=== PATIENT | male | born 1940 | race Caucasian/White ===

== ENCOUNTER 2018-08-26 03:43 | Emergency (ER) | payer OTHER ==
--- OUTSIDE RECORDS SUMMARY | 2018-08-26 03:44 | XMS REPORT | Clinical Summary ---
:1940 Author Organization [facility] Address [address] [place] [address] Care Team Providers Name Role Phone Ariel Yanes MD Primary Care Provider Allergies No Known Allergies Medications Medication Sig Dispensed Refills Start Date End Date Status metoprolol (TOPROL-XL) Take 50 mg by 0 Active 50 MG 24 hr tablet mouth daily. pravastatin Take 40 mg by 0 Active (PRAVACHOL) 40 MG mouth daily. tablet aspirin 81 MG EC Take 81 mg by 0 Active tablet mouth daily. ursodiol (ACTIGALL) Take 300 mg by 0 Active 300 mg capsule mouth daily. famotidine (PEPCID) 20 Take 20 mg by 0 Active MG tablet mouth daily. nitroglycerin Place 0.4 mg under 0 Active (NITROSTAT) 0.4 MG SL the tongue every 5 tablet (five) minutes as needed for Chest pain Put 1 pill under tongue every 5min as needed for chest pain.No more than 3 doses in 15min.Call 911 if pain is unrelieved 5min after 1st dose . clopidogrel (PLAVIX) Take 75 mg by 0 Active 75 mg tablet mouth daily. Active Problems Problem Noted Date History of partial nephrectomy (Right) 07/31/2016 Carotid artery stenosis 07/30/2016 Left carotid stenosis 07/24/2016 Essential hypertension 07/24/2016 Pure hypercholesterolemia 07/24/2016 Current smoker 07/24/2016 Coronary artery disease involving [place] coronary artery of [place] heart 07/24 without angina pectoris S/P coronary artery stent placement 07/24/2016 Social History Tobacco Use Types Packs/Day Years Used Date Current Every Day Smoker Cigarettes, Pipe 1.5 Tobacco Cessation: Ready to Quit: No; Counseling Given: Yes Alcohol Use Drinks/Week oz/Week Comments Yes 5 Standard drinks or equivalent 2.5 of rum every day Sex Assigned at Date Recorded Not on file Job Start Date Occupation Industry Not on file Not on file Not on file Travel History Travel Start Travel End No recent travel history available. Last Filed Vital Signs Not on file Plan of Treatment Health Maintenance Due Date Last Done Comments INFLUENZA VACCINE 05/25/2018 Results Not on fileafter 08/25/2017 Insurance Payer Benefit Plan / Group Subscriber ID Type Phone Address MEDICARE MEDICARE A B xxxxxxxxxx Medicare AETNA - MGD CARE AETNA INDEMNITY NON CONTR xxxxxxxxx Comm Advance Directives For more information, please contact:[address] [phone] Code Status Date Activated Date Inactivated Comments Full Code 07/30/2016 6:11 AM 07/31/2016 5:00 PM This code status was determined by: Patient
[2018-08-26] MEDS ORDERED: HYDROCODONE/APAP 5/325 MG TAB ONE (05:08)
--- NOTE | 2018-08-26 05:11 | EDPHYS ---
Physician Documentation [facility] Name: Jayme Castillo Age: 78 yrs Sex: Male : 1940 Arrival Date: 08/26/2018 Time: 03:46 Bed 8 Private MD: ED Physician Marc Hall HPI: 08/26 04:02 This 78 yrs old Male presents to ER via EMS with unknown complaint. pkl 04:02 The patient or guardian complains of contusion, an injury. left shoulder. Context: pkl resulted from a fall, from a standing position. Onset: The symptoms/episode began/occurred just prior to arrival. Historical: - Allergies: 03:58 NKDA; ca1 - Home Meds: 04:14 metoprolol tartrate 50 mg oral tab once daily [Active]; aspirin 81 mg Oral TbEC 1 tab ca1 once daily [Active]; NitroQuick SL 0.4 mg as needed [Active]; Co Q-10 100 mg oral cap daily [Active]; ursodiol 300 mg Oral cap daily [Active]; famotidine 20 mg Oral tab 1 tab once daily [Active]; pravastatin 40 mg Oral tab [Active]; Centrum Silver Oral daily [Active]; - PMHx: 03:58 Angina; Hyperlipidemia; Hypertension; ca1 - PSHx: 03:58 Kidney Surgery; ca1 - Immunization history:: Flu vaccine is not up to date. - Social history:: Smoking status: Patient uses tobacco products, smokes 1.5 packs per day. - Ebola Screening: : No symptoms or risks identified at this time. ROS: 04:02 Eyes: Negative for injury, pain, redness, and discharge, ENT: Negative for injury, pkl pain, and discharge, Neck: Negative for injury, pain, and swelling, Cardiovascular: Negative for chest pain, palpitations, and edema, Respiratory: Negative for shortness of breath, cough, wheezing, and pleuritic chest pain, Abdomen/GI: Negative for abdominal pain, nausea, vomiting, diarrhea, and constipation, Back: Negative for injury and pain, : Negative for injury, bleeding, discharge, and swelling, Skin: Negative for injury, rash, and discoloration, Neuro: Negative for headache, weakness, numbness, tingling, and seizure. 04:02 MS/extremity: Positive for injury or acute deformity, pain, tenderness, of the left shoulder. Exam: 04:02 Head/Face: Normocephalic, atraumatic. Eyes: Pupils equal round and reactive to light, pkl extra-ocular motions intact. Lids and lashes normal. Conjunctiva and sclera are non-icteric and not injected. Cornea within normal limits. Periorbital areas with no swelling, redness, or edema. ENT: Nares patent. No nasal discharge, no septal abnormalities noted. Tympanic membranes are normal and external auditory canals are clear. Oropharynx with no redness, swelling, or masses, exudates, or evidence of obstruction, uvula midline. Mucous membranes moist. Neck: Trachea midline, no thyromegaly or masses palpated, and no cervical lymphadenopathy. Supple, full range of motion without nuchal rigidity, or vertebral point tenderness. No Meningismus. Chest/axilla: Normal chest wall appearance and motion. Nontender with no deformity. No lesions are appreciated. Cardiovascular: Regular rate and rhythm with a normal S1 and S2. No gallops, murmurs, or rubs. Normal PMI, no JVD. No pulse deficits. Respiratory: Lungs have equal breath sounds bilaterally, clear to auscultation and percussion. No rales, rhonchi or wheezes noted. No increased work of breathing, no retractions or nasal flaring. Abdomen/GI: Soft, non-tender, with normal bowel sounds. No distension or tympany. No guarding or rebound. No evidence of tenderness throughout. Back: No spinal tenderness. No costovertebral tenderness. Full range of motion. Skin: Warm, dry with normal turgor. Normal color with no rashes, no lesions, and no evidence of cellulitis. Neuro: Awake and alert, GCS 15, oriented to person, place, time, and situation. Cranial nerves II-XII grossly intact. Motor strength 5/5 in all extremities. Sensory grossly intact. Cerebellar exam normal. Normal gait. 04:02 Musculoskeletal/extremity: Extremities: grossly normal except: noted in the left shoulder: pain, tenderness. Vital Signs: 03:58 BP 106 / 60; Pulse 80; Resp 16; Temp 98; Pulse Ox 92% on R/A; Weight 99.79 kg; Height 6 ca1 ft. 6 in. (198.12 cm); Pain 2/10; 04:38 BP 109 / 58; Pulse 80; Resp 18; Pulse Ox 100% on R/A; Pain 4/10; ca1 05:51 BP 111 / 48; Pulse 73; Resp 18; Pulse Ox 94% on R/A; ca1 06:46 BP 110 / 51; Pulse 81; Resp 18; Pulse Ox 99% on R/A; ca1 07:45 BP 108 / 55; Pulse 81; Resp 18; Pulse Ox 96% on R/A; ph 08:40 BP 107 / 59; Pulse 78; Resp 18; Temp 98.0; Pulse Ox 96% on R/A; ph 03:58 Body Mass Index 25.42 (99.79 kg, 198.12 cm) ca1 MDM: 03:51 Patient medically screened. pkl 05:06 Data reviewed: vital signs, nurses notes, radiologic studies, plain films. ED course: pkl Discussed X' rays result with patient. Patient said he would like to follow up his orthopedist. Advised patient to see Dr. Hall in 1 to 2 days. Patient understood instructions. 08/26 04:01 Order name: Shoulder Left (2 View) XRAY pkl 08/26 04:55 Order name: Shoulder Immobilizer; Complete Time: 04:56 pkl Administered Medications: 05:00 Drug: [place] 5 mg-325 mg 1 tabs Route: PO; ca1 06:47 Follow up: Response: No adverse reaction; Pain is decreased ca1 Disposition: 08/26/18 05:11 Discharged to Home. Impression: Impacted fracture head of left humerus. - Condition is Stable. - Prescriptions for Ultram 50 mg Oral Tablet - take 1 tablet by ORAL route every 8 hours As needed; 30 tablet. - Medication Reconciliation Form, Thank You Letter, Antibiotic Education, Prescription Opioid Use form. - Follow up: Rl Hall MD; When: 1 - 2 days; Reason: Re-evaluation by your physician. - Problem is new. - Symptoms are unchanged. Signatures: Dispatcher [employer] EDMS Marc Hall MD MD pkl Ailyn Ruffin RN RN ph Meron Manuel RN RN ca1 Corrections: (The following items were deleted from the chart) 08:44 05:11 08/26/2018 05:11 Discharged to Home. Impression: Impacted fracture head of left ph humerus. Condition is Stable. Forms are Medication Reconciliation Form, Thank You Letter, Antibiotic Education, Prescription Opioid Use. Follow up: Rl Hall; When: 1 - 2 days; Reason: Re-evaluation by your physician. Problem is new. Symptoms are unchanged. pkl
--- NOTE | 2018-08-26 05:11 | ER ---
Nurse's Notes [facility] Name: Jayme Castillo Age: 78 yrs Sex: Male : 1940 Arrival Date: 08/26/2018 Time: 03:46 Bed 8 Private MD: Diagnosis: Impacted fracture head of left humerus Presentation: 08/26 03:49 Presenting complaint: EMS states: patient fell from going to the bathroom in his home. ca1 Found laying on the floor on his right side but complained of L shoulder pain. Transition of care: patient was not received from another setting of care. Onset of symptoms was August 26, 2018. Risk Assessment: Do you want to hurt yourself or someone else? Patient reports no desire to harm self or others. Initial Sepsis Screen: Does the patient meet any 2 criteria? No. Patient's initial sepsis screen is negative. Does the patient have a suspected source of infection? No. Patient's initial sepsis screen is negative. Care prior to arrival: Arm sling on Left Shoulder. Oxygen administered. via nasal cannula. Mechanism of Injury: Fall from standing position. 03:49 Method Of Arrival: EMS: [facility] ca1 03:49 Acuity: JANE 3 ca1 Historical: - Allergies: 03:58 NKDA; ca1 - Home Meds: 04:14 metoprolol tartrate 50 mg oral tab once daily [Active]; aspirin 81 mg Oral TbEC 1 tab ca1 once daily [Active]; NitroQuick SL 0.4 mg as needed [Active]; Co Q-10 100 mg oral cap daily [Active]; ursodiol 300 mg Oral cap daily [Active]; famotidine 20 mg Oral tab 1 tab once daily [Active]; pravastatin 40 mg Oral tab [Active]; Centrum Silver Oral daily [Active]; - PMHx: 03:58 Angina; Hyperlipidemia; Hypertension; ca1 - PSHx: 03:58 Kidney Surgery; ca1 - Immunization history:: Flu vaccine is not up to date. - Social history:: Smoking status: Patient uses tobacco products, smokes 1.5 packs per day. - Ebola Screening: : No symptoms or risks identified at this time. Screenin:59 Abuse screen: Denies threats or abuse. Denies injuries from another. Nutritional ca1 screening: No deficits noted. Tuberculosis screening: No symptoms or risk factors identified. Fall Risk Ambulatory Aid- Crutches/Cane/Walker (15 pts). Assessment: 03:59 General: Appears in no apparent distress. Behavior is calm, cooperative, appropriate ca1 for age, Smells of alcoholic beverage.. General:. Pain: Complains of pain in left shoulder. Pain currently is 2 out of 10 on a pain scale. Aggravated by movement of the shoulder. Neuro: Neuro: Level of Consciousness is awake, alert, obeys commands, Oriented to person, place, time, situation, Reports loss of balance during the fall. Denies LOC and being drunk at the time of fall. . Cardiovascular: Heart tones S1 S2 present Capillary refill < 3 seconds Patient's skin is warm and dry. Respiratory: Airway is patent Trachea midline Respiratory effort is even, unlabored, Respiratory pattern is regular, symmetrical, Breath sounds are clear bilaterally. GI: Abdomen is flat, non-distended, Bowel sounds present X 4 quads. Abd is soft and non tender X 4 quads. : No signs and/or symptoms were reported regarding the genitourinary system. EENT: No signs and/or symptoms were reported regarding the EENT system. Derm: Skin is intact, is thin, Skin is pink, warm \\T\\ dry. Musculoskeletal: Circulation, motion, and sensation intact. Range of motion: limited in left shoulder. 04:38 Reassessment: X-ray tech at pt's room for ordered X-ray procedure. ca1 04:38 Reassessment: Patient appears in no apparent distress at this time. Patient and/or ca1 family updated on plan of care and expected duration. Pain level reassessed. Patient is alert, oriented x 3, equal unlabored respirations, skin warm/dry/pink. 04:54 Reassessment: Dr. Hall talked to patient and discussed condition. Allowed patient to ca1 rest in room until [id number] for someone to pick him up and drive home. 05:51 Reassessment: Patient appears in no apparent distress at this time. Patient and/or ca1 family updated on plan of care and expected duration. Pain level reassessed. Patient is alert, oriented x 3, equal unlabored respirations, skin warm/dry/pink. Patient sleeping on bed at this time. 06:46 Reassessment: Reassessment: Patient appears in no apparent distress at this time. ca1 Patient and/or family updated on plan of care and expected duration. Pain level reassessed. Patient is alert, oriented x 3, equal unlabored respirations, skin warm/dry/pink. Patient states he will will get home by riding a taxi around 0700H. States feels a little bit dizzy and requested to stay a little longer in the ER. 07:21 Reassessment: Patient appears in no apparent distress at this time. Patient and/or ph family updated on plan of care and expected duration. Pain level reassessed. Patient is alert, oriented x 3, equal unlabored respirations, skin warm/dry/pink. Pt continues to c/o dizziness, states, " I am still feeling a little woozy so I think I'll wait a bit longer if that's okay." BP currently 100/48, which is similar to other BP readings during this and previous visits. 08:00 Reassessment: Patient appears in no apparent distress at this time. Patient and/or ph family updated on plan of care and expected duration. Pain level reassessed. Patient is alert, oriented x 3, equal unlabored respirations, skin warm/dry/pink. Pt continues to c/o "wooziness", offered to order pt breakfast and pt stated, " I usually do a Boost shake in the mornings when I feel like this. Can I get one of those?". 08:15 Reassessment: Pt drinking meal replacement shake, tolerating well. ph 08:42 Reassessment: Patient appears in no apparent distress at this time. Patient and/or ph family updated on plan of care and expected duration. Pain level reassessed. Patient is alert, oriented x 3, equal unlabored respirations, skin warm/dry/pink. Pt reports that dizziness has improved, pt assisted into wheelchair and taken to lobby by [employer] to await taxi. Vital Signs: 03:58 BP 106 / 60; Pulse 80; Resp 16; Temp 98; Pulse Ox 92% on R/A; Weight 99.79 kg; Height 6 ca1 ft. 6 in. (198.12 cm); Pain 2/10; 04:38 BP 109 / 58; Pulse 80; Resp 18; Pulse Ox 100% on R/A; Pain 4/10; ca1 05:51 BP 111 / 48; Pulse 73; Resp 18; Pulse Ox 94% on R/A; ca1 06:46 BP 110 / 51; Pulse 81; Resp 18; Pulse Ox 99% on R/A; ca1 07:45 BP 108 / 55; Pulse 81; Resp 18; Pulse Ox 96% on R/A; ph 08:40 BP 107 / 59; Pulse 78; Resp 18; Temp 98.0; Pulse Ox 96% on R/A; ph 03:58 Body Mass Index 25.42 (99.79 kg, 198.12 cm) ca1 ED Course: 03:46 Patient arrived in ED. ca1 03:48 Meron Manuel, RN is Primary Nurse. ca1 03:51 Marc Hall MD is Attending Physician. pkl 03:56 Triage completed. ca1 03:58 Arm band placed on right wrist. ca1 03:59 Patient has correct armband on for positive identification. Bed in low position. Call ca1 light in reach. Side rails up X2. 03:59 Pulse ox on. NIBP on. Warm blanket given. ca1 04:41 X-ray completed. Portable x-ray completed in exam room. Patient tolerated procedure kw well. 04:42 Shoulder Left (2 View) XRAY In Process Unspecified. EDMS 05:00 Shoulder immobilizer applied on left shoulder. ca1 05:01 No provider procedures requiring assistance completed. Patient did not have IV access ca1 during this emergency room visit. 05:10 Rl Hall MD is Referral Physician. pkl Administered Medications: 05:00 Drug: [place] 5 mg-325 mg 1 tabs Route: PO; ca1 06:47 Follow up: Response: No adverse reaction; Pain is decreased ca1 Outcome: 05:11 Discharge ordered by . pkl 08:43 Discharged to home via wheelchair. ph 08:43 Condition: good 08:43 Discharge instructions given to patient, Instructed on discharge instructions, follow up and referral plans. medication usage, Demonstrated understanding of instructions, follow-up care, medications, Prescriptions given X 1. 08:44 Patient left the ED. ph Signatures: Dispatcher [employer] EDMS Marc Hall MD MD pkl Whitley, Kimberlee kw Hall, Patricia, RN RN ph Meron Manuel RN RN ca1 Corrections: (The following items were deleted from the chart) 06:47 06:25 Reassessment: ca1 ca1
--- NOTE | 2018-08-26 08:43 | RAD REPORT ---
EXAM DESCRIPTION: RAD - Shoulder Left 2 View - 08/26/2018 4:45 am CLINICAL HISTORY: Fall, left shoulder pain COMPARISON: None. TECHNIQUE: Internal and external rotation views of the left shoulder were obtained. FINDINGS: Comminuted proximal left humerus fracture is present along the surgical neck. There is imp action along the lateral margin, 1/2 shaft width medial displacement of the distal humerus and angula tion deformity. Multiple small fracture fragments are seen along the main fracture plane. No patholog ic bone process. Humeral head maintains articulation with the glenoid. Scapula fracture is not identified. There are mild degenerative changes at the AC joint. Old clavicle fracture changes are present. No acute clavicle finding seen. IMPRESSION: Comminuted proximal left humerus fracture as detailed.
[2018-08-26 09:02] VITALS: O2SAT 96
[2018-08-26 09:03] VITALS: BP 107/59; TEMP 98
== END 2018-08-26 08:44 | disposition home or self-care (01) ==
LOC: ER 03:43
DX: S42.302A Unspecified fracture of shaft of humerus, left arm, initial encounter for closed fracture (principal); W01.0XXA Fall on same level from slipping, tripping and stumbling without subsequent striking against object, initial encounter; Y92.009 Unspecified place in unspecified non-institutional (private) residence as the place of occurrence of the external cause; Y99.8 Other external cause status; E78.5 Hyperlipidemia, unspecified; I10 Essential (primary) hypertension; F17.210 Nicotine dependence, cigarettes, uncomplicated
CPT/HCPCS: 99284

== ENCOUNTER 2018-08-30 02:22 | Emergency (ER) | payer OTHER ==
--- OUTSIDE RECORDS SUMMARY | 2018-08-30 02:25 | XMS REPORT | Clinical Summary ---
:1940 Author Organization [facility] Address [address] [place] [address] Care Team Providers Name Role Phone Ariel [...] Current smoker 07/24/2016 Coronary artery disease involving [place] coronary artery of [place] heart 07/24 without angina pectoris S/P coronary [...] INFLUENZA VACCINE 05/25/2018 Results Not on fileafter 08/29/2017 Insurance Payer Benefit Plan / Group Subscriber ID Type Phone Address MEDICARE MEDICARE A B xxxxxxxxxx Medicare AETNA - [place] CARE AETNA INDEMNITY NON CONTR xxxxxxxxx Comm Advance Directives For more information, please contact:[address] [phone] Code Status Date Activated Date Inactivated Comments Full Code 07/30/2016 6:11 AM 07/31/2016 5:00 PM This code status was determined by: Patient
[2018-08-30] MEDS ORDERED: HYDROCODONE/APAP 5/325 MG TAB ONE (03:02)
--- NOTE | 2018-08-30 05:31 | EDPHYS ---
Physician Documentation [facility] Name: Jayme Castillo Age: 78 yrs Sex: Male : 1940 Arrival Date: 08/30/2018 Time: 02:23 Bed 5 Private MD: Gerri Yanes C ED Physician Prasanna Baker HPI: 08/30 21:13 This 78 yrs old Male presents to ER via EMS with complaints of Arm Injury. wa 21:13 The patient or guardian complains of pain, that is acute, presents with c/o pain L wa shoulder. recently dx'd with humeral head fracture. states came due to worsening bruising and pain. The complaints affect the left shoulder and left arm. Context: The problem was sustained at home, resulted from a fall. Onset: The symptoms/episode began/occurred 2 day(s) ago. Treatment prior to arrival includes: no previous treatment. Modifying factors: The symptoms are alleviated by nothing. the symptoms are aggravated by movement, lifting weight, bending arm. Associated signs and symptoms: Pertinent positives: ecchymosis, of the left arm and left shoulder. Severity of symptoms: At their worst the symptoms were moderate, in the emergency department the symptoms are unchanged. The patient has not experienced similar symptoms in the past. The patient has been recently seen by a physician:. Historical: - Allergies: 02:44 NKDA; jd3 - Home Meds: 02:44 aspirin 81 mg Oral TbEC 1 tab once daily [Active]; Centrum Silver Oral daily [Active]; jd3 Co Q-10 100 mg Oral cap daily [Active]; famotidine 20 mg Oral tab 1 tab once daily [Active]; ursodiol 300 mg Oral cap daily [Active]; pravastatin 40 mg Oral tab [Active]; NitroQuick SL 0.4 mg as needed [Active]; metoprolol tartrate 50 mg Oral tab once daily [Active]; - PMHx: 02:44 Angina; Hyperlipidemia; Hypertension; jd3 - PSHx: 02:44 Kidney Surgery; Heart stents; jd3 - Immunization history:: Adult Immunizations not up to date. - Social history:: Smoking status: Patient uses tobacco products, smokes one-half pack cigarettes per day, smokes one pack cigarettes per day. - Ebola Screening: : Patient negative for fever greater than or equal to 101.5 degrees Fahrenheit, and additional compatible Ebola Virus Disease symptoms. - Family history:: not pertinent. - Hospitalizations: : No recent hospitalization is reported. ROS: 21:16 Constitutional: Negative for fever, chills, and weight loss, Eyes: Negative for injury, wa pain, redness, and discharge, ENT: Negative for injury, pain, and discharge, Neck: Negative for injury, pain, and swelling, Cardiovascular: Negative for chest pain, palpitations, and edema, Respiratory: Negative for shortness of breath, cough, wheezing, and pleuritic chest pain, Abdomen/GI: Negative for abdominal pain, nausea, vomiting, diarrhea, and constipation, Back: Negative for injury and pain, : Negative for injury, bleeding, discharge, and swelling, Neuro: Negative for headache, weakness, numbness, tingling, and seizure, Psych: Negative for depression, anxiety, suicide ideation, homicidal ideation, and hallucinations. 21:16 MS/extremity: Positive for ecchymosis, swelling, tenderness, of the left arm. 21:16 Skin: Positive for ecchymosis, of the left arm. Exam: 21:17 Constitutional: This is a well developed, well nourished patient who is awake, alert, wa and in no acute distress. Head/Face: Normocephalic, atraumatic. Eyes: Pupils equal round and reactive to light, extra-ocular motions intact. Lids and lashes normal. Conjunctiva and sclera are non-icteric and not injected. Cornea within normal limits. Periorbital areas with no swelling, redness, or edema. ENT: Nares patent. No nasal discharge, no septal abnormalities noted. Tympanic membranes are normal and external auditory canals are clear. Oropharynx with no redness, swelling, or masses, exudates, or evidence of obstruction, uvula midline. Mucous membranes moist. Neck: Trachea midline, no thyromegaly or masses palpated, and no cervical lymphadenopathy. Supple, full range of motion without nuchal rigidity, or vertebral point tenderness. No Meningismus. Chest/axilla: Normal chest wall appearance and motion. Nontender with no deformity. No lesions are appreciated. Cardiovascular: Regular rate and rhythm with a normal S1 and S2. No gallops, murmurs, or rubs. Normal PMI, no JVD. No pulse deficits. Respiratory: Lungs have equal breath sounds bilaterally, clear to auscultation and percussion. No rales, rhonchi or wheezes noted. No increased work of breathing, no retractions or nasal flaring. Abdomen/GI: Soft, non-tender, with normal bowel sounds. No distension or tympany. No guarding or rebound. No evidence of tenderness throughout. Back: No spinal tenderness. No costovertebral tenderness. Full range of motion. Neuro: Awake and alert, GCS 15, oriented to person, place, time, and situation. Cranial nerves II-XII grossly intact. Motor strength 5/5 in all extremities. Sensory grossly intact. Cerebellar exam normal. Normal gait. Psych: Awake, alert, with orientation to person, place and time. Behavior, mood, and affect are within normal limits. 21:17 Musculoskeletal/extremity: Extremities: noted in the left shoulder and left arm: ecchymosis, pain, swelling, tenderness. 21:17 Skin: injury. Vital Signs: 02:45 BP 107 / 71; Pulse 87; Resp 19 S; Temp 98.1(O); Pulse Ox 97% on R/A; Weight 99.79 kg jd3 (R); Height 6 ft. 6 in. (198.12 cm) (R); Pain 1/10; 03:00 BP 115 / 65; Pulse 82; Resp 18; Pulse Ox 98% ; ea 05:45 BP 118 / 67; Pulse 78; Resp 18; Pulse Ox 95% on R/A; ea 02:45 Body Mass Index 25.42 (99.79 kg, 198.12 cm) jd3 MDM: 02:46 Patient medically screened. ri 21:18 Differential diagnosis: eval to rule fx of joint above and below. Data reviewed: vital ri signs, nurses notes. 21:18 Test interpretation: by ED physician or midlevel provider: L elbow and humerus: no wa acute fx. 21:19 ED course: pain controlled. sling applied. ri 21:29 Response to treatment: the patient's symptoms have markedly improved after treatment. 08/30 02:48 Order name: Humerus Left XRAY ri 08/30 02:48 Order name: Elbow Left 3 View XRAY 08/30 05:28 Order name: Sling; Complete Time: 06:23 ri Administered Medications: 02:48 Drug: [place] 5 mg-325 mg 1 tabs Route: PO; jd3 03:30 Follow up: Response: No adverse reaction; Pain is decreased ea Disposition: 08/30/18 05:30 Discharged to Home. Impression: L humeral head fracture. - Condition is Stable. - Discharge Instructions: Humerus Fracture Treated With Immobilization, [id number]. - Medication Reconciliation Form, Thank You Letter, Antibiotic Education, Prescription Opioid Use form. - Follow up: Crow Chance MD; When: Tomorrow; Reason: Recheck today's complaints, Re-evaluation by your physician. - Problem is new. - Symptoms have improved. - Notes: please see the orthopedist for further evaluation of your left shoulder Signatures: Dispatcher [employer] EDMS Emily Quinteros RN Prasanna Moise ea, MD MD wa Davies, Jonathon RN RN jd3 Corrections: (The following items were deleted from the chart) 06:51 05:30 08/30/2018 05:30 Discharged to Home. Impression: L humeral head fracture. ea Condition is Stable. Forms are Medication Reconciliation Form, Thank You Letter, Antibiotic Education, Prescription Opioid Use. Follow up: Crow Chance; When: Tomorrow; Reason: Recheck today's complaints, Re-evaluation by your physician. Problem is new. Symptoms have improved. jaret
--- NOTE | 2018-08-30 05:31 | ER ---
Nurse's Notes [facility] Name: Jayme Castillo Age: 78 yrs Sex: Male : 1940 Arrival Date: 08/30/2018 Time: 02:23 Bed 5 Private MD: Gerri Yanes C Diagnosis: L humeral head fracture Presentation: 08/30 02:34 Presenting complaint: EMS states: "He fell 5 days ago and fractured his left humerus. jd3 he had an appointment on Friday with the orthopedic doctor, but today he was getting worried with the amount of swelling and bruising he is having to his left arm.". Transition of care: patient was not received from another setting of care. Onset of symptoms was August 25, 2018. Risk Assessment: Do you want to hurt yourself or someone else? Patient reports no desire to harm self or others. Initial Sepsis Screen: Does the patient meet any 2 criteria? No. Patient's initial sepsis screen is negative. Does the patient have a suspected source of infection? No. Patient's initial sepsis screen is negative. Care prior to arrival: None. 02:34 Method Of Arrival: EMS: [facility] jd3 02:34 Acuity: JANE 3 jd3 Historical: - Allergies: 02:44 NKDA; jd3 - Home Meds: 02:44 aspirin 81 mg Oral TbEC 1 tab once daily [Active]; Centrum Silver Oral daily [Active]; jd3 Co Q-10 100 mg Oral cap daily [Active]; famotidine 20 mg Oral tab 1 tab once daily [Active]; ursodiol 300 mg Oral cap daily [Active]; pravastatin 40 mg Oral tab [Active]; NitroQuick SL 0.4 mg as needed [Active]; metoprolol tartrate 50 mg Oral tab once daily [Active]; - PMHx: 02:44 Angina; Hyperlipidemia; Hypertension; jd3 - PSHx: 02:44 Kidney Surgery; Heart stents; jd3 - Immunization history:: Adult Immunizations not up to date. - Social history:: Smoking status: Patient uses tobacco products, smokes one-half pack cigarettes per day, smokes one pack cigarettes per day. - Ebola Screening: : Patient negative for fever greater than or equal to 101.5 degrees Fahrenheit, and additional compatible Ebola Virus Disease symptoms. - Family history:: not pertinent. - Hospitalizations: : No recent hospitalization is reported. Screenin:49 Abuse screen: Denies threats or abuse. Nutritional screening: No deficits noted. ea Tuberculosis screening: No symptoms or risk factors identified. Fall Risk None identified. Assessment: 02:47 General: Appears in no apparent distress. Behavior is calm, cooperative, appropriate ea for age. Pain: Complains of pain in left arm Pain currently is 9 out of 10 on a pain scale. Neuro: Level of Consciousness is awake, alert, obeys commands, Oriented to person, place, time, situation. Cardiovascular: Heart tones S1 S2 present Patient's skin is warm and dry. Respiratory: Airway is patent Respiratory effort is even, unlabored, Respiratory pattern is regular, symmetrical, Breath sounds are clear bilaterally. GI: Abdomen is non-distended. Derm: Skin is fragile, Skin is dry. Musculoskeletal: Range of motion: limited in left shoulder. 03:49 Reassessment: Patient and/or family updated on plan of care and expected duration. Pain ea level reassessed. Patient is alert, oriented x 3, equal unlabored respirations, skin warm/dry/pink. 04:31 Reassessment: Patient and/or family updated on plan of care and expected duration. Pain ea level reassessed. Pt resting with eyes closed, respirations even and unlabored, chest expansions even and symmetrical. 05:45 Reassessment: Patient and/or family updated on plan of care and expected duration. Pain ea level reassessed. Patient is alert, oriented x 3, equal unlabored respirations, skin warm/dry/pink. 06:24 Reassessment: Patient and/or family updated on plan of care and expected duration. Pain ea level reassessed. Patient is alert, oriented x 3, equal unlabored respirations, skin warm/dry/pink. Discharge instructions given to patient, verbalized the understanding of instruction. Attempted to call nephew at for transportation. 06:49 Reassessment: Patient and/or family updated on plan of care and expected duration. Pain ea level reassessed. Patient is alert, oriented x 3, equal unlabored respirations, skin warm/dry/pink. Nephew at facility for transportation. Vital Signs: 02:45 BP 107 / 71; Pulse 87; Resp 19 S; Temp 98.1(O); Pulse Ox 97% on R/A; Weight 99.79 kg jd3 (R); Height 6 ft. 6 in. (198.12 cm) (R); Pain /; 03:00 BP 115 / 65; Pulse 82; Resp 18; Pulse Ox 98% ; ea 05:45 BP 118 / 67; Pulse 78; Resp 18; Pulse Ox 95% on R/A; ea 02:45 Body Mass Index 25.42 (99.79 kg, 198.12 cm) jd3 ED Course: 02:23 Patient arrived in ED. ds1 02:24 Gerri Yanes MD is Private Physician. ds1 02:40 Triage completed. jd3 02:46 Prasanna Baker MD is Attending Physician. wa 02:46 Arm band placed on. jd3 02:47 Emily Quinteros RN is Primary Nurse. ea 02:50 Patient has correct armband on for positive identification. Bed in low position. Call ea light in reach. Side rails up X2. 03:24 X-ray completed. Patient tolerated procedure well. sg4 03:25 Humerus Left XRAY In Process Unspecified. EDMS 03:25 Elbow Left 3 View XRAY In Process Unspecified. EDMS 05:30 Crow Chance MD is Referral Physician. wa 06:04 No provider procedures requiring assistance completed. Patient did not have IV access ea during this emergency room visit. Administered Medications: 02:48 Drug: [place] 5 mg-325 mg 1 tabs Route: PO; jd3 03:30 Follow up: Response: No adverse reaction; Pain is decreased ea Outcome: 05:30 Discharge ordered by . wa 06:23 Condition: improved ea 06:23 Discharge instructions given to patient, Instructed on discharge instructions, follow up and referral plans. medication usage, Demonstrated understanding of instructions, follow-up care, medications. 06:50 Discharged to home via wheelchair, with family. ea 06:51 Patient left the ED. ea Signatures: Dispatcher [employer] EDWV Kristina Gonzales ds1 Emily Quinteros, RN Prasanna Moise ea, MD MD wa Davies, Jonathon, RN RN jd3 Garcia, Susana sg4
[2018-08-30 06:55] VITALS: TEMP 98.1
[2018-08-30 06:58] VITALS: BP 118/67; O2SAT 95
--- NOTE | 2018-08-30 09:53 | RAD REPORT ---
EXAM DESCRIPTION: RAD - Humerus Left - 08/30/2018 3:24 am CLINICAL HISTORY: injury, fall COMPARISON: Shoulder Left 2 View dated 08/26/2018 FINDINGS: Moderately displaced fracture of the proximal left humerus is seen.
--- NOTE | 2018-08-30 09:57 | RAD REPORT ---
EXAM DESCRIPTION: RAD - Elbow Left 3 View - 08/30/2018 3:24 am CLINICAL HISTORY: injury COMPARISON: No comparisons FINDINGS: Prominent soft tissue swelling is seen about the left elbow. No acute fracture or dislocat ion evident.
== END 2018-08-30 06:51 | disposition home or self-care (01) ==
LOC: ER 02:22
DX: S42.292A Other displaced fracture of upper end of left humerus, initial encounter for closed fracture (principal); W19.XXXA Unspecified fall, initial encounter; Y92.009 Unspecified place in unspecified non-institutional (private) residence as the place of occurrence of the external cause; F17.210 Nicotine dependence, cigarettes, uncomplicated; E78.5 Hyperlipidemia, unspecified; I10 Essential (primary) hypertension; Z79.82 Long term (current) use of aspirin; Z79.899 Other long term (current) drug therapy; Z95.5 Presence of coronary angioplasty implant and graft
CPT/HCPCS: 99283

== ENCOUNTER 2018-09-07 11:01 | Inpatient (IN) | payer OTHER ==
--- OUTSIDE RECORDS SUMMARY | 2018-09-07 11:03 | XMS REPORT | Clinical Summary ---
:1940 Author Organization [facility] Address [address] [place] [address] Care Team Providers Name Role Phone Ariel [...] Current smoker 07/24/2016 Coronary artery disease involving [place] coronary artery of [place] heart 07/24 without angina pectoris S/P coronary [...] INFLUENZA VACCINE 05/25/2018 Results Not on fileafter 09/06/2017 Insurance Payer Benefit Plan / Group Subscriber ID Type Phone Address MEDICARE MEDICARE A B xxxxxxxxxx Medicare AETNA - MGD CARE AETNA INDEMNITY NON CONTR xxxxxxxxx Comm Advance Directives For more information, please contact:[address] [phone] Code Status Date Activated Date Inactivated Comments Full Code 07/30/2016 6:11 AM 07/31/2016 5:00 PM This code status was determined by: Patient
[2018-09-07 11:51] LABS: Protime INR 1.12
--- NOTE | 2018-09-07 11:58 | EKG ---
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
[2018-09-07] MEDS ORDERED: MUPIROCIN 2% OINT 22GM TUBE TOP ONE (12:07)
[2018-09-07] MEDS ORDERED: NA CHLORIDE 0.9% 1,000 ML ONE (12:07)
[2018-09-07 12:08] LABS: ALT/SGPT 27 U/L (12-78); AST/SGOT 23 U/L (15-37); Albumin 2.8 g/dL (3.4-5.0); Alkaline Phosphatase 167 U/L (45-117); BUN Blood Urea Nitrogen 24 mg/dL (7-18); Bicarbonate 27 mmol/L (21-32); Bilirubin Direct 0.5 mg/dL (0-0.2); Bilirubin Total 0.9 mg/dL (0.2-1.0); Glucose Level 204 mg/dL (74-106); Magnesium 2.1 mg/dL (1.8-2.4); NT PRO-BNP 1318 pg/mL (<450); Potassium 4.2 mmol/L (3.5-5.1); Protein, Total 7.2 g/dL (6.4-8.2); Sodium Level 133 mmol/L (136-145); Troponin (Emerg Dept Use Only) < 0.02 ng/mL (0.0-0.045)
[2018-09-07] MEDS ORDERED: FAMOTIDINE 20 MG/2 ML VIAL IV ONE (12:08)
[2018-09-07] MEDS ORDERED: PANTOPRAZOLE 40 MG INJ ONE (12:11)
[2018-09-07] MEDS ORDERED: LIDOCAINE VISCOUS 2% SOLN 15 ML UDC ONE (12:16)
--- NOTE | 2018-09-07 12:50 | RAD REPORT ---
EXAM DESCRIPTION: RAD - Foot Right 3 View - 09/07/2018 12:36 pm CLINICAL HISTORY: PAIN Soft tissue wound COMPARISON: No comparisons FINDINGS: Diffuse osteopenia is present. Small plantar spur is present. Soft tissue wound is seen ad jacent to the first metatarsal head. Subtle demineralization is seen along the plantar aspect of the base of the great toe proximal phalanx. Early osteomyelitis in this location is possible.
--- NOTE | 2018-09-07 13:18 | RAD REPORT ---
EXAM DESCRIPTION: CT - Chest Abdomen Pelvis W Cont - 09/07/2018 12:57 pm CLINICAL HISTORY: Chest and abdominal pain status post fall COMPARISON: [address] abdomen TECHNIQUE: Computed axial tomography of the chest, abdomen and pelvis was obtained. 100 cc Isovue-30 0 was administered intravenously. Oral contrast was not requested. This limits evaluation of bowel. All CT scans are performed using dose optimization technique as appropriate and may include automated exposure control or mA/KV adjustment according to patient size. FINDINGS: A markedly displaced comminuted fracture involves the left humeral neck. A 3 centimeter he matoma is present within the medial soft tissues. A 14 millimeter cavitary lesion is present within the left lung apex. A pulmonary contusion is not se en. A 12 millimeter left lower lobe nodule is unchanged from 2010. Minimal ground-glass opacities are seen within the right middle lobe A 37 millimeter blood is present within the left lung base mildly enlarged from a 2010 cat scan. Cent rilobular and paraseptal emphysema is present. A mediastinal hematoma is not seen. A pleural effusion is not present. A pericardial effusion is not noted A cirrhotic liver is present. Fatty infiltration is seen. A 32 millimeter structure is present within the gallbladder. Gallbladder wall thickening is not seen. . Pancreatic calcifications are present. Pancreatic tail has been resected. Partial right nephrectomy is noted. Small right renal calcifications are present. Small right renal a rterial aneurysm is noted. Left kidney is unremarkable. Atherosclerotic changes involve the aorta, iliac and femoral arteries A Schwartz catheter is present within the bladder. The rectum is mildly distended with stool. Tiny umbil ical hernia is present. A small amount of ascites is present. Subacute compression fractures involving the vertebral bodies of T12, L1 and L2. The compression frac tures are mild to moderate in severity IMPRESSION: Markedly displaced subacute comminuted fracture of the left humeral neck 14 millimeter cavitary lesion within the left lung apex Brni-[id number] subacute compression fractures involving the vertebral bodies of T12, L1 and L2 32 millimeter structure within the gallbladder probably representing a gallstone. This should be conf irmed with ultrasound
[2018-09-07 13:20] LABS: RBC Red Blood Cell Count 2.51 M/uL (4.33-5.43)
[2018-09-07 13:22] LABS: MPV 10.3 fL (7.6-11.3)
[2018-09-07 13:23] LABS: Absolute Lymphocytes (CBC) 1.2 K/uL (0.7-4.9); Absolute Monocytes 0.8 K/uL (0.1-1.3); Absolute Neutrophil 9.4 K/uL (1.8-8.0); Basophils % 0.5 % (0-1.3); Eosinophils % 0.8 % (0-4.4); Lymphocytes % 10.7 % (15.3-44.8)
--- NOTE | 2018-09-07 13:57 | ER ---
Nurse's Notes [facility] Name: Jayme Castillo Age: 78 yrs Sex: Male : 1940 Arrival Date: 09/07/2018 Time: 11:02 Bed 14 Private MD: Diagnosis: Weakness;Anemia, unspecified;Chronic obstructive pulmonary disease with (acute) exacerbation;2-part displaced fracture of surgical neck of left humerus-displaced;Osteomyelitis-right foot Presentation: 09/07 11:05 Presenting complaint: EMS states: call was for right foot wound infection, pt also c/o tw2 LEFT arm swelling from a fall on the 2nd, he did see an ortho dr. that switched him to the sling he is wearing, pt also reports decrease in urine output, vs stable. Transition of care: patient was not received from another setting of care. Onset of symptoms was September 07, 2018. Risk Assessment: Do you want to hurt yourself or someone else? Patient reports no desire to harm self or others. Initial Sepsis Screen: Does the patient meet any 2 criteria? No. Patient's initial sepsis screen is negative. Does the patient have a suspected source of infection? Yes: Skin breakdown/wound. Care prior to arrival: None. 11:05 Method Of Arrival: EMS: [facility] tw2 11:05 Acuity: JANE 2 tw2 Historical: - Allergies: 11:06 NKDA; tw2 - Home Meds: 11:06 aspirin 81 mg Oral TbEC 1 tab once daily [Active]; Centrum Silver Oral daily [Active]; tw2 Co Q-10 100 mg Oral cap daily [Active]; famotidine 20 mg Oral tab 1 tab once daily [Active]; metoprolol tartrate 50 mg Oral tab once daily [Active]; NitroQuick SL 0.4 mg as needed [Active]; pravastatin 40 mg Oral tab [Active]; ursodiol 300 mg Oral cap daily [Active]; - PMHx: 11:06 Angina; Hyperlipidemia; Hypertension; tw2 - PSHx: 11:06 Kidney Surgery; Heart stents; tw2 - Immunization history:: Adult Immunizations. - Social history:: Smoking status: Patient uses tobacco products, smokes one pack cigarettes per day. - Ebola Screening: : Patient denies travel to an Ebola-affected area in the 21 days before illness onset. Screenin:16 Abuse screen: Denies threats or abuse. Nutritional screening: No deficits noted. tw2 Tuberculosis screening: No symptoms or risk factors identified. Fall Risk Secondary diagnosis (15 points) impaired mobility. Assessment: 11:12 General: Appears in no apparent distress. unkempt, Behavior is calm, cooperative, tw2 appropriate for age. Pain: Complains of pain in right foot and left arm. Neuro: Level of Consciousness is awake, alert, obeys commands, Oriented to person, place, time, situation. Cardiovascular: Denies chest pain, shortness of breath, Heart tones S1 S2 Patient's skin is warm and dry. Respiratory: Airway is patent Respiratory effort is even, unlabored, Respiratory pattern is regular, symmetrical, Breath sounds are clear bilaterally. GI: No signs and/or symptoms were reported involving the gastrointestinal system. Abdomen is flat, Bowel sounds present X 4 quads. : Reports inability to void, urgency. EENT: No signs and/or symptoms were reported regarding the EENT system. Derm: Wound noted Bruising that is bright red, dark purple, yellow, on left arm with swelling and weaker pulse on right wrist. Reports decubitus wound. Musculoskeletal: Range of motion: limited in left shoulder and left elbow. 11:42 Reassessment: Dr. jolly at bedside at this time. tw2 12:43 Reassessment: per HERMINIO Kelly lab called, results are not correct, need all blood test tw2 recollected, will re-blood band and redraw all labs when pt is back from ct. 13:24 Reassessment: Patient appears in no apparent distress at this time. No changes from tw2 previously documented assessment. Patient and/or family updated on plan of care and expected duration. Pain level reassessed. Patient is alert, oriented x 3, equal unlabored respirations, skin warm/dry/pink. 13:53 Reassessment: Miguel from lab reports that repeat Chemistry is the same as prior iw results, will keep original results as valid. 14:20 Reassessment: pt taken to US at this time, then to MRI per Day Beltre. tw2 15:02 Reassessment: pt back from imaging at this time, NAD, on hold for GUERRERO Garcia 2nd floor tw2 nurse to give report, blood slips received from lab at this time. 15:19 Reassessment: Patient appears in no apparent distress at this time. Patient and/or tw2 family updated on plan of care and expected duration. Pain level reassessed. Patient is alert, oriented x 3, equal unlabored respirations, skin warm/dry/pink. Vital Signs: 11:09 BP 109 / 71; Pulse 77; Resp 17; Temp 98.2(O); Pulse Ox 96% on R/A; Pain 9/10; tw2 13:23 BP 139 / 69; Pulse 71; Resp 17; Pulse Ox 96% on R/A; tw2 14:00 BP 113 / 68; Pulse 84; Resp 17; Pulse Ox 96% on R/A; tw2 15:19 BP 136 / 61; Pulse 73; Resp 17; Pulse Ox 96% on R/A; tw2 ED Course: 11:02 Patient arrived in ED. tw2 11:02 Arm band placed on. tw2 11:02 Bed in low position. Call light in reach. Side rails up X2. gambling monitor on. Pulse tw2 ox on. NIBP on. Warm blanket given. 11:03 Dameon Jolly MD is Attending Physician. [facility] 11:08 Triage completed. tw2 11:22 Amanda Gonzalez, RN is Primary Nurse. tw2 11:29 Inserted saline lock: 22 gauge in right upper arm, using aseptic technique. Blood [facility] collected. 11:30 Initial lab(s) drawn, by nd, held in ED. First set of blood cultures drawn by nd, 5 Second set of blood cultures drawn by nd. 11:35 sent to lab. [facility] 11:35 Basic Metabolic Panel Sent. [facility] 11:35 CBC with Diff Sent. [facility] 11:36 LFT's Sent. 5 11:36 Magnesium Sent. 5 11:36 NT PRO-BNP Sent. [facility] 11:36 PT-INR Sent. [facility] 11:36 Troponin (emerg Dept Use Only) Sent. [facility] 11:36 Blood Culture Adult (2) Sent. [facility] 11:46 EKG done, by dental equipment technician. reviewed by Dameon Jolly MD. sm3 12:08 T\T\S collected, blood band applied to patient. Bladder scan completed. 673. 5 12:13 XRAY Chest (1 view) In Process Unspecified. EDMS 12:13 Shoulder Left (2 View) XRAY In Process Unspecified. EDMS 12:31 Missed attempt(s): 22 gauge in right forearm. per Tech. Leanna Bleeding controlled, tw2 band aid applied, catheter tip intact. 12:36 Foot Right 3 View XRAY In Process Unspecified. EDMS 12:40 CT completed. Patient tolerated procedure well. Patient moved to CT via stretcher. sj Patient moved back from CT. 12:56 Urine collected: Peterson catheter specimen, tanya colored, Amount Returned: 1000mL. Peterson 5 cath inserted, using sterile technique, 16 Fr., by me, balloon inflated, to gravity drainage, urine specimen collected. 12:58 CT Chest, Abdomen, Pelvis - W/Contrast: iv only In Process Unspecified. EDMS 13:00 Inserted saline lock: 22 gauge in right forearm, using aseptic technique. ,using tw2 aseptic technique. new blood band applied, previous blood band shredded Blood collected. 13:52 Urine Dipstick--Ancillary (enter results) Sent. [facility] 13:54 Ariel Yanes MD is Hospitalizing Provider. isela 14:49 Awaiting: attempted to call report, per Noah, [place] they didn't know they were tw2 getting a pt and she doesn't know which nurse is getting the pt, so she will have them call me back. 14:56 Patient taken to ultrasound. via stretcher. lc3 14:57 Ultrasound completed. Patient moved back from ultrasound. lc3 15:03 No provider procedures requiring assistance completed. Patient admitted, IV remains in tw2 place. Administered Medications: 12:16 Drug: ProTONIX 80 mg Route: IVP; Site: right antecubital; hb 15:17 Follow up: Response: No adverse reaction tw2 12:17 Drug: Pepcid 20 mg Route: IVP; Site: right upper arm; tw2 15:18 Follow up: Response: No adverse reaction tw2 12:21 Drug: NS 0.9% 1000 ml Route: IV; Rate: 125 ml/hr; Site: right upper arm; tw2 12:23 Drug: Bactroban Ointment 2 % 1 application Route: Topical; Site: wound; tw2 15:08 Drug: Benadryl 12.5 mg Route: IVP; Site: right upper arm; tw2 15:19 Follow up: Response: No adverse reaction tw2 15:09 Drug: Zosyn 3.375 grams Route: IVPB; Infused Over: 60 mins; Site: right upper arm; tw2 15:17 Follow up: IV Status: Infusion continued upon admission tw2 15:09 Drug: Tylenol 650 mg Route: PO; tw2 15:18 Follow up: Response: No adverse reaction tw2 15:12 Not Given (pt to receive blood on 2nd floor nancy): vancoMYCIN 1 grams IVPB once over 2 tw2 hrs Intake: 12:30 peterson clamped at this time to prevent bladder spasms tw2 Output: 12:30 Urine: 750ml (Peterson); Total: 750ml. tw2 12:30 peterson clamped at this time to prevent bladder spasms tw2 Outcome: 13:56 Decision to Hospitalize by Provider. isela 15:19 Admitted to Med/surg accompanied by tech, via stretcher, room 230, with chart, Report tw2 called to GUERRERO Garcia 15:19 Condition: stable 15:19 Instructed on the need for admit. 15:30 Patient left the ED. tw2 Signatures: Dispatcher [employer] EDWY Dameon Jolly MD MD cha Jones, Susan sj Williams, Irene, RN RN Maggie Fried Heather, RN RN Amanda Gonzalez RN RN 2 Daniela Gray 5 Andressa Noriega 3 Corrections: (The following items were deleted from the chart) 12:00 11:05 Acuity: JANE 3 tw2 tw2 13:51 12:22 TYPE AND SCREEN+BB.LAB.BRZ drawn and sent. tw2 EDWY 17:31 11:12 Derm: Wound noted Bruising that is bright red, dark purple, yellow, on left arm tw2 with swelling and weaker pulse on right wrist. tw2
--- NOTE | 2018-09-07 13:57 | EDPHYS ---
Physician Documentation [facility] Name: Jayme Castillo Age: 78 yrs Sex: Male : 1940 Arrival Date: 09/07/2018 Time: 11:02 Bed 14 Private MD: ED Physician Dameon Jolly HPI: 09/07 11:52 This 78 yrs old Male presents to ER via EMS with complaints of Wound isela Infection, arm swelling from previous fall/fracture. 11:52 This 78 yrs old Male presents to ER via EMS with complaints of Wound isela Infection, arm swelling from previous fall/fracture. 11:52 Severity of symptoms: At their worst the symptoms were mild. isela Historical: - Allergies: 11:06 NKDA; tw2 - Home Meds: 11:06 aspirin 81 mg Oral TbEC 1 tab once daily [Active]; Centrum Silver Oral daily [Active]; tw2 Co Q-10 100 mg Oral cap daily [Active]; famotidine 20 mg Oral tab 1 tab once daily [Active]; metoprolol tartrate 50 mg Oral tab once daily [Active]; NitroQuick SL 0.4 mg as needed [Active]; pravastatin 40 mg Oral tab [Active]; ursodiol 300 mg Oral cap daily [Active]; - PMHx: 11:06 Angina; Hyperlipidemia; Hypertension; tw2 - PSHx: 11:06 Kidney Surgery; Heart stents; tw2 - Immunization history:: Adult Immunizations. - Social history:: Smoking status: Patient uses tobacco products, smokes one pack cigarettes per day. - Ebola Screening: : Patient denies travel to an Ebola-affected area in the 21 days before illness onset. ROS: 11:58 Constitutional: Negative for fever, chills, and weight loss, Eyes: Negative for injury, isela pain, redness, and discharge, ENT: Negative for injury, pain, and discharge, Neck: Negative for injury, pain, and swelling, Cardiovascular: Negative for chest pain, palpitations, and edema, Abdomen/GI: Negative for abdominal pain, nausea, vomiting, diarrhea, and constipation, Back: Negative for injury and pain, : Negative for injury, bleeding, discharge, and swelling, Neuro: Negative for headache, weakness, numbness, tingling, and seizure, Psych: Negative for depression, anxiety, suicide ideation, homicidal ideation, and hallucinations, Allergy/Immunology: Negative for hives, rash, and allergies, Endocrine: Negative for neck swelling, polydipsia, polyuria, polyphagia, and marked weight changes, Hematologic/Lymphatic: Negative for swollen nodes, abnormal bleeding, and unusual bruising. 11:58 Respiratory: Positive for cough, shortness of breath. 11:58 Abdomen/GI: Negative for abdominal pain. 11:58 MS/extremity: Positive for decreased range of motion, pain, swelling, tenderness, of the left arm. Exam: 11:58 Constitutional: This is a well developed, well nourished patient who is awake, alert, isela and in no acute distress. Head/Face: Normocephalic, atraumatic. Eyes: Pupils equal round and reactive to light, extra-ocular motions intact. Lids and lashes normal. Conjunctiva and sclera are non-icteric and not injected. Cornea within normal limits. Periorbital areas with no swelling, redness, or edema. Neck: Trachea midline, no thyromegaly or masses palpated, and no cervical lymphadenopathy. Supple, full range of motion without nuchal rigidity, or vertebral point tenderness. No Meningismus. Chest/axilla: Normal chest wall appearance and motion. Nontender with no deformity. No lesions are appreciated. Cardiovascular: Regular rate and rhythm with a normal S1 and S2. No gallops, murmurs, or rubs. Normal PMI, no JVD. No pulse deficits. Abdomen/GI: Soft, non-tender, with normal bowel sounds. No distension or tympany. No guarding or rebound. No evidence of tenderness throughout. Back: No spinal tenderness. No costovertebral tenderness. Full range of motion. Male : Normal genitalia with no discharge or lesions. MS/ Extremity: Pulses equal, no cyanosis. Neurovascular intact. Full, normal range of motion. Neuro: Awake and alert, GCS 15, oriented to person, place, time, and situation. Cranial nerves II-XII grossly intact. Motor strength 5/5 in all extremities. Sensory grossly intact. Cerebellar exam normal. Normal gait. Psych: Awake, alert, with orientation to person, place and time. Behavior, mood, and affect are within normal limits. 11:58 Eyes: Conjunctiva: pale. 11:58 Musculoskeletal/extremity: ROM: limited active range of motion, limited passive range of motion, limited active range of motion due to pain, limited passive range of motion due to pain, Circulation is intact in all extremities. Sensation intact. Compartment Syndrome exam of affected extremity: is normal. DVT Exam: negative Homans' sign noted on exam, no appreciated bluish discoloration, no erythema, no increased warmth, pain, swelling, tenderness. Vital Signs: 11:09 BP 109 / 71; Pulse 77; Resp 17; Temp 98.2(O); Pulse Ox 96% on R/A; Pain 9/10; tw2 13:23 BP 139 / 69; Pulse 71; Resp 17; Pulse Ox 96% on R/A; tw2 14:00 BP 113 / 68; Pulse 84; Resp 17; Pulse Ox 96% on R/A; tw2 15:19 BP 136 / 61; Pulse 73; Resp 17; Pulse Ox 96% on R/A; tw2 MDM: 11:03 Patient medically screened. [facility] 12:00 Data reviewed: vital signs, nurses notes, lab test result(s), EKG, radiologic studies, [facility] CT scan, plain films. 09/07 11:34 Order name: Basic Metabolic Panel; Complete Time: 13:31 09/07 11:34 Order name: CBC with Diff; Complete Time: 13:31 [facility] 09/07 11:34 Order name: LFT's; Complete Time: 13:31 [facility] 09/07 11:34 Order name: Magnesium; Complete Time: 13:31 [facility] 09/07 11:34 Order name: NT PRO-BNP; Complete Time: 13:31 [facility] 09/07 11:34 Order name: PT-INR; Complete Time: 13:31 [facility] 09/07 11:34 Order name: Troponin (emerg Dept Use Only); Complete Time: 13:31 [facility] 09/07 11:34 Order name: Blood Culture Adult (2) [facility] 09/07 11:40 Order name: Urine Culture [facility] 09/07 11:46 Order name: Type And Screen [facility] 09/07 11:50 Order name: Lipase; Complete Time: 13:31 [facility] 09/07 11:50 Order name: Sed Rate; Complete Time: 13:56 [facility] 09/07 12:00 Order name: Bb Add On bd 09/07 11:34 Order name: XRAY Chest (1 view) [facility] 09/07 11:46 Order name: Shoulder Left (2 View) XRAY [facility] 09/07 11:50 Order name: Foot Right 3 View XRAY; Complete Time: 13:31 [facility] 09/07 11:51 Order name: CT Chest, Abdomen, Pelvis - W/Contrast: iv only; Complete Time: 13:31 [facility] 09/07 13:07 Order name: Urine Dipstick--Ancillary (enter results) 09/07 14:06 Order name: Foot Right Wo Cont [facility] 09/07 14:08 Order name: ABO/RH no charge [facility] 09/07 14:12 Order name: UPPER EXTREMITY VENOUS UNILATE [facility] 09/07 11:34 Order name: EKG; Complete Time: 11:35 [facility] 09/07 11:34 Order name: Cardiac monitoring; Complete Time: 11:34 [facility] 09/07 11:34 Order name: EKG - Nurse/Tech; Complete Time: 12:22 [facility] 09/07 11:34 Order name: IV Saline Lock; Complete Time: 11:34 [facility] 09/07 11:34 Order name: Labs collected and sent; Complete Time: 11:34 [facility] 09/07 11:34 Order name: O2 Per Protocol; Complete Time: 11:34 [facility] 09/07 11:34 Order name: O2 Sat Monitoring; Complete Time: 11:34 [facility] 09/07 11:40 Order name: Urine Dipstick-Ancillary (obtain specimen); Complete Time: 12:22 [facility] 09/07 11:50 Order name: Bladder Scanner; Complete Time: 12:21 [facility] 09/07 11:50 Order name: Peterson: if pvr greater than [address] peterson; Complete Time: 12:21 [facility] 09/07 14:06 Order name: CONS Physician Consult [facility] Administered Medications: 12:16 Drug: ProTONIX 80 mg Route: IVP; Site: right antecubital; hb 15:17 Follow up: Response: No adverse reaction tw2 12:17 Drug: Pepcid 20 mg Route: IVP; Site: right upper arm; tw2 15:18 Follow up: Response: No adverse reaction tw2 12:21 Drug: NS 0.9% 1000 ml Route: IV; Rate: 125 ml/hr; Site: right upper arm; tw2 12:23 Drug: Bactroban Ointment 2 % 1 application Route: Topical; Site: wound; tw2 15:08 Drug: Benadryl 12.5 mg Route: IVP; Site: right upper arm; tw2 15:19 Follow up: Response: No adverse reaction tw2 15:09 Drug: Zosyn 3.375 grams Route: IVPB; Infused Over: 60 mins; Site: right upper arm; tw2 15:17 Follow up: IV Status: Infusion continued upon admission tw2 15:09 Drug: Tylenol 650 mg Route: PO; tw2 15:18 Follow up: Response: No adverse reaction tw2 15:12 Not Given (pt to receive blood on 2nd floor nancy): vancoMYCIN 1 grams IVPB once over 2 tw2 hrs Disposition: 09/07/18 13:56 Hospitalization ordered by Ariel Yanes for Inpatient Admission. Preliminary diagnosis are Weakness, Anemia, unspecified, Chronic obstructive pulmonary disease with (acute) exacerbation, 2-part displaced fracture of surgical neck of left humerus - displaced, Osteomyelitis - right foot. - Bed requested for Telemetry/MedSurg (Inpatient). - Status is Inpatient Admission. tw2 - Condition is Fair. - Problem is new. - Symptoms have improved. UTI on Admission? No Signatures: Dispatcher [employer] EDIL Dameon Jolly MD MD cha Williams, Irene, RN RN Christie Hill RN RN Amanda Sadler RN RN tw2 Corrections: (The following items were deleted from the chart) 13:35 12:47 Basic Metabolic Panel ordered. [facility] 13:35 12:47 Liver (Hepatic) Function ordered. [facility] 13:35 12:47 Troponin (Emerg Dept Use Only) ordered. [facility] 13:35 12:47 NT PRO-BNP ordered. [facility] 13:35 12:47 Magnesium ordered. [facility] 13:35 12:47 Lipase ordered. [facility] 13:51 11:47 TYPE AND SCREEN+BB.LAB.BRZ ordered. [facility] 13:58 13:56 Hospitalization Ordered by Ariel Yanes MD for Inpatient Admission. Preliminary isela diagnosis is Weakness; Anemia, unspecified; Chronic obstructive pulmonary disease with (acute) exacerbation; 2-part displaced fracture of surgical neck of left humerus - displaced. Bed requested for Telemetry/MedSurg (Inpatient). Status is Inpatient Admission. Condition is Fair. Problem is new. Symptoms have improved. UTI on Admission? No. isela 14:12 14:09 Extremity Venous Uni Ltd+US.RAD.BRZ ordered. EDMS EDMS 14:48 13:58 09/07/2018 13:56 Hospitalization Ordered by Ariel Yanes MD for Inpatient iw Admission. Preliminary diagnosis is Weakness; Anemia, unspecified; Chronic obstructive pulmonary disease with (acute) exacerbation; 2-part displaced fracture of surgical neck of left humerus - displaced; Osteomyelitis - right foot. Bed requested for Telemetry/MedSurg (Inpatient). Status is Inpatient Admission. Condition is Fair. Problem is new. Symptoms have improved. UTI on Admission? No. isela 15:30 14:48 09/07/2018 13:56 Hospitalization Ordered by Ariel Yanes MD for Inpatient tw2 Admission. Preliminary diagnosis is Weakness; Anemia, unspecified; Chronic obstructive pulmonary disease with (acute) exacerbation; 2-part displaced fracture of surgical neck of left humerus - displaced; Osteomyelitis - right foot. Bed requested for Telemetry/MedSurg (Inpatient). Status is Inpatient Admission. Condition is Fair. Problem is new. Symptoms have improved. UTI on Admission? No. iw
[2018-09-07] MEDS ORDERED: ACETAMINOPHEN 325 MG TABLET ONE (14:36)
[2018-09-07] MEDS ORDERED: NA CHLORIDE 0.9% 500 ML ONE (14:37)
[2018-09-07] MEDS ORDERED: PIPER/TAZO/NS 3.375gm 3.375 GM/100 ML BAG ONE (14:37)
[2018-09-07] MEDS ORDERED: DIPHENHYDRAMINE 50 MG/ML VIAL ONE (14:37)
[2018-09-07] MEDS ORDERED: VANCOMYCIN 0 GM/0 ML BAG ONE (14:37)
--- NOTE | 2018-09-07 15:37 | RAD REPORT ---
EXAM DESCRIPTION: RAD - Shoulder Left 2 View - 09/07/2018 12:11 pm CLINICAL HISTORY: Left shoulder pain status post fall FINDINGS: Comminuted fracture involves the left humeral neck with marked displacement fracture fragm ents. The humeral head appears rotated medially. No dislocation is seen
--- NOTE | 2018-09-07 15:38 | RAD REPORT ---
EXAM DESCRIPTION: Tammi Single View09/07/2018 12:11 pm CLINICAL HISTORY: Chest pain COMPARISON: July 2018 FINDINGS: Chronic appearing lung opacities are noted. Lungs are hyperaerated. The heart is mildly enlarged
--- NOTE | 2018-09-07 15:40 | RAD REPORT ---
EXAM DESCRIPTION: US - UPPER EXTREMITY VENOUS UNILATE - 09/07/2018 2:54 pm CLINICAL HISTORY: Left upper extremity pain. COMPARISON: None. FINDINGS: The left internal jugular, left subclavian, left axillary, left brachial, left cephalic, l eft basilic, left radial and left ulnar veins are compressible and demonstrate augmentation. Doppler demonstrates good flow. IMPRESSION: No evidence of thrombus involving the left upper extremity.
[2018-09-07 15:44] LABS: Urine Blood NEGATIVE (NEG); Urine Glucose TRACE (NEG); Urine Protein TRACE (NEG); Urine pH 5.5 (5.0-7.0)
[2018-09-07] MEDS ORDERED: ONDANSETRON 4 MG/2 ML VIAL IV PRN (16:04)
[2018-09-07] MEDS: NA CHLORIDE 0.9% 1,000 ML IV SCH ×2 (16:04→23:45)
[2018-09-07] MEDS ORDERED: ACETAMINOPHEN 500 MG TAB PO PRN (16:04)
[2018-09-07] MEDS ORDERED: IPRATROPIUM BROM 0.5MG/2.5ML NEB PRN (16:04)
[2018-09-07] MEDS ORDERED: ALBUTEROL 2.5 MG/3 ML NEB SOL NEB PRN (16:04)
[2018-09-07 16:48] VITALS: BMI 23.1
[2018-09-07] MEDS: PIPER/TAZO/NS 3.375gm 3.375 GM/100 ML BAG IVPB SCH (17:00)
[2018-09-07] MEDS ORDERED: METHYLPREDNISOLONE 40 MG INJ IV SCH (17:00)
[2018-09-07] MEDS ORDERED: INFLUENZA VACCINE (for 3y+) 0.5 ML DOSE IMVAC ONE (18:00)
[2018-09-08] MEDS: PIPER/TAZO/NS 3.375gm 3.375 GM/100 ML BAG IVPB SCH ×4 (00:26→16:59)
[2018-09-08 00:50] LABS: Urine Appearance CLEAR; Urine Bilirubin NEGATIVE (NEG); Urine Blood NEGATIVE (NEG); Urine Color YELLOW; Urine Glucose NEGATIVE (NEG); Urine Protein NEGATIVE (NEG)
[2018-09-08 01:19] LABS: Urine Microscopic Reflex ORDER UMIC
[2018-09-08] MEDS: FENTANYL CITR 100 MCG/2 ML IV PRN ×3 (02:23→17:23)
[2018-09-08 03:06] LABS: Urine Bacteria <20 /HPF (NONE SEEN); Urine Culture Reflex Order REFLEXED; Urine RBC <5 /HPF (NONE SEEN)
--- NOTE | 2018-09-08 06:32 | HP ---
Date of Admission: 09/07/2018 Chief Complaint: Left arm pain, right foot wound, and feeling weak. History Of Present Illness: This is a 78-year-old male patient who fell down on August 26, 2018, came into emergency room and the patient was diagnosed as having left proximal humerus fracture and was discharged to go home and he has been under care of Dr. Hall since this ER visit. As I understand from the patient today, the patient will be treated with conservative treatment for this fracture and no surgery is planned. Today home health nurse came to my office and showed me picture of his right foot wound and I was concerned about osteomyelitis of this right foot. The nurse told me that the patient is very weak and he is not able to go [facility] or any place and with that concern, he was advised to send patient to emergency room. After the patient was evaluated in the ER, workup was done and the patient was admitted to the hospital under my service. I saw him this evening. The patient says he does not know for how long he had this wound over the right foot as he has kept shoes on all the time until last day or so. He took it off, but he really does not know how long he has this wound. There is some foul smell from his right foot when I examined him. Allergies: NO KNOWN ALLERGIES. Review of Systems: Musculoskeletal: As mentioned above. Constitutional: As mentioned above. All other systems reviewed and negative. Past Medical History: Significant for hypertension, hyperlipidemia, right kidney cancer, coronary artery disease, benign prostatic hypertrophy, compression fracture of spine, and testicular hypofunction. Past Surgical History: Nephrectomy in 2008 due to kidney cancer, coil placement in 2008 for splenic artery aneurysm, nephrectomy was partial nephrectomy, left carotid artery endarterectomy in 2015 for carotid artery stenosis, coronary artery angioplasty with stent placement, hemorrhoidectomy, and hernia repair. Family History: Significant for hypertension, coronary artery disease, and osteoporosis. Social History: Positive for smoking. Use of alcohol negative. Medications: Aspirin 81 mg daily, metoprolol 50 mg p.o. daily, Nitrostat p.r.n. , Pepcid 20 mg p.o. two times a day, pravastatin 40 mg p.o. daily, and Nahum 300 mg p.o. twice a day. Physical Examination: Vital signs: Weight 200 pounds, height 6 feet 6 inches, temperature 98.2 degree Fahrenheit, respiratory rate 17, pulse 77, and blood pressure 109/71. General: Awake, alert, oriented, not in distress. HEENT: Head atraumatic, normocephalic. Conjunctivae nonerythematous. Sclerae white. Mouth, no thrush or edema noted. Ears/Nose, no mass, lesion, discharge noted. Neck: Supple. No JVD, lymph nodes, bruit, thyromegaly noted. Lungs: Bilateral good equal air entry. Clear to auscultation. No rhonchi. No rales. Heart: Normal heart sounds, no murmur or gallop. Abdomen: Soft, bowel sounds normal. No guarding, rigidity, tenderness, mass, hepatosplenomegaly, distention, or bruit noted. Extremities: Left upper extremity and left upper chest has extensive bruising from recent fall and injury and mild swelling of the left upper extremity. Neurovascular status of left hand is normal. Right medial foot has an open wound approximately 2 cm round in size, covered with scab and surrounding skin is pink, warm, has some foul smell from this wound. No discharge bleeding. Skin: No rash, ulcer, cellulitis. Lymphatics: No lymph node enlargement in neck, supraclavicular, infraclavicular region. Neuro: No focal neurological deficit. Chest: Unremarkable. External Genitalia: Deferred. Rectal: Deferred. Laboratory Data: White count 11.6, hemoglobin 8.5, and platelets 258. Sedimentation rate more than 140. Sodium 133, potassium 4.2, chloride 99, bicarb 27, BUN 24, creatinine 0.90, and glucose 204. Liver function tests unremarkable. Troponin less than 0.02 and lipase 32. Urinalysis negative. Chest x-ray, changes of COPD. No acute cardiopulmonary changes. EKG, normal sinus rhythm, no acute ST-T changes. Venous Doppler of left upper extremity negative for DVT. MRI of the right foot not done yet. CAT scan of the chest, abdomen, pelvis with contrast done in the emergency room shows markedly displaced subacute comminuted fracture of the left humeral neck, 14 mm cavitary lesion in the left lung apex, [id number] subacute compression fractures involving T12, L1 and L2, 32 mm structure within the gallbladder probably representing gallstone. Right foot x-ray shows diffuse osteopenia, presence of bone spur, and early osteomyelitis change is possible with some demineralization seen along the plantar aspect of base of great toe proximal phalanx. Left shoulder x-ray shows communicated fracture, left humerus neck. Impression: 1. Rule out osteomyelitis, right foot. 2. Comminuted fracture, left proximal humerus with marked displacement. 3. Acute blood loss anemia. 4. Rule out lung cancer. 5. Hypertension. 6. Coronary artery disease. 7. Hyperlipidemia. 8. Right kidney cancer. 9. Carotid artery stenosis. 10. Benign prostatic hypertrophy. 11. Testicular hypofunction. Plan: Admit patient to hospital for further evaluation and management of this problem. The patient is appropriate for inpatient and is expected to spend 2 midnights in hospital. We will continue home medications per order. Given DVT prophylaxis per order using Lovenox. We will monitor blood count, electrolytes. If necessary consider blood transfusion. The patient was going to [facility] and he stopped going there for his kidney cancer followup. I will talk to him regarding how he wants to pursue with further intervention for his left lung mass as I will be concerned about possibility of lung cancer with his longstanding history of heavy smoking. We will get an MRI done on the foot tomorrow although meanwhile empiric antibiotic was started using Zosyn. We will continue that. We may consider adding vancomycin as well. Depending on MRI result, we will decide definite plan of treatment in terms of 6 weeks of IV antibiotic therapy. We will consult with another general surgeon for this right foot wound and osteomyelitis problem as well as we will consult orthopedic surgeon for left humerus fracture. Overall, prognosis is guarded. LAUREEN/MODL Voice ID: [id number]
[2018-09-08] MEDS: NA CHLORIDE 0.9% 1,000 ML IV SCH ×4 (08:04→23:39)
[2018-09-08] MEDS: PANTOPRAZOLE 40 MG INJ IVP SCH ×2 (09:00→12:21)
[2018-09-08] MEDS ORDERED: ATORVASTATIN 10 MG TAB PO SCH (09:00)
[2018-09-08] MEDS: THIAMINE 200 MG/2 ML INJ IVP SCH (09:00)
[2018-09-08] MEDS: URSODIOL 300 MG CAP PO SCH (09:54)
[2018-09-08] MEDS: ASPIRIN EC 81 MG TAB PO SCH (09:54)
[2018-09-08] MEDS: ENOXAPARIN 40 MG/0.4 ML SQ SCH (09:55)
[2018-09-08] MEDS: HALOPERIDOL LACT 5 MG/ML INJ IV PRN ×2 (12:06→17:17)
--- NOTE | 2018-09-08 12:26 | EKG ---
Test Date: 2018-09-08 Test Time: 08:27:23 Hair Tinter: VINNY MEASUREMENT RESULTS: Intervals: Rate: 77 ID: [id number] QRSD: 114 QT: 430 QTc: 486 Cement: P: 81 ID: [id number] QRS: 73 T: 56 INTERPRETIVE STATEMENTS: Normal sinus rhythm with sinus arrhythmia Prolonged QT Abnormal ECG Compared to ECG 09/07/2018 11:40:28 Prolonged QT interval now present Electronically Signed On 09-08-18 12:25:33 ACQUISITIONS LOGISTICS ANALYST by Constantin Lock
[2018-09-08 19:11] LABS: Absolute Lymphocytes (CBC) 1.1 K/uL (0.7-4.9); Absolute Monocytes 1.1 K/uL (0.1-1.3); Absolute Neutrophil 9.1 K/uL (1.8-8.0); Basophils % 0.5 % (0-1.3); Eosinophils % 0.3 % (0-4.4); Hematocrit 25.7 % (39.6-49.0); Lymphocytes % 9.5 % (15.3-44.8); MPV 10.3 fL (7.6-11.3); Monocytes % 9.3 % (3.3-12.3); RBC Red Blood Cell Count 2.56 M/uL (4.33-5.43)
[2018-09-08 19:32] LABS: Potassium 4.2 mmol/L (3.5-5.1)
[2018-09-08] MEDS: ATORVASTATIN 10 MG TAB PO SCH (19:46)
[2018-09-08 20:00] LABS: Folic Acid, (Folate) > 20.0 ng/mL (3.1-17.5); Transferrin 163 mg/dL (200-360)
[2018-09-08] MEDS ORDERED: AMOX/K CLAV 875 MG TAB PO SCH (21:00)
[2018-09-09] MEDS: PIPER/TAZO/NS 3.375gm 3.375 GM/100 ML BAG IVPB SCH ×3 (00:51→17:16)
--- NOTE | 2018-09-09 01:35 | PN ---
Date of Progress Note: 09/08/2018 Subjective: The patient was seen this morning for followup. During nighttime, the patient had lot o f confusion, agitation, hallucination, and he pulled out his IV, pulled out his catheter. Haldol was ordered. When I saw him early this morning, he had just started to sleep prior to my arrival. Afte r I saw him during the course of the day, he actually refused for nursing staff to put any IV back on him. Later on, he did allow nursing staff to put IV. Other thing is also better. He had some urin allie retention. Bladder scan had shown 900 cc of urine. Nurse was advised to have the patient use be dside commode and if that does not work, then to try to do straight cath, but not to leave the Schwartz catheter in. Nurse also informed me that the patient could not get MRI per Radiologist because of so me concerns about his history of splenic artery aneurysm, so I will have to communicate with the Radi ologist about it. Objective: Vital Signs: Reviewed. HEENT: Unremarkable. Lungs: Clear to auscultation. Cardiac: [place] sounds normal. Abdomen: Soft. Bowel sounds normal. No guarding, rigidity, tenderness, or distention. Extremities: No leg edema. Laboratory Data: The patient's blood work today. White count 11.4, hemoglobin 8.6, platelets 247. Sodium 135, potassium 4.2, chloride 103, bicarb 24, BUN 23, creatinine 0.97, glucose 139. B12 level 1319, folic acid level more than 20. Impression: 1.Right foot wound. 2.Left proximal humerus fracture. 3.Anemia. 4.Coronary artery disease. 5.Rule out osteomyelitis, right foot. Plan: We will go ahead and consult neurologist for this delirium type of problem. Haldol will be co ntinued. IV thiamine was ordered. Consult general surgeon, Dr. Gray to rule out osteomyelitis o f his foot. Physical therapy will be consulted to help ambulate the patient. We will continue to fo llow with Orthopedic Surgeon. We will follow up with the consultants and I will see him tomorrow for followup. LAUREEN/MODL Voice ID: [id number] Report ID: [id number]
[2018-09-09] MEDS: D5 0.9 NS 1,000 ML IV SCH ×2 (09:39→21:20)
[2018-09-09] MEDS: URSODIOL 300 MG CAP PO SCH (10:34)
[2018-09-09] MEDS: PANTOPRAZOLE 40 MG INJ IVP SCH (10:34)
[2018-09-09] MEDS: ENOXAPARIN 40 MG/0.4 ML SQ SCH (10:34)
[2018-09-09] MEDS: ASPIRIN EC 81 MG TAB PO SCH (10:34)
[2018-09-09] MEDS: SODIUM CHLORIDE 0.9% 10ML INJ IV PRN (10:35)
[2018-09-09] MEDS: THIAMINE 200 MG/2 ML INJ IVP SCH (10:36)
[2018-09-09 10:57] LABS: Absolute Lymphocytes (CBC) 1.2 K/uL (0.7-4.9); Absolute Monocytes 1.1 K/uL (0.1-1.3); Absolute Neutrophil 7.5 K/uL (1.8-8.0); Basophils % 0.7 % (0-1.3); Eosinophils % 0.6 % (0-4.4); Hematocrit 24.9 % (39.6-49.0); Lymphocytes % 12.5 % (15.3-44.8); RBC Red Blood Cell Count 2.49 M/uL (4.33-5.43)
[2018-09-09 11:13] LABS: Magnesium 2.1 mg/dL (1.8-2.4); Potassium 3.7 mmol/L (3.5-5.1)
--- NOTE | 2018-09-09 15:43 | RAD REPORT ---
EXAM DESCRIPTION: NM - Bone Imaging Three Phase - 09/09/2018 3:32 pm CLINICAL HISTORY: rule out osteomyelitis R foot Osteomyelitis COMPARISON: Foot Right 3 View dated 09/07/2018; Chest Abdomen Pelvis W Cont dated 09/07/2018; Chest Si ngle View dated 09/07/2018 TECHNIQUE: The patient was administered approximately 25 mCi Tc 99m MDP. Blood flow, blood flow pool and delayed imaging of both ankle and feet was performed. . FINDINGS: Increased blood flow and blood pool is seen to the right foot. Focal increased delayed activity is seen at the level of the first MTP joint. Focal area of uptake is also seen in the ankle particularly the lateral malleolus, which may be degenerative in etiology. IMPRESSION: Findings are compatible with osteomyelitis at the first right MTP joint.
[2018-09-09] MEDS: FENTANYL CITR 100 MCG/2 ML IV PRN (17:53)
--- NOTE | 2018-09-09 19:18 | CON ---
Consultation called by Dr. Yanes because of altered mental status. History Of Present Illness: Mr. Castillo is a 78-year-old patient admitted to the hospital with left humeral fracture in addition to the right foot wound. The patient was admitted on the after he suffered a fall on the 26 of August. He said he fell onto his left side, had some pain in the left arm, but was able to move around. He did come into the emergency room and was discharge d home right after the fracture. He continues to have pain and eventually came back into the hospita , was admitted on the . It is not clear why the patient actually developed a reported altered m ental status, but he said at some point, he thought that the nursing staff were trying to harm him. He said the nurses were trying to do something to him. He is not clear on that, but he reports that he actually only had that happen for a short while and it might have happened at night. There is no documentation in the physician's notes the patient having any altered mental status, just as indicate d above the fracture to the left arm and foot injury. In any event at the time of my evaluation, the patient was fully oriented to person, place, time, and situation. He actually got the right date. He only got incorrect day of the week. On the mini-mental status examination, he just missed 1 for d elayed verbal recall giving him a total of 28/30, which is still considered within the range of kisha l variation. Since his admission, he has been managed for his pain and comorbid conditions by [facility] care physician, Dr. Yanes. Past Medical History: Hypertension, dyslipidemia, coronary artery disease, carotid stenosis. Past Surgical History: Nephrectomy, splenic artery aneurysm coiling, carotid endarterectomy done 201 6, coronary artery stent placement x2, hemorrhoidectomy. Family History: Positive for coronary artery disease, osteoporosis, hypertension. Social History: Tobacco use. Denies alcohol or IV drug use. Home Medications: 81 mg aspirin daily, metoprolol 50 mg daily, Nitrostat as needed, Pepcid 20 mg nicholas ly, pravastatin 40 mg daily. Review of Systems: The patient does report pain in the left arm with limited range of motion to lift the arm. He has go od use of his left hand and some limited flexion at the left elbow. Otherwise, there is some foot pa in on the left side. Denies any significant issues on the right lower extremity. He does wear dentu res and at time actually did not have the dentures in and have slurred speech related to that. Physical Examination: Vital Signs: Blood pressure 113/60, pulse 81, respiratory rate 16, temperature 97.5. Oxygen saturat ion 98%. Weight 200 pounds, height 66 inches, BMI 23.1. General: Mr. Castillo is resting in bed. He is in no acute distress. HEENT: As indicated, he did not have dentures in, but he is otherwise normocephalic, atraumatic. Sc lerae anicteric. Oropharynx is moist and pink. Neck: Supple. Chest: Clear. Heart: Regular. Extremities: Show lots of bruising on the left arm, hand and forearm. He has lower extremity mild b ruising noted on the right. Neurologic: On sensory exam, he has a stocking-glove loss to light touch and temperature in arms and legs. He has depressed reflexes and symmetric in upper and lower extremities. Coordination intact in the right upper extremity and lower extremities bilaterally. Due to the pain limitations, unable to fully lift the left arm. The patient did not ambulate with the therapist and required maximum ass istance to shift, position and stand because of pain. Laboratory Studies: Complete blood count with differential shows anemia with hemoglobin 8.5, otherwi se essentially unremarkable. Coagulation panel with INR of 1.12. Chemistries: Sodium 135, potassiu m 3.7, chloride 103, carbon dioxide 25, BUN 21, creatinine 0.85. B12 1319, serum folate greater than 20. Liver function studies unremarkable except for direct bilirubin being slightly elevated at 0.5 and alkaline phosphate has been slightly elevated 167. His Doppler of the extremities on left side s howed no evidence of a deep vein thrombus. The left shoulder x-ray shows a marked displaced fracture of the left humeral neck that is a commuted fracture. His chest, abdomen and pelvis CT scan identif ies the humeral neck fracture. There is also a cavitary lesion in the left lung apex as 14 mm and a 12 mm left lower lobe nodule has not changed from 2010. He has some blood noted in the left lung bas e. It is mildly enlarged from 2010. Pancreatic calcifications seen. Assessment: Mr. Castillo is a 78-year-old patient with apparent resolved altered mental status that might occur on 1 at night. The patient is currently not confused. He is fully oriented and follows all commands appropriately. No evidence of any encephalopathy or any other causes of confusion. At this point, no further neurological workup is required. The patient does not have a focal neurologic al deficit. He has pain limiting his left arm movement. Plan: May proceed with addressing the left humeral fracture as per Dr. Hall, his orthopedic physic gianfranco, and other medical management by Dr. Yanes, primary care physician. STACY/SHUBHAM Voice ID: [id number] Report ID: [id number]
[2018-09-09] MEDS: ATORVASTATIN 10 MG TAB PO SCH (21:47)
--- NOTE | 2018-09-09 22:15 | P.PN ---
Subjective Date of Service: 09/09/18 Chief Complaint: left proximal humerus fracture Subjective: No new changes In bed during examination. Pain controlled. Not wearing sling while in bed. States that he tries to keep arm by his side while in bed. Physical Examination - Vital Signs Temperature: 97.3 F Blood Pressure: 101/62 Pulse: 80 Respirations: 18 Pulse Ox (%): 93 - Physical Exam General: Alert, In no apparent distress Musculoskeletal: Other (LUE: ttp over the proximal humerus; pain with ROM of the left shoulder; swelling and ecchymoses of the proximal humerus with ecchymoses traveling down the arm distally into the wrist and hand; NVI distally ) - Studies Microbiology Data (last 24 hrs): 09/07/18 12:27 Clean Catch Urine [place] Count - Final <10,000 CFU/ML. 09/07/18 12:27 Clean Catch Urine - Final No growth. Assessment And Plan - Plan Jayme is a 78 yo male with a left proximal humerus fracture -continue with closed treatment as recommended by Dr. Hall -[facility] -remain in cuff and collar while out of bed -f/u with Dr. Hall at prior scheduled appointment -please call me with questions while in house
[2018-09-10] MEDS: PIPER/TAZO/NS 3.375gm 3.375 GM/100 ML BAG IVPB SCH ×3 (01:30→17:09)
--- NOTE | 2018-09-10 01:43 | PN ---
Date of Progress Note: 09/09/2018 Subjective: The patient was seen this morning for followup. No new complaints or problems reported. He was lying in bed, not in any distress. Vital signs reviewed. His confusion, agitation problem was better this morning when I saw him. Objective: HEENT: Unremarkable. Lungs: Clear to auscultation. Heart: Sounds normal. Abdomen: Soft. Bowel sounds normal. No guarding, rigidity, tenderness, or distention. Extremities: No leg edema. Laboratory Data: White count 9.9, hemoglobin 8.5, platelets 237. Sodium 135, potassium 3.7, chlorid e 103, bicarb 25, BUN 21, creatinine 0.85, glucose 155. Bone scan came back positive for osteomyelit is changes of the right foot. Impression: 1.Osteomyelitis, right foot. 2.Left proximal humerus fracture. 3.Anemia. 4.Coronary artery disease. Plan: We will go ahead and continue IV fluid per order. Continue current antibiotic, which is Zosyn and continue IV thiamine. The patient does have history of significant alcohol use and his delirium is better. We will follow up with neurologist. I have requested consultation from Infectious Disea se specialist, Dr. Hummel, to provide his recommendation regarding management of this osteomyelitis jessy beckfordmervin. The patient will need 6 weeks of IV antibiotic therapy and I did discuss with him this agnieszka ng and we will go ahead and plan to put a PICC line and have social media director assist us with discharge jessy keyes. The patient will benefit from going to long-term acute care facility that would be my first recommendation and second recommendation would be to go to assisted facility where he can get IV antibiotic therapy as well as wound care and physical therapy. LAUREEN/MODL Voice ID: [id number] Report ID: [id number]
[2018-09-10] MEDS: PANTOPRAZOLE 40 MG INJ IVP SCH (09:19)
[2018-09-10] MEDS: URSODIOL 300 MG CAP PO SCH (09:20)
[2018-09-10] MEDS: SODIUM CHLORIDE 0.9% 10ML INJ IV PRN (09:21)
[2018-09-10] MEDS: ENOXAPARIN 40 MG/0.4 ML SQ SCH (10:17)
[2018-09-10] MEDS: ASPIRIN EC 81 MG TAB PO SCH (10:18)
[2018-09-10] MEDS: THIAMINE 200 MG/2 ML INJ IVP SCH (10:37)
[2018-09-10] MEDS: ATORVASTATIN 10 MG TAB PO SCH (20:32)
[2018-09-11] MEDS: PIPER/TAZO/NS 3.375gm 3.375 GM/100 ML BAG IVPB SCH ×3 (00:25→18:37)
--- NOTE | 2018-09-11 01:50 | PN ---
Date of Progress Note: 09/10/2018 Subjective: The patient was seen this morning for followup. No new complaints or problems reported by him. He is back to his normal self. His agitation, confusion, hallucination problem has resolved . Objective: Vital Signs: Reviewed. HEENT: Unremarkable. Lungs: Clear to auscultation. Heart: Sounds normal. Abdomen: Soft. Bowel sounds normal. No guarding, rigidity, tenderness or distention. Extremities: No leg edema. Impression: 1.Osteomyelitis, right foot. 2.Left proximal humerus fracture. 3.Coronary artery disease. 4.Hypertension. 5.Benign prostatic hypertrophy with urinary retention. Plan: We will go ahead and continue current antibiotic. Continue to follow with Dr. Snowden and Dr. Temi lay, who is probably planning to do debridement tomorrow. I did talk to patient and discussed det ails with him regarding long-term treatment plan, which is 6 weeks of IV antibiotic therapy and PICC line was ordered. I did give him a specific recommendation to the patient that my first recommendati on would be for him to go to long-term acute care facility and if that does not work out, then second recommendation would be to go to penitentiary facility. The patient had urinary retention today and he has been having this urinary retention on a daily basis. We will go ahead and put a Schwartz catheter in. Hopefully, we can try to remove it over next few days. LAUREEN/MODL Voice ID: [id number] Report ID: [id number]
[2018-09-11 06:15] LABS: BUN Blood Urea Nitrogen 18 mg/dL (7-18); Bicarbonate 24 mmol/L (21-32); Glucose Level 119 mg/dL (74-106); Potassium 3.7 mmol/L (3.5-5.1); Sodium Level 135 mmol/L (136-145)
--- NOTE | 2018-09-11 08:32 | RAD REPORT ---
EXAM DESCRIPTION: RAD - Chest Single View - 09/11/2018 1:32 am CLINICAL HISTORY: PICC line Placement COMPARISON: Chest Single View dated 09/07/2018; Chest Pa And Lat (2 Views) dated 07/29/2018; CHEST SIN GLE VIEW dated 02/22/2012; CHEST SINGLE VIEW dated 08/03/2010 FINDINGS: Portable chest was obtained following placement of a right upper extremity PICC line. The catheter tip projects over the SVC..
[2018-09-11] MEDS: THIAMINE 200 MG/2 ML INJ IVP SCH (09:49)
[2018-09-11] MEDS: PANTOPRAZOLE 40 MG INJ IVP SCH (09:49)
[2018-09-11 10:21] LABS: Hematocrit 23.5 % (39.6-49.0)
[2018-09-11] MEDS ORDERED: COLLAGENASE 30 GM OINTMENT TOP ONE (12:39)
[2018-09-11] MEDS ORDERED: BUPIVACAINE 0.5% PF 10 ML VIAL ONE (12:39)
[2018-09-11] MEDS ORDERED: Ringers Lactate 1,000 ML IV ONE (12:44)
[2018-09-11] MEDS ORDERED: MIDAZOLAM HCL 2 MG/2 ML INJ ONE ×2 (13:00→13:21)
[2018-09-11] MEDS ORDERED: PROPOFOL 200 MG/20 ML VIAL IV ONE (13:00)
[2018-09-11] MEDS ORDERED: FENTANYL CITR 100 MCG/2 ML ONE (13:01)
[2018-09-11] MEDS ORDERED: LIDOCAINE 2% MPF 5 ML VIAL ONE (13:01)
[2018-09-11] MEDS ORDERED: ONDANSETRON 4 MG/2 ML VIAL ONE (13:01)
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
[2018-09-11] MEDS ORDERED: KETAMINE HCL 500 MG/5 ML VIAL ONE (13:21)
[2018-09-11] MEDS ORDERED: LIDOCAINE 1% MPF 5 ML VIAL ONE (13:27)
[2018-09-11] MEDS ORDERED: EPHEDRINE SULF 50 MG/ML VIAL ONE (13:39)
--- NOTE | 2018-09-11 13:41 | P.BOP ---
Preoperative diagnosis: necrotic right foot ulcer with osteomyelitis Postoperative diagnosis: same Primary procedure: Excisional debridement necrotic R foot ulcer with osteomyelitis 3x3x0.7cm Estimated blood loss: <5cc Specimen: culture Findings: see dictation Complications: None Transferred to: Recovery Room Condition: Good
--- NOTE | 2018-09-11 14:35 | PN ---
Date of Progress Note: 09/11/2018 Subjective: The patient was seen this morning for followup, lying in bed, not in distress. No new c omplaints or problems reported. The patient reports that he has not made any decision which facility to go to, but he is thinking about not wanting to go to [place] or any facility surrounding [facility] and wants to stay locally here, but he is going to communicate with his nephew this afternoon an d then nephrology social worker. Objective: Vital Signs: Reviewed. HEENT: Unremarkable. Lungs: Clear to auscultation. Heart: Sounds normal. Abdomen: Soft. Bowel sounds normal. No guarding, rigidity, tenderness, or distention. Extremities: No leg edema. Laboratory Data: Sodium 135, potassium 3.7, chloride 105, bicarb 24, BUN 18, creatinine 0.78, glucos e 119 and magnesium 2. Impression: 1.Right foot osteomyelitis. 2.Left humerus fracture. 3.Delirium, resolved. 4.Coronary artery disease. 5.Anemia. Plan: We will go ahead and continue current antibiotic. Consultation from infectious disease physic gianfranco, Dr. Hummel is pending and final choice of antibiotic will depend on his recommendation. I did t alk to Dr. Gray who is planning to do debridement procedure today. We will keep the patient in the hospital over the weekend after today's debridement procedure and earlie possible discharge will be Friday. LAUREEN/MODL Voice ID: [id number] Report ID: [id number]
[2018-09-11] MEDS ORDERED: NA CHLORIDE 0.9% 250 ML ONE ×2 (15:00→22:48)
[2018-09-11] MEDS: ENOXAPARIN 40 MG/0.4 ML SQ SCH (17:32)
[2018-09-11] MEDS: ASPIRIN EC 81 MG TAB PO SCH (17:32)
[2018-09-11] MEDS: URSODIOL 300 MG CAP PO SCH (17:32)
--- NOTE | 2018-09-11 18:20 | PN ---
The patient is a 78-year-old male. I was consulted for possible osteomyelitis of right foot. The elicia damon is going down for surgical debridement. Not seen today. We will come back another day to deanna moses on the patient. NF/MODL Voice ID: [id number] Report ID: [id number]
[2018-09-11] MEDS: ATORVASTATIN 10 MG TAB PO SCH (21:52)
--- NOTE | 2018-09-12 01:12 | OP ---
Date of Procedure: 09/11/2018 Surgeon: Dandre Gray MD Preoperative Diagnosis: Necrotic right foot ulcer with osteomyelitis. Postoperative Diagnosis: Necrotic right foot ulcer with osteomyelitis. Procedure: Excisional debridement of necrotic right foot ulcer with osteomyelitis, 3 x 3 x 0.7 cm. Estimated Blood Loss: Less than 5 cc. Specimen: Culture. Findings: Necrotic ulcer on the right medial first metatarsal region, correlating with the bone scan findings of osteomyelitis too. Anesthesia: Local with sedation. Indications: This is the case of a 78-year-old patient, noncooperative, does not want me to touch th e foot, but he needs some debridement. I talked to the case with Dr. Yanes. at least allo w us to give him some sedation and some local anesthetic. The patient has finally agreed; and we exp lained to him once again the risks and benefits of surgery which include, but are not limited to infe ction, bleeding, damage to adjacent structures, anesthesia complications, nonhealing wound, RI, and e kalpana . He also understands this may not relieve any symptoms. He might need more than one surgi mal intervention. He require wound care and also long-term antibiotics for osteomyelitis. Signed a consent. Description Of Procedure: The patient was brought to the operating room, placed in supine position. Anesthesia was induced without complication. A time-out was called. Right foot was prepped and jamil ped in usual sterile fashion. Local anesthesia was applied followed by sharp incision of the skin wi th a sharp knife. Incision was carried down to first metatarsal bone. I could see the bone in that area. So, we proceeded to clean the area, remove necrotic tissue, obtain cultures, obtain hemostasis , and packed the area with wet-to-dry dressing. The patient tolerated the procedure well. The patie nt was sent to recovery in stable condition. YURIDIA/MODL Voice ID: [id number] Report ID: [id number]
[2018-09-12] MEDS: PIPER/TAZO/NS 3.375gm 3.375 GM/100 ML BAG IVPB SCH ×3 (01:43→16:32)
[2018-09-12] MEDS: FENTANYL CITR 100 MCG/2 ML IV PRN ×2 (02:28→18:26)
[2018-09-12 05:39] LABS: Hematocrit 29.3 % (39.6-49.0)
[2018-09-12] MEDS: THIAMINE 200 MG/2 ML INJ IVP SCH (09:05)
[2018-09-12] MEDS: COLLAGENASE 30 GM OINTMENT TOP SCH (09:06)
[2018-09-12] MEDS: URSODIOL 300 MG CAP PO SCH (09:07)
[2018-09-12] MEDS: PANTOPRAZOLE 40 MG INJ IVP SCH (09:07)
[2018-09-12] MEDS: SODIUM CHLORIDE 0.9% 10ML INJ IV PRN (09:08)
[2018-09-12 14:57] LABS: Hematocrit 28.7 % (39.6-49.0)
--- NOTE | 2018-09-12 16:45 | PN ---
Date of Progress Note: 09/12/2018 Subjective: The patient was seen this morning for followup. Last night, he had some bright red blood with some blood clot in his stool when he had a bowel movement. The patient reports that he has diarrhea, but mostly describing as soft to liquid stool most of the time and he has multiple bowel movements throughout the day and sometime even has a bowel movement when they change his position from [id number]. The patient describes as having history of hemorrhoids and it bleeds from time to time. His skin in the perianal area is sensitive because of frequent bowel movements. The patient reports his left arm pain is better. No nausea. No vomiting. Vital signs reviewed. He had debridement of right foot wound yesterday by Dr. Gray. Objective: Vital signs: Reviewed. HEENT: Unremarkable. Lungs: Clear to auscultation. Heart: Sounds normal. Abdomen: Soft. Bowel sounds normal. No guarding, rigidity, tenderness, or distention. Extremities: Soft. No leg edema. Skin: Perianal skin area is irritated. Has a DuoDERM patch present over sacrococcygeal area, and nurses reports that it was placed for skin protection. There was no skin breakdown there. Laboratory Data: Hemoglobin 10, this was on 4 o'clock this morning. Impression: 1. Osteomyelitis, right foot. 2. Anemia. 3. Gastrointestinal bleeding. 4. Coronary artery disease. 5. Left humerus fracture. Plan: We will go ahead and continue to follow with orthopedic surgeon, general surgeon, and Infectious Disease specialist. Continue current antibiotics. Aspirin and prophylactic dose of Lovenox was kept on hold today because of his bleeding problem and his hemoglobin is stable and will restart these medications tomorrow, patient was asked to move his feet and legs to lower chances of any blood clot. We will monitor his hemoglobin. Desitin cream will be ordered, and we will also order Metamucil. We will consider GI consult if bleeding problem continues or gets worse. I will see him tomorrow for followup. LAUREEN/MODL Voice ID: [id number] Report ID: [id number] AMANDA
[2018-09-12] MEDS: ZINC OXIDE 40% 30 GM TUBE TOP SCH (21:49)
[2018-09-12] MEDS: PSYLLIUM 1 PKT PO SCH (21:49)
[2018-09-12] MEDS: ATORVASTATIN 10 MG TAB PO SCH (21:49)
[2018-09-13] MEDS: PIPER/TAZO/NS 3.375gm 3.375 GM/100 ML BAG IVPB SCH ×3 (01:26→17:20)
[2018-09-13 05:34] LABS: Absolute Lymphocytes (CBC) 1.3 K/uL (0.7-4.9); Absolute Monocytes 0.8 K/uL (0.1-1.3); Absolute Neutrophil 6.9 K/uL (1.8-8.0); Basophils % 1.1 % (0-1.3); Eosinophils % 2.2 % (0-4.4); Hematocrit 27.8 % (39.6-49.0); Lymphocytes % 13.5 % (15.3-44.8); MPV 9.9 fL (7.6-11.3); Monocytes % 8.9 % (3.3-12.3); RBC Red Blood Cell Count 2.87 M/uL (4.33-5.43)
[2018-09-13 05:47] LABS: BUN Blood Urea Nitrogen 21 mg/dL (7-18); Bicarbonate 25 mmol/L (21-32); Glucose Level 196 mg/dL (74-106); Potassium 3.7 mmol/L (3.5-5.1); Sodium Level 138 mmol/L (136-145)
[2018-09-13] MEDS: THIAMINE 200 MG/2 ML INJ IVP SCH (09:00)
[2018-09-13] MEDS: COLLAGENASE 30 GM OINTMENT TOP SCH (09:00)
[2018-09-13] MEDS: ENOXAPARIN 40 MG/0.4 ML SQ SCH (09:00)
[2018-09-13] MEDS: ZINC OXIDE 40% 30 GM TUBE TOP SCH ×3 (09:00→20:51)
[2018-09-13] MEDS: PANTOPRAZOLE 40 MG INJ IVP SCH (09:34)
[2018-09-13] MEDS: ASPIRIN EC 81 MG TAB PO SCH (09:34)
[2018-09-13] MEDS: URSODIOL 300 MG CAP PO SCH (09:34)
[2018-09-13] MEDS: FENTANYL CITR 100 MCG/2 ML IV PRN ×2 (09:35→17:39)
[2018-09-13] MEDS: PSYLLIUM 1 PKT PO SCH ×2 (09:36→20:51)
--- NOTE | 2018-09-13 11:52 | PN ---
Date of Progress Note: 09/13/2018 Subjective: The patient was seen this morning for followup. No new complaints or problems reported. Last night, his Schwartz catheter was removed. After that, he has not been able to void. His bladder scan early this morning around 5 a.m. was 400 cc. After that, nurse has not checked his bladder sca n again, and he still has not voided, and nurse was going to do straight cath for him, but before marichuy t, I have advised the nurse and the patient that he should try to either use bedside commode or sit a t the bedside and see if he can try to urinate using urinal, and Flomax was started. If he is not ab le to urinate, then we will do straight cath p.r.n. Objective: Vital Signs: Reviewed. HEENT: Unremarkable. Lungs: Clear to auscultation. Heart: Sounds normal. Abdomen: Soft. Bowel sounds normal. No guarding, rigidity, tenderness, or distention. Extremities: No leg edema. Laboratory Data: White count 9.3, hemoglobin 9.5, platelets 257. Sodium 138, potassium 3.7, chlorid e 106, bicarb 25, BUN 21, creatinine 0.77, glucose 196. Impression: 1.Benign prostatic hypertrophy with urinary retention. 2.Right foot osteomyelitis. 3.Left proximal humerus fracture. 4.Anemia due to acute blood loss. 5.Coronary artery disease. Plan: We will go ahead and continue current medications. Continue current antibiotic. We will try Flomax, and if the patient is not able to void today, then we will do straight cath p.r.n. I will se e him tomorrow for followup. Continue to follow up with infectious disease and general surgeon and [facility] surgeon. LAUREEN/MODL Voice ID: [id number] Report ID: [id number]
[2018-09-13] MEDS: TAMSULOSIN 0.4 MG SR CAP PO SCH (14:13)
[2018-09-13] MEDS: ATORVASTATIN 10 MG TAB PO SCH (20:51)
[2018-09-14] MEDS: PIPER/TAZO/NS 3.375gm 3.375 GM/100 ML BAG IVPB SCH ×3 (01:20→16:15)
[2018-09-14] MEDS: FENTANYL CITR 100 MCG/2 ML IV PRN (02:45)
[2018-09-14 06:04] LABS: Absolute Lymphocytes (CBC) 1.5 K/uL (0.7-4.9); Absolute Monocytes 0.9 K/uL (0.1-1.3); Absolute Neutrophil 7.2 K/uL (1.8-8.0); Basophils % 0.8 % (0-1.3); Eosinophils % 2.1 % (0-4.4); Hematocrit 27.2 % (39.6-49.0); Lymphocytes % 14.8 % (15.3-44.8); MPV 9.8 fL (7.6-11.3); Monocytes % 9.1 % (3.3-12.3); RBC Red Blood Cell Count 2.78 M/uL (4.33-5.43)
[2018-09-14 06:08] LABS: BUN Blood Urea Nitrogen 19 mg/dL (7-18); Bicarbonate 25 mmol/L (21-32); Glucose Level 236 mg/dL (74-106); Magnesium 1.8 mg/dL (1.8-2.4); Potassium 3.7 mmol/L (3.5-5.1); Sodium Level 137 mmol/L (136-145)
[2018-09-14] MEDS: ENOXAPARIN 40 MG/0.4 ML SQ SCH (09:09)
[2018-09-14] MEDS: PANTOPRAZOLE 40 MG INJ IVP SCH (09:10)
[2018-09-14] MEDS: TAMSULOSIN 0.4 MG SR CAP PO SCH (09:10)
[2018-09-14] MEDS: URSODIOL 300 MG CAP PO SCH (09:10)
[2018-09-14] MEDS: ASPIRIN EC 81 MG TAB PO SCH (09:10)
[2018-09-14] MEDS: METFORMIN HCL 500 MG TAB PO SCH ×2 (09:10→16:14)
[2018-09-14] MEDS: PSYLLIUM 1 PKT PO SCH ×2 (09:10→22:47)
[2018-09-14] MEDS: THIAMINE 200 MG/2 ML INJ IVP SCH (09:11)
[2018-09-14] MEDS: ZINC OXIDE 40% 30 GM TUBE TOP SCH ×3 (09:22→22:48)
[2018-09-14] MEDS: COLLAGENASE 30 GM OINTMENT TOP SCH (09:22)
--- NOTE | 2018-09-14 18:56 | CON ---
INFECTIOUS DISEASE AND WOUND CARE CONSULT History Of Present Illness: The patient is a 78-year-old male. I was consulted for osteomyelitis of right foot, first metatarsal head. The patient has significant history of circulation problem and tobacco usage. The patient also had coronary artery disease, a stent placed; and a history of right-sided kidney cancer, which was removed by resectioning of part of right kidney. The patient denies any headache, nausea, vomiting, chest pain, abdominal pain, constipation, or diarrhea. As per staff, the patient had 1 bowel movement this morning, which was loose. The patient denies any other problems. Currently on IV antibiotic. Past Medical History: Left proximal humerus comminuted fracture with marked displacement, acute blood loss anemia, rule out lung CA, hypertension, coronary artery disease, hyperlipidemia, right kidney cancer, carotid artery stenosis, benign prostatic hypertrophy, testicular hypofunction, compression fracture of his spine. Social History: Tobacco, positive. Alcohol, negative. Family History: Noncontributory. Medications: Albuterol, aspirin, Lipitor, Santyl, Lovenox, Haldol, Atrovent, Glucophage, Zofran, Protonix, Zosyn, Metamucil, Flomax, vitamin B, zinc oxide. Allergies: NO KNOWN DRUG ALLERGIES. Review of Systems: A 10-point review was performed. Physical Examination: General: This is a 78-year-old male, lying in bed, not in any acute cardiopulmonary distress. Vital Signs: Temperature 98.6, pulse 85, respiration 18, blood pressure 128/ 61. HEENT: Unremarkable. Neck: Supple. Lungs: Basal crackles. Heart: S1, S2. Regular. Abdomen: Soft, nontender. Bowel sounds present. Extremities: Right foot with 2 x 2 cm wound with slough and granulation tissue noted at the base of the wound. No excessive discharge noted. Imaging Data: Chest x-ray shows right upper extremity PICC line in place. Laboratory Data: Shows WBC 9.8, hemoglobin 9.2, platelets are 257. Chemistry shows sodium 137, potassium 3.7, chloride 106, bicarb 25, BUN 19, creatinine 0.7 , glucose is 236. Microdata: Blood cultures are negative for 5 days. Assessment And Plan: Right foot osteomyelitis with nonhealing ulcer, peripheral vascular disease in a diabetic patient with coronary artery disease and history of right kidney cancer. Continue antibiotic. Apply Hydrofera Blue to the wound site and consider transferring to the Long-Term Acute Care [facility]. We will follow the patient closely. Thank you, Dr. Yanes, for consult. AIMEE/SHUBHAM Voice ID: [id number] Report ID: [id number] MTDD
[2018-09-14] MEDS: ATORVASTATIN 10 MG TAB PO SCH (22:47)
[2018-09-14] MEDS: DOXYCYCLINE 100 MG in NA CHLORIDE 0.9% 100 ML IVPB SCH (22:47)
[2018-09-15] MEDS: PIPER/TAZO/NS 3.375gm 3.375 GM/100 ML BAG IVPB SCH ×3 (00:14→16:19)
--- NOTE | 2018-09-15 01:03 | PN ---
Date of Progress Note: 09/14/2018 Subjective: Patient was seen this morning for followup. Objective: General: Lying in bed, not in any distress. Vital Signs: Reviewed. HEENT Examination: Unremarkable. Lungs: Clear to auscultation. Heart: Sounds normal. Abdomen: Soft. Bowel sounds normal. No guarding, rigidity, tenderness, or distention. Extremities: No leg edema. Laboratory Data: White count 9.8, hemoglobin 9.2, platelets 257. Sodium 137, potassium 3.7, chlorid e 106, bicarb 25, BUN 19, creatinine 0.72, glucose 236, magnesium 1.8. Impression: 1.Osteomyelitis, right foot. 2.Type 2 diabetes mellitus. 3.Coronary artery disease. 4.Orthostatic hypotension. 5.Anemia. Plan: We will go ahead and start the patient on fludrocortisone 0.1 mg p.o. daily as he has signific ant orthostatic changes. If fludrocortisone does not help, then we will have to consider midodrine. We will continue current antibiotic, follow with Infectious Disease specialist Dr. Hummel for antibi otic choice and recommendation. Continue to monitor hemoglobin. At this point, no need for blood tr ansfusion but if it becomes necessary we will consider that. Dr. Hummel is going to talk to patient about his recommendation to go to long-term acute care facility, and I agree with such recommendation but when I talked to patient last week he refused it. So, we will see if he is agreeable to go to [facility] facility after Dr. Hummel talks to him. The patient is medically stable to go to such facility when accepted. LAUREEN/MODL Voice ID: [id number] Report ID: [id number]
[2018-09-15 05:03] LABS: Absolute Lymphocytes (CBC) 1.7 K/uL (0.7-4.9); Absolute Monocytes 0.8 K/uL (0.1-1.3); Absolute Neutrophil 7.2 K/uL (1.8-8.0); Basophils % 0.8 % (0-1.3); Eosinophils % 2.6 % (0-4.4); Hematocrit 26.1 % (39.6-49.0); Lymphocytes % 16.8 % (15.3-44.8); MPV 9.7 fL (7.6-11.3); Monocytes % 8.1 % (3.3-12.3); RBC Red Blood Cell Count 2.69 M/uL (4.33-5.43)
[2018-09-15 05:13] LABS: BUN Blood Urea Nitrogen 15 mg/dL (7-18); Bicarbonate 25 mmol/L (21-32); Glucose Level 177 mg/dL (74-106); Magnesium 1.5 mg/dL (1.8-2.4); Potassium 3.9 mmol/L (3.5-5.1); Sodium Level 138 mmol/L (136-145)
[2018-09-15] MEDS ORDERED: FLUDROCORTISONE 0.1 MG TAB PO SCH (09:00)
[2018-09-15] MEDS: TAMSULOSIN 0.4 MG SR CAP PO SCH (09:36)
[2018-09-15] MEDS: URSODIOL 300 MG CAP PO SCH (09:36)
[2018-09-15] MEDS: ASPIRIN EC 81 MG TAB PO SCH (09:37)
[2018-09-15] MEDS: METFORMIN HCL 500 MG TAB PO SCH ×2 (09:37→16:18)
[2018-09-15] MEDS: PSYLLIUM 1 PKT PO SCH (09:39)
[2018-09-15] MEDS: ENOXAPARIN 40 MG/0.4 ML SQ SCH (09:39)
[2018-09-15] MEDS: PANTOPRAZOLE 40 MG INJ IVP SCH (09:40)
[2018-09-15] MEDS: DOXYCYCLINE 100 MG in NA CHLORIDE 0.9% 100 ML IVPB SCH (09:54)
[2018-09-15] MEDS: THIAMINE 200 MG/2 ML INJ IVP SCH (09:54)
[2018-09-15] MEDS: COLLAGENASE 30 GM OINTMENT TOP SCH (11:19)
[2018-09-15] MEDS: ZINC OXIDE 40% 30 GM TUBE TOP SCH ×3 (11:20→13:06)
[2018-09-15 13:32] VITALS: O2SAT 93
[2018-09-15 17:56] VITALS: BP 127/61; TEMP 97.3
--- NOTE | 2018-09-15 17:56 | PN ---
Subjective: The patient is being transferred to long-term acute care. Continues to have pain in his legs. Denies any headache, nausea, vomiting, chest pain, abdominal pain, constipation, or diarrhea. Objective: Vital Signs: Temperature 97, pulse 83, respirations 18, blood pressure 133/70. Lungs: Basal crackles. Heart: S1, S2. Regular. Abdomen: Soft, nontender. Bowel sounds present. Extremities: No edema. Right foot wound noted. Assessment/plan: Osteomyelitis of right first metatarsal and diabetic foot ulcer, peripheral vascula r disease. Continue antibiotic and wound care. We will follow the patient as needed. NF/MODL Voice ID: [id number] Report ID: [id number]
--- NOTE | 2018-09-16 04:04 | DS ---
Date of Discharge: 09/15/2018 Disposition: Discharged to go to long-term acute care facility. Physical Examination: HEENT: Unremarkable. Lungs: Clear to auscultation. Heart: Sounds normal. Abdomen: Soft. Bowel sounds normal. No guarding, rigidity, tenderness, or distention. Extremities: No leg edema. Laboratory Data: Last white count today 10, hemoglobin 9.1, platelets 257. Last chemistry today: So dium 138, potassium 3.9, chloride 107, bicarb 25, BUN 15, creatinine 0.71, glucose 177. Hemoglobin A 1c yesterday 6.3, magnesium today 1.5. His lowest hemoglobin was 7.8 on 09/11/2018 and he did receiv e blood transfusion. His initial hemoglobin when he was admitted was 8.5. Stool guaiac was positive . Hospital Course: A 78-year-old male patient who was admitted to the hospital with left arm pain, rig ht foot wound, and feeling weak. Please see dictated H and P for more information. The patient had fallen down recently prior to this admission, came into emergency room, was diagnosed as having fract ure of the left proximal humerus and he is under care of Dr. Hall for that. He has advised conserv ative treatment for this fracture. He was asked to come in when home health nurse showed me a pictur e of his right foot wound. I was concerned about possibility of osteomyelitis and the patient was as ked to come to ER. After he was evaluated, he was admitted to the hospital. He has significant gene ralized weakness, not able to get out of the bed. He lives at home with his nephew and he actually h as a right footdrop and he had shoes over his right foot for a long time, he does not know for how lo ng and he did not take it off, but when he took it off, this open wound over the medial part of the r ight foot medial to the right first MTP joint was noted with foul smell. After he was evaluated in [facility] ER, he was admitted to the hospital. Further evaluation included routine blood work, x-ray of the foot and the patient could not have an MRI so we did a bone scan and it did reveal presence of osteo myelitis of this right foot area. He was started on empiric antibiotics Zosyn and Infectious Disease consultation was requested from Dr. Hummel who subsequently suggested to add doxycycline. Dr. Shruthi velasquez from General Surgery was consulted and he did perform debridement of this right foot wound. Dr. Hall/Dr. Snowden continue to follow for his left proximal humerus fracture problem. Physical Therapy was consulted. The patient was noted to have significant orthostatic changes and he was started on f ludrocortisone. He also was noted to have urinary retention problem and required intermittent cathet erization. Flomax was started and we will see how he responds to that. It was recommended for him t o go to long-term acute care facility and he after thinking about it, refused and subsequently after talking to Dr. Hummel, he was agreeable to do so. So once arrangements completed, he was transferred to [facility] where Dr. Hummel will continue to look after him. The patient was discharged in stable co ndition. He will need 6 weeks of IV antibiotics, wound care management plus physical therapy, which will be provided at long-term acute care facility. He was told to return to office for followup visi t after he comes home. He had low potassium, low magnesium which was corrected with electrolyte repl acement protocol. His stool was guaiac positive. He is at high risk of having DVT, so Lovenox was g iven for DVT prophylaxis. The patient will require further evaluation of his 14 mm cavitary lesion i n the left lung apex to rule out lung cancer and I have communicated this with Dr. Manning, who will be looking after his care at long-term acute care facility and he will address this issue with Pulmonar y consultation. Final Diagnoses: 1.Right foot osteomyelitis. 2.Comminuted fracture, left proximal humerus with marked displacement. 3.Acute blood loss anemia. 4.Hypertension. 5.Coronary artery disease. 6.Hyperlipidemia. 7.Right kidney cancer. 8.Carotid artery stenosis. 9.Benign prostatic hypertrophy with urinary retention. 10.Testicular hypofunction. 11.Delirium. LAUREEN/MODL Voice ID: [id number] Report ID: [id number]
== END 2018-09-15 18:05 | DRG 504 ==
LOC: ER 11:01 → ERHOLD 14:02 → 2ND 15:07
PROVIDERS: ADMIT Internal Medicine; ATTEND Internal Medicine
PROC: 02HV33Z Insertion of Infusion Device into Superior Vena Cava, Percutaneous Approach (ICD-10-PCS; 2018-09-10)
PROC: B548ZZA Ultrasonography of Superior Vena Cava, Guidance (ICD-10-PCS; 2018-09-10)
PROC: 30233N1 Transfusion of Nonautologous Red Blood Cells into Peripheral Vein, Percutaneous Approach (ICD-10-PCS; 2018-09-11)
PROC: 0QBN0ZZ Excision of Right Metatarsal, Open Approach (ICD-10-PCS; principal; 2018-09-11 12:30)
DX: M86.171 Other acute osteomyelitis, right ankle and foot (principal); M48.55XA Collapsed vertebra, not elsewhere classified, thoracolumbar region, initial encounter for fracture; D62 Acute posthemorrhagic anemia; L97.414 Non-pressure chronic ulcer of right heel and midfoot with necrosis of bone; K92.2 Gastrointestinal hemorrhage, unspecified; S42.222D 2-part displaced fracture of surgical neck of left humerus, subsequent encounter for fracture with routine healing; W19.XXXD Unspecified fall, subsequent encounter; E78.5 Hyperlipidemia, unspecified; I10 Essential (primary) hypertension; Z85.528 Personal history of other malignant neoplasm of kidney; I25.10 Atherosclerotic heart disease of native coronary artery without angina pectoris; Z95.5 Presence of coronary angioplasty implant and graft; E29.1 Testicular hypofunction; Z90.5 Acquired absence of kidney; F17.210 Nicotine dependence, cigarettes, uncomplicated; M85.871 Other specified disorders of bone density and structure, right ankle and foot; I65.29 Occlusion and stenosis of unspecified carotid artery; R45.1 Restlessness and agitation; N40.1 Benign prostatic hyperplasia with lower urinary tract symptoms; R33.8 Other retention of urine; R91.1 Solitary pulmonary nodule; I95.1 Orthostatic hypotension; M21.371 Foot drop, right foot
CPT/HCPCS: 36415; 36430; 51702; 71045; 71260; 74177; 78315; 80048; 80076; 81003; 81015; 82274; 82607; 82746; 83036; 83540; 83690; 83735; 83880; 84466; 84484; 85014; 85018; 85025; 85610; 85652; 86850; 86900; 86901; 87040; 87070; 87075; 87077; 87086; 87088; 87186; 87205; 88304; 93005; 93971; 94760; 97110; 97116; 97163; 97530; 99285; A9503; C9113; J1630; J1650; J2250; J2405; J2543; J2704; J2920; J3010; J3370; J3411; J3590; J7030; P9016; Q9967

== ENCOUNTER 2019-01-06 11:38 | Emergency (ER) | payer OTHER ==
--- OUTSIDE RECORDS SUMMARY | 2019-01-06 11:41 | XMS REPORT | Clinical Summary ---
:1940 Author Organization [facility] Address [address] [place] [address] Care Team Providers Name Role Phone Ariel [...] Current smoker 07/24/2016 Coronary artery disease involving [place] coronary artery of [place] heart 07/24 without angina pectoris S/P coronary [...] Signs Not on file Plan of Treatment Not on file Results Not on fileafter 01/05/2018 Insurance Payer Benefit Plan / Group Subscriber ID Type Phone Address MEDICARE MEDICARE A B xxxxxxxxxx Medicare AETNA - MGD CARE AETNA INDEMNITY NON CONTR xxxxxxxxx Comm Advance Directives For more information, please contact:[address] [phone] Code Status Date Activated Date Inactivated Comments Full Code 07/30/2016 6:11 AM 07/31/2016 5:00 PM This code status was determined by: Patient
[2019-01-06] MEDS ORDERED: NA CHLORIDE 0.9% 500 ML ONE (12:26)
[2019-01-06 12:40] LABS: Absolute Lymphocytes (CBC) 1.3 K/uL (0.7-4.9); Absolute Monocytes 0.3 K/uL (0.1-1.3); Absolute Neutrophil 3.4 K/uL (1.8-8.0); Basophils % 0.9 % (0-1.3); Hematocrit 37.3 % (39.6-49.0); Lymphocytes % 25.6 % (15.3-44.8); MPV 10.5 fL (7.6-11.3); Monocytes % 6.3 % (3.3-12.3); RBC Red Blood Cell Count 4.06 M/uL (4.33-5.43)
[2019-01-06 13:00] LABS: BUN Blood Urea Nitrogen 19 mg/dL (7-18); Bicarbonate 23 mmol/L (21-32); Potassium 4.1 mmol/L (3.5-5.1); Sodium Level 133 mmol/L (136-145)
[2019-01-06 13:39] LABS: Glucose Level 415 mg/dL (74-106)
[2019-01-06 13:51] LABS: Urine Bacteria >50 /HPF (NONE SEEN); Urine Culture Reflex Order REFLEXED; Urine RBC <5 /HPF (NONE SEEN)
[2019-01-06 14:33] LABS: Urine Blood NEGATIVE (NEG); Urine Glucose 2+ (NEG); Urine Protein NEGATIVE (NEG); Urine Specific Gravity 1.015 (1.005-1.030); Urine pH 6.5 (5.0-7.0)
[2019-01-06] MEDS ORDERED: INSULIN -REGULAR HUMAN 50 UNIT/0.5 ML ML ONE (15:03)
[2019-01-06] MEDS ORDERED: NITROFURAN MACRO 100 MG CAP PO ONE (15:03)
--- NOTE | 2019-01-06 16:17 | ER ---
Nurse's Notes [facility] Name: Jayme Castillo Age: 78 yrs Sex: Male : 1940 Arrival Date: 01/06/2019 Time: 11:43 Bed 8 Private MD: Gerri Yanes C Diagnosis: Hyperglycemia, unspecified;Urinary tract infection, site not specified Presentation: 01/06 11:46 Presenting complaint: Patient states: [facility] sent me here because my BGL la1 was 441. Transition of care: patient was not received from another setting of care. Onset of symptoms was January 06, 2019. Risk Assessment: Do you want to hurt yourself or someone else? Patient reports no desire to harm self or others. Initial Sepsis Screen: Does the patient meet any 2 criteria? No. Patient's initial sepsis screen is negative. Does the patient have a suspected source of infection? No. Patient's initial sepsis screen is negative. Care prior to arrival: None. 11:46 Method Of Arrival: Ambulatory la1 11:46 Acuity: JANE 3 la1 Historical: - Allergies: 11:46 NKDA; la1 - Home Meds: 11:54 aspirin 81 mg Oral TbEC 1 tab once daily [Active]; Centrum Silver Oral daily [Active]; la1 Co Q-10 100 mg Oral cap daily [Active]; famotidine 20 mg Oral tab 1 tab once daily [Active]; NitroQuick SL 0.4 mg as needed [Active]; pravastatin 40 mg Oral tab [Active]; ursodiol 300 mg Oral cap daily [Active]; - PMHx: 11:46 Hyperlipidemia; Hypertension; Angina; la1 - Immunization history:: Adult Immunizations up to date. - Social history:: Smoking status: Patient uses tobacco products, smokes one pack cigarettes per day. - Ebola Screening: : No symptoms or risks identified at this time. - Family history:: not pertinent. - Hospitalizations: : No recent hospitalization is reported. Screenin:57 Abuse screen: Denies threats or abuse. Nutritional screening: No deficits noted. tw2 Tuberculosis screening: No symptoms or risk factors identified. Fall Risk Secondary diagnosis (15 points) impaired mobility, Ambulatory Aid- Crutches/Cane/Walker (15 pts). Assessment: 12:30 General: Appears in no apparent distress. well groomed, well developed, well nourished, sg Behavior is calm, cooperative, appropriate for age. Pain: Complains of pain in anterior aspect of left shoulder and posterior aspect of left shoulder. Neuro: Level of Consciousness is awake, alert, obeys commands, Oriented to person, place, time, Facial symmetry appears normal. Cardiovascular: Patient's skin is warm and dry. Chest pain is denied. Respiratory: Airway is patent Respiratory effort is even, unlabored, Respiratory pattern is regular, symmetrical. GI: Abdomen is round non-distended. : No signs and/or symptoms were reported regarding the genitourinary system. EENT: Oral mucosa is moist. Throat is pink. Derm: Skin is pink, warm \T\ dry. Musculoskeletal: Circulation, motion, and sensation intact. Range of motion: intact in all extremities, Swelling absent. 13:18 Reassessment: Patient appears in no apparent distress at this time. No changes from tw2 previously documented assessment. Patient and/or family updated on plan of care and expected duration. Pain level reassessed. Patient is alert, oriented x 3, equal unlabored respirations, skin warm/dry/pink. 14:23 Reassessment: Patient appears in no apparent distress at this time. No changes from tw2 previously documented assessment. Patient and/or family updated on plan of care and expected duration. Pain level reassessed. Patient is alert, oriented x 3, equal unlabored respirations, skin warm/dry/pink. 14:56 Reassessment: Patient appears in no apparent distress at this time. Patient and/or sg family updated on plan of care and expected duration. Pain level reassessed. Patient is alert, oriented x 3, equal unlabored respirations, skin warm/dry/pink. Patient states feeling better. 16:05 Reassessment: Patient appears in no apparent distress at this time. No changes from tw2 previously documented assessment. Patient and/or family updated on plan of care and expected duration. Pain level reassessed. Patient is alert, oriented x 3, equal unlabored respirations, skin warm/dry/pink. Vital Signs: 11:47 Pulse 99; Resp 14; Temp 98.3; Pulse Ox 97% on R/A; Weight 92.53 kg; Height 6 ft. 6 in. la1 (198.12 cm); Pain 0/10; 11:49 BP 142 / 76; la1 13:19 BP 149 / 86; Pulse 82; Resp 17; Pulse Ox 97% on R/A; tw2 14:23 BP 146 / 88; Pulse 75; Resp 17; Pulse Ox 98% on R/A; tw2 16:05 BP 158 / 83; Pulse 72; Resp 17; Pulse Ox 100% on R/A; tw2 11:47 Body Mass Index 23.57 (92.53 kg, 198.12 cm) la1 ED Course: 11:43 Patient arrived in ED. mr 11:44 Gerri Yanes MD is Private Physician. mr 11:47 Triage completed. la1 11:47 Arm band placed on right wrist. la1 11:55 Chris Cobian MD is Attending Physician. rn 11:57 Bed in low position. Call light in reach. professor of business on. Pulse ox on. NIBP on. tw2 12:26 Crow Em, RN is Primary Nurse. sg 12:30 Initial lab(s) drawn, by ak, sent to lab. Inserted saline lock: 22 gauge in left wrist, sg using aseptic technique. Blood collected. 13:17 Urine Microscopic Only Sent. tw2 16:16 Gerri Yanes MD is Referral Physician. rn 16:30 No provider procedures requiring assistance completed. IV discontinued, intact, sg bleeding controlled, No redness/swelling at site. Pressure dressing applied. Administered Medications: 12:30 Drug: NS 0.9% 500 ml Route: IV; Rate: bolus; Site: left wrist; sg 14:52 Drug: Nitrofurantoin 100 mg Route: PO; sg 14:52 Drug: Insulin Regular Human 10 units {Co-Signature: tw2 (Amanda oGnzalez RN).} Route: Sub-Q; sg Site: right lower abdomen; Point of Care Testing: Blood Glucose: 11:52 Blood Glucose: 422 mg/dL; la1 16:11 Blood Glucose: 324 mg/dL; tw2 16:11 per Day Mark, provider Dr. Cobian notified. tw2 Ranges: Outcome: 16:16 Discharge ordered by . rn 16:30 Discharged to home via wheelchair, with family. sg 16:30 Condition: good 16:30 Discharge instructions given to patient, family, Instructed on discharge instructions, follow up and referral plans. no drinking with medication, medication usage, safety practices, Demonstrated understanding of instructions, follow-up care, medications, Prescriptions given X 2. 16:33 Patient left the ED. Addendum: 01/08/2019 16:45 Addendum: Culture Results: Positive urine culture. Bacteria is resistant to, has d m5 intermediate sensitivity, or is not tested against prescribed antibiotics. Report given to AMINA for further evaluation and then to farmworker for follow up with patient. Prescription called-in to pharmacy of choice. Bactrim DS 1 tab PO BID x 7 days called in to [facility] by ak for LILI Gomez. Signatures: Mansi Tolbert, RN RN dm5 Crow Em, RN RN sg Maira Pimentel mr Mango, MD WILLA Perez rn AttemaKonstantin RN RN la1 Amanda Gonzalez RN RN tw2 Amanda Gonzalez RN tw2
--- NOTE | 2019-01-06 16:18 | EDPHYS ---
Physician Documentation [facility] Name: Jayme Castillo Age: 78 yrs Sex: Male : 1940 Arrival Date: 01/06/2019 Time: 11:43 Bed 8 Private MD: Gerri Yanes C ED Physician Chris Cobian HPI: 01/06 12:08 This 78 yrs old Male presents to ER via Ambulatory with complaints of High rn Blood Sugar. 12:08 The patient or guardian reports hyperglycemia, that was potentially precipitated by no rn particular event. Associated signs and symptoms: Pertinent negatives: decreased urine output, diaphoresis, polydipsia, seizure activity, urinary incontinence, vomiting. Current symptoms: In the emergency department the patient's symptoms are unchanged from the initial presentation. The patient has experienced similar episodes in the past. Reports has been out of rehab for a while now, was getting insulin shots at that time, but has never been on meds at home, home health has been monitoring glucose at his house now, was 440 today, is same here. States first one taken before breakfast but after ensure and candy. Denies increased thirst or urination. + mild fatigue. No chest pain/sob. . Historical: - Allergies: 11:46 NKDA; la1 - Home Meds: 11:54 aspirin 81 mg Oral TbEC 1 tab once daily [Active]; Centrum Silver Oral daily [Active]; la1 Co Q-10 100 mg Oral cap daily [Active]; famotidine 20 mg Oral tab 1 tab once daily [Active]; NitroQuick SL 0.4 mg as needed [Active]; pravastatin 40 mg Oral tab [Active]; ursodiol 300 mg Oral cap daily [Active]; - PMHx: 11:46 Hyperlipidemia; Hypertension; Angina; la1 - Immunization history:: Adult Immunizations up to date. - Social history:: Smoking status: Patient uses tobacco products, smokes one pack cigarettes per day. - Ebola Screening: : No symptoms or risks identified at this time. - Family history:: not pertinent. - Hospitalizations: : No recent hospitalization is reported. ROS: 12:08 Constitutional: Negative for fever, chills, and weight loss, Eyes: Negative for injury, rn pain, redness, and discharge, Neck: Negative for injury, pain, and swelling, Cardiovascular: Negative for chest pain, palpitations, and edema, Respiratory: Negative for shortness of breath, cough, wheezing, and pleuritic chest pain, Abdomen/GI: Negative for abdominal pain, nausea, vomiting, diarrhea, and constipation, : Negative for injury, bleeding, discharge, and swelling, MS/Extremity: Negative for injury and deformity, Skin: Negative for injury, rash, and discoloration, Neuro: Negative for headache, numbness, tingling, and seizure. Exam: 12:08 Constitutional: This is a well developed, well nourished patient who is awake, alert, rn slow to ambulate to room with walker Head/Face: Normocephalic, atraumatic. Eyes: Sunken eyes, MMM ENT: MMM Cardiovascular: Regular rate and rhythm. No pulse deficits. Respiratory: Lungs have equal breath sounds bilaterally, clear to auscultation. No increased work of breathing, no retractions or nasal flaring. Abdomen/GI: soft, non-tender Skin: Warm, dry, no evidence of cellulitis MS/ Extremity: Pulses equal, no cyanosis. Neurovascular intact. Full, normal range of motion. Equal circumference. Neuro: Awake and alert, GCS 15, oriented to person, place, time, and situation. Cranial nerves II-XII grossly intact. Motor strength 5/5 in all extremities. Sensory grossly intact. Cerebellar exam normal. Normal gait. Vital Signs: 11:47 Pulse 99; Resp 14; Temp 98.3; Pulse Ox 97% on R/A; Weight 92.53 kg; Height 6 ft. 6 in. la1 (198.12 cm); Pain 0/10; 11:49 BP 142 / 76; la1 13:19 BP 149 / 86; Pulse 82; Resp 17; Pulse Ox 97% on R/A; tw2 14:23 BP 146 / 88; Pulse 75; Resp 17; Pulse Ox 98% on R/A; tw2 16:05 BP 158 / 83; Pulse 72; Resp 17; Pulse Ox 100% on R/A; tw2 11:47 Body Mass Index 23.57 (92.53 kg, 198.12 cm) la1 MDM: 11:55 Patient medically screened. rn 14:41 ED course: Consulted with Dr. Yanes, no increased AG, no acidosis, normal osmolality, rn recommends dc home and asks for patient to start metformin 500mg bid. F/u this next week.. 16:16 Differential diagnosis: hyperglycemia, UTI, dehydration. Data reviewed: vital signs, rn nurses notes, lab test result(s), and as a result, I will discharge patient. Counseling: I had a detailed discussion with the patient and/or guardian regarding: the historical points, exam findings, and any diagnostic results supporting the discharge/admit diagnosis, lab results, the need for outpatient follow up, to return to the emergency department if symptoms worsen or persist or if there are any questions or concerns that arise at home. Response to treatment: the patient's symptoms have mildly improved after treatment, and as a result, I will discharge patient. 01/06 12:08 Order name: CBC with Diff; Complete Time: 12:48 01/06 12:08 Order name: Basic Metabolic Panel; Complete Time: 14:05 01/06 12:08 Order name: Urine Microscopic Only; Complete Time: 14:05 01/06 12:08 Order name: Ketone, Serum; Complete Time: 14:05 01/06 12:08 Order name: Osmolality, Serum; Complete Time: 13:33 01/06 13:14 Order name: Urine Dipstick--Ancillary (enter results) 01/06 13:53 Order name: Urine Culture [facility] 01/06 15:56 Order name: Hemoglobin A1c 01/06 16:11 Order name: Hemoglobin A1c [facility] 01/06 16:13 Order name: Glucose, Ancillary Testing [facility] 01/06 12:08 Order name: IV Start; Complete Time: 12:11 01/06 12:08 Order name: Urine Dipstick-Ancillary (obtain specimen); Complete Time: 13:16 rn Administered Medications: 12:30 Drug: NS 0.9% 500 ml Route: IV; Rate: bolus; Site: left wrist; sg 14:52 Drug: Nitrofurantoin 100 mg Route: PO; sg 14:52 Drug: Insulin Regular Human 10 units {Co-Signature: tw2 (Amnada Gonzalez RN).} Route: Sub-Q; sg Site: right lower abdomen; Point of Care Testing: Blood Glucose: 11:52 Blood Glucose: 422 mg/dL; la1 16:11 Blood Glucose: 324 mg/dL; tw2 16:11 per Day Mark, provider Dr. Cobian notified. tw2 Ranges: Critical Glucose Levels:Adult <50 mg/dl or >400 mg/dl <40 mg/dl or >180 mg/dl Disposition: 01/06/19 16:16 Discharged to Home. Impression: Hyperglycemia, unspecified, Urinary tract infection, site not specified. - Condition is Stable. - Discharge Instructions: Hyperglycemia, Urinary Tract Infection, Adult. - Prescriptions for metformin 500 mg Oral tablet - take 1 tablet by ORAL route 2 times per day with morning and evening meals; 60 tablet. Macrobid 100 mg Oral Capsule - take 1 capsule by ORAL route every 12 hours for 7 days; 14 capsule. - Medication Reconciliation Form, Thank You Letter, Antibiotic Education, Prescription Opioid Use form. - Follow up: A Yanes; When: 5 - 6 days; Reason: Recheck today's complaints, Continuance of care, Re-evaluation by your physician. - Problem is new. - Symptoms have improved. Signatures: Dispatcher [employer] [facility] Crow Em RN RN sg Nieto, Roman, MD MD rn Attema, Lee, RN RN la1 Amanda Gonzalez RN tw2 Corrections: (The following items were deleted from the chart) 12:10 12:08 Constitutional: Negative for fever, chills, and weight loss, Eyes: Negative for rn injury, pain, redness, and discharge, Neck: Negative for injury, pain, and swelling, Cardiovascular: Negative for chest pain, palpitations, and edema, Respiratory: Negative for shortness of breath, cough, wheezing, and pleuritic chest pain, Abdomen/GI: Negative for abdominal pain, nausea, vomiting, diarrhea, and constipation, MS/Extremity: Negative for injury and deformity, Skin: Negative for injury, rash, and discoloration, Neuro: Negative for headache, numbness, tingling, and seizure, rn 12:11 12:09 HEMOGLOBIN A1C+CHEM A1C.LAB.BRZ ordered. [facility] 16:33 16:16 01/06/2019 16:16 Discharged to Home. Impression: Hyperglycemia, unspecified; sg Urinary tract infection, site not specified. Condition is Stable. Discharge Instructions: Hyperglycemia, Urinary Tract Infection, Adult. Prescriptions for metformin 500 mg Oral tablet - take 1 tablet by ORAL route 2 times per day with morning and evening meals; 60 tablet, Macrobid 100 mg Oral Capsule - take 1 capsule by ORAL route every 12 hours for 7 days; 14 capsule. and Forms are Medication Reconciliation Form, Thank You Letter, Antibiotic Education, Prescription Opioid Use. Follow up: A Yanes; When: 5 - 6 days; Reason: Recheck today's complaints, Continuance of care, Re-evaluation by your physician. Problem is new. Symptoms have improved. rn
[2019-01-06 23:56] VITALS: TEMP 98.3
[2019-01-07 01:01] VITALS: BP 158/83; O2SAT 100
== END 2019-01-06 16:33 | disposition home or self-care (01) ==
LOC: ER 11:38
DX: R73.9 Hyperglycemia, unspecified (principal); N39.0 Urinary tract infection, site not specified; Z79.82 Long term (current) use of aspirin; F17.210 Nicotine dependence, cigarettes, uncomplicated
CPT/HCPCS: 36415; 80048; 81003; 81015; 82010; 82962; 83036; 83930; 85025; 87077; 87086; 87088; 87186; 96372; 99284

== ENCOUNTER 2019-04-01 13:58 | Emergency (ER) | payer OTHER ==
--- OUTSIDE RECORDS SUMMARY | 2019-04-01 14:01 | XMS REPORT | Clinical Summary ---
:1940 Author Organization [facility] Address [address] [place] [address] Care Team Providers Name Role Phone Ariel [...] Current smoker 07/24/2016 Coronary artery disease involving [place] coronary artery of [place] heart 07/24 without angina pectoris S/P coronary [...] Not on file Results Not on fileafter 03/31/2018 Insurance Payer Benefit Plan / Group Subscriber ID Type Phone Address MEDICARE MEDICARE A B xxxxxxxxxx Medicare AETNA - MGD CARE AETNA INDEMNITY NON CONTR xxxxxxxxx Comm Advance Directives For more information, please contact:[address] [phone] Code Status Date Activated Date Inactivated Comments Full Code 07/30/2016 6:11 AM 07/31/2016 5:00 PM This code status was determined by: Patient
--- NOTE | 2019-04-01 15:15 | EDPHYS ---
Physician Documentation [facility] Name: Jayme Castillo Age: 78 yrs Sex: Male : 1940 Arrival Date: 04/01/2019 Time: 14:00 Bed 24 Private MD: Gerri Yanes C ED Physician Dusty Concepcion HPI: 04/01 15:15 This 78 yrs old Male presents to ER via Ambulatory with complaints of right jr8 elbow pain. 15:15 The patient or guardian complains of pain, swelling, tenderness. The complaints affect jr8 the right elbow. Onset: The symptoms/episode began/occurred acutely, 2 day(s) ago. Modifying factors: The symptoms are alleviated by nothing. the symptoms are aggravated by movement. Associated signs and symptoms: The patient has no apparent associated signs or symptoms. Severity of symptoms: At their worst the symptoms were mild, in the emergency department the symptoms are unchanged. The patient has not experienced similar symptoms in the past. The patient has not recently seen a physician. Patient stated that he thinks he irritated his elbow on counter top the other day. Now having swelling and erythema to the right elbow . Historical: - Allergies: 14:17 NKDA; ph - Home Meds: 14:17 pravastatin 40 mg Oral tab [Active]; aspirin 81 mg Oral TbEC 1 tab once daily [Active]; ph Centrum Silver Oral daily [Active]; metoprolol tartrate 50 mg Oral tab once daily [Active]; ursodiol 300 mg Oral cap daily [Active]; famotidine 20 mg Oral tab 1 tab once daily [Active]; NitroQuick SL 0.4 mg as needed [Active]; Co Q-10 100 mg Oral cap daily [Active]; metformin 500 mg Oral tab 1 tab 2 times per day [Active]; - PMHx: 14:17 Angina; Hyperlipidemia; Hypertension; Diabetes - NIDDM; ph - Immunization history:: Adult Immunizations not up to date. - Social history:: Smoking status: Patient uses tobacco products, smokes two packs cigarettes per day. - Ebola Screening: : Patient negative for fever greater than or equal to 101.5 degrees Fahrenheit, and additional compatible Ebola Virus Disease symptoms Patient denies exposure to infectious person Patient denies travel to an Ebola-affected area in the 21 days before illness onset No symptoms or risks identified at this time. ROS: 15:15 Eyes: Negative for injury, pain, redness, and discharge, ENT: Negative for injury, jr8 pain, and discharge, Neck: Negative for injury, pain, and swelling, Cardiovascular: Negative for chest pain, palpitations, and edema, Respiratory: Negative for shortness of breath, cough, wheezing, and pleuritic chest pain, Abdomen/GI: Negative for abdominal pain, nausea, vomiting, diarrhea, and constipation, Back: Negative for injury and pain, Skin: Negative for injury, rash, and discoloration, Neuro: Negative for headache, weakness, numbness, tingling, and seizure. 15:15 MS/extremity: Positive for pain, swelling, tenderness, warmth, of the right elbow. Exam: 15:15 Eyes: Pupils equal round and reactive to light, extra-ocular motions intact. Lids and jr8 lashes normal. Conjunctiva and sclera are non-icteric and not injected. Cornea within normal limits. Periorbital areas with no swelling, redness, or edema. ENT: Nares patent. No nasal discharge, no septal abnormalities noted. Tympanic membranes are normal and external auditory canals are clear. Oropharynx with no redness, swelling, or masses, exudates, or evidence of obstruction, uvula midline. Mucous membranes moist. Neck: Trachea midline, no thyromegaly or masses palpated, and no cervical lymphadenopathy. Supple, full range of motion without nuchal rigidity, or vertebral point tenderness. No Meningismus. Cardiovascular: Regular rate and rhythm with a normal S1 and S2. No gallops, murmurs, or rubs. Normal PMI, no JVD. No pulse deficits. Respiratory: Lungs have equal breath sounds bilaterally, clear to auscultation and percussion. No rales, rhonchi or wheezes noted. No increased work of breathing, no retractions or nasal flaring. Abdomen/GI: Soft, non-tender, with normal bowel sounds. No distension or tympany. No guarding or rebound. No evidence of tenderness throughout. Back: No spinal tenderness. No costovertebral tenderness. Full range of motion. Skin: Warm, dry with normal turgor. Normal color with no rashes, no lesions, and no evidence of cellulitis. Neuro: Awake and alert, GCS 15, oriented to person, place, time, and situation. Cranial nerves II-XII grossly intact. Motor strength 5/5 in all extremities. Sensory grossly intact. Cerebellar exam normal. Normal gait. 15:15 Musculoskeletal/extremity: Extremities: grossly normal except: noted in the right elbow: Patient has swelling, erythema, and tenderness to olecranon bursa consistent with bursitis. Patient has full ROM to elbow. No surrounding cellulitis present , Circulation is intact in all extremities. Sensation intact. Vital Signs: 14:15 BP 93 / 59; Pulse 87; Resp 18; Temp 98.4; Pulse Ox 97% on R/A; ph 14:55 BP 131 / 70; Pulse 80; Resp 16; Pulse Ox 99% on R/A; Weight 89.36 kg (R); Height 6 ft. ca1 5 in. (195.58 cm) (R); Pain 2/10; 15:33 BP 126 / 67; Pulse 80; Resp 16 S; Pulse Ox 97% on R/A; ca1 14:55 Body Mass Index 23.36 (89.36 kg, 195.58 cm) ca1 MDM: 15:05 Patient medically screened. [facility] 15:14 Data reviewed: vital signs, nurses notes, and as a result, I will discharge patient. [facility] Data interpreted: Pulse oximetry: on room air is 99 %. Interpretation: normal. Counseling: I had a detailed discussion with the patient and/or guardian regarding: the historical points, exam findings, and any diagnostic results supporting the discharge/admit diagnosis, the need for outpatient follow up, a orthopedic surgeon, to return to the emergency department if symptoms worsen or persist or if there are any questions or concerns that arise at home. 04/01 14:57 Order name: Glucose, Ancillary Testing; Complete Time: 15:05 EDMS Administered Medications: No medications were administered Point of Care Testing: Blood Glucose: 14:55 Blood Glucose: 123 mg/dL; ca1 Ranges: Critical Glucose Levels:Adult <50 mg/dl or >400 mg/dl <40 mg/dl or >180 mg/dl Disposition: 16:12 Co-signature as Attending Physician, Dusty Concepcion MD I agree with the assessment and kdr plan of care. Disposition: 04/01/19 15:14 Discharged to Home. Impression: Olecranon bursitis, right elbow. - Condition is Stable. - Discharge Instructions: Bursitis. - Prescriptions for Keflex 500 mg Oral Capsule - take 1 capsule by ORAL route every 6 hours for 10 days; 40 capsule. Mobic 7.5 mg Oral Tablet - take 1 tablet by ORAL route once daily take with food; 20 tablet. - Medication Reconciliation Form, Thank You Letter, Antibiotic Education, Prescription Opioid Use form. - Follow up: Rl Hall MD; When: 1 - 2 days; Reason: Recheck today's complaints, Continuance of care, Re-evaluation by your physician. - Problem is new. - Symptoms have improved. Signatures: Dispatcher [employer] EDNJ Dusty Concepcion MD MD kdr Malcolm Lama PA PA jr8 Ailyn Ruffin RN RN ph Meron Manuel RN RN ca1 Corrections: (The following items were deleted from the chart) 15:34 15:14 04/01/2019 15:14 Discharged to Home. Impression: Olecranon bursitis, right elbow. ca1 Condition is Stable. Forms are Medication Reconciliation Form, Thank You Letter, Antibiotic Education, Prescription Opioid Use. Follow up: Rl Hall; When: 1 - 2 days; Reason: Recheck today's complaints, Continuance of care, Re-evaluation by your physician. Problem is new. Symptoms have improved. jr8
--- NOTE | 2019-04-01 15:15 | ER ---
Nurse's Notes [facility] Name: Jayme Castillo Age: 78 yrs Sex: Male : 1940 Arrival Date: 04/01/2019 Time: 14:00 Bed 24 Private MD: Marty Yanes C Diagnosis: Olecranon bursitis, right elbow Presentation: 04/01 14:14 Presenting complaint: Patient states: Redness and swelling to R elbow since yesterday, ph denies N/V or pain, hx of infection in R elbow. Transition of care: patient was not received from another setting of care. Onset of symptoms was April 01, 2019. Initial Sepsis Screen: Does the patient meet any 2 criteria?. Care prior to arrival: None. 14:14 Method Of Arrival: Ambulatory 14:14 Acuity: JANE 3 15:01 Risk Assessment: Do you want to hurt yourself or someone else? Patient reports no ca1 desire to harm self or others. Initial Sepsis Screen: Does the patient have a suspected source of infection? No. Patient's initial sepsis screen is negative. Historical: - Allergies: 14:17 NKDA; ph - Home Meds: 14:17 pravastatin 40 mg Oral tab [Active]; aspirin 81 mg Oral TbEC 1 tab once daily [Active]; ph Centrum Silver Oral daily [Active]; metoprolol tartrate 50 mg Oral tab once daily [Active]; ursodiol 300 mg Oral cap daily [Active]; famotidine 20 mg Oral tab 1 tab once daily [Active]; NitroQuick SL 0.4 mg as needed [Active]; Co Q-10 100 mg Oral cap daily [Active]; metformin 500 mg Oral tab 1 tab 2 times per day [Active]; - PMHx: 14:17 Angina; Hyperlipidemia; Hypertension; Diabetes - NIDDM; ph - Immunization history:: Adult Immunizations not up to date. - Social history:: Smoking status: Patient uses tobacco products, smokes two packs cigarettes per day. - Ebola Screening: : Patient negative for fever greater than or equal to 101.5 degrees Fahrenheit, and additional compatible Ebola Virus Disease symptoms Patient denies exposure to infectious person Patient denies travel to an Ebola-affected area in the 21 days before illness onset No symptoms or risks identified at this time. Screenin:55 Abuse screen: Denies threats or abuse. Denies injuries from another. Nutritional ca1 screening: No deficits noted. Tuberculosis screening: No symptoms or risk factors identified. Fall Risk Ambulatory Aid- Crutches/Cane/Walker (15 pts). Gait- Impaired (20 pts.). Total Albert Fall Scale indicates Low Risk Score (25-44 pts). Fall prevention measures have been instituted. Side Rails Up X 2 Frequent Obs/Assesments occuring Family Present and informed to notify staff if they need to leave bedside. Assessment: 14:55 General: Appears in no apparent distress. comfortable, Behavior is calm, cooperative, ca1 appropriate for age. Pain: Complains of pain in right elbow Pain currently is 2 out of 10 on a pain scale. Neuro: Level of Consciousness is awake, alert, obeys commands, Oriented to person, place, time, situation. Derm: Skin is intact, is healthy with good turgor, Skin is pink, warm \T\ dry. Musculoskeletal: Circulation, motion, and sensation intact. Capillary refill < 3 seconds, Range of motion: intact in all extremities, Swelling present in right elbow. 15:33 Reassessment: Patient appears in no apparent distress at this time. Patient is alert, ca1 oriented x 3, equal unlabored respirations, skin warm/dry/pink. Vital Signs: 14:15 BP 93 / 59; Pulse 87; Resp 18; Temp 98.4; Pulse Ox 97% on R/A; ph 14:55 BP 131 / 70; Pulse 80; Resp 16; Pulse Ox 99% on R/A; Weight 89.36 kg (R); Height 6 ft. ca1 5 in. (195.58 cm) (R); Pain 2/10; 15:33 BP 126 / 67; Pulse 80; Resp 16 S; Pulse Ox 97% on R/A; ca1 14:55 Body Mass Index 23.36 (89.36 kg, 195.58 cm) ca1 ED Course: 14:00 Patient arrived in ED. mr 14:01 Marty Yanes MD is Private Physician. mr 14:15 Triage completed. ph 14:17 Arm band placed on. ph 14:48 Meron Manuel RN is Primary Nurse. ca1 14:51 [facility]. jr8 14:51 Dusty Concepcion MD is Attending Physician. jr8 14:55 Patient has correct armband on for positive identification. Placed in gown. Bed in low ca1 position. Call light in reach. Side rails up X 1. Pulse ox on. NIBP on. Warm blanket given. 14:55 No provider procedures requiring assistance completed. ca1 15:14 Rl Hall MD is Referral Physician. jr8 15:34 Patient did not have IV access during this emergency room visit. ca1 Administered Medications: No medications were administered Point of Care Testing: Blood Glucose: 14:55 Blood Glucose: 123 mg/dL; ca1 Ranges: Outcome: 15:14 Discharge ordered by . jr8 15:34 Discharged to home ambulatory. ca1 15:34 Condition: stable 15:34 Discharge instructions given to patient, Instructed on discharge instructions, follow up and referral plans. medication usage, Demonstrated understanding of instructions, follow-up care, medications, Prescriptions given X 2. 15:34 Patient left the ED. ca1 Signatures: Pimentel, Maira Lama, LILI Fowler PA 8 Ailyn Ruffin RN RN Meron Manuel RN RN ca1 Corrections: (The following items were deleted from the chart) 14:59 14:55 89.36 kg Reported; Height 6 ft. 5 in. Reported; BMI: 23.3; Pain 2/10; ca1 ca1
[2019-04-01 16:11] VITALS: TEMP 98.4
[2019-04-01 16:14] VITALS: BP 126/67; O2SAT 97
== END 2019-04-01 15:34 | disposition home or self-care (01) ==
LOC: ER 13:58
DX: M70.21 Olecranon bursitis, right elbow (principal); F17.210 Nicotine dependence, cigarettes, uncomplicated; I10 Essential (primary) hypertension; E11.9 Type 2 diabetes mellitus without complications; E78.5 Hyperlipidemia, unspecified; Z79.82 Long term (current) use of aspirin
CPT/HCPCS: 82962; 99283

== ENCOUNTER 2019-06-09 11:08 | Inpatient (IN) | payer OTHER ==
--- NOTE | 2019-06-10 13:53 | R.PREADM ---
SCREENING DATE AND TIME 06/10/2019 09:49 (CDT) ANTICIPATED REHAB ADMISSION DATE 06/12/2019 REFERRING FACILITY [facility] REFERRAL DATE AND TIME 06/10/2019 09:50 (CDT) ACUTE ADMIT DATE 06/07/2019 Previous Rehabilitation(s): No. REFERRING PHYSICIAN Ariel Yanes REHAB FACILITY [facility] CLINICAL LIAISON Wilfrido Salgado PHYSICIAN REVIEWER Dr. Maged Goss M.D. MR# [id number] NAME ROMULO CASTILLO AD[address]ESS [address] [place] [place] [id number] DATE OF 1940 AGE 78 SSN# [id number] GENDER male MARITAL STATUS RACE white ADMIT FROM 01 - Home (private home/apt. board/care, assisted living, shelter, transitional living) PRE-HOSPITAL LIVING SETTING 01 - Home (private home/apt. board/care, assisted living, shelter, transitional living) HOME TYPE AND DETAILS Type of home: single family house # of levels in the residence: 1 # of steps within the residence: 0 # of steps to enter the residence: 0 PRE-HOSPITAL LIVING WITH Family/Relatives FAMILY SUPPORT Yes PRIMARY FAMILY CONTACT NAME Jessica Castillo PRIMARY FAMILY CONTACT PHONE PRIMARY FAMILY CONTACT RELATIONSHIP Sister PHONE PRIMARY FAMILY CONTACT ON ADM.? no IS PRIMARY FAMILY CONTACT AUTH. REP.? no 1ST EMERGENCY CONTACT Jessica Castillo 1ST CONTACT PHONE 1ST CONTACT RELATIONSHIP Sister PHONE 1ST CONTACT ON ADM. no IS 1ST CONTACT AUTH. REP.? no PHONE 2ND CONTACT ON ADM.? no PATIENT EMPLOYMENT STATUS Retired (for age) PATIENT EMPLOYER No Employer PAYOR INFORMATION: 1ST PAYOR NAME MEDICARE 1ST PAYOR PHONE [phone] 1ST PAYOR INJURY/ILLNESS DUE TO ACCIDENT? No ANOTHER [employer] RESPONSIBLE? No PRIMARY REHAB/ACUTE DIAGNOSIS: Radiculopathy ONSET DATE 06/07/2019 REHAB IMPAIRMENT CATEGORY (SARIKA): 20 Miscellaneous (Misc) does NOT meet 60% rule PRIMARY DIAGNOSIS-RELATED SURGERIES: No surgeries related to the primary diagnosis were performed. COMORBID REHAB/ACUTE DIAGNOSES: - Non-Tiered Mixed hyperlipidemia (E78.2) CAD Diabetes Mellitus BPH Kidney CAncer - N/A Hypertension Radiculopathy, lumbar region INTERVENTIONS: - Hypertension Fluid management Medications VS - CAD 02 sats Activity management Medications VS RISK FOR COMPLICATIONS: - Hypertension CVA Hypotension MO TIA - CAD CHF Cardiac Arrest MO Pain SUMMARY OF ACUTE HOSPITALIZATION: Pt. is a 78 yo Right-handed white male. On 06/07/2019 he was admitted to [facility] with diagnosis Radiculopathy. His impairment category is Debility 16 - Debility (16). Pre-morbidly, Pt. was independent/mod-I in Self-Care, Sphincter Control, Transfers Control, Locomotio n, Communication, and Social Cognition; and he had good Sphincter Control. Currently, he has deficits of Transfers Control, Locomotion, Endurance, Balance, Safety Awareness, an d Self-Care. Pt. is now referred to [facility] for acute in-patient rehabilitation in order to maximize patient's functional independence in activities of daily living, strength, ROM, and mobi lity. Patient has realistic goal of being discharged at assistance level 6-Luis to reside at Home with Fam danica/Relatives. Romulo Castillo is a 78 year old male that lives in a single latasha house with his sister. On 06/07/2019, patient went to see his Primary care Physician and complained that he had several falls since his last visit 3 months ago. He said that lately he noted that he was not able to use his left leg like before. He cannot able to raise it against gravity and has some tingling and numbness of left leg. Primary Care physician sent the referral from his office to Inpatient Rehab and he needs of 24-hour nursing, doctor supervision and oversite participate in 3hours of therapy a day/15 hours per week and receive care with an intensive interdisciplinary approach. PAST MEDICAL HISTORY BPH CAD Diabetes Mellitus Hypertension Kidney CAncer Mixed hyperlipidemia (E78.2) Radiculopathy, lumbar region PAST SURGICAL HISTORY: PTCA Hemorrhoid surgery Hernia repair Nephrectomy partial right MEDICATION ALLERGIES: No Known Drug Allergies (NKDA) ENVIRONMENTAL ALLERGIES: None Known - Substance Allergies None Known - Other Allergies None Known CODE STATUS: Full code WEIGHT/HEIGHT/BMI: WEIGHT 193 lbs HEIGHT 5' 6" BMI 31.1 DIET: - Diet Type Regular - Diet - Solid Texture Regular - Diet - Liquid Texture Regular - Tube Feed N/A REVIEW OF SYSTEMS: - Gen Alert and awake Lying in bed No apparent distress Oriented to: person, time, and place - Vital Signs Temperature: 97.8 F SBP/DBP: 149/72 Pulse: 84 Resp: 16 Vital signs stable, afebrile - CVS RRR VITAL SIGNS Temperature: 97.8 F SBP/DBP: 149/72 Pulse: 84 Resp: 16 Vital signs stable, afebrile MEDICATIONS/TREATMENT: Other- See attached MAR (Medication Administration Record). CURRENT SPHINCTER CONTROL: Pre-hospital bladder status: continent # of bladder accidents in the last 7 days prior to screenin Pre-hospital bowel status: continent # of bowel accidents in the last 7 days prior to screenin Last Bowel Movement Date: DETAILED CURRENT FUNCTIONAL STATUS: - Bladder accident frequency: Ind - No accidents in the past 7 days - Bowel accident frequency: Ind - No accidents in the past 7 days - Walking score based on distance walked: 1(<=50ft) - Wheelchair score based on distance traveled: 0(N/A) FUNCTIONAL STATUS: - Self-Care A. Eating Ind Luis B. Grooming Ind Luis C. Bathing Ind Luis D. Dressing - Upper Ind sup E. Dressing - Lower Ind sup F. Toileting Ind sup - Sphincter Control G: Bladder control Ind Ind H: Bowel control Ind Ind - Transfers Control I. Bed/Chair/Wheelchair Ind sup J. Toilet Ind sup K. Tub/Shower Ind ADNO - Locomotion L. Walk/Wheelchair (C) Ind maxA L. Walk/Wheelchair (W) Ind maxA M. Stairs Ind ADNO - Communication N. Comprehension (B) Ind Ind O. Expression (B) Ind Ind - Social Cognition P. Social Interaction Ind Ind Q. Problem Solving Ind Ind R. Memory Ind Ind - Endurance Fair - Balance Fair - Safety Awareness Fair QI SCORES: - Self-Care A. Eating 05-Setup or clean-up assistance B. Oral hygiene 06-Independent C. Toileting hygiene 06-Independent E. Shower/bathe self 05-Setup or clean-up assistance F. Upper body dressing 05-Setup or clean-up assistance G. Lower body dressing 05-Setup or clean-up assistance H. Putting on/taking off footwear 05-Setup or clean-up assistance - Mobility A. Roll left and right 06-Independent B. Sit to lying 06-Independent C. Lying to sitting on side of bed 06-Independent D. Sit to stand 04-Supervision or touching assistance E. Chair/dhz-cg-rxizs transfer 04-Supervision or touching assistance F. Toilet transfer 04-Supervision or touching assistance G. Car transfer 88-Not attempted due to medical condition or safety concerns I. Walk 10 feet 02-Substantial/maximal assistance J. Walk 50 feet with two turns 03-Partial/moderate assistance K. Walk 150 feet 88-Not attempted due to medical condition or safety concerns L. Walking 10 feet on uneven surfaces 88-Not attempted due to medical condition or safety concerns M. 1 step (curb) 88-Not attempted due to medical condition or safety concerns N. 4 steps 88-Not attempted due to medical condition or safety concerns O. 12 steps 88-Not attempted due to medical condition or safety concerns P. Picking up object 88-Not attempted due to medical condition or safety concerns R. Wheel 50 feet with two turns 01-Dependent S. Wheel 150 feet 01-Dependent - Bladder and Bowel Bladder continence 0-Always continent Bowel continence 0-Always continent CURRENT FUNC. DEFICITS: Transfers Control, Locomotion, Endurance, Balance, Safety Awareness, and Self-Care THERAPY NOTES FROM ACUTE CARE: Attached. SPECIAL NEEDS: - Safety Concerns Skin breakdown precautions needed due to skin breakdown risk PATIENT NEEDS ACTIVE AND ONGOING THERAPEUTIC INTERVENTION OF MULTIPLE THERAPY DISCIPLINES, INCLUDING: - Dietary and Nutrition Adequate Nutrition. Nutritional Education. Nutritional Supplements. PATIENT NEEDS CLOSE MEDICAL SUPERVISION BY A REHABILITATION PHYSICIAN FOR: Bowel and Bladder Management Coordination of Treatment Team Diabetes Management Medical and Co-Morbidity Management PATIENT REQUIRES 24X7 REHAB NURSING FOR MEDICAL AND FUNCTIONAL MGT. OF THE FOLLOWING DEFICITS: ADL's Ambulation Bowel and Bladder Management Communication Disease Management Medication Management Patient/Family Education Providing Safe Environment Transfers Pain Management DVT Management PATIENT REQUIRES INTENSIVE, COORDINATED INTERDISCIPLINARY APPROACH TO REHAB: Arranging Home Equipment/Services Discharge Planning Family Intervention/Training Account Installer/Case Management PATIENT REHAB POTENTIAL: Haim CASTILLO is able and expected to receive 3 hours of individualized therapy daily on at least 5 of every 7 days Haim CASTILLO's prognosis for significant practical improvement within a reasonable period of time appe ars Good Expected level of measurable improvement will be of a practical value to Haim CASTILLO's functional cap acity or adaptations to impairments Has a viable Discharge Plan Medically appropriate; condition is sufficiently stable to participate in intensive rehab program DISCHARGE PLAN: - Estimated Length of Stay (days) 13. - Consensus on plan Discharge plan has been discussed with primary caregiver. Patient/Family is in agreement with the sandy n. Primary caregiver is in agreement with the plan. - Patient/Family Goals Return home with assistance. - Planned Living Setting Upon Discharge Home, to live with Family/Relatives. Transitional Living. RECOMMENDED CARE LEVEL: IRF RECOMMENDATION DETAILS: Recommended Admission to Comprehensive Rehabilitation Program to Increase Functional [place] SCREENER'S COMPLETENESS CONFIRMATION: - Screening Confirmation The patient data collection on this preadmission screening form is finished PHYSICIANS REVIEW AND ADMISSION DETERMINATION Admit - Based on my review of the Pre-Admission Screening results, in my medical judgment and experie nce, I concur with the findings and recommend admission to [facility], as this patient requires an IRF level of care. SIGNATURE PANEL: Clinical Liaison - [electronically] signed by Wilfrido Salgado on 06/10/2019 at 11:02 (CDT) Physician Reviewer - [electronically] signed by Dr. Maged Goss M.D. on 06/10/2019 at 13:52 (CDT )
[2019-06-11] MEDS ORDERED: D50W 25 GM/50 ML SYRINGE IV PRN (10:39)
[2019-06-11] MEDS ORDERED: GLUCAGON 1 MG/VIAL IM PRN (10:39)
[2019-06-11] MEDS: ACETAMINOPHEN 500 MG TAB PO PRN ×2 (11:03→21:08)
[2019-06-11] MEDS: INSULIN -REGULAR HUMAN 50 UNIT/0.5 ML ML SQ SCH ×4 (11:19→20:52)
[2019-06-11] MEDS ORDERED: DOCUSATE NA/SENNA CONC 1 TAB PO PRN (12:07)
--- NOTE | 2019-06-11 13:10 | R.HP ---
FACILITY: [facility] ENCOUNTER DATE AND TIME: 06/11/2019 13:00 (CDT) MR#: [id number] NAME ROMULO CASTILLO ADDRESS: [address] [place] [address]: [place] [address] [id number] PHONE: DATE OF : 1940 AGE: 78 SSN# [id number] GENDER: Male DEXTERITY Right-handed MARITAL STATUS RACE White PRE-HOSPITAL LIVING SETTING 01 - Home (private home/apt. board/care, assisted living, assisted, transitional living) PRE-HOSPITAL LIVING WITH Family/Relatives ENCOUNTER PHYSICIAN: Dr. Maged Goss M.D. REFERRING DOCTOR: emilee Yanes DATE OF ADMISSION: 06/11/2019 09:19 (CDT) REFERRING FACILITY [facility] TYPE AND DETAILS: Type of home: single family house # of levels in the residence: 1 # of steps within the residence: 0 # of steps to enter the residence: 0 ADMISSION DIAGNOSIS: Radiculopathy ONSET DATE: 06/07/2019 PRIMARY DIAGNOSIS-RELATED SURGERIES: No surgeries related to the primary diagnosis were performed. SECONDARY/COMORBID DIAGNOSES (TIERED): - Non-Tiered Mixed hyperlipidemia (E78.2) CAD Diabetes Mellitus BPH Kidney CAncer - N/A Hypertension Radiculopathy, lumbar region HISTORY OF PRESENT ILLNESS (HPI): Pt. is a 78 yo Right-handed white male. On 06/07/2019 he was admitted to [facility] with diagnosis Radiculopathy. His impairment category is Debility 16 - Debility (16). Pre-morbidly, Pt. was independent/mod-I in Self-Care, Sphincter Control, Transfers Control, Locomotio n, Communication, and Social Cognition; and he had good Sphincter Control. Currently, he has deficits of Transfers Control, Locomotion, Endurance, Balance, Safety Awareness, an d Self-Care. Pt. is now referred to [facility] for acute in-patient rehabilitation in order to maximize patient's functional independence in activities of daily living, strength, ROM, and mobi lity. Patient has realistic goal of being discharged at assistance level 6-Luis to reside at Home with Fam danica/Relatives. Romulo Castillo is a 78 year old male that lives in a single latasha house with his sister. On 06/07/2019, patient went to see his Primary care Physician and complained that he had several falls since his last visit 3 months ago. He said that lately he noted that he was not able to use his left leg like before. He cannot able to raise it against gravity and has some tingling and numbness of left leg. Primary Care physician sent the referral from his office to Inpatient Rehab and he needs of 24-hour nursing, doctor supervision and oversite participate in 3hours of therapy a day/15 hours per week and receive care with an intensive interdisciplinary approach. MEDICATION ALLERGIES: No Known Drug Allergies (NKDA) ENVIRONMENTAL ALLERGIES: None Known - Substance Allergies None Known - Other Allergies None Known PAST MEDICAL HISTORY: BPH CAD Diabetes Mellitus Hypertension Kidney CAncer Mixed hyperlipidemia (E78.2) Radiculopathy, lumbar region PAST SURGICAL HISTORY: PTCA Hemorrhoid surgery Hernia repair FAMILY HISTORY: Family history is not contributory. SOCIAL HISTORY: - Home Living Family/Relatives REVIEW OF SYSTEMS: - Gen No Chills Fatigue No Fever - Eyes No Double Vision No itchiness - ENMT No Difficulty Swallowing - CVS No Chest Discomfort No Chest Pain Fatigue No Weight Gain - Resp No Cough No Shortness of Breath - GI Continent No Abdominal Pain No Constipation No Diarrhea - Continent No Kidney Pain No Painful Urination No Urinary Urgency - MSK No Joint Pain Muscle Cramps Stiffness - Skin No Itching No Rash No Suspicious Lesions - Neuro Coordination Difficulty No Difficulty with Concentration No Memory Loss No Seizures Weakness - Psych No Anxiety No Depression No HIV Exposure No Persistent Infections No Seasonal Allergies - Endo No Cold/Heat Intolerance No Excessive Hunger No Excessive Thirst No Excessive Urination PHYSICAL EXAM - Gen Alert and awake Lying in bed No apparent distress Oriented to: person, time, and place - Skin No breakdown Normacephalic - Eyes No abnormalities - ENMT No abnormalities - Neck No abnormalities No cervical adenopathy - CVS RRR - Chest No abnormalities - Resp Clear to auscultation - Abd Soft - GI Non distended Deferred - No abnormalities - Ext No significant edema - MSK 4+/5 weakness in both lower extremities. - Neuro 4/5 strength bilaterally upper and lower extremities. - Psych No abnormalities VITAL SIGNS Temperature: 97.8 F SBP/DBP: 149/72 Pulse: 84 Resp: 16 NURSING: - Shower allowing shower - Lab Results blood Sugar Check ACHS ACTIVITIES OOB only with supervision FUNCTIONAL STATUS: - Self-Care A. Eating Ind Luis B. Grooming Ind Luis C. Bathing Ind Luis D. Dressing - Upper Ind sup E. Dressing - Lower Ind sup F. Toileting Ind sup - Sphincter Control G: Bladder control Ind Ind H: Bowel control Ind Ind - Transfers Control I. Bed/Chair/Wheelchair Ind sup J. Toilet Ind sup K. Tub/Shower Ind ADNO - Locomotion L. Walk/Wheelchair (C) Ind maxA L. Walk/Wheelchair (W) Ind maxA M. Stairs Ind ADNO - Communication N. Comprehension (B) Ind Ind O. Expression (B) Ind Ind - Social Cognition P. Social Interaction Ind Ind Q. Problem Solving Ind Ind R. Memory Ind Ind - Endurance Fair - Balance Fair - Safety Awareness Fair QI SCORES: - Self-Care A. Eating 05-Setup or clean-up assistance B. Oral hygiene 06-Independent C. Toileting hygiene 06-Independent E. Shower/bathe self 05-Setup or clean-up assistance F. Upper body dressing 05-Setup or clean-up assistance G. Lower body dressing 05-Setup or clean-up assistance H. Putting on/taking off footwear 05-Setup or clean-up assistance - Mobility A. Roll left and right 06-Independent B. Sit to lying 06-Independent C. Lying to sitting on side of bed 06-Independent D. Sit to stand 04-Supervision or touching assistance E. Chair/upo-lk-sohfe transfer 04-Supervision or touching assistance F. Toilet transfer 04-Supervision or touching assistance G. Car transfer 88-Not attempted due to medical condition or safety concerns I. Walk 10 feet 02-Substantial/maximal assistance J. Walk 50 feet with two turns 03-Partial/moderate assistance K. Walk 150 feet 88-Not attempted due to medical condition or safety concerns L. Walking 10 feet on uneven surfaces 88-Not attempted due to medical condition or safety concerns M. 1 step (curb) 88-Not attempted due to medical condition or safety concerns N. 4 steps 88-Not attempted due to medical condition or safety concerns O. 12 steps 88-Not attempted due to medical condition or safety concerns P. Picking up object 88-Not attempted due to medical condition or safety concerns R. Wheel 50 feet with two turns 01-Dependent S. Wheel 150 feet 01-Dependent - Bladder and Bowel Bladder continence 0-Always continent Bowel continence 0-Always continent CURRENT FUNC. DEFICITS: Transfers Control, Locomotion, Endurance, Balance, Safety Awareness, and Self-Care MEDICATIONS: - Other See attached MAR (Medication Administration Record) ASSESSMENT: Pt. is a 78 yo Right-handed white male.On 06/07/2019 he was admitted to [facility] h diagnosis Radiculopathy.His impairment category is Debility 16 - Debility (16).Pre-morbidly, Pt. w as independent/mod-I in Self-Care, Sphincter Control, Transfers Control, Locomotion, Communication, a nd Social Cognition; and he had good Sphincter Control.Currently, he has deficits of Transfers Contro l, Locomotion, Endurance, Balance, Safety Awareness, and Self-Care.Pt. is now referred to [facility] for acute in-patient rehabilitation in order to maximize patient's functional independence in activities of daily living, strength, ROM, and mobility.- Rehab Goal Patient has realistic goal of being discharged at assistance level 6-Luis to reside at Home with Fam danica/Relatives. Romulo Castillo is a 78 year old male that lives in a single latasha house with his sister. On 06/07/2019, patient went to see his Primary care Physician and complained that he had several falls since his last visit 3 months ago. He said that lately he noted that he was not able to use his left leg like before. He cannot able to raise it against gravity and has some tingling and numbness of left leg. Primary Care physician sent the referral from his office to Inpatient Rehab and he needs of 24-hour nursing, doctor supervision and oversite participate in 3hours of therapy a day/15 hours per week and receive care with an intensive interdisciplinary approach.REHAB PLAN: - Physical Therapy Gait dysfunction - to improve, our physical therapists will perform initial evaluation of pt's status upon admission and devise an individualized program for Gait Training, and Wheel Chair mobility Inability to transfer - to improve, our physical therapists will perform initial evaluation of pt's s tatus upon admission and devise an individualized program for Bed mobility Need for home safety evaluation - to improve, our physical therapists will perform initial evaluation of pt's status upon admission and devise an individualized program for Home Evaluation Need in caregiver upon discharge - to improve, our physical therapists will perform initial evaluatio n of pt's status upon admission and devise an individualized program for Caregiver Training New precaution - to improve, our physical therapists will perform initial evaluation of pt's status u drake admission and devise an individualized program for Patient precaution education Edema - to improve, our physical therapists will perform initial evaluation of pt's status upon admi ssion and devise an individualized program for Elevation Training, and Lymphedema Therapy Poor balance - to improve, our physical therapists will perform initial evaluation of pt's status upo n admission and devise an individualized program for Balance Training Poor endurance - to improve, our physical therapists will perform initial evaluation of pt's status u drake admission and devise an individualized program for Endurance Training Weakness - to improve, our physical therapists will perform initial evaluation of pt's status upon ad mission and devise an individualized program for Aquatic Therapy, Neuromuscular Reeducation, and Stre ngthening Achieving independence - to improve, our physical therapists will perform initial evaluation of pt's status upon admission and devise an individualized program for Community Reintegration Activities - Occupational Therapy ADL deficits - to improve, our occupation therapists will perform initial evaluation of pt's status u drake admission and devise an individualized program for Bathing, Bed mobility, Community Reintegration , Cooking, Dressing, Eating, Fine Motor Skills, Grooming, Homemaking, Kitchen Mobility, Laundry, Amy ent Education, Safety Awareness, Splinting - Positioning, Transfers(Toilet, Tub, Shower), and Wheel C hair Management Need for healthcare sales representative - to improve, our occupation therapists will perform initial evaluation of pt's s tatus upon admission and devise an individualized program for Caregiver Training Weakness - to improve, our occupation therapists will perform initial evaluation of pt's status upon admission and devise an individualized program for Aquatic Therapy, Balance, Endurance, UE ROM, and U E strengthening MEDICAL PLAN: - Diet Type Start Regular - Diet - Liquid Texture Start Regular - Tube Feed Start N/A - Lab Results blood Sugar Check ACHS - Other See attached MAR (Medication Administration Record) - Diet - Solid Texture Regular - Shower shower DISCHARGE PLAN: - Estimated Length of Stay (days) 13. - Consensus on plan Discharge plan has been discussed with primary caregiver. Patient/Family is in agreement with the sandy n. Primary caregiver is in agreement with the plan. - Patient/Family Goals Return home with assistance. - Planned Living Setting Upon Discharge Home, to live with Family/Relatives. Transitional Living. SIGNATURE PANEL: (CDT)
--- NOTE | 2019-06-11 13:13 | PAPE ---
PATIENT: [facility] MR# [id number] REFERRING DOCTOR emilee Yanes EVALUATION DATE AND TIME 06/11/2019 13:09 (CDT) NAME ROMULO PEDROZA DATE OF 1940 AGE 78 PHONE SSN# [id number] GENDER male EVALUATING PHYSICIAN Dr. Maged Goss M.D. ADMISSION DIAGNOSIS: Radiculopathy ONSET DATE 06/07/2019 SECONDARY/COMORBID DIAGNOSES TIERED: - Non-Tiered Mixed hyperlipidemia (E78.2) CAD Diabetes Mellitus BPH Kidney CAncer - N/A Hypertension Radiculopathy, lumbar region POST-ADMISSION FUNCTIONAL/MEDICAL STATUS: - Bladder Same accident frequency: Ind - No accidents in the past 7 days - Bowel Same accident frequency: Ind - No accidents in the past 7 days - Walking Same score based on distance walked: 1(<=50ft) - Wheelchair Same score based on distance traveled: 0(N/A) STATUS CHANGE EVALUATION: No change in Functional or Medical Status is identified compared with Pre-Admission screening. PATIENT NEEDS CLOSE MEDICAL SUPERVISION BY A REHABILITATION PHYSICIAN FOR: Bowel and Bladder Management Coordination of Treatment Team Diabetes Management Medical and Co-Morbidity Management PATIENT REQUIRES 24X7 REHAB NURSING FOR MEDICAL AND FUNCTIONAL MGT. OF THE FOLLOWING DEFICITS: ADL's Ambulation Bowel and Bladder Management Communication Disease Management Medication Management Patient/Family Education Providing Safe Environment Transfers Pain Management DVT Management PATIENT REQUIRES INTENSIVE, COORDINATED INTERDISCIPLINARY APPROACH TO REHAB: Arranging Home Equipment/Services Discharge Planning Family Intervention/Training Social Service Assistant/Case Management LIST OF IDENTIFIED AND POTENTIAL PROBLEMS: Alteration in leisure activities Bladder, Incontinence Blood Pressure, Hypertension/hypotension Issues Bowel, Incontinence Diabetes, Hyperglycemia/hypoglycemia Issues Infection, Actual or Potential Mobility Impaired Pain, Alteration in Comfort Self Care Deficit Skin Integrity, Actual or Potential Urinary Tract Infection (UTI), Actual or Potential RISK FOR COMPLICATIONS - Hypertension CVA. Hypotension. OK. TIA. - CAD CHF. Cardiac Arrest. OK. Pain. INTERVENTIONS - Hypertension - CAD 02 sats. Activity management. Medications. VS. PATIENT COULD BE AT RISK FOR COMPLICATIONS FROM ADVERSE MEDICAL CONDITIONS DUE TO HIS/HER COMORBIDITI ES AND THE RIGORS OF THE INTENSIVE REHABILLITATION PROGRAM. METHODS OR INTERVENTIONS TO AVOID COMPLIC ATIONS INCLUDE: - Infection Clinical staff to assess and manage the signs and symptoms of infection including fever, redness, war mth, etc. - Urinary Tract Infection - Falls Patient will be evaluated for Fall Precautions and will be placed on Fall Precautions as indicated pe r protocol. - Skin Breakdown Nursing will assess skin daily using assessment tool and will place on Skin Breakdown Precautions as indicated per protocol. - Pain Clinical staff may employ non-medication methods such as massage, distraction, decrease stimulus, etc . as needed. Clinical staff will assess patient's pain level every shift per protocol to assess and e nsure pain management effectiveness. Medications will be given and the pain level re-assessed. PRELIMINARY PLAN OF CARE: - Physical Therapy Patient needs Physical Therapy for a daily minimum of 1.5 hours at least 5 out of 7 days, to improve: Mobility, Strengthening, Transfers, Stretching, ROM, Endurance, Ability to manage stairs, Gait, and Balance. - Rehabilitation Nursing Patient requires 24x7 Rehabilitation Nursing for: Pain Issues, Identifying and preventing risk factor s, Monitoring and reporting current medical conditions, Assisting with ambulation and transfer, Hank ting with all ADL-s, Teaching patients about disease process and medications, Family teaching, Provid ing safe environment, Bowel and Bladder Issues, Skin Integrity, and Medication Management. Patient needs Social Service Assistant and/or Case Management for: Discharge Planning, Arranging Home Equipmen t or Services, and Family Interventions. - Dietary and Nutrition Services Patient needs Dietary and Nutrition Services for: Adequate Nutrition, Nutritional Supplements, and Nu tritional Education. - Occupational Therapy Patient needs Occupational Therapy for a daily minimum of 1.5 hours at least 5 out of 7 days, to impr ove Activities of Daily Living, including: Eating, Grooming, Bathing, Dressing, Toileting, Toilet Tra nsfers, Community Reintegration, Higher functional activities, Adaptive Equipment, Splinting, Househo ld Tasks, and Other activities as determined. POTENTIAL FUNCTIONAL GOALS FOR PATIENT TO ACHIEVE BY DISCHARGE: - Safety Precaution Patient will remain free from falls or injury at time of discharge. - Bed Mobility Patient will perform bed mobility at 4-Abraham level of assistance. - Transfers Patient will complete transfers from bed to chair at 4-Abraham level of assistance. - Mobility Patient will ambulate 150 ft with 4-Abraham level of assistance with RW. PATIENT REHAB POTENTIAL Haim PEDROZA is able and expected to receive 3 hours of individualized therapy daily on at least 5 of every 7 days Haim PEDROZA's prognosis for significant practical improvement within a reasonable period of time appe ars Good Expected level of measurable improvement will be of a practical value to Haim PEDROZA's functional cap acity or adaptations to impairments Has a viable Discharge Plan Medically appropriate; condition is sufficiently stable to participate in intensive rehab program DISCHARGE PLAN: - Estimated Length of Stay (days) 13. - Consensus on plan Discharge plan has been discussed with primary caregiver. Patient/Family is in agreement with the sandy n. Primary caregiver is in agreement with the plan. - Patient/Family Goals Return home with assistance. - Planned Living Setting Upon Discharge Home, to live with Family/Relatives. Transitional Living. CONCLUSION ON REHABILITATION NECESSITY: I have evaluated patient's pre-admission functional status and, comparing it to the patient's post-ad mission functional status now, I conclude that the pre-admission assessment was accurate. Patient's c ondition on admission supports the medical necessity of admission to IRF. It is safe to proceed with patient's therapy program. SIGNATURE PANEL: (CDT)
--- NOTE | 2019-06-11 16:00 | RAD REPORT ---
EXAM DESCRIPTION: RAD - Chest Pa And Lat (2 Views) - 06/11/2019 3:51 pm CLINICAL HISTORY: HTN Chest pain. COMPARISON: Chest Single View dated 09/11/2018; Chest Single View dated 09/07/2018; Chest Pa And Lat ( 2 Views) dated 07/29/2018; CHEST SINGLE VIEW dated 02/22/2012 FINDINGS: Prominent emphysematous changes are noted. The heart is normal in size. Chronic proximal l eft humerus fracture noted. IMPRESSION: Prominent emphysema.
--- NOTE | 2019-06-11 16:07 | FAST ---
ENCOUNTER DATE AND TIME: 06/11/2019 08:00 (CDT) NAME ROMULO PEDROZA DATE OF : 1940 DATE OF ADMISSION: 06/11/2019 09:19 (CDT) PHONE: AGE: 78 N# [id number] GENDER: Male ENCOUNTER PHYSICIAN: Dr. Maged Goss M.D. ADMISSION DIAGNOSIS: - Debility 16 - Debility (16) Radiculopathy. ROLL LEFT AND RIGHT: ROLL LEFT AND RIGHT - STEP 1: Does the patient complete the activity by him/herself with no assistance (physical, verbal/nonverbal cueing, setup/clean-up)? Yes. 1. [id number] ADMISSION PERFORMANCE: Independent CODE: 06 SIT TO LYING: SIT TO LYING - STEP 1: Does the patient complete the activity by him/herself with no assistance (physical, verbal/nonverbal cueing, setup/clean-up)? No. SIT TO LYING - STEP 2: Does the patient need only setup/clean-up assistance from one helper? No. SIT TO LYING - STEP 3: Does the patient need only verbal/nonverbal cueing or touching/steadying/contact guard assistance fro m one helper? Yes. 1. [id number] ADMISSION PERFORMANCE: Supervision or touching assistance CODE: 04 LYING TO SITTING: LYING TO SITTING ON SIDE OF BED - STEP 1: Does the patient complete the activity by him/herself with no assistance (physical, verbal/nonverbal cueing, setup/clean-up)? No. LYING TO SITTING ON SIDE OF BED - STEP 2: Does the patient need only setup/clean-up assistance from one helper? No. LYING TO SITTING ON SIDE OF BED - STEP 3: Does the patient need only verbal/nonverbal cueing or touching/steadying/contact guard assistance fro m one helper? Yes. 1. [id number] ADMISSION PERFORMANCE: Supervision or touching assistance CODE: 04 SIT TO STAND: SIT TO STAND - STEP 1: Does the patient complete the activity by him/herself with no assistance (physical, verbal/nonverbal cueing, setup/clean-up)? No. SIT TO STAND - STEP 2: Does the patient need only setup/clean-up assistance from one helper? No. SIT TO STAND - STEP 3: Does the patient need only verbal/nonverbal cueing or touching/steadying/contact guard assistance fro m one helper? Yes. 1. [id number] ADMISSION PERFORMANCE: Supervision or touching assistance CODE: 04 TRANSFERS: BED, CHAIR: CHAIR/[id number] TRANSFER - STEP 1: Does the patient complete the activity by him/herself with no assistance (physical, verbal/nonverbal cueing, setup/clean-up)? No. CHAIR/[id number] TRANSFER - STEP 2: Does the patient need only setup/clean-up assistance from one helper? No. CHAIR/[id number] TRANSFER - STEP 3: Does the patient need only verbal/nonverbal cueing or touching/steadying/contact guard assistance fro m one helper? Yes. 1. [id number] ADMISSION PERFORMANCE: Supervision or touching assistance CODE: 04 TRANSFER TOILET: TOILET TRANSFER - STEP 1: Does the patient complete the activity by him/herself with no assistance (physical, verbal/nonverbal cueing, setup/clean-up)? No. TOILET TRANSFER - STEP 2: Does the patient need only setup/clean-up assistance from one helper? No. TOILET TRANSFER - STEP 3: Does the patient need only verbal/nonverbal cueing or touching/steadying/contact guard assistance fro m one helper? Yes. 1. [id number] ADMISSION PERFORMANCE: Supervision or touching assistance CODE: 04 TRANSFERS: CAR: Not attempted due to environmental limitations (e.g., lack of equipment, weather constraints) CODE: 10 WALK 10 FEET: WALK 10 FEET - STEP 1: Does the patient complete the activity by him/herself with no assistance (physical, verbal/nonverbal cueing, setup/clean-up)? No. WALK 10 FEET - STEP 2: Does the patient need only setup/clean-up assistance from one helper? No. WALK 10 FEET - STEP 3: Does the patient need only verbal/nonverbal cueing or touching/steadying/contact guard assistance fro m one helper? Yes. 1. [id number] ADMISSION PERFORMANCE: Supervision or touching assistance CODE: 04 WALK 50 FEET: WALK 50 FEET - STEP 1: Does the patient complete the activity by him/herself with no assistance (physical, verbal/nonverbal cueing, setup/clean-up)? No. WALK 50 FEET - STEP 2: Does the patient need only setup/clean-up assistance from one helper? No. WALK 50 FEET - STEP 3: Does the patient need only verbal/nonverbal cueing or touching/steadying/contact guard assistance fro m one helper? Yes. 1. [id number] ADMISSION PERFORMANCE: Supervision or touching assistance CODE: 04 WALK 150 FEET: Not attempted due to medical condition or safety concerns CODE: 88 WALK 10 FEET UNEVEN: Not attempted due to medical condition or safety concerns CODE: 88 1 STEP (CURB): Not attempted due to medical condition or safety concerns CODE: 88 PICKING UP OBJECT: Not attempted due to medical condition or safety concerns CODE: 88 DOES THE PATIENT USE A WHEELCHAIR/SCOOTER? Q1. DOES THE PATIENT USE A WHEELCHAIR/SCOOTER?: Yes CODE: 1 WHEEL 50 FEET WITH TWO TURNS: WHEEL 50 FEET WITH TWO TURNS - STEP 1: Does the patient complete the activity by him/herself with no assistance (physical, verbal/nonverbal cueing, setup/clean-up)? Yes. 1. [id number] ADMISSION PERFORMANCE: Independent CODE: 06 INDICATE THE TYPE OF WHEELCHAIR/SCOOTER USED: RR1. INDICATE THE TYPE OF WHEELCHAIR/SCOOTER USED.: Manual CODE: 1 WHEEL 150 FEET: WHEEL 150 FEET - STEP 1: Does the patient complete the activity by him/herself with no assistance (physical, verbal/nonverbal cueing, setup/clean-up)? Yes. 1. [id number] ADMISSION PERFORMANCE: Independent CODE: 06 INDICATE THE TYPE OF WHEELCHAIR/SCOOTER USED: SS1. INDICATE THE TYPE OF WHEELCHAIR/SCOOTER USED.: Manual CODE: 1 BLADDER AND BOWEL: CODE: EXPR CODE: EXPR SIGNATURE PANEL: The following modified sections: 1. [id number] Admission Performance, 1. [id number] Admission Performance, 1. [id number] Admission Performance, 1. [id number] Admission Performance, 1. [id number] Admission Performance, 1. [id number] Admission Performance, 1. [id number] Admission Performance, 1. [id number] Admission Performance , Q1. Does the patient use a wheelchair/scooter?, 1. [id number] Admission Performance, RR1. Indicate the type of wheelchair/scooter used., 1. [id number] Admission Performance, Code, SS1. Indicate the type of wheelchair/scooter used. were [electronically] signed by Karthik Martines PT on FriJun 11 2019 16:0 6:02 GMT-0500 (Central Daylight Time)
[2019-06-11] MEDS: ENOXAPARIN 40 MG/0.4 ML SQ SCH (16:24)
[2019-06-11] MEDS: METFORMIN ER 500 MG TAB PO SCH (17:04)
[2019-06-11 17:24] LABS: Urine Appearance CLEAR; Urine Bilirubin NEGATIVE (NEG); Urine Blood NEGATIVE (NEG); Urine Color YELLOW; Urine Glucose NEGATIVE (NEG); Urine Protein NEGATIVE (NEG); Urine Specific Gravity 1.015 (1.005-1.030); Urine Urobilinogen 0.2 mg/dL (0.2-1.0)
[2019-06-11 17:30] LABS: Urine Bacteria 20-50 /HPF (NONE SEEN); Urine Culture Reflex Order REFLEXED; Urine RBC <5 /HPF (NONE SEEN)
[2019-06-11] MEDS: GABAPENTIN 300 MG CAP PO SCH ×2 (20:00→20:33)
[2019-06-11] MEDS: ATORVASTATIN 10 MG TAB PO SCH ×2 (20:33→20:54)
[2019-06-11] MEDS: MELATONIN 3 MG TABLET PO PRN (20:33)
[2019-06-11] MEDS: ENSURE HIGH PROTEIN 237 ML CAN PO SCH (20:34)
--- NOTE | 2019-06-11 22:11 | HP ---
Date of Admission: 06/11/2019 Chief Complaint: Left leg weakness and frequent falls. History Of Present Illness: This is a 78-year-old male patient who was seen at the office a few days ago for his followup appointment, and at that time, he reported having increasing problem with the left leg weakness, some lower back pain, some pain in his left leg in different areas on an intermittent basis. His left leg weakness has progressively gotten bad enough that he is not able to raise his leg against gravity at all and anytime he has to move his left leg , he has to use his hands to move his leg. He has some tingling numbness sensation on the bottom part of both feet, which is a chronic problem, but this weakness problem has been going on for last few weeks. After I evaluated him, I recommended him to be admitted to hospital inpatient rehab and Rehab was contacted and after the patient was evaluated today, he was admitted directly to the rehab floor. I saw him this morning after his admission to rehab floor. His last fall was as a matter of fact today as he was trying to walk out of his house to come to the hospital. He lost balance and fell down and has a small superficial laceration to right forearm area. He has had multiple falls lately because of his leg weakness problem. He denies any radiating pain from lower back to his leg, but reports having some pain in different areas of left leg intermittently. Allergies: NO KNOWN ALLERGIES. Medications: List reviewed. Review of Systems: Musculoskeletal: As mentioned above. PROBE OPERATOR: As mentioned above. All other systems reviewed and negative. Past Medical History: Significant for hypertension, hyperlipidemia, right kidney cancer, coronary artery disease, benign prostatic hypertrophy, compression fracture of spine, testicular hypofunction, atypical mycobacterium infection of lung. Past Surgical History: 1. Partial nephrectomy in 2009 due to kidney cancer. 2. Coil placement in 2008 for splenic artery aneurysm. 3. Left carotid artery endarterectomy in 2016 for carotid artery stenosis. 4. Coronary artery angioplasty with stent placement. 5. Hemorrhoidectomy. 6. Hernia repair. Family History: Significant for hypertension, coronary artery disease, osteoporosis. Social History: Positive for smoking. Use of alcohol, negative. Physical Examination: Vital Signs: Reviewed. Weight 192 pounds, height 6 feet 6 inches. Temperature 97.6, respiratory rate 16, pulse 80, blood pressure 139/70. General: Awake, alert, oriented, not in distress. HEENT: Head atraumatic, normocephalic. Conjunctivae nonerythematous. Sclerae white. Mouth, no thrush or edema noted. Ears/Nose, no mass, lesion, discharge noted. Neck: Supple. No JVD, lymph nodes, bruit, thyromegaly noted. Lungs: Bilateral good equal air entry. Clear to auscultation. No rhonchi. No rales. Heart: Normal heart sounds, no murmur or gallop. Abdomen: Soft, bowel sounds normal. No guarding, rigidity, tenderness, mass, hepatosplenomegaly, distention, or bruit noted. Extremities: No leg edema. No calf tenderness. Skin: Right forearm has laceration. Lymphatics: No lymph node enlargement in neck, supraclavicular, infraclavicular region. Neuro: Patient is not able to lift left lower extremity against gravity at all. He is able to move his ankle with flexion-extension on both side, but right foot flexion-extension is limited compared to left side due to right footdrop, which is a chronic finding for him. Chest: Unremarkable. External Genitalia: Deferred. Rectal: Deferred. Laboratory Data: Blood test and urine test results are pending. Chest x-ray and spine x-ray were ordered, results are pending. We will follow up on those results. Impression: 1. Lumbar radiculopathy. 2. Compression fracture of spine. 3. Type 2 diabetes mellitus. 4. Hypertension. 5. Hyperlipidemia. 6. Right kidney cancer. 7. Coronary artery disease. 8. Carotid artery stenosis. 9. Benign prostatic hypertrophy. 10. Testicular hypofunction. 11. Carotid artery disease. 12. Coronary artery disease. 13. Atypical mycobacterium infection of lung. Plan: Admit patient to hospital for further evaluation and management of this problem. We will go ahead and consult Dr. Goss from rehab floor. Home medications will be continued per order. We will give DVT prophylaxis using Lovenox per order. Follow up on blood work results, x-ray results, and we will consider some pain medication like tramadol on a p.r.n. basis and also give him gabapentin. I did talk to him about advance directives, and as per patient's decision, we will write DNR order as the patient informed me clearly in the event of cardiopulmonary arrest, he does not want any heroic measures like CPR, defibrillation, or ventilator support. LAUREEN/SHUBHAM Voice ID: [id number] AMANDA
[2019-06-12] MEDS: GABAPENTIN 300 MG CAP PO SCH ×3 (00:27→19:41)
--- NOTE | 2019-06-12 02:08 | FAST ---
SHIFT START DATE/TIME: 06/11/2019 19:00 (CDT) SHIFT END DATE/TIME: 06/12/2019 07:00 (CDT) NAME ROMULO PEDROZA DATE OF : 1940 DATE OF ADMISSION: 06/11/2019 09:19 (CDT) PHONE: AGE: 78 N# [id number] GENDER: Male ENCOUNTER PHYSICIAN: Dr. Maged Goss M.D. ADMISSION DIAGNOSIS: - Debility 16 - Debility (16) Radiculopathy. EATING: Not assessed/no information CODE: - ORAL HYGIENE: Not assessed/no information CODE: - TOILETING HYGIENE: TOILETING HYGIENE - STEP 1: Does the patient complete the activity by him/herself with no assistance (physical, verbal/nonverbal cueing, setup/clean-up)? No. TOILETING HYGIENE - STEP 2: Does the patient need only setup/clean-up assistance from one helper? Yes. 1. [id number] ADMISSION PERFORMANCE: Setup or clean-up assistance CODE: 05 BATHING: Not assessed/no information CODE: - DRESSING - UPPER BODY: Not assessed/no information CODE: - DRESSING - LOWER BODY: Not assessed/no information CODE: - PUTTING ON/TAKING OFF FOOTWEAR: Not assessed/no information CODE: - ROLL LEFT AND RIGHT: Not assessed/no information CODE: - SIT TO LYING: Not assessed/no information CODE: - LYING TO SITTING: Not assessed/no information CODE: - SIT TO STAND: Not assessed/no information CODE: - TRANSFERS: BED, CHAIR: Not assessed/no information CODE: - TRANSFER TOILET: Not assessed/no information CODE: - TRANSFERS: CAR: Not assessed/no information CODE: - WALK 10 FEET: Not assessed/no information CODE: - 1 STEP (CURB): Not assessed/no information CODE: - PICKING UP OBJECT: Not assessed/no information CODE: - DOES THE PATIENT USE A WHEELCHAIR/SCOOTER? Q1. DOES THE PATIENT USE A WHEELCHAIR/SCOOTER?: No CODE: 0 INDICATE THE TYPE OF WHEELCHAIR/SCOOTER USED: CODE: EXPR INDICATE THE TYPE OF WHEELCHAIR/SCOOTER USED: CODE: EXPR BLADDER AND BOWEL: H350. BLADDER CONTINENCE (3-DAY ASSESSMENT PERIOD): Always continent (no documented incontinence) CODE: 0 H400. BOWEL CONTINENCE (3-DAY ASSESSMENT PERIOD): Always continent CODE: 0
[2019-06-12 05:43] LABS: Basophils % 1.4 % (0-1.3); Hematocrit 28.8 % (39.6-49.0); Lymphocytes % 36.3 % (15.3-44.8); MPV 10.3 fL (7.6-11.3); RBC Red Blood Cell Count 3.11 M/uL (4.33-5.43)
[2019-06-12 06:09] LABS: ALT/SGPT 20 U/L (12-78); AST/SGOT 17 U/L (15-37); Albumin 3.3 g/dL (3.4-5.0); Alkaline Phosphatase 86 U/L (45-117); BUN Blood Urea Nitrogen 19 mg/dL (7-18); Bicarbonate 25 mmol/L (21-32); Bilirubin Total 0.5 mg/dL (0.2-1.0); Glucose Level 141 mg/dL (74-106); Magnesium 1.6 mg/dL (1.8-2.4); Potassium 3.9 mmol/L (3.5-5.1); Prealbumin 18.1 mg/dL (20-40); Protein, Total 6.8 g/dL (6.4-8.2); Sodium Level 141 mmol/L (136-145)
[2019-06-12] MEDS: ACETAMINOPHEN 500 MG TAB PO PRN (06:54)
[2019-06-12] MEDS: INSULIN -REGULAR HUMAN 50 UNIT/0.5 ML ML SQ SCH ×4 (07:13→20:08)
[2019-06-12] MEDS: CO Q PO SCH (08:05)
[2019-06-12] MEDS: METFORMIN ER 500 MG TAB PO SCH ×2 (08:06→17:29)
[2019-06-12] MEDS: MULTIVIT W/ MINERAL TAB PO SCH (08:06)
[2019-06-12] MEDS: ASPIRIN EC 81 MG TAB PO SCH (08:06)
[2019-06-12] MEDS: FAMOTIDINE 20 MG TAB PO SCH (08:06)
[2019-06-12] MEDS: URSODIOL 300 MG CAP PO SCH (08:07)
[2019-06-12] MEDS: ENSURE HIGH PROTEIN 237 ML CAN PO SCH ×2 (08:08→19:40)
--- NOTE | 2019-06-12 09:36 | FAST ---
SHIFT START DATE/TIME: 06/11/2019 07:00 (CDT) SHIFT END DATE/TIME: 06/11/2019 19:00 (CDT) NAME ROMULO PEDROZA DATE OF : 1940 DATE OF ADMISSION: 06/11/2019 09:19 (CDT) PHONE: AGE: 78 N# [id number] GENDER: Male ENCOUNTER PHYSICIAN: Dr. Maged Goss M.D. ADMISSION DIAGNOSIS: - Debility 16 - Debility (16) Radiculopathy. EATING: EATING - STEP 1: Does the patient complete the activity by him/herself with no assistance (physical, verbal/nonverbal cueing, setup/clean-up)? No. EATING - STEP 2: Does the patient need only setup/clean-up assistance from one helper? Yes. 1. [id number] ADMISSION PERFORMANCE: Setup or clean-up assistance CODE: 05 ORAL HYGIENE: ORAL HYGIENE - STEP 1: Does the patient complete the activity by him/herself with no assistance (physical, verbal/nonverbal cueing, setup/clean-up)? No. ORAL HYGIENE - STEP 2: Does the patient need only setup/clean-up assistance from one helper? Yes. 1. [id number] ADMISSION PERFORMANCE: Setup or clean-up assistance CODE: 05 TOILETING HYGIENE: TOILETING HYGIENE - STEP 1: Does the patient complete the activity by him/herself with no assistance (physical, verbal/nonverbal cueing, setup/clean-up)? No. TOILETING HYGIENE - STEP 2: Does the patient need only setup/clean-up assistance from one helper? Yes. 1. [id number] ADMISSION PERFORMANCE: Setup or clean-up assistance CODE: 05 BATHING: Not assessed/no information CODE: - DRESSING - UPPER BODY: Not assessed/no information CODE: - DRESSING - LOWER BODY: Not assessed/no information CODE: - PUTTING ON/TAKING OFF FOOTWEAR: Not assessed/no information CODE: - ROLL LEFT AND RIGHT: Not assessed/no information CODE: - SIT TO LYING: SIT TO LYING - STEP 1: Does the patient complete the activity by him/herself with no assistance (physical, verbal/nonverbal cueing, setup/clean-up)? No. SIT TO LYING - STEP 2: Does the patient need only setup/clean-up assistance from one helper? Yes. 1. [id number] ADMISSION PERFORMANCE: Setup or clean-up assistance CODE: 05 LYING TO SITTING: LYING TO SITTING ON SIDE OF BED - STEP 1: Does the patient complete the activity by him/herself with no assistance (physical, verbal/nonverbal cueing, setup/clean-up)? No. LYING TO SITTING ON SIDE OF BED - STEP 2: Does the patient need only setup/clean-up assistance from one helper? Yes. 1. [id number] ADMISSION PERFORMANCE: Setup or clean-up assistance CODE: 05 SIT TO STAND: SIT TO STAND - STEP 1: Does the patient complete the activity by him/herself with no assistance (physical, verbal/nonverbal cueing, setup/clean-up)? No. SIT TO STAND - STEP 2: Does the patient need only setup/clean-up assistance from one helper? Yes. 1. [id number] ADMISSION PERFORMANCE: Setup or clean-up assistance CODE: 05 TRANSFERS: BED, CHAIR: Not assessed/no information CODE: - TRANSFER TOILET: TOILET TRANSFER - STEP 1: Does the patient complete the activity by him/herself with no assistance (physical, verbal/nonverbal cueing, setup/clean-up)? No. TOILET TRANSFER - STEP 2: Does the patient need only setup/clean-up assistance from one helper? No. TOILET TRANSFER - STEP 3: Does the patient need only verbal/nonverbal cueing or touching/steadying/contact guard assistance fro m one helper? No. TOILET TRANSFER - STEP 4: Does the patient need physical assistance - for example lifting or trunk support from one helper - wi th the helper providing less than half of the effort? Yes. 1. [id number] ADMISSION PERFORMANCE: Partial/moderate assistance CODE: 03 TRANSFERS: CAR: Not assessed/no information CODE: - WALK 10 FEET: Not assessed/no information CODE: - 1 STEP (CURB): Not assessed/no information CODE: - PICKING UP OBJECT: Not assessed/no information CODE: - DOES THE PATIENT USE A WHEELCHAIR/SCOOTER? CODE: EXPR WHEEL 50 FEET WITH TWO TURNS: Not assessed/no information CODE: - INDICATE THE TYPE OF WHEELCHAIR/SCOOTER USED: CODE: EXPR WHEEL 150 FEET: Not assessed/no information CODE: - INDICATE THE TYPE OF WHEELCHAIR/SCOOTER USED: CODE: EXPR BLADDER AND BOWEL: H350. BLADDER CONTINENCE (3-DAY ASSESSMENT PERIOD): Always continent (no documented incontinence) CODE: 0 H400. BOWEL CONTINENCE (3-DAY ASSESSMENT PERIOD): Always continent CODE: 0 SIGNATURE PANEL: The following modified sections: 1. [id number] Admission Performance, 1. [id number] Admission Performance, 1. PT7497S Admission Performance, 1. TV4736K Admission Performance, 1. NE9809P Admission Performance, 1. [id number] Admission Performance, 1. [id number] Admission Performance, Code, H350. Bladder Continence ( 3-day assessment period), H400. Bowel Continence (3-day assessment period) were [electronically] sign ed by Austen Montes on Sat Jun 12 2019 09:34:39 GMT-0500 (Central Daylight Time)
--- NOTE | 2019-06-12 09:40 | FAST ---
SHIFT START DATE/TIME: 06/12/2019 07:00 (CDT) SHIFT END DATE/TIME: 06/12/2019 19:00 (CDT) NAME ROMULO PEDROZA DATE OF : 1940 DATE OF ADMISSION: 06/11/2019 09:19 (CDT) PHONE: AGE: 78 N# [id number] GENDER: Male ENCOUNTER PHYSICIAN: Dr. Maged Goss M.D. ADMISSION DIAGNOSIS: - Debility 16 - Debility (16) Radiculopathy. EATING: EATING - STEP 1: Does the patient complete the activity by him/herself with no assistance (physical, verbal/nonverbal cueing, setup/clean-up)? No. EATING - STEP 2: Does the patient need only setup/clean-up assistance from one helper? Yes. 1. [id number] ADMISSION PERFORMANCE: Setup or clean-up assistance CODE: 05 ORAL HYGIENE: ORAL HYGIENE - STEP 1: Does the patient complete the activity by him/herself with no assistance (physical, verbal/nonverbal cueing, setup/clean-up)? Yes. 1. [id number] ADMISSION PERFORMANCE: Independent CODE: 06 TOILETING HYGIENE: TOILETING HYGIENE - STEP 1: Does the patient complete the activity by him/herself with no assistance (physical, verbal/nonverbal cueing, setup/clean-up)? No. TOILETING HYGIENE - STEP 2: Does the patient need only setup/clean-up assistance from one helper? Yes. 1. [id number] ADMISSION PERFORMANCE: Setup or clean-up assistance CODE: 05 BATHING: Not assessed/no information CODE: - DRESSING - UPPER BODY: Not assessed/no information CODE: - DRESSING - LOWER BODY: Not assessed/no information CODE: - PUTTING ON/TAKING OFF FOOTWEAR: FOOTWEAR - STEP 1: Does the patient complete the activity by him/herself with no assistance (physical, verbal/nonverbal cueing, setup/clean-up)? No. FOOTWEAR - STEP 2: Does the patient need only setup/clean-up assistance from one helper? No. FOOTWEAR - STEP 3: Does the patient need only verbal/nonverbal cueing or touching/steadying/contact guard assistance fro m one helper? Yes. 1. [id number] ADMISSION PERFORMANCE: Supervision or touching assistance CODE: 04 ROLL LEFT AND RIGHT: Not assessed/no information CODE: - SIT TO LYING: Not assessed/no information CODE: - LYING TO SITTING: Not assessed/no information CODE: - SIT TO STAND: Not assessed/no information CODE: - TRANSFERS: BED, CHAIR: CHAIR/[id number] TRANSFER - STEP 1: Does the patient complete the activity by him/herself with no assistance (physical, verbal/nonverbal cueing, setup/clean-up)? No. CHAIR/[id number] TRANSFER - STEP 2: Does the patient need only setup/clean-up assistance from one helper? No. CHAIR/[id number] TRANSFER - STEP 3: Does the patient need only verbal/nonverbal cueing or touching/steadying/contact guard assistance fro m one helper? No. CHAIR/[id number] TRANSFER - STEP 4: Does the patient need physical assistance - for example lifting or trunk support from one helper - wi th the helper providing less than half of the effort? Yes. 1. [id number] ADMISSION PERFORMANCE: Partial/moderate assistance CODE: 03 TRANSFER TOILET: TOILET TRANSFER - STEP 1: Does the patient complete the activity by him/herself with no assistance (physical, verbal/nonverbal cueing, setup/clean-up)? No. TOILET TRANSFER - STEP 2: Does the patient need only setup/clean-up assistance from one helper? No. TOILET TRANSFER - STEP 3: Does the patient need only verbal/nonverbal cueing or touching/steadying/contact guard assistance fro m one helper? Yes. 1. [id number] ADMISSION PERFORMANCE: Supervision or touching assistance CODE: 04 TRANSFERS: CAR: Not assessed/no information CODE: - WALK 10 FEET: Not assessed/no information CODE: - 1 STEP (CURB): Not assessed/no information CODE: - PICKING UP OBJECT: Not assessed/no information CODE: - DOES THE PATIENT USE A WHEELCHAIR/SCOOTER? CODE: EXPR WHEEL 50 FEET WITH TWO TURNS: Not assessed/no information CODE: - INDICATE THE TYPE OF WHEELCHAIR/SCOOTER USED: CODE: EXPR WHEEL 150 FEET: Not assessed/no information CODE: - INDICATE THE TYPE OF WHEELCHAIR/SCOOTER USED: CODE: EXPR BLADDER AND BOWEL: H350. BLADDER CONTINENCE (3-DAY ASSESSMENT PERIOD): Always continent (no documented incontinence) CODE: 0 H400. BOWEL CONTINENCE (3-DAY ASSESSMENT PERIOD): Always continent CODE: 0 SIGNATURE PANEL: The following modified sections: 1. [id number] Admission Performance, 1. IL3758T Admission Performance, 1. [id number] Admission Performance, 1. HS5949j Admission Performance, 1. CI7205T Admission Performance, 1. VI7979L Admission Performance, Code, H350. Bladder Continence (3-day assessment period), H400. Danis wel Continence (3-day assessment period) were [electronically] signed by Austen Montes on Sat Jun 12 09:39:03 T-0500 (Central Daylight Time)
--- NOTE | 2019-06-12 10:51 | PN ---
Date of Progress Note: 06/12/2019 Subjective: Patient was seen this morning for followup. He was doing his physical therapy when I sa w him. Denied any complaints. Slept well last night and we talked about his pain and pain medicatio ns. Currently, his pain is not well controlled so we will make some adjustment in his medications. No new complaints or problems reported overnight. Objective: Vital Signs: Reviewed. HEENT: Examination unremarkable. Lungs: Clear to auscultation. Heart: Sounds normal. Abdomen: Soft. Bowel sounds normal. No guarding, rigidity, tenderness, or distention. Extremities: No leg edema. Laboratory Data: White count 5.5, hemoglobin 10.2, platelets 140. Sodium 141, potassium 3.9, chlori de 111, bicarb 25, BUN 19, creatinine 0.71, glucose 141. Hemoglobin A1c 7.7, magnesium 1.6. Liver f unction tests unremarkable. TSH 1.13. Impression: 1.Lumbar radiculopathy. 2.Anemia. 3.Diabetes mellitus, type 2, uncontrolled. 4.Hypomagnesemia. Plan: We will go ahead and start patient on gabapentin. Continue other current medication, make adju stment on diabetes medications. Continue physical therapy under guidance of Dr. Goss. We will follow up on x-ray results today as yesterday's result was pending. Chest x-ray result was negative, but spine x-ray result was pending. LAUREEN/MODL Voice ID: [id number] Report ID: [id number]
[2019-06-12] MEDS: ENOXAPARIN 40 MG/0.4 ML SQ SCH (17:30)
[2019-06-12] MEDS: TRAMADOL HCL 50 MG TAB PO PRN (18:17)
[2019-06-12] MEDS ORDERED: PRAVASTATIN 40 MG TABLET PO SCH (21:00)
[2019-06-13] MEDS: INSULIN -REGULAR HUMAN 50 UNIT/0.5 ML ML SQ SCH ×4 (07:20→20:06)
[2019-06-13] MEDS: TRAMADOL HCL 50 MG TAB PO PRN (08:20)
[2019-06-13] MEDS: CO Q PO SCH (08:21)
[2019-06-13] MEDS: PRAVACHOL 40 MG PO SCH (08:21)
[2019-06-13] MEDS: FAMOTIDINE 20 MG TAB PO SCH (08:22)
[2019-06-13] MEDS: URSODIOL 300 MG CAP PO SCH (08:22)
[2019-06-13] MEDS: METFORMIN ER 500 MG TAB PO SCH ×2 (08:22→16:43)
[2019-06-13] MEDS: ASPIRIN EC 81 MG TAB PO SCH (08:22)
[2019-06-13] MEDS: MULTIVIT W/ MINERAL TAB PO SCH (08:22)
[2019-06-13] MEDS: GABAPENTIN 300 MG CAP PO SCH ×2 (08:23→20:06)
[2019-06-13] MEDS: ENSURE HIGH PROTEIN 237 ML CAN PO SCH ×2 (08:24→20:06)
--- NOTE | 2019-06-13 15:15 | PN ---
Date of Progress Note: 06/13/2019 Subjective: The patient was seen this morning for followup. He denies any new complaints. His back pain and intermittent pain in his left leg have remained unchanged. No constipation. Fingerstick b lood sugar readings reviewed. Objective: Vital Signs: Reviewed. HEENT: Unremarkable. Lungs: Clear to auscultation. Heart: Sounds normal. Abdomen: Soft. Bowel sounds normal. No guarding, rigidity, tenderness, or distention. Extremities: No leg edema. Impression: 1.Lumbar radiculopathy. 2.Compression fracture of spine, old. 3.Type 2 diabetes mellitus. Plan: We will go ahead and continue current medication patient is on metformin 750 mg twice a day cu rrently and at home, he was taking 500 mg twice a day. Fingerstick blood sugar readings reviewed. I will change his diet from regular diet to diabetic diet, and he does not have any teeth or dentures, so he selects his food that is easy for him to chew and swallow and he tends to eat mostly soft flui d, so he will see how his blood sugar gets a little bit better control with diabetic diet and current metformin dose. If necessary, we will increase the dose and all those details were discussed with rosanna im. We will continue gabapentin at current dose. Continue physical therapy per guidance of Dr. Guillaume figueroa. I will see him tomorrow for followup. LAUREEN/MODL Voice ID: [id number] Report ID: [id number]
[2019-06-13] MEDS: ENOXAPARIN 40 MG/0.4 ML SQ SCH (16:43)
[2019-06-14] MEDS: TRAMADOL HCL 50 MG TAB PO PRN ×2 (00:06→19:29)
[2019-06-14] MEDS: INSULIN -REGULAR HUMAN 50 UNIT/0.5 ML ML SQ SCH ×4 (07:06→21:02)
[2019-06-14] MEDS: GABAPENTIN 300 MG CAP PO SCH ×2 (07:17→19:30)
[2019-06-14] MEDS: MULTIVIT W/ MINERAL TAB PO SCH (07:17)
[2019-06-14] MEDS: FAMOTIDINE 20 MG TAB PO SCH (07:17)
[2019-06-14] MEDS: METFORMIN ER 500 MG TAB PO SCH ×2 (07:17→16:56)
[2019-06-14] MEDS: URSODIOL 300 MG CAP PO SCH (07:18)
[2019-06-14] MEDS: ASPIRIN EC 81 MG TAB PO SCH (07:18)
[2019-06-14] MEDS: ENSURE HIGH PROTEIN 237 ML CAN PO SCH ×2 (07:19→19:30)
[2019-06-14] MEDS: PRAVACHOL 40 MG PO SCH (07:24)
[2019-06-14] MEDS: CO Q PO SCH (07:24)
--- NOTE | 2019-06-14 07:47 | PN ---
Date of Progress Note: 06/14/2019 Subjective: Patient was seen this morning for followup. He was sitting in wheelchair. Denied any c omplaints. No nausea, vomiting. No chest pain or shortness of breath. Objective: Vital Signs: Reviewed. HEENT: Unremarkable. Lungs: Clear to auscultation. Heart: Heart sounds normal. Abdomen: Soft. Bowel sounds normal. No guarding, rigidity, tenderness, or distention. Extremities: No leg edema. Laboratory Data: No new blood work today, but fingerstick blood sugar readings reviewed. Yesterday before lunch time his blood sugar was 414, that was the highest level yesterday. Impression: 1.Type 2 diabetes mellitus, uncontrolled. 2.Lumbar radiculopathy. 3.Coronary artery disease. Plan: We will go ahead and continue to monitor fingerstick blood sugar readings. Patient is on diab etic diet as of yesterday. He still does not necessarily eat diabetic diet at home. He eats pancake s and donuts and same thing here in the hospital as well. He is having some problem eating aceves [place] use of problem with his teeth and so at this point we will just have to do the best that we can becau se on 1 hand he needs to have nutrition with the food that he can eat and chew, on other hand certain food that he tolerates well because of his dental problem may not be the best food for his diabetes, so we will continue to monitor his blood sugar and if necessary make adjustment on metformin tomorrow. Details were discussed with him. LAUREEN/MODL Voice ID: [id number] Report ID: [id number]
--- NOTE | 2019-06-14 11:25 | FAST ---
SHIFT START DATE/TIME: 06/14/2019 07:00 (CDT) SHIFT END DATE/TIME: 06/14/2019 19:00 (CDT) NAME ROMULO PEDROZA DATE OF : 1940 DATE OF ADMISSION: 06/11/2019 09:19 (CDT) PHONE: AGE: 78 N# [id number] GENDER: Male ENCOUNTER PHYSICIAN: Dr. Maged Goss M.D. ADMISSION DIAGNOSIS: - Debility 16 - Debility (16) Radiculopathy. EATING: EATING - STEP 1: Does the patient complete the activity by him/herself with no assistance (physical, verbal/nonverbal cueing, setup/clean-up)? No. EATING - STEP 2: Does the patient need only setup/clean-up assistance from one helper? Yes. 1. [id number] ADMISSION PERFORMANCE: Setup or clean-up assistance CODE: 05 ORAL HYGIENE: ORAL HYGIENE - STEP 1: Does the patient complete the activity by him/herself with no assistance (physical, verbal/nonverbal cueing, setup/clean-up)? Yes. 1. [id number] ADMISSION PERFORMANCE: Independent CODE: 06 TOILETING HYGIENE: TOILETING HYGIENE - STEP 1: Does the patient complete the activity by him/herself with no assistance (physical, verbal/nonverbal cueing, setup/clean-up)? No. TOILETING HYGIENE - STEP 2: Does the patient need only setup/clean-up assistance from one helper? No. TOILETING HYGIENE - STEP 3: Does the patient need only verbal/nonverbal cueing or touching/steadying/contact guard assistance fro m one helper? No. TOILETING HYGIENE - STEP 4: Does the patient need physical assistance - for example lifting or trunk support from one helper - wi th the helper providing less than half of the effort? No. TOILETING HYGIENE - STEP 5: Does the patient need physical assistance - for example lifting or trunk support from one helper - wi th the helper providing more than half of the effort? Yes. 1. [id number] ADMISSION PERFORMANCE: Substantial/maximal assistance CODE: 02 BATHING: Not assessed/no information CODE: - DRESSING - UPPER BODY: Not assessed/no information CODE: - DRESSING - LOWER BODY: DRESSING - LOWER BODY - STEP 1: Does the patient complete the activity by him/herself with no assistance (physical, verbal/nonverbal cueing, setup/clean-up)? No. DRESSING - LOWER BODY - STEP 2: Does the patient need only setup/clean-up assistance from one helper? Yes. 1. [id number] ADMISSION PERFORMANCE: Setup or clean-up assistance CODE: 05 PUTTING ON/TAKING OFF FOOTWEAR: FOOTWEAR - STEP 1: Does the patient complete the activity by him/herself with no assistance (physical, verbal/nonverbal cueing, setup/clean-up)? No. FOOTWEAR - STEP 2: Does the patient need only setup/clean-up assistance from one helper? No. FOOTWEAR - STEP 3: Does the patient need only verbal/nonverbal cueing or touching/steadying/contact guard assistance fro m one helper? Yes. 1. [id number] ADMISSION PERFORMANCE: Supervision or touching assistance CODE: 04 ROLL LEFT AND RIGHT: ROLL LEFT AND RIGHT - STEP 1: Does the patient complete the activity by him/herself with no assistance (physical, verbal/nonverbal cueing, setup/clean-up)? No. ROLL LEFT AND RIGHT - STEP 2: Does the patient need only setup/clean-up assistance from one helper? No. ROLL LEFT AND RIGHT - STEP 3: Does the patient need only verbal/nonverbal cueing or touching/steadying/contact guard assistance fro m one helper? Yes. 1. [id number] ADMISSION PERFORMANCE: Supervision or touching assistance CODE: 04 SIT TO LYING: SIT TO LYING - STEP 1: Does the patient complete the activity by him/herself with no assistance (physical, verbal/nonverbal cueing, setup/clean-up)? No. SIT TO LYING - STEP 2: Does the patient need only setup/clean-up assistance from one helper? No. SIT TO LYING - STEP 3: Does the patient need only verbal/nonverbal cueing or touching/steadying/contact guard assistance fro m one helper? Yes. 1. [id number] ADMISSION PERFORMANCE: Supervision or touching assistance CODE: 04 LYING TO SITTING: LYING TO SITTING ON SIDE OF BED - STEP 1: Does the patient complete the activity by him/herself with no assistance (physical, verbal/nonverbal cueing, setup/clean-up)? No. LYING TO SITTING ON SIDE OF BED - STEP 2: Does the patient need only setup/clean-up assistance from one helper? No. LYING TO SITTING ON SIDE OF BED - STEP 3: Does the patient need only verbal/nonverbal cueing or touching/steadying/contact guard assistance fro m one helper? Yes. 1. [id number] ADMISSION PERFORMANCE: Supervision or touching assistance CODE: 04 SIT TO STAND: SIT TO STAND - STEP 1: Does the patient complete the activity by him/herself with no assistance (physical, verbal/nonverbal cueing, setup/clean-up)? No. SIT TO STAND - STEP 2: Does the patient need only setup/clean-up assistance from one helper? No. SIT TO STAND - STEP 3: Does the patient need only verbal/nonverbal cueing or touching/steadying/contact guard assistance fro m one helper? No. SIT TO STAND - STEP 4: Does the patient need physical assistance - for example lifting or trunk support from one helper - wi th the helper providing less than half of the effort? Yes. 1. [id number] ADMISSION PERFORMANCE: Partial/moderate assistance CODE: 03 TRANSFERS: BED, CHAIR: CHAIR/[id number] TRANSFER - STEP 1: Does the patient complete the activity by him/herself with no assistance (physical, verbal/nonverbal cueing, setup/clean-up)? No. CHAIR/[id number] TRANSFER - STEP 2: Does the patient need only setup/clean-up assistance from one helper? No. CHAIR/[id number] TRANSFER - STEP 3: Does the patient need only verbal/nonverbal cueing or touching/steadying/contact guard assistance fro m one helper? No. CHAIR/[id number] TRANSFER - STEP 4: Does the patient need physical assistance - for example lifting or trunk support from one helper - wi th the helper providing less than half of the effort? Yes. 1. [id number] ADMISSION PERFORMANCE: Partial/moderate assistance CODE: 03 TRANSFER TOILET: TOILET TRANSFER - STEP 1: Does the patient complete the activity by him/herself with no assistance (physical, verbal/nonverbal cueing, setup/clean-up)? No. TOILET TRANSFER - STEP 2: Does the patient need only setup/clean-up assistance from one helper? No. TOILET TRANSFER - STEP 3: Does the patient need only verbal/nonverbal cueing or touching/steadying/contact guard assistance fro m one helper? No. TOILET TRANSFER - STEP 4: Does the patient need physical assistance - for example lifting or trunk support from one helper - wi th the helper providing less than half of the effort? No. TOILET TRANSFER - STEP 5: Does the patient need physical assistance - for example lifting or trunk support from one helper - wi th the helper providing more than half of the effort? Yes. 1. [id number] ADMISSION PERFORMANCE: Substantial/maximal assistance CODE: 02 TRANSFERS: CAR: Not assessed/no information CODE: - WALK 10 FEET: Not assessed/no information CODE: - 1 STEP (CURB): Not assessed/no information CODE: - PICKING UP OBJECT: Not attempted due to medical condition or safety concerns CODE: 88 DOES THE PATIENT USE A WHEELCHAIR/SCOOTER? Q1. DOES THE PATIENT USE A WHEELCHAIR/SCOOTER?: Yes CODE: 1 WHEEL 50 FEET WITH TWO TURNS: Not assessed/no information CODE: - INDICATE THE TYPE OF WHEELCHAIR/SCOOTER USED: CODE: EXPR WHEEL 150 FEET: Not assessed/no information CODE: - INDICATE THE TYPE OF WHEELCHAIR/SCOOTER USED: CODE: EXPR BLADDER AND BOWEL: H350. BLADDER CONTINENCE (3-DAY ASSESSMENT PERIOD): Always continent (no documented incontinence) CODE: 0 H400. BOWEL CONTINENCE (3-DAY ASSESSMENT PERIOD): Always continent CODE: 0 SIGNATURE PANEL: The following modified sections: 1. [id number] Admission Performance, 1. FI4586Y Admission Performance, 1. WV4224O Admission Performance, 1. GN9804O Admission Performance, 1. KD5027G Admission Performance, 1. RR4678S Admission Performance, 1. LK5171m Admission Performance, 1. KA4179j Admission Performance , 1. DA3096r Admission Performance, 1. YZ4540n Admission Performance, 1. NZ3186l Admission Performanc e, 1. EE8810K Admission Performance, 1. FT3794A Admission Performance, 1. KU6305A Admission Performan ce, 1. BI0575D Admission Performance, 1. BB9868L Admission Performance, 1. IU6931Z Admission Performa nce, 1. IR3180C Admission Performance, 1. ZC4246D Admission Performance, 1. VN9761A Admission Perform ance, 1. HM0142O Admission Performance, 1. AJ1115H Admission Performance, 1. JC2511U Admission Perfor tripp, Q1. Does the patient use a wheelchair/scooter?, Code, H350. Bladder Continence (3-day assessme nt period), H400. Bowel Continence (3-day assessment period) were [electronically] signed by Roxane HessNAshanti on FriJun 14 2019 11:25:11 GMT-0500 (Central Daylight Time)
--- NOTE | 2019-06-14 12:27 | RAD REPORT ---
EXAM DESCRIPTION: RAD - Lumbar Spine 3 Views - 06/11/2019 3:51 pm CLINICAL HISTORY: PAIN Radiculopathy COMPARISON: Lumbar Spine 3 Views dated 06/11/2019; Lumbar Spine 3 Views dated 02/13/2017; Bone Imagin g Three Phase dated 09/09/2018 FINDINGS: Multiple projections of the thoracic and lumbar spine are submitted Mild to moderate compression deformities are seen involving the lower thoracic and upper lumbar verte bral bodies including T12, L1 and L2. Compare to 10/02/2016 prior study, these appear progressive or new, particularly at the T12 and L2 level. The bones are diffusely osteoporotic. MRI of the thoracic and lumbar spine could be performed for further assessment of these findings in t o better delineate age of the compression fractures.
--- NOTE | 2019-06-14 12:27 | RAD REPORT ---
EXAM DESCRIPTION: RAD - Thoracic Spine Ap/Lat - 06/11/2019 3:51 pm CLINICAL HISTORY: back pain Radiculopathy COMPARISON: No comparisons FINDINGS: Multiple projections of the thoracic and lumbar spine are submitted Mild to moderate compression deformities are seen involving the lower thoracic and upper lumbar verte bral bodies including T12, L1 and L2. Compare to 10/02/2016 prior study, these appear progressive or new, particularly at the T12 and L2 level. The bones are diffusely osteoporotic. MRI of the thoracic and lumbar spine could be performed for further assessment of these findings in t o better delineate age of the compression fractures.
--- NOTE | 2019-06-14 13:43 | FAST ---
ENCOUNTER DATE AND TIME: 06/14/2019 08:00 (CDT) NAME ROMULO PEDROZA DATE OF : 1940 DATE OF ADMISSION: 06/11/2019 09:19 (CDT) PHONE: AGE: 78 N# [id number] GENDER: Male ENCOUNTER PHYSICIAN: Dr. Maged Goss M.D. ADMISSION DIAGNOSIS: - Debility 16 - Debility (16) Radiculopathy. EATING: Not assessed/no information CODE: - ORAL HYGIENE: Not assessed/no information CODE: - TOILETING HYGIENE: Not assessed/no information CODE: - BATHING: SHOWER/BATHE SELF - STEP 1: Does the patient complete the activity by him/herself with no assistance (physical, verbal/nonverbal cueing, setup/clean-up)? No. SHOWER/BATHE SELF - STEP 2: Does the patient need only setup/clean-up assistance from one helper? No. SHOWER/BATHE SELF - STEP 3: Does the patient need only verbal/nonverbal cueing or touching/steadying/contact guard assistance fro m one helper? Yes. 1. [id number] ADMISSION PERFORMANCE: Supervision or touching assistance CODE: 04 DRESSING - UPPER BODY: DRESSING - UPPER BODY - STEP 1: Does the patient complete the activity by him/herself with no assistance (physical, verbal/nonverbal cueing, setup/clean-up)? Yes. 1. [id number] ADMISSION PERFORMANCE: Independent CODE: 06 DRESSING - LOWER BODY: DRESSING - LOWER BODY - STEP 1: Does the patient complete the activity by him/herself with no assistance (physical, verbal/nonverbal cueing, setup/clean-up)? No. DRESSING - LOWER BODY - STEP 2: Does the patient need only setup/clean-up assistance from one helper? No. DRESSING - LOWER BODY - STEP 3: Does the patient need only verbal/nonverbal cueing or touching/steadying/contact guard assistance fro m one helper? No. DRESSING - LOWER BODY - STEP 4: Does the patient need physical assistance - for example lifting or trunk support from one helper - wi th the helper providing less than half of the effort? Yes. 1. [id number] ADMISSION PERFORMANCE: Partial/moderate assistance CODE: 03 PUTTING ON/TAKING OFF FOOTWEAR: FOOTWEAR - STEP 1: Does the patient complete the activity by him/herself with no assistance (physical, verbal/nonverbal cueing, setup/clean-up)? No. FOOTWEAR - STEP 2: Does the patient need only setup/clean-up assistance from one helper? Yes. 1. [id number] ADMISSION PERFORMANCE: Setup or clean-up assistance CODE: 05 DOES THE PATIENT USE A WHEELCHAIR/SCOOTER? CODE: EXPR INDICATE THE TYPE OF WHEELCHAIR/SCOOTER USED: CODE: EXPR INDICATE THE TYPE OF WHEELCHAIR/SCOOTER USED: CODE: EXPR BLADDER AND BOWEL: CODE: EXPR CODE: EXPR SIGNATURE PANEL: The following modified sections: 1. [id number] Admission Performance, 1. [id number] Admission Performance, 1. [id number] Admission Performance, 1. [id number] Admission Performance were [electronically] signed by Margarette Hamilton OT on FriJun 14 2019 13:42:16 T-0500 (Central Daylight Time)
[2019-06-14] MEDS: NICOTINE 14 MG/PAT TD SCH (14:53)
[2019-06-14] MEDS: ENOXAPARIN 40 MG/0.4 ML SQ SCH (16:56)
--- NOTE | 2019-06-14 18:03 | R.PN ---
ENCOUNTER DATE AND TIME: 06/14/2019 17:58 (CDT) NAME ROMULO PEDROZA DATE OF : 1940 DATE OF ADMISSION: 06/11/2019 09:19 (CDT) RadiculopathyCHIEF COMPLAINT: Radiculopathy SUBJECTIVE: Pt denied any depression. Pt denied any Shortness of Breath. His pain is well controlled with a rating of 2-3/10. His blood work is stable. He is doing well with physical and occupational therapy. VITAL SIGNS Temperature: 98.2 F SBP/DBP: 145/83 Pulse: 79 Resp: 16 MEDICATION ALLERGIES: No Known Drug Allergies (NKDA) ENVIRONMENTAL ALLERGIES: None Known - Substance Allergies None Known - Other Allergies None Known NURSING: - Shower allowing shower - Lab Results blood Sugar Check ACHS ACTIVITIES OOB only with supervision THERAPIES: - Dietary and Nutrition Adequate Nutrition. Nutritional Education. Nutritional Supplements. PHYSICAL EXAM - Gen Alert and awake Lying in bed No apparent distress Oriented to: person, time, and place - Skin No breakdown Normacephalic - Eyes No abnormalities - ENMT No abnormalities - Neck No abnormalities No cervical adenopathy - CVS RRR - Chest No abnormalities - Resp Clear to auscultation - Abd Soft - GI Non distended Deferred - No abnormalities - Ext No significant edema - MSK 4+/5 weakness in both lower extremities. - Neuro 4/5 strength bilaterally upper and lower extremities. - Psych No abnormalities ASSESSMENT: Pt. is a 78 yo Right-handed white male.On 06/07/2019 he was admitted to [facility] h diagnosis Radiculopathy.His impairment category is Debility 16 - Debility (16).Pre-morbidly, Pt. w as independent/mod-I in Self-Care, Sphincter Control, Transfers Control, Locomotion, Communication, a nd Social Cognition; and he had good Sphincter Control.Currently, he has deficits of Transfers Contro l, Locomotion, Endurance, Balance, Safety Awareness, and Self-Care.Pt. is now referred to [facility] for acute in-patient rehabilitation in order to maximize patient's functional independence in activities of daily living, strength, ROM, and mobility.- Rehab Goal Patient has realistic goal of being discharged at assistance level 6-Luis to reside at Home with Fam danica/Relatives. MDM/PLAN: - Physical Therapy Gait dysfunction - to improve, our physical therapists will perform initial evaluation of pt's statu s upon admission and devise an individualized program for Gait Training, and Wheel Chair mobility Inability to transfer - to improve, our physical therapists will perform initial evaluation of pt's status upon admission and devise an individualized program for Bed mobility Need for home safety evaluation - to improve, our physical therapists will perform initial evaluatio n of pt's status upon admission and devise an individualized program for Home Evaluation Need in caregiver upon discharge - to improve, our physical therapists will perform initial evaluati on of pt's status upon admission and devise an individualized program for Caregiver Training Edema - to improve, our physical therapists will perform initial evaluation of pt's status upon admis palomo and devise an individualized program for Elevation Training, and Lymphedema Therapy New precaution - to improve, our physical therapists will perform initial evaluation of pt's status upon admission and devise an individualized program for Patient precaution education Poor balance - to improve, our physical therapists will perform initial evaluation of pt's status up on admission and devise an individualized program for Balance Training Poor endurance - to improve, our physical therapists will perform initial evaluation of pt's status upon admission and devise an individualized program for Endurance Training Weakness - to improve, our physical therapists will perform initial evaluation of pt's status upon a dmission and devise an individualized program for Aquatic Therapy, Neuromuscular Reeducation, and Str engthening Achieving independence - to improve, our physical therapists will perform initial evaluation of pt's status upon admission and devise an individualized program for Community Reintegration Activities - Occupational Therapy ADL deficits - to improve, our occupation therapists will perform initial evaluation of pt's status upon admission and devise an individualized program for Bathing, Bed mobility, Community Reintegratio n, Cooking, Dressing, Eating, Fine Motor Skills, Grooming, Homemaking, Kitchen Mobility, Laundry, Pat ient Education, Safety Awareness, Splinting - Positioning, Transfers(Toilet, Tub, Shower), and Wheel Chair Management Need for residential care officer - to improve, our occupation therapists will perform initial evaluation of pt's status upon admission and devise an individualized program for Caregiver Training Weakness - to improve, our occupation therapists will perform initial evaluation of pt's status upon admission and devise an individualized program for Aquatic Therapy, Balance, Endurance, UE ROM, and UE strengthening - Other See attached MAR (Medication Administration Record) - Diet Type Continue Regular - Diet - Liquid Texture Continue Regular - Tube Feed Continue N/A - Lab Results blood Sugar Check ACHS - Diet - Solid Texture Continue Regular - Shower allowing shower FUNCTIONAL STATUS: UPDATED AT WEEKLY TEAM CONFERENCE - Bladder Same accident frequency: 7-Ind - No accidents in the past 7 days - Bowel Same accident frequency: 7-Ind - No accidents in the past 7 days - Walking Same score based on distance walked: 1(<=50ft) - Wheelchair Same score based on distance traveled: 0(N/A) FUNCTIONAL STATUS: - Self-Care A. Eating Luis B. Grooming Luis C. Bathing Luis D. Dressing - Upper sup E. Dressing - Lower sup F. Toileting sup - Sphincter Control G: Bladder control Ind H: Bowel control Ind - Transfers Control I. Bed/Chair/Wheelchair sup J. Toilet sup K. Tub/Shower ADNO - Locomotion L. Walk/Wheelchair (C) maxA L. Walk/Wheelchair (W) maxA M. Stairs ADNO - Communication N. Comprehension (B) Ind O. Expression (B) Ind - Social Cognition P. Social Interaction Ind Q. Problem Solving Ind R. Memory Ind - Endurance Fair - Balance Fair - Safety Awareness Fair QI SCORES: - Self-Care A. Eating 05-Setup or clean-up assistance B. Oral hygiene 06-Independent C. Toileting hygiene 06-Independent E. Shower/bathe self 05-Setup or clean-up assistance F. Upper body dressing 05-Setup or clean-up assistance G. Lower body dressing 05-Setup or clean-up assistance H. Putting on/taking off footwear 05-Setup or clean-up assistance - Mobility A. Roll left and right 06-Independent B. Sit to lying 06-Independent C. Lying to sitting on side of bed 06-Independent D. Sit to stand 04-Supervision or touching assistance E. Chair/[id number] transfer 04-Supervision or touching assistance F. Toilet transfer 04-Supervision or touching assistance G. Car transfer 88-Not attempted due to medical condition or safety concerns I. Walk 10 feet 02-Substantial/maximal assistance J. Walk 50 feet with two turns 03-Partial/moderate assistance K. Walk 150 feet 88-Not attempted due to medical condition or safety concerns L. Walking 10 feet on uneven surfaces 88-Not attempted due to medical condition or safety concerns M. 1 step (curb) 88-Not attempted due to medical condition or safety concerns N. 4 steps 88-Not attempted due to medical condition or safety concerns O. 12 steps 88-Not attempted due to medical condition or safety concerns P. Picking up object 88-Not attempted due to medical condition or safety concerns R. Wheel 50 feet with two turns 01-Dependent S. Wheel 150 feet 01-Dependent - Bladder and Bowel Bladder continence 0-Always continent Bowel continence 0-Always continent CURRENT FUNC. DEFICITS: Transfers Control, Locomotion, Endurance, Balance, Safety Awareness, and Self-Care SIGNATURE PANEL: (CDT)
[2019-06-14] MEDS: JUVEN PACKET PO SCH (19:31)
[2019-06-14] MEDS ORDERED: INSULIN -REGULAR HUMAN 50 UNIT/0.5 ML ML ONE (20:55)
[2019-06-15] MEDS: INSULIN -REGULAR HUMAN 50 UNIT/0.5 ML ML SQ SCH ×4 (07:30→19:16)
[2019-06-15] MEDS: NICOTINE 14 MG/PAT TD SCH (08:00)
[2019-06-15] MEDS: FAMOTIDINE 20 MG TAB PO SCH (08:28)
[2019-06-15] MEDS: MULTIVIT W/ MINERAL TAB PO SCH (08:28)
[2019-06-15] MEDS: PIOGLITAZONE 15 MG TAB PO SCH (08:29)
[2019-06-15] MEDS: METFORMIN ER 500 MG TAB PO SCH ×2 (08:29→17:05)
[2019-06-15] MEDS: GABAPENTIN 300 MG CAP PO SCH ×2 (08:29→19:13)
[2019-06-15] MEDS: ASPIRIN EC 81 MG TAB PO SCH (08:29)
[2019-06-15] MEDS: TRAMADOL HCL 50 MG TAB PO PRN ×2 (08:29→19:13)
[2019-06-15] MEDS: CO Q PO SCH (08:30)
[2019-06-15] MEDS: PRAVACHOL 40 MG PO SCH (08:30)
[2019-06-15] MEDS: URSODIOL 300 MG CAP PO SCH (08:31)
[2019-06-15] MEDS: ENSURE HIGH PROTEIN 237 ML CAN PO SCH ×2 (09:27→19:13)
[2019-06-15] MEDS: JUVEN PACKET PO SCH ×2 (09:28→19:13)
[2019-06-15] MEDS: ACETAMINOPHEN 500 MG TAB PO PRN (12:33)
--- NOTE | 2019-06-15 14:16 | FAST ---
SHIFT START DATE/TIME: 06/15/2019 07:00 (CDT) SHIFT END DATE/TIME: 06/15/2019 19:00 (CDT) NAME ROMULO PEDROZA DATE OF : 1940 DATE OF ADMISSION: 06/11/2019 09:19 (CDT) PHONE: AGE: 78 N# [id number] GENDER: Male ENCOUNTER PHYSICIAN: Dr. Maged Goss M.D. ADMISSION DIAGNOSIS: - Debility 16 - Debility (16) Radiculopathy. EATING: EATING - STEP 1: Does the patient complete the activity by him/herself with no assistance (physical, verbal/nonverbal cueing, setup/clean-up)? Yes. 1. [id number] ADMISSION PERFORMANCE: Independent CODE: 06 ORAL HYGIENE: Not applicable - Not attempted and the patient did not perform this activity prior to the current ill ness, exacerbation, or injury. CODE: 09 TOILETING HYGIENE: TOILETING HYGIENE - STEP 1: Does the patient complete the activity by him/herself with no assistance (physical, verbal/nonverbal cueing, setup/clean-up)? No. TOILETING HYGIENE - STEP 2: Does the patient need only setup/clean-up assistance from one helper? No. TOILETING HYGIENE - STEP 3: Does the patient need only verbal/nonverbal cueing or touching/steadying/contact guard assistance fro m one helper? Yes. 1. [id number] ADMISSION PERFORMANCE: Supervision or touching assistance CODE: 04 BATHING: Not assessed/no information CODE: - DRESSING - UPPER BODY: DRESSING - UPPER BODY - STEP 1: Does the patient complete the activity by him/herself with no assistance (physical, verbal/nonverbal cueing, setup/clean-up)? Yes. 1. [id number] ADMISSION PERFORMANCE: Independent CODE: 06 DRESSING - LOWER BODY: DRESSING - LOWER BODY - STEP 1: Does the patient complete the activity by him/herself with no assistance (physical, verbal/nonverbal cueing, setup/clean-up)? Yes. 1. [id number] ADMISSION PERFORMANCE: Independent CODE: 06 PUTTING ON/TAKING OFF FOOTWEAR: FOOTWEAR - STEP 1: Does the patient complete the activity by him/herself with no assistance (physical, verbal/nonverbal cueing, setup/clean-up)? Yes. 1. [id number] ADMISSION PERFORMANCE: Independent CODE: 06 ROLL LEFT AND RIGHT: ROLL LEFT AND RIGHT - STEP 1: Does the patient complete the activity by him/herself with no assistance (physical, verbal/nonverbal cueing, setup/clean-up)? Yes. 1. [id number] ADMISSION PERFORMANCE: Independent CODE: 06 SIT TO LYING: SIT TO LYING - STEP 1: Does the patient complete the activity by him/herself with no assistance (physical, verbal/nonverbal cueing, setup/clean-up)? Yes. 1. [id number] ADMISSION PERFORMANCE: Independent CODE: 06 LYING TO SITTING: LYING TO SITTING ON SIDE OF BED - STEP 1: Does the patient complete the activity by him/herself with no assistance (physical, verbal/nonverbal cueing, setup/clean-up)? Yes. 1. [id number] ADMISSION PERFORMANCE: Independent CODE: 06 SIT TO STAND: SIT TO STAND - STEP 1: Does the patient complete the activity by him/herself with no assistance (physical, verbal/nonverbal cueing, setup/clean-up)? No. SIT TO STAND - STEP 2: Does the patient need only setup/clean-up assistance from one helper? No. SIT TO STAND - STEP 3: Does the patient need only verbal/nonverbal cueing or touching/steadying/contact guard assistance fro m one helper? Yes. 1. [id number] ADMISSION PERFORMANCE: Supervision or touching assistance CODE: 04 TRANSFERS: BED, CHAIR: CHAIR/[id number] TRANSFER - STEP 1: Does the patient complete the activity by him/herself with no assistance (physical, verbal/nonverbal cueing, setup/clean-up)? No. CHAIR/[id number] TRANSFER - STEP 2: Does the patient need only setup/clean-up assistance from one helper? No. CHAIR/[id number] TRANSFER - STEP 3: Does the patient need only verbal/nonverbal cueing or touching/steadying/contact guard assistance fro m one helper? Yes. 1. [id number] ADMISSION PERFORMANCE: Supervision or touching assistance CODE: 04 TRANSFER TOILET: TOILET TRANSFER - STEP 1: Does the patient complete the activity by him/herself with no assistance (physical, verbal/nonverbal cueing, setup/clean-up)? No. TOILET TRANSFER - STEP 2: Does the patient need only setup/clean-up assistance from one helper? No. TOILET TRANSFER - STEP 3: Does the patient need only verbal/nonverbal cueing or touching/steadying/contact guard assistance fro m one helper? No. TOILET TRANSFER - STEP 4: Does the patient need physical assistance - for example lifting or trunk support from one helper - wi th the helper providing less than half of the effort? Yes. 1. [id number] ADMISSION PERFORMANCE: Partial/moderate assistance CODE: 03 TRANSFERS: CAR: Not assessed/no information CODE: - WALK 10 FEET: Not assessed/no information CODE: - 1 STEP (CURB): Not assessed/no information CODE: - PICKING UP OBJECT: Not attempted due to medical condition or safety concerns CODE: 88 DOES THE PATIENT USE A WHEELCHAIR/SCOOTER? Q1. DOES THE PATIENT USE A WHEELCHAIR/SCOOTER?: Yes CODE: 1 WHEEL 50 FEET WITH TWO TURNS: WHEEL 50 FEET WITH TWO TURNS - STEP 1: Does the patient complete the activity by him/herself with no assistance (physical, verbal/nonverbal cueing, setup/clean-up)? Yes. 1. [id number] ADMISSION PERFORMANCE: Independent CODE: 06 INDICATE THE TYPE OF WHEELCHAIR/SCOOTER USED: CODE: EXPR WHEEL 150 FEET: WHEEL 150 FEET - STEP 1: Does the patient complete the activity by him/herself with no assistance (physical, verbal/nonverbal cueing, setup/clean-up)? Yes. 1. [id number] ADMISSION PERFORMANCE: Independent CODE: 06 INDICATE THE TYPE OF WHEELCHAIR/SCOOTER USED: SS1. INDICATE THE TYPE OF WHEELCHAIR/SCOOTER USED.: Manual CODE: 1 BLADDER AND BOWEL: H350. BLADDER CONTINENCE (3-DAY ASSESSMENT PERIOD): Always continent (no documented incontinence) CODE: 0 H400. BOWEL CONTINENCE (3-DAY ASSESSMENT PERIOD): Always continent CODE: 0 SIGNATURE PANEL: The following modified sections: 1. [id number] Admission Performance, 1. [id number] Admission Performance, 1. PG7085l Admission Performance, 1. IX8847l Admission Performance, 1. SL0544r Admission Performance, 1. [id number] Admission Performance, 1. [id number] Admission Performance, 1. [id number] Admission Performance , 1. [id number] Admission Performance, 1. [id number] Admission Performance, 1. [id number] Admission Performanc e, Q1. Does the patient use a wheelchair/scooter?, 1. [id number] Admission Performance, 1. [id number] Admis palomo Performance, Code, SS1. Indicate the type of wheelchair/scooter used., H350. Bladder Continence (3-day assessment period), H400. Bowel Continence (3-day assessment period) were [electronically] sig heath by Roxane [email or web address] on FriJun 15 2019 14:14:58 T-0500 (Central Daylight Time)
[2019-06-15] MEDS: ENOXAPARIN 40 MG/0.4 ML SQ SCH (17:14)
--- NOTE | 2019-06-15 18:32 | RAD REPORT ---
EXAM DESCRIPTION: MRI - Lumbar Spine Wo Con - 06/15/2019 4:24 pm CLINICAL HISTORY: Lumbar compression fracture COMPARISON: August 2018 TECHNIQUE: Sagittal T1, T2 and STIR weighted sequences were obtained. Axial T1 and T2 sequences were obtained through the lumbar disc levels. FINDINGS: Mild to moderate compression fractures involve L1 and L2 vertebral bodies. No significant change in the amount of compression since the prior exam. There is mild edema within superior vertebr al endplate of the L1 vertebral body. No additional compression fractures seen. Disc bulge, osteophytes, ligamentum flavum and facet hypertrophy L3-4 resulting in moderate narrowing of the right and mild to moderate narrowing left neural foramina L4-5 disc is thinned. Disc bulge, osteophytes, ligamentum flavum and facet hypertrophy are present. M ild to moderate narrowing of the neural foramina bilaterally Disc bulge and osteophytes L5-S1. Moderate narrowing of the right neural foramina IMPRESSION: Mild to moderate compression fracture L1 vertebral body without significant change since August 2018. There is mild edema within the vertebral body. 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
--- NOTE | 2019-06-15 18:52 | RAD REPORT ---
EXAM DESCRIPTION: MRI - Thoracic Spine Wo Contr - 06/15/2019 4:18 pm COMPARISON: August 2018 CT TECHNIQUE: Sagittal T1 weighted, T2 weighted and T2 STIR weighted sequences were obtained. Axial T2 weighted images were obtained through each disc level. FINDINGS: 12 x 5 x 7 millimeter (cc by AP by trans) right paracentral disc herniation T6-7 Mild to moderate compression fracture involves the T12 vertebral body without significant change from August 2018 Spinal cord is normal caliber and signal No other significant abnormality seen IMPRESSION: 12 x 5 x 7 millimeter (cc by AP by trans) right paracentral disc herniation T6-7 Mild to moderate compression fracture T12 unchanged from August 2018
--- NOTE | 2019-06-15 23:17 | PN ---
Date of Progress Note: 06/15/2019 Subjective: Patient was seen this morning for followup. No new complaints or problems reported by h im. He was lying in bed, not in distress. Objective: Vital Signs: Reviewed. HEENT: Unremarkable. Lungs: Clear to auscultation. Heart: Sounds normal. Abdomen: Soft. Bowel sounds normal. No guarding, rigidity, tenderness, or distention. Extremities: No leg edema. Laboratory Data: Fingerstick blood sugar readings reviewed. Impression: 1.Lumbar radiculopathy. 2.Compression fracture of spine. 3.Coronary artery disease. 4.Type 2 diabetes mellitus, uncontrolled. Plan: We will go ahead and get an MRI of thoracic and lumbar spine as per order. Continue current m etformin. Add pioglitazone 15 mg daily with breakfast per guidance of Dr. Goss. I will see him tomorrow for followup. LAUREEN/MODL Voice ID: [id number] Report ID: [id number]
[2019-06-16] MEDS: INSULIN -REGULAR HUMAN 50 UNIT/0.5 ML ML SQ SCH ×4 (07:30→18:50)
[2019-06-16] MEDS: NICOTINE 14 MG/PAT TD SCH (08:00)
[2019-06-16] MEDS: PRAVACHOL 40 MG PO SCH (08:23)
[2019-06-16] MEDS: CO Q PO SCH (08:24)
[2019-06-16] MEDS: METFORMIN ER 500 MG TAB PO SCH ×2 (08:24→17:01)
[2019-06-16] MEDS: PIOGLITAZONE 15 MG TAB PO SCH (08:25)
[2019-06-16] MEDS: URSODIOL 300 MG CAP PO SCH (08:25)
[2019-06-16] MEDS: GABAPENTIN 300 MG CAP PO SCH ×2 (08:25→18:50)
[2019-06-16] MEDS: ASPIRIN EC 81 MG TAB PO SCH (08:25)
[2019-06-16] MEDS: MULTIVIT W/ MINERAL TAB PO SCH (08:25)
[2019-06-16] MEDS: TRAMADOL HCL 50 MG TAB PO PRN (08:25)
[2019-06-16] MEDS: FAMOTIDINE 20 MG TAB PO SCH (08:26)
[2019-06-16] MEDS: ENSURE HIGH PROTEIN 237 ML CAN PO SCH ×2 (08:28→18:49)
[2019-06-16] MEDS: JUVEN PACKET PO SCH ×2 (08:59→18:49)
[2019-06-16] MEDS: ACETAMINOPHEN 500 MG TAB PO PRN (12:03)
--- NOTE | 2019-06-16 12:56 | FAST ---
SHIFT START DATE/TIME: 06/16/2019 07:00 (CDT) SHIFT END DATE/TIME: 06/16/2019 19:00 (CDT) NAME ROMULO PEDROZA DATE OF : 1940 DATE OF ADMISSION: 06/11/2019 09:19 (CDT) PHONE: AGE: 78 N# [id number] GENDER: Male ENCOUNTER PHYSICIAN: Dr. Maged Goss M.D. ADMISSION DIAGNOSIS: - Debility 16 - Debility (16) Radiculopathy. EATING: EATING - STEP 1: Does the patient complete the activity by him/herself with no assistance (physical, verbal/nonverbal cueing, setup/clean-up)? Yes. 1. [id number] ADMISSION PERFORMANCE: Independent CODE: 06 ORAL HYGIENE: ORAL HYGIENE - STEP 1: Does the patient complete the activity by him/herself with no assistance (physical, verbal/nonverbal cueing, setup/clean-up)? No. ORAL HYGIENE - STEP 2: Does the patient need only setup/clean-up assistance from one helper? Yes. 1. [id number] ADMISSION PERFORMANCE: Setup or clean-up assistance CODE: 05 TOILETING HYGIENE: TOILETING HYGIENE - STEP 1: Does the patient complete the activity by him/herself with no assistance (physical, verbal/nonverbal cueing, setup/clean-up)? No. TOILETING HYGIENE - STEP 2: Does the patient need only setup/clean-up assistance from one helper? Yes. 1. [id number] ADMISSION PERFORMANCE: Setup or clean-up assistance CODE: 05 BATHING: Not assessed/no information CODE: - DRESSING - UPPER BODY: Not assessed/no information CODE: - DRESSING - LOWER BODY: Not assessed/no information CODE: - PUTTING ON/TAKING OFF FOOTWEAR: Not assessed/no information CODE: - ROLL LEFT AND RIGHT: ROLL LEFT AND RIGHT - STEP 1: Does the patient complete the activity by him/herself with no assistance (physical, verbal/nonverbal cueing, setup/clean-up)? No. ROLL LEFT AND RIGHT - STEP 2: Does the patient need only setup/clean-up assistance from one helper? Yes. 1. [id number] ADMISSION PERFORMANCE: Setup or clean-up assistance CODE: 05 SIT TO LYING: SIT TO LYING - STEP 1: Does the patient complete the activity by him/herself with no assistance (physical, verbal/nonverbal cueing, setup/clean-up)? No. SIT TO LYING - STEP 2: Does the patient need only setup/clean-up assistance from one helper? Yes. 1. [id number] ADMISSION PERFORMANCE: Setup or clean-up assistance CODE: 05 LYING TO SITTING: LYING TO SITTING ON SIDE OF BED - STEP 1: Does the patient complete the activity by him/herself with no assistance (physical, verbal/nonverbal cueing, setup/clean-up)? No. LYING TO SITTING ON SIDE OF BED - STEP 2: Does the patient need only setup/clean-up assistance from one helper? Yes. 1. [id number] ADMISSION PERFORMANCE: Setup or clean-up assistance CODE: 05 SIT TO STAND: SIT TO STAND - STEP 1: Does the patient complete the activity by him/herself with no assistance (physical, verbal/nonverbal cueing, setup/clean-up)? No. SIT TO STAND - STEP 2: Does the patient need only setup/clean-up assistance from one helper? Yes. 1. [id number] ADMISSION PERFORMANCE: Setup or clean-up assistance CODE: 05 TRANSFERS: BED, CHAIR: CHAIR/VIA-GM-ZSOLS TRANSFER - STEP 1: Does the patient complete the activity by him/herself with no assistance (physical, verbal/nonverbal cueing, setup/clean-up)? No. CHAIR/[id number] TRANSFER - STEP 2: Does the patient need only setup/clean-up assistance from one helper? Yes. 1. [id number] ADMISSION PERFORMANCE: Setup or clean-up assistance CODE: 05 TRANSFER TOILET: TOILET TRANSFER - STEP 1: Does the patient complete the activity by him/herself with no assistance (physical, verbal/nonverbal cueing, setup/clean-up)? No. TOILET TRANSFER - STEP 2: Does the patient need only setup/clean-up assistance from one helper? Yes. 1. [id number] ADMISSION PERFORMANCE: Setup or clean-up assistance CODE: 05 TRANSFERS: CAR: Not assessed/no information CODE: - WALK 10 FEET: Not assessed/no information CODE: - 1 STEP (CURB): Not assessed/no information CODE: - PICKING UP OBJECT: Not assessed/no information CODE: - DOES THE PATIENT USE A WHEELCHAIR/SCOOTER? CODE: EXPR WHEEL 50 FEET WITH TWO TURNS: Not assessed/no information CODE: - INDICATE THE TYPE OF WHEELCHAIR/SCOOTER USED: CODE: EXPR WHEEL 150 FEET: Not assessed/no information CODE: - INDICATE THE TYPE OF WHEELCHAIR/SCOOTER USED: CODE: EXPR BLADDER AND BOWEL: H350. BLADDER CONTINENCE (3-DAY ASSESSMENT PERIOD): Always continent (no documented incontinence) CODE: 0 H400. BOWEL CONTINENCE (3-DAY ASSESSMENT PERIOD): Always continent CODE: 0 SIGNATURE PANEL: The following modified sections: 1. [id number] Admission Performance, 1. [id number] Admission Performance, 1. [id number] Admission Performance, 1. [id number] Admission Performance, 1. [id number] Admission Performance, 1. [id number] Admission Performance, 1. JA1162M Admission Performance, 1. NW9443W Admission Performance , 1. [id number] Admission Performance, Code, H350. Bladder Continence (3-day assessment period), H400. B owel Continence (3-day assessment period) were [electronically] signed by Austen Montes on FriJun 16 12:56:02 GMT-0500 (Central Daylight Time)
[2019-06-16] MEDS: ENOXAPARIN 40 MG/0.4 ML SQ SCH (16:19)
--- NOTE | 2019-06-16 19:12 | R.PN ---
ENCOUNTER DATE AND TIME: 06/16/2019 19:10 (CDT) NAME ROMULO PEDROZA DATE OF : 1940 DATE OF ADMISSION: 06/11/2019 09:19 (CDT) RadiculopathyCHIEF COMPLAINT: Radiculopathy SUBJECTIVE: Pt denied any depression. Pt denied any Shortness of Breath. His pain is well controlled with a rating of 2-3/10. His blood work is stable. He is doing well with physical and occupational therapy. VITAL SIGNS Temperature: 97.9 F SBP/DBP: 138/86 Pulse: 83 Resp: 16 MEDICATION ALLERGIES: No Known Drug Allergies (NKDA) ENVIRONMENTAL ALLERGIES: None Known - Substance Allergies None Known - Other Allergies None Known NURSING: - Shower allowing shower - Lab Results blood Sugar Check ACHS ACTIVITIES OOB only with supervision THERAPIES: - Dietary and Nutrition Adequate Nutrition. Nutritional Education. Nutritional Supplements. PHYSICAL EXAM - Gen Alert and awake Lying in bed No apparent distress Oriented to: person, time, and place - Skin No breakdown Normacephalic - Eyes No abnormalities - ENMT No abnormalities - Neck No abnormalities No cervical adenopathy - CVS RRR - Chest No abnormalities - Resp Clear to auscultation - Abd Soft - GI Non distended Deferred - No abnormalities - Ext No significant edema - MSK 4+/5 weakness in both lower extremities. - Neuro 4/5 strength bilaterally upper and lower extremities. - Psych No abnormalities ASSESSMENT: Pt. is a 78 yo Right-handed white male.On 06/07/2019 he was admitted to [facility] h diagnosis Radiculopathy.His impairment category is Debility 16 - Debility (16).Pre-morbidly, Pt. w as independent/mod-I in Self-Care, Sphincter Control, Transfers Control, Locomotion, Communication, a nd Social Cognition; and he had good Sphincter Control.Currently, he has deficits of Transfers Contro l, Locomotion, Endurance, Balance, Safety Awareness, and Self-Care.Pt. is now referred to [facility] for acute in-patient rehabilitation in order to maximize patient's functional independence in activities of daily living, strength, ROM, and mobility.- Rehab Goal Patient has realistic goal of being discharged at assistance level 6-Luis to reside at Home with Fam danica/Relatives. MDM/PLAN: - Physical Therapy Gait dysfunction - to improve, our physical therapists will perform initial evaluation of pt's statu s upon admission and devise an individualized program for Gait Training, and Wheel Chair mobility Inability to transfer - to improve, our physical therapists will perform initial evaluation of pt's status upon admission and devise an individualized program for Bed mobility Need for home safety evaluation - to improve, our physical therapists will perform initial evaluatio n of pt's status upon admission and devise an individualized program for Home Evaluation Need in caregiver upon discharge - to improve, our physical therapists will perform initial evaluati on of pt's status upon admission and devise an individualized program for Caregiver Training Edema - to improve, our physical therapists will perform initial evaluation of pt's status upon admi ssion and devise an individualized program for Elevation Training, and Lymphedema Therapy New precaution - to improve, our physical therapists will perform initial evaluation of pt's status upon admission and devise an individualized program for Patient precaution education Poor balance - to improve, our physical therapists will perform initial evaluation of pt's status up on admission and devise an individualized program for Balance Training Poor endurance - to improve, our physical therapists will perform initial evaluation of pt's status upon admission and devise an individualized program for Endurance Training Weakness - to improve, our physical therapists will perform initial evaluation of pt's status upon a dmission and devise an individualized program for Aquatic Therapy, Neuromuscular Reeducation, and Str engthening Achieving independence - to improve, our physical therapists will perform initial evaluation of pt's status upon admission and devise an individualized program for Community Reintegration Activities - Occupational Therapy ADL deficits - to improve, our occupation therapists will perform initial evaluation of pt's status upon admission and devise an individualized program for Bathing, Bed mobility, Community Reintegratio n, Cooking, Dressing, Eating, Fine Motor Skills, Grooming, Homemaking, Kitchen Mobility, Laundry, Pat ient Education, Safety Awareness, Splinting - Positioning, Transfers(Toilet, Tub, Shower), and Wheel Chair Management 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 for career portals teacher - to improve, our occupation therapists will perform initial evaluation of pt's status upon admission and devise an individualized program for Caregiver Training Weakness - to improve, our occupation therapists will perform initial evaluation of pt's status upon admission and devise an individualized program for Aquatic Therapy, Balance, Endurance, UE ROM, and UE strengthening - Other See attached MAR (Medication Administration Record) - Diet Type Continue Regular - Diet - Liquid Texture Continue Regular - Tube Feed Continue N/A - Lab Results blood Sugar Check ACHS - Diet - Solid Texture Continue Regular - Shower allowing shower FUNCTIONAL STATUS: UPDATED AT WEEKLY TEAM CONFERENCE - Bladder Same accident frequency: 7-Ind - No accidents in the past 7 days - Bowel Same accident frequency: 7-Ind - No accidents in the past 7 days - Walking Same score based on distance walked: 1(<=50ft) - Wheelchair Same score based on distance traveled: 0(N/A) FUNCTIONAL STATUS: - Self-Care A. Eating Luis B. Grooming Luis C. Bathing Luis D. Dressing - Upper sup E. Dressing - Lower sup F. Toileting sup - Sphincter Control G: Bladder control Ind H: Bowel control Ind - Transfers Control I. Bed/Chair/Wheelchair sup J. Toilet sup K. Tub/Shower ADNO - Locomotion L. Walk/Wheelchair (C) maxA L. Walk/Wheelchair (W) maxA M. Stairs ADNO - Communication N. Comprehension (B) Ind O. Expression (B) Ind - Social Cognition P. Social Interaction Ind Q. Problem Solving Ind R. Memory Ind - Endurance Fair - Balance Fair - Safety Awareness Fair QI SCORES: - Self-Care A. Eating 05-Setup or clean-up assistance B. Oral hygiene 06-Independent C. Toileting hygiene 06-Independent E. Shower/bathe self 05-Setup or clean-up assistance F. Upper body dressing 05-Setup or clean-up assistance G. Lower body dressing 05-Setup or clean-up assistance H. Putting on/taking off footwear 05-Setup or clean-up assistance - Mobility A. Roll left and right 06-Independent B. Sit to lying 06-Independent C. Lying to sitting on side of bed 06-Independent D. Sit to stand 04-Supervision or touching assistance E. Chair/[id number]-mkhsh transfer 04-Supervision or touching assistance F. Toilet transfer 04-Supervision or touching assistance G. Car transfer 88-Not attempted due to medical condition or safety concerns I. Walk 10 feet 02-Substantial/maximal assistance J. Walk 50 feet with two turns 03-Partial/moderate assistance K. Walk 150 feet 88-Not attempted due to medical condition or safety concerns L. Walking 10 feet on uneven surfaces 88-Not attempted due to medical condition or safety concerns M. 1 step (curb) 88-Not attempted due to medical condition or safety concerns N. 4 steps 88-Not attempted due to medical condition or safety concerns O. 12 steps 88-Not attempted due to medical condition or safety concerns P. Picking up object 88-Not attempted due to medical condition or safety concerns R. Wheel 50 feet with two turns 01-Dependent S. Wheel 150 feet 01-Dependent - Bladder and Bowel Bladder continence 0-Always continent Bowel continence 0-Always continent [facility]IC[facility]: Transfers Control, Locomotion, Endurance, Balance, Safety Awareness, and Self-Care SIGNATURE PANEL: (CDT)
--- NOTE | 2019-06-17 01:00 | PN ---
Date of Progress Note: 06/16/2019 Subjective: The patient was seen this morning for followup. He was lying in bed, not in distress. No new complaints or problems reported. Objective: Vital Signs: Reviewed. HEENT: Unremarkable. Lungs: Clear to auscultation. Heart: Sounds normal. Abdomen: Soft. Bowel sounds normal. No guarding, rigidity, tenderness, or distention. Extremities: No leg edema. 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 He is still not able to raise the left heel against gravity, but able to flex left knee littl e more than what he was able to do before his admission to rehab floor. Laboratory Data: MRI of thoracic and lumbar spine results reviewed with the patient. Impression: 1.Compression fracture, thoracic and lumbar spine, unchanged. 2.Type 2 diabetes mellitus, uncontrolled. 3.Likely diabetic neuropathy of left leg. 4.Coronary artery disease. Plan: It is likely that patient's left leg weakness could be very well due to diabetic neuropathy. We will see how he responds to the gabapentin and better control of diabetes. Details were discussed with him. Continue physical therapy under guidance of Dr. Goss and I will see him tomorrow for chano marroquin. LUAREEN/MODL Voice ID: [id number] Report ID: [id number]
[2019-06-17 05:56] LABS: Absolute Lymphocytes (CBC) 1.6 K/uL (0.7-4.9); Basophils % 1.4 % (0-1.3); Hematocrit 29.9 % (39.6-49.0); Lymphocytes % 27.7 % (15.3-44.8); MPV 10.6 fL (7.6-11.3); RBC Red Blood Cell Count 3.21 M/uL (4.33-5.43)
[2019-06-17 06:16] LABS: Albumin 3.4 g/dL (3.4-5.0); Magnesium 1.6 mg/dL (1.8-2.4); Potassium 4.4 mmol/L (3.5-5.1); Prealbumin 18.3 mg/dL (20-40)
[2019-06-17] MEDS: INSULIN -REGULAR HUMAN 50 UNIT/0.5 ML ML SQ SCH ×4 (07:30→21:11)
[2019-06-17] MEDS: NICOTINE 14 MG/PAT TD SCH (08:00)
[2019-06-17] MEDS: MULTIVIT W/ MINERAL TAB PO SCH (08:16)
[2019-06-17] MEDS: URSODIOL 300 MG CAP PO SCH (08:16)
[2019-06-17] MEDS: METFORMIN ER 500 MG TAB PO SCH ×2 (08:16→17:05)
[2019-06-17] MEDS: CO Q PO SCH (08:17)
[2019-06-17] MEDS: GABAPENTIN 300 MG CAP PO SCH ×2 (08:17→20:42)
[2019-06-17] MEDS: FAMOTIDINE 20 MG TAB PO SCH (08:17)
[2019-06-17] MEDS: ASPIRIN EC 81 MG TAB PO SCH (08:17)
[2019-06-17] MEDS: PIOGLITAZONE 15 MG TAB PO SCH (08:17)
[2019-06-17] MEDS: PRAVACHOL 40 MG PO SCH (08:18)
[2019-06-17] MEDS: ENSURE HIGH PROTEIN 237 ML CAN PO SCH ×2 (08:18→20:42)
[2019-06-17] MEDS: JUVEN PACKET PO SCH ×2 (12:42→20:00)
--- NOTE | 2019-06-17 12:53 | FAST ---
ENCOUNTER DATE AND TIME: 06/16/2019 08:00 (CDT) NAME ROMULO PEDROZA DATE OF : 1940 DATE OF ADMISSION: 06/11/2019 09:19 (CDT) PHONE: AGE: 78 N# [id number] GENDER: Male ENCOUNTER PHYSICIAN: Dr. Maged Goss M.D. ADMISSION DIAGNOSIS: - Debility 16 - Debility (16) Radiculopathy. EATING: EATING - STEP 1: Does the patient complete the activity by him/herself with no assistance (physical, verbal/nonverbal cueing, setup/clean-up)? Yes. 1. [id number] ADMISSION PERFORMANCE: Independent CODE: 06 ORAL HYGIENE: ORAL HYGIENE - STEP 1: Does the patient complete the activity by him/herself with no assistance (physical, verbal/nonverbal cueing, setup/clean-up)? Yes. 1. [id number] ADMISSION PERFORMANCE: Independent CODE: 06 TOILETING HYGIENE: Not assessed/no information CODE: - BATHING: SHOWER/BATHE SELF - STEP 1: Does the patient complete the activity by him/herself with no assistance (physical, verbal/nonverbal cueing, setup/clean-up)? No. SHOWER/BATHE SELF - STEP 2: Does the patient need only setup/clean-up assistance from one helper? Yes. 1. [id number] ADMISSION PERFORMANCE: Setup or clean-up assistance CODE: 05 DRESSING - UPPER BODY: DRESSING - UPPER BODY - STEP 1: Does the patient complete the activity by him/herself with no assistance (physical, verbal/nonverbal cueing, setup/clean-up)? Yes. 1. [id number] ADMISSION PERFORMANCE: Independent CODE: 06 DRESSING - LOWER BODY: DRESSING - LOWER BODY - STEP 1: Does the patient complete the activity by him/herself with no assistance (physical, verbal/nonverbal cueing, setup/clean-up)? No. DRESSING - LOWER BODY - STEP 2: Does the patient need only setup/clean-up assistance from one helper? No. DRESSING - LOWER BODY - STEP 3: Does the patient need only verbal/nonverbal cueing or touching/steadying/contact guard assistance fro m one helper? No. DRESSING - LOWER BODY - STEP 4: Does the patient need physical assistance - for example lifting or trunk support from one helper - wi th the helper providing less than half of the effort? Yes. 1. [id number] ADMISSION PERFORMANCE: Partial/moderate assistance CODE: 03 PUTTING ON/TAKING OFF FOOTWEAR: FOOTWEAR - STEP 1: Does the patient complete the activity by him/herself with no assistance (physical, verbal/nonverbal cueing, setup/clean-up)? Yes. 1. [id number] ADMISSION PERFORMANCE: Independent CODE: 06 DOES THE PATIENT USE A WHEELCHAIR/SCOOTER? CODE: EXPR INDICATE THE TYPE OF WHEELCHAIR/SCOOTER USED: CODE: EXPR INDICATE THE TYPE OF WHEELCHAIR/SCOOTER USED: CODE: EXPR BLADDER AND BOWEL: CODE: EXPR CODE: EXPR SIGNATURE PANEL: The following modified sections: 1. [id number] Admission Performance, 1. [id number] Admission Performance, 1. [id number] Admission Performance, 1. ZO3047n Admission Performance, 1. CF8839w Admission Performance, 1. VX6103f Admission Performance, 1. QH2955c Admission Performance, 1. [id number] Admission Performance were [electronically] signed by Dorcas Mayfield OT on FriJun 17 2019 12:53:20 T-0500 ([facility] ylight Time)
--- NOTE | 2019-06-17 15:30 | FAST ---
ENCOUNTER DATE AND TIME: 06/17/2019 08:00 (CDT) NAME ROMULO PEDROZA DATE OF : 1940 DATE OF ADMISSION: 06/11/2019 09:19 (CDT) PHONE: AGE: 78 N# [id number] GENDER: Male ENCOUNTER PHYSICIAN: Dr. Maged Goss M.D. ADMISSION DIAGNOSIS: - Debility 16 - Debility (16) Radiculopathy. ROLL LEFT AND RIGHT: ROLL LEFT AND RIGHT - STEP 1: Does the patient complete the activity by him/herself with no assistance (physical, verbal/nonverbal cueing, setup/clean-up)? Yes. 1. [id number] ADMISSION PERFORMANCE: Independent CODE: 06 SIT TO LYING: SIT TO LYING - STEP 1: Does the patient complete the activity by him/herself with no assistance (physical, verbal/nonverbal cueing, setup/clean-up)? Yes. 1. [id number] ADMISSION PERFORMANCE: Independent CODE: 06 LYING TO SITTING: LYING TO SITTING ON SIDE OF BED - STEP 1: Does the patient complete the activity by him/herself with no assistance (physical, verbal/nonverbal cueing, setup/clean-up)? Yes. 1. [id number] ADMISSION PERFORMANCE: Independent CODE: 06 SIT TO STAND: SIT TO STAND - STEP 1: Does the patient complete the activity by him/herself with no assistance (physical, verbal/nonverbal cueing, setup/clean-up)? No. SIT TO STAND - STEP 2: Does the patient need only setup/clean-up assistance from one helper? Yes. 1. [id number] ADMISSION PERFORMANCE: Setup or clean-up assistance CODE: 05 TRANSFERS: BED, CHAIR: CHAIR/[id number] TRANSFER - STEP 1: Does the patient complete the activity by him/herself with no assistance (physical, verbal/nonverbal cueing, setup/clean-up)? No. CHAIR/[id number] TRANSFER - STEP 2: Does the patient need only setup/clean-up assistance from one helper? Yes. 1. [id number] ADMISSION PERFORMANCE: Setup or clean-up assistance CODE: 05 TRANSFER TOILET: TOILET TRANSFER - STEP 1: Does the patient complete the activity by him/herself with no assistance (physical, verbal/nonverbal cueing, setup/clean-up)? No. TOILET TRANSFER - STEP 2: Does the patient need only setup/clean-up assistance from one helper? Yes. 1. [id number] ADMISSION PERFORMANCE: Setup or clean-up assistance CODE: 05 TRANSFERS: CAR: Not assessed/no information CODE: - WALK 10 FEET: WALK 10 FEET - STEP 1: Does the patient complete the activity by him/herself with no assistance (physical, verbal/nonverbal cueing, setup/clean-up)? No. WALK 10 FEET - STEP 2: Does the patient need only setup/clean-up assistance from one helper? Yes. 1. [id number] ADMISSION PERFORMANCE: Setup or clean-up assistance CODE: 05 WALK 50 FEET: WALK 50 FEET - STEP 1: Does the patient complete the activity by him/herself with no assistance (physical, verbal/nonverbal cueing, setup/clean-up)? No. WALK 50 FEET - STEP 2: Does the patient need only setup/clean-up assistance from one helper? Yes. 1. [id number] ADMISSION PERFORMANCE: Setup or clean-up assistance CODE: 05 WALK 150 FEET: WALK 150 FEET - STEP 1: Does the patient complete the activity by him/herself with no assistance (physical, verbal/nonverbal cueing, setup/clean-up)? No. WALK 150 FEET - STEP 2: Does the patient need only setup/clean-up assistance from one helper? Yes. 1. [id number] ADMISSION PERFORMANCE: Setup or clean-up assistance CODE: WALK 10 FEET UNEVEN: Not assessed/no information CODE: - 1 STEP (CURB): 1 STEP CURB - STEP 1: Does the patient complete the activity by him/herself with no assistance (physical, verbal/nonverbal cueing, setup/clean-up)? No. 1 STEP CURB - STEP 2: Does the patient need only setup/clean-up assistance from one helper? No. 1 STEP CURB - STEP 3: Does the patient need only verbal/nonverbal cueing or touching/steadying/contact guard assistance fro m one helper? No. 1 STEP CURB - STEP 4: Does the patient need physical assistance - for example lifting or trunk support from one helper - wi th the helper providing less than half of the effort? No. 1 STEP CURB - STEP 5: Does the patient need physical assistance - for example lifting or trunk support from one helper - wi th the helper providing more than half of the effort? No. 1 STEP CURB - STEP 6: Does the helper provide all of the effort? OR Is the assistance of two or more helpers required to co mplete the activity? Yes. 1. [id number] ADMISSION PERFORMANCE: Dependent CODE: 01 4 STEPS: Not assessed/no information CODE: - 12 STEPS: PICKING UP OBJECT: Not assessed/no information CODE: - DOES THE PATIENT USE A WHEELCHAIR/SCOOTER? Q1. DOES THE PATIENT USE A WHEELCHAIR/SCOOTER?: Yes CODE: 1 WHEEL 50 FEET WITH TWO TURNS: WHEEL 50 FEET WITH TWO TURNS - STEP 1: Does the patient complete the activity by him/herself with no assistance (physical, verbal/nonverbal cueing, setup/clean-up)? Yes. 1. [id number] ADMISSION PERFORMANCE: Independent CODE: 06 INDICATE THE TYPE OF WHEELCHAIR/SCOOTER USED: RR1. INDICATE THE TYPE OF WHEELCHAIR/SCOOTER USED.: Manual CODE: 1 WHEEL 150 FEET: WHEEL 150 FEET - STEP 1: Does the patient complete the activity by him/herself with no assistance (physical, verbal/nonverbal cueing, setup/clean-up)? Yes. 1. [id number] ADMISSION PERFORMANCE: Independent CODE: 06 INDICATE THE TYPE OF WHEELCHAIR/SCOOTER USED: SS1. INDICATE THE TYPE OF WHEELCHAIR/SCOOTER USED.: Manual CODE: 1 BLADDER AND BOWEL: CODE: EXPR CODE: EXPR SIGNATURE PANEL: The following modified sections: 1. [id number] Admission Performance, 1. [id number] Admission Performance, 1. BL2664I Admission Performance, 1. [id number] Admission Performance, 1. [id number] Admission Performance, 1. [id number] Admission Performance, 1. QC3226S Admission Performance, 1. [id number] Admission Performance , 1. [id number] Admission Performance, 1. XL2681T Admission Performance, 1. VR9315A Admission Performanc e, Q1. Does the patient use a wheelchair/scooter?, 1. [id number] Admission Performance, RR1. Indicate th e type of wheelchair/scooter used., 1. [id number] Admission Performance, Code, SS1. Indicate the type of wheelchair/scooter used. were [electronically] signed by Chilo Beltre PTA on FriJun 17 2019 15:28:26 GMT-0500 (Central Daylight Time)
[2019-06-17] MEDS: ENOXAPARIN 40 MG/0.4 ML SQ SCH (17:06)
--- NOTE | 2019-06-17 18:06 | R.PN ---
ENCOUNTER DATE AND TIME: 06/17/2019 17:48 (CDT) NAME ROMULO PEDROZA DATE OF : 1940 DATE OF ADMISSION: 06/11/2019 09:19 (CDT) RadiculopathyCHIEF COMPLAINT: Radiculopathy SUBJECTIVE: Pt denied any depression. Pt denied any Shortness of Breath. His pain is well controlled with a rating of 2-3/10. His blood work is stable. He is doing well with physical and occupational therapy. VITAL SIGNS Temperature: 97.8 F SBP/DBP: 142/78 Pulse: 81 Resp: 16 MEDICATION ALLERGIES: No Known Drug Allergies (NKDA) ENVIRONMENTAL ALLERGIES: None Known - Substance Allergies None Known - Other Allergies None Known NURSING: - Shower allowing shower - Lab Results blood Sugar Check ACHS ACTIVITIES OOB only with supervision THERAPIES: - Dietary and Nutrition Adequate Nutrition. Nutritional Education. Nutritional Supplements. PHYSICAL EXAM - Gen Alert and awake Lying in bed No apparent distress Oriented to: person, time, and place - Skin No breakdown Normacephalic - Eyes No abnormalities - ENMT No abnormalities - Neck No abnormalities No cervical adenopathy - CVS RRR - Chest No abnormalities - Resp Clear to auscultation - Abd Soft - GI Non distended Deferred - No abnormalities - Ext No significant edema - MSK 4+/5 weakness in both lower extremities. - Neuro 4/5 strength bilaterally upper and lower extremities. - Psych No abnormalities ASSESSMENT: Pt. is a 78 yo Right-handed white male.On 06/07/2019 he was admitted to [facility] h diagnosis Radiculopathy.His impairment category is Debility 16 - Debility (16).Pre-morbidly, Pt. w as independent/mod-I in Self-Care, Sphincter Control, Transfers Control, Locomotion, Communication, a nd Social Cognition; and he had good Sphincter Control.Currently, he has deficits of Transfers Contro l, Locomotion, Endurance, Balance, Safety Awareness, and Self-Care.Pt. is now referred to [facility] for acute in-patient rehabilitation in order to maximize patient's functional independence in activities of daily living, strength, ROM, and mobility.- Rehab Goal Patient has realistic goal of being discharged at assistance level 6-Luis to reside at Home with Fam danica/Relatives. MDM/PLAN: - Physical Therapy Gait dysfunction - to improve, our physical therapists will perform initial evaluation of pt's statu s upon admission and devise an individualized program for Gait Training, and Wheel Chair mobility Inability to transfer - to improve, our physical therapists will perform initial evaluation of pt's status upon admission and devise an individualized program for Bed mobility Need for home safety evaluation - to improve, our physical therapists will perform initial evaluatio n of pt's status upon admission and devise an individualized program for Home Evaluation Need in caregiver upon discharge - to improve, our physical therapists will perform initial evaluati on of pt's status upon admission and devise an individualized program for Caregiver Training Edema - to improve, our physical therapists will perform initial evaluation of pt's status upon admi ssion and devise an individualized program for Elevation Training, and Lymphedema Therapy New precaution - to improve, our physical therapists will perform initial evaluation of pt's status upon admission and devise an individualized program for Patient precaution education Poor balance - to improve, our physical therapists will perform initial evaluation of pt's status up on admission and devise an individualized program for Balance Training Poor endurance - to improve, our physical therapists will perform initial evaluation of pt's status upon admission and devise an individualized program for Endurance Training Weakness - to improve, our physical therapists will perform initial evaluation of pt's status upon a dmission and devise an individualized program for Aquatic Therapy, Neuromuscular Reeducation, and Str engthening Achieving independence - to improve, our physical therapists will perform initial evaluation of pt's status upon admission and devise an individualized program for Community Reintegration Activities - Occupational Therapy ADL deficits - to improve, our occupation therapists will perform initial evaluation of pt's status upon admission and devise an individualized program for Bathing, Bed mobility, Community Reintegratio n, Cooking, Dressing, Eating, Fine Motor Skills, Grooming, Homemaking, Kitchen Mobility, Laundry, Pat ient Education, Safety Awareness, Splinting - Positioning, Transfers(Toilet, Tub, Shower), and Wheel Chair Management Need for clinical care coordinator - to improve, our occupation therapists will perform initial evaluation of pt's status upon admission and devise an individualized program for Caregiver Training Weakness - to improve, our occupation therapists will perform initial evaluation of pt's status upon admission and devise an individualized program for Aquatic Therapy, Balance, Endurance, UE ROM, and UE strengthening - Other See attached MAR (Medication Administration Record) - Diet Type Continue Regular - Diet - Liquid Texture Continue Regular - Tube Feed Continue N/A - Lab Results blood Sugar Check ACHS - Diet - Solid Texture Continue Regular - Shower allowing shower FUNCTIONAL STATUS: UPDATED AT WEEKLY TEAM CONFERENCE - Bladder Same accident frequency: 7-Ind - No accidents in the past 7 days - Bowel Same accident frequency: 7-Ind - No accidents in the past 7 days - Walking Same score based on distance walked: 1(<=50ft) - Wheelchair Same score based on distance traveled: 0(N/A) FUNCTIONAL STATUS: - Self-Care A. Eating Luis B. Grooming Luis C. Bathing Luis D. Dressing - Upper sup E. Dressing - Lower sup F. Toileting sup - Sphincter Control G: Bladder control Ind H: Bowel control Ind - Transfers Control I. Bed/Chair/Wheelchair sup J. Toilet sup K. Tub/Shower ADNO - Locomotion L. Walk/Wheelchair (C) maxA L. Walk/Wheelchair (W) maxA M. Stairs ADNO - Communication N. Comprehension (B) Ind O. Expression (B) Ind - Social Cognition P. Social Interaction Ind Q. Problem Solving Ind R. Memory Ind - Endurance Fair - Balance Fair - Safety Awareness Fair QI SCORES: - Self-Care A. Eating 05-Setup or clean-up assistance B. Oral hygiene 06-Independent C. Toileting hygiene 06-Independent E. Shower/bathe self 05-Setup or clean-up assistance F. Upper body dressing 05-Setup or clean-up assistance G. Lower body dressing 05-Setup or clean-up assistance H. Putting on/taking off footwear 05-Setup or clean-up assistance - Mobility A. Roll left and right 06-Independent B. Sit to lying 06-Independent C. Lying to sitting on side of bed 06-Independent D. Sit to stand 04-Supervision or touching assistance E. Chair/aaj-ib-oixlk transfer 04-Supervision or touching assistance F. Toilet transfer 04-Supervision or touching assistance G. Car transfer 88-Not attempted due to medical condition or safety concerns I. Walk 10 feet 02-Substantial/maximal assistance J. Walk 50 feet with two turns 03-Partial/moderate assistance K. Walk 150 feet 88-Not attempted due to medical condition or safety concerns L. Walking 10 feet on uneven surfaces 88-Not attempted due to medical condition or safety concerns M. 1 step (curb) 88-Not attempted due to medical condition or safety concerns N. 4 steps 88-Not attempted due to medical condition or safety concerns O. 12 steps 88-Not attempted due to medical condition or safety concerns P. Picking up object 88-Not attempted due to medical condition or safety concerns R. Wheel 50 feet with two turns 01-Dependent S. Wheel 150 feet 01-Dependent - Bladder and Bowel Bladder continence 0-Always continent Bowel continence 0-Always continent [facility] DEFICITS: Transfers Control, Locomotion, Endurance, Balance, Safety Awareness, and Self-Care SIGNATURE PANEL: (CDT)
[2019-06-17] MEDS: ACETAMINOPHEN 500 MG TAB PO PRN (20:42)
--- NOTE | 2019-06-18 00:56 | PN ---
Date of Progress Note: 06/17/2019 Subjective: Patient was seen this morning for followup. He was lying in bed, not in distress. Deandre es any complaints except some lower back pain and left leg pain, which is unchanged from before. Objective: Vital Signs: Reviewed. HEENT: Unremarkable. Lungs: Clear to auscultation. Heart: Sounds normal. Abdomen: Soft. Bowel sounds normal. No guarding, rigidity, tenderness, or distention. Extremities: No leg edema. Laboratory Data: Fingerstick blood sugar readings reviewed. White count 5.7, hemoglobin 10.4, plate lets 127. Sodium 139, potassium 4.4, chloride 106, bicarb 28, BUN 17, creatinine 0.84, glucose 293, magnesium 1.6. Impression: 1.Compression fracture of spine. 2.Hypomagnesemia. 3.Type 2 diabetes mellitus, uncontrolled. 4.Hypertension. 5.Coronary artery disease. Plan: We will go ahead and increase the dose of metformin from 750 mg 2 times a day to 1000 mg 2 jalil es a day. Continue pioglitazone. Continue physical therapy under the guidance of Dr. Goss. I w ill see him tomorrow for followup. LAUREEN/MODL Voice ID: [id number] Report ID: [id number]
[2019-06-18] MEDS: INSULIN -REGULAR HUMAN 50 UNIT/0.5 ML ML SQ SCH ×4 (07:21→20:28)
[2019-06-18] MEDS: JUVEN PACKET PO SCH ×2 (08:00→20:00)
[2019-06-18] MEDS: NICOTINE 14 MG/PAT TD SCH (08:00)
[2019-06-18] MEDS: CO Q PO SCH (08:05)
[2019-06-18] MEDS: PRAVACHOL 40 MG PO SCH (08:05)
[2019-06-18] MEDS: TRAMADOL HCL 50 MG TAB PO PRN (08:06)
[2019-06-18] MEDS: ENSURE HIGH PROTEIN 237 ML CAN PO SCH ×2 (08:06→20:29)
[2019-06-18] MEDS: ASPIRIN EC 81 MG TAB PO SCH (08:07)
[2019-06-18] MEDS: GABAPENTIN 300 MG CAP PO SCH ×2 (08:07→20:30)
[2019-06-18] MEDS: URSODIOL 300 MG CAP PO SCH (08:08)
[2019-06-18] MEDS: PIOGLITAZONE 15 MG TAB PO SCH (08:08)
[2019-06-18] MEDS: METFORMIN ER 500 MG TAB PO SCH ×2 (08:08→17:10)
[2019-06-18] MEDS: MULTIVIT W/ MINERAL TAB PO SCH (08:08)
[2019-06-18] MEDS: FAMOTIDINE 20 MG TAB PO SCH (08:08)
--- NOTE | 2019-06-18 09:46 | P.RH.PN ---
Estimated Length of Stay: 12 Expected Discharge Date: 06/22/19 Discharge Disposition Plan: Home Family Support: Yes Nursing Home Goal: Mobility, Transfers, Self Care Vital Signs: Last Vital Signs Temp 97.6 F 06/18/19 07:10 Pulse 81 06/18/19 07:10 Resp 17 06/18/19 08:51 BP 163/79 H 06/18/19 07:10 Pulse Ox 95 06/18/19 08:51 Laboratory: Laboratory Last Values WBC 5.7 K/uL (4.3-10.9) 06/17/19 05:36 RBC 3.21 M/uL (4.33-5.43) L 06/17/19 05:36 Hgb 10.4 g/dL (13.6-17.9) L 06/17/19 05:36 Hct 29.9 % (39.6-49.0) L 06/17/19 05:36 MCV 92.9 fL (80-100) 06/17/19 05:36 MCH 32.5 pg (27.0-35.0) 06/17/19 05:36 MCHC 34.9 g/dL (32.0-36.0) 06/17/19 05:36 RDW 14.6 % (12.1-15.2) 06/17/19 05:36 Plt Count 127 K/uL (152-406) L 06/17/19 05:36 MPV 10.6 fL (7.6-11.3) 06/17/19 05:36 Neutrophils % 55.8 % (41.7-73.7) 06/17/19 05:36 Lymphocytes % 27.7 % (15.3-44.8) 06/17/19 05:36 Monocytes % 8.2 % (3.3-12.3) 06/17/19 05:36 Eosinophils % 6.9 % (0-4.4) H 06/17/19 05:36 Basophils % 1.4 % (0-1.3) H 06/17/19 05:36 Absolute Neutrophils 3.2 K/uL (1.8-8.0) 06/17/19 05:36 Absolute Lymphocytes 1.6 K/uL (0.7-4.9) 06/17/19 05:36 Absolute Monocytes 0.5 K/uL (0.1-1.3) 06/17/19 05:36 Absolute Eosinophils 0.4 K/uL (0-0.5) 06/17/19 05:36 Absolute Basophils 0.1 K/uL (0-0.5) 06/17/19 05:36 Sodium 139 mmol/L (136-145) 06/17/19 05:36 Potassium 4.4 mmol/L (3.5-5.1) 06/17/19 05:36 Chloride 106 mmol/L (98-107) 06/17/19 05:36 Carbon Dioxide 28 mmol/L (21-32) 06/17/19 05:36 BUN 17 mg/dL (7-18) 06/17/19 05:36 Creatinine 0.84 mg/dL (0.55-1.3) 06/17/19 05:36 Estimated GFR 89 mL/min (=/>90) L 06/17/19 05:36 Glucose 293 mg/dL (74-106) H 06/17/19 05:36 POC Glucose 150 mg/dl (65-120) H 06/18/19 06:38 Hemoglobin A1c 7.7 % (4.2-6.3) H 06/12/19 05:26 Calcium 9.9 mg/dL (8.5-10.1) 06/17/19 05:36 Magnesium 1.6 mg/dL (1.8-2.4) L 06/17/19 05:36 Total Bilirubin 0.5 mg/dL (0.2-1.0) 06/12/19 05:26 AST 17 U/L (15-37) 06/12/19 05:26 ALT 20 U/L (12-78) 06/12/19 05:26 Alkaline Phosphatase 86 U/L (45-117) 06/12/19 05:26 Serum Total Protein 6.8 g/dL (6.4-8.2) 06/12/19 05:26 Albumin 3.4 g/dL (3.4-5.0) 06/17/19 05:36 Globulin 3.5 g/dL (2.3-3.5) 06/12/19 05:26 Albumin/Globulin Ratio 0.9 (1.1-1.8) L 06/12/19 05:26 Prealbumin 18.3 mg/dL (20-40) L 06/17/19 05:36 TSH 1.130 uIU/mL (0.360-3.740) 06/12/19 05:26 Urine Color Yellow 06/11/19 16:35 Urine Appearance Clear 06/11/19 16:35 Urine pH 7.0 (5.0-7.0) 06/11/19 16:35 Ur Specific [place] 1.015 (1.005-1.030) 06/11/19 16:35 Urine Ketones Negative (NEG) 06/11/19 16:35 Urine Blood Negative (NEG) 06/11/19 16:35 Urine Nitrite Negative (NEG) 06/11/19 16:35 Urine Bilirubin Negative (NEG) 06/11/19 16:35 Urine Urobilinogen 0.2 mg/dL (0.2-1.0) 06/11/19 16:35 Ur Leukocyte Esterase Negative (NEG) 06/11/19 16:35 Urine RBC <5 /HPF (NONE SEEN) 06/11/19 16:35 Urine WBC <5 /HPF (<5) 06/11/19 16:35 Ur Squamous Epith Cells <5 /HPF (NONE SEEN) 06/11/19 16:35 Urine Bacteria 20-50 /HPF (NONE SEEN) H 06/11/19 16:35 Urine Culture Reflexed Reflexed 06/11/19 16:35 Urine Glucose Negative (NEG) 06/11/19 16:35 Urine Total Protein Negative (NEG) 06/11/19 16:35 Weight: 193 lb Wound Present: No Closed Surgical Incision Present: No Negative Pressure Wound Therapy Present: No Physician Update: He has mild to moderate L3-4 and L4-5 foraminal stenosis and 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 He is at standby assistance with gait walking 250' and stairs. He is at maximum to moderate assistance dressing lower body. He has humerus fracture limitations. He will get another week of therapy. Medical Issues: Patient is always continent with bladder and bowel. Pain Issues: Patient is taking Tylenol 500mg Q6H PO PRN, Gabapentin 300mg BID PO, Tramadol 50mg Q6H PO. Functional Improvement: Patient has met all short-term goals w/ the exception of the stairs tx. Patient continues to have anxiety toward stairs, and weakness in L LE. Patient has improved strength in L LE though, over the course of the tx. Functional Improvement Occupational Therapy: Good participation, however, continues with difficulty standing static and unsupported enough to manage clothes after toileting or during LB dressing, depending on fatigue level. Summary: Patient's care plan and assistant terminal manager goals have been reviewed and revised as necessary. Please see the Rehabilitation Signature page for all necessary signatures.
--- NOTE | 2019-06-18 16:03 | FAST ---
ENCOUNTER DATE AND TIME: 06/18/2019 08:00 (CDT) NAME ROMULO PEDROZA DATE OF : 1940 DATE OF ADMISSION: 06/11/2019 09:19 (CDT) PHONE: AGE: 78 N# [id number] GENDER: Male ENCOUNTER PHYSICIAN: Dr. Maged Goss M.D. ADMISSION DIAGNOSIS: - Debility 16 - Debility (16) Radiculopathy. EATING: Not assessed/no information CODE: - ORAL HYGIENE: ORAL HYGIENE - STEP 1: Does the patient complete the activity by him/herself with no assistance (physical, verbal/nonverbal cueing, setup/clean-up)? Yes. 1. [id number] ADMISSION PERFORMANCE: Independent CODE: 06 TOILETING HYGIENE: Not assessed/no information CODE: - BATHING: SHOWER/BATHE SELF - STEP 1: Does the patient complete the activity by him/herself with no assistance (physical, verbal/nonverbal cueing, setup/clean-up)? No. SHOWER/BATHE SELF - STEP 2: Does the patient need only setup/clean-up assistance from one helper? No. SHOWER/BATHE SELF - STEP 3: Does the patient need only verbal/nonverbal cueing or touching/steadying/contact guard assistance fro m one helper? Yes. 1. [id number] ADMISSION PERFORMANCE: Supervision or touching assistance CODE: 04 DRESSING - UPPER BODY: DRESSING - UPPER BODY - STEP 1: Does the patient complete the activity by him/herself with no assistance (physical, verbal/nonverbal cueing, setup/clean-up)? No. DRESSING - UPPER BODY - STEP 2: Does the patient need only setup/clean-up assistance from one helper? Yes. 1. [id number] ADMISSION PERFORMANCE: Setup or clean-up assistance CODE: 05 DRESSING - LOWER BODY: DRESSING - LOWER BODY - STEP 1: Does the patient complete the activity by him/herself with no assistance (physical, verbal/nonverbal cueing, setup/clean-up)? No. DRESSING - LOWER BODY - STEP 2: Does the patient need only setup/clean-up assistance from one helper? No. DRESSING - LOWER BODY - STEP 3: Does the patient need only verbal/nonverbal cueing or touching/steadying/contact guard assistance fro m one helper? Yes. 1. [id number] ADMISSION PERFORMANCE: Supervision or touching assistance CODE: 04 PUTTING ON/TAKING OFF FOOTWEAR: FOOTWEAR - STEP 1: Does the patient complete the activity by him/herself with no assistance (physical, verbal/nonverbal cueing, setup/clean-up)? No. FOOTWEAR - STEP 2: Does the patient need only setup/clean-up assistance from one helper? No. FOOTWEAR - STEP 3: Does the patient need only verbal/nonverbal cueing or touching/steadying/contact guard assistance fro m one helper? Yes. 1. [id number] ADMISSION PERFORMANCE: Supervision or touching assistance CODE: 04 DOES THE PATIENT USE A WHEELCHAIR/SCOOTER? CODE: EXPR INDICATE THE TYPE OF WHEELCHAIR/SCOOTER USED: CODE: EXPR INDICATE THE TYPE OF WHEELCHAIR/SCOOTER USED: CODE: EXPR BLADDER AND BOWEL: CODE: EXPR CODE: EXPR SIGNATURE PANEL: The following modified sections: 1. [id number] Admission Performance, 1. [id number] Admission Performance, 1. [id number] Admission Performance, 1. [id number] Admission Performance, 1. [id number] Admission Performance were [electronically] signed by VINCENT Souza on FriJun 18 2019 16:02:19 T-0500 (Central Daylight Time)
--- NOTE | 2019-06-18 16:03 | PN ---
Date of Progress Note: 06/18/2019 Subjective: Patient was seen this morning for followup. No new complaints or problems reported by jessy adhikari. He was sitting in wheelchair. Denied any complaints. Objective: Vital Signs: Reviewed. Fingerstick blood sugar readings reviewed. HEENT: Unremarkable. Lungs: Clear to auscultation. Heart: Sounds normal. Abdomen: Soft. Bowel sounds normal. No guarding, rigidity, tenderness, or distention. Extremities: No leg edema. Impression: 1.Compression fracture, spine, old. 2.Coronary artery disease. 3.Hypertension. 4.Type 2 diabetes mellitus. 5.Lumbar radiculopathy. Plan: We will continue current medication. Continue current metformin and pioglitazone for diabetes management. Continue physical therapy under the guidance of Dr. Goss. I will be out of [facility] today until Friday morning and for any medical emergency problems during my absence, hospital ist service should cover this patient for any medical emergency, and I have discussed details with [facility] hospitalist physician. LAUREEN/MODL Voice ID: [id number] Report ID: [id number]
[2019-06-18] MEDS: ENOXAPARIN 40 MG/0.4 ML SQ SCH (17:10)
--- NOTE | 2019-06-19 02:28 | FAST ---
SHIFT START DATE/TIME: 06/17/2019 19:00 (CDT) SHIFT END DATE/TIME: 06/18/2019 07:00 (CDT) NAME ROMULO PEDROZA DATE OF : 1940 DATE OF ADMISSION: 06/11/2019 09:19 (CDT) PHONE: AGE: 78 N# [id number] GENDER: Male ENCOUNTER PHYSICIAN: Dr. Maged Goss M.D. ADMISSION DIAGNOSIS: - Debility 16 - Debility (16) Radiculopathy. EATING: Not assessed/no information CODE: - ORAL HYGIENE: ORAL HYGIENE - STEP 1: Does the patient complete the activity by him/herself with no assistance (physical, verbal/nonverbal cueing, setup/clean-up)? No. ORAL HYGIENE - STEP 2: Does the patient need only setup/clean-up assistance from one helper? Yes. 1. [id number] ADMISSION PERFORMANCE: Setup or clean-up assistance CODE: 05 TOILETING HYGIENE: TOILETING HYGIENE - STEP 1: Does the patient complete the activity by him/herself with no assistance (physical, verbal/nonverbal cueing, setup/clean-up)? No. TOILETING HYGIENE - STEP 2: Does the patient need only setup/clean-up assistance from one helper? Yes. 1. [id number] ADMISSION PERFORMANCE: Setup or clean-up assistance CODE: 05 BATHING: Not assessed/no information CODE: - DRESSING - UPPER BODY: Not assessed/no information CODE: - DRESSING - LOWER BODY: Not assessed/no information CODE: - PUTTING ON/TAKING OFF FOOTWEAR: Not assessed/no information CODE: - ROLL LEFT AND RIGHT: Not assessed/no information CODE: - SIT TO LYING: Not assessed/no information CODE: - LYING TO SITTING: Not assessed/no information CODE: - SIT TO STAND: Not assessed/no information CODE: - TRANSFERS: BED, CHAIR: Not assessed/no information CODE: - TRANSFER TOILET: Not assessed/no information CODE: - TRANSFERS: CAR: Not assessed/no information CODE: - WALK 10 FEET: Not assessed/no information CODE: - 1 STEP (CURB): Not assessed/no information CODE: - PICKING UP OBJECT: Not assessed/no information CODE: - DOES THE PATIENT USE A WHEELCHAIR/SCOOTER? CODE: EXPR WHEEL 50 FEET WITH TWO TURNS: Not assessed/no information CODE: - INDICATE THE TYPE OF WHEELCHAIR/SCOOTER USED: CODE: EXPR WHEEL 150 FEET: Not assessed/no information CODE: - INDICATE THE TYPE OF WHEELCHAIR/SCOOTER USED: CODE: EXPR BLADDER AND BOWEL: H350. BLADDER CONTINENCE (3-DAY ASSESSMENT PERIOD): Always continent (no documented incontinence) CODE: 0 H400. BOWEL CONTINENCE (3-DAY ASSESSMENT PERIOD): Always continent CODE: 0
[2019-06-19] MEDS: NICOTINE 14 MG/PAT TD SCH (08:00)
[2019-06-19] MEDS: INSULIN -REGULAR HUMAN 50 UNIT/0.5 ML ML SQ SCH ×4 (08:05→20:03)
[2019-06-19] MEDS: TRAMADOL HCL 50 MG TAB PO PRN (08:07)
[2019-06-19] MEDS: JUVEN PACKET PO SCH ×2 (08:09→19:22)
[2019-06-19] MEDS: ENSURE HIGH PROTEIN 237 ML CAN PO SCH ×2 (08:09→19:22)
[2019-06-19] MEDS: PRAVACHOL 40 MG PO SCH (08:11)
[2019-06-19] MEDS: URSODIOL 300 MG CAP PO SCH (08:11)
[2019-06-19] MEDS: PIOGLITAZONE 15 MG TAB PO SCH (08:11)
[2019-06-19] MEDS: FAMOTIDINE 20 MG TAB PO SCH (08:11)
[2019-06-19] MEDS: MULTIVIT W/ MINERAL TAB PO SCH (08:11)
[2019-06-19] MEDS: METFORMIN ER 500 MG TAB PO SCH ×2 (08:11→16:48)
[2019-06-19] MEDS: GABAPENTIN 300 MG CAP PO SCH ×2 (08:11→19:20)
[2019-06-19] MEDS: ASPIRIN EC 81 MG TAB PO SCH (08:11)
[2019-06-19] MEDS: CO Q PO SCH (08:12)
--- NOTE | 2019-06-19 16:26 | FAST ---
SHIFT START DATE/TIME: 06/19/2019 07:00 (CDT) SHIFT END DATE/TIME: 06/19/2019 19:00 (CDT) NAME ROMULO PEDROZA DATE OF : 1940 DATE OF ADMISSION: 06/11/2019 09:19 (CDT) PHONE: AGE: 78 N# [id number] GENDER: Male ENCOUNTER PHYSICIAN: Dr. Maged Goss M.D. ADMISSION DIAGNOSIS: - Debility 16 - Debility (16) Radiculopathy. EATING: EATING - STEP 1: Does the patient complete the activity by him/herself with no assistance (physical, verbal/nonverbal cueing, setup/clean-up)? Yes. 1. [id number] ADMISSION PERFORMANCE: Independent CODE: 06 ORAL HYGIENE: ORAL HYGIENE - STEP 1: Does the patient complete the activity by him/herself with no assistance (physical, verbal/nonverbal cueing, setup/clean-up)? Yes. 1. [id number] ADMISSION PERFORMANCE: Independent CODE: 06 TOILETING HYGIENE: TOILETING HYGIENE - STEP 1: Does the patient complete the activity by him/herself with no assistance (physical, verbal/nonverbal cueing, setup/clean-up)? No. TOILETING HYGIENE - STEP 2: Does the patient need only setup/clean-up assistance from one helper? Yes. 1. [id number] ADMISSION PERFORMANCE: Setup or clean-up assistance CODE: 05 BATHING: Not assessed/no information CODE: - DRESSING - UPPER BODY: DRESSING - UPPER BODY - STEP 1: Does the patient complete the activity by him/herself with no assistance (physical, verbal/nonverbal cueing, setup/clean-up)? No. DRESSING - UPPER BODY - STEP 2: Does the patient need only setup/clean-up assistance from one helper? Yes. 1. [id number] ADMISSION PERFORMANCE: Setup or clean-up assistance CODE: 05 DRESSING - LOWER BODY: DRESSING - LOWER BODY - STEP 1: Does the patient complete the activity by him/herself with no assistance (physical, verbal/nonverbal cueing, setup/clean-up)? No. DRESSING - LOWER BODY - STEP 2: Does the patient need only setup/clean-up assistance from one helper? Yes. 1. [id number] ADMISSION PERFORMANCE: Setup or clean-up assistance CODE: 05 PUTTING ON/TAKING OFF FOOTWEAR: FOOTWEAR - STEP 1: Does the patient complete the activity by him/herself with no assistance (physical, verbal/nonverbal cueing, setup/clean-up)? Yes. 1. [id number] ADMISSION PERFORMANCE: Independent CODE: 06 TRANSFERS: CAR: Not assessed/no information CODE: - WALK 10 FEET: Not assessed/no information CODE: - 1 STEP (CURB): Not assessed/no information CODE: - PICKING UP OBJECT: Not assessed/no information CODE: - DOES THE PATIENT USE A WHEELCHAIR/SCOOTER? Q1. DOES THE PATIENT USE A WHEELCHAIR/SCOOTER?: Yes CODE: 1 WHEEL 50 FEET WITH TWO TURNS: WHEEL 50 FEET WITH TWO TURNS - STEP 1: Does the patient complete the activity by him/herself with no assistance (physical, verbal/nonverbal cueing, setup/clean-up)? Yes. 1. [id number] ADMISSION PERFORMANCE: Independent CODE: 06 INDICATE THE TYPE OF WHEELCHAIR/SCOOTER USED: RR1. INDICATE THE TYPE OF WHEELCHAIR/SCOOTER USED.: Manual CODE: 1 WHEEL 150 FEET: WHEEL 150 FEET - STEP 1: Does the patient complete the activity by him/herself with no assistance (physical, verbal/nonverbal cueing, setup/clean-up)? Yes. 1. [id number] ADMISSION PERFORMANCE: Independent CODE: 06 INDICATE THE TYPE OF WHEELCHAIR/SCOOTER USED: SS1. INDICATE THE TYPE OF WHEELCHAIR/SCOOTER USED.: Manual CODE: 1 BLADDER AND BOWEL: H350. BLADDER CONTINENCE (3-DAY ASSESSMENT PERIOD): Always continent (no documented incontinence) CODE: 0 H400. BOWEL CONTINENCE (3-DAY ASSESSMENT PERIOD): Always continent CODE: 0 SIGNATURE PANEL: The following modified sections: 1. [id number] Admission Performance, 1. [id number] Admission Performance, 1. [id number] Admission Performance, 1. [id number] Admission Performance, 1. [id number] Admission Performance, 1. [id number] Admission Performance, 1. BF2363s Admission Performance, 1. TE6927b Admission Performance , Q1. Does the patient use a wheelchair/scooter?, 1. LL8031M Admission Performance, RR1. Indicate the type of wheelchair/scooter used., 1. [id number] Admission Performance, Code, SS1. Indicate the type of wheelchair/scooter used., H350. Bladder Continence (3-day assessment period), H400. Bowel Continence (3-day assessment period) were [electronically] signed by Camille Guaman C.N.A. on Sat Jun 19 2019 16: 25:33 GMT-0500 (Central Daylight Time)
[2019-06-19] MEDS: ENOXAPARIN 40 MG/0.4 ML SQ SCH (16:48)
[2019-06-20] MEDS: NICOTINE 14 MG/PAT TD SCH (08:00)
[2019-06-20] MEDS: METFORMIN ER 500 MG TAB PO SCH ×2 (08:14→16:44)
[2019-06-20] MEDS: ASPIRIN EC 81 MG TAB PO SCH (08:14)
[2019-06-20] MEDS: MULTIVIT W/ MINERAL TAB PO SCH (08:14)
[2019-06-20] MEDS: GABAPENTIN 300 MG CAP PO SCH ×2 (08:14→18:41)
[2019-06-20] MEDS: PRAVACHOL 40 MG PO SCH (08:15)
[2019-06-20] MEDS: URSODIOL 300 MG CAP PO SCH (08:15)
[2019-06-20] MEDS: PIOGLITAZONE 15 MG TAB PO SCH (08:15)
[2019-06-20] MEDS: CO Q PO SCH (08:15)
[2019-06-20] MEDS: FAMOTIDINE 20 MG TAB PO SCH (08:15)
[2019-06-20] MEDS: ENSURE HIGH PROTEIN 237 ML CAN PO SCH ×2 (08:16→18:42)
[2019-06-20] MEDS: JUVEN PACKET PO SCH ×2 (08:19→18:41)
[2019-06-20] MEDS: INSULIN -REGULAR HUMAN 50 UNIT/0.5 ML ML SQ SCH ×5 (09:16→19:12)
--- NOTE | 2019-06-20 15:28 | FAST ---
SHIFT START DATE/TIME: 06/20/2019 07:00 (CDT) SHIFT END DATE/TIME: 06/20/2019 19:00 (CDT) NAME ROMULO PEDROZA DATE OF : 1940 DATE OF ADMISSION: 06/11/2019 09:19 (CDT) PHONE: AGE: 78 N# [id number] GENDER: Male ENCOUNTER PHYSICIAN: Dr. Maged Goss M.D. ADMISSION DIAGNOSIS: - Debility 16 - Debility (16) Radiculopathy. EATING: EATING - STEP 1: Does the patient complete the activity by him/herself with no assistance (physical, verbal/nonverbal cueing, setup/clean-up)? Yes. 1. [id number] ADMISSION PERFORMANCE: Independent CODE: 06 ORAL HYGIENE: ORAL HYGIENE - STEP 1: Does the patient complete the activity by him/herself with no assistance (physical, verbal/nonverbal cueing, setup/clean-up)? Yes. 1. [id number] ADMISSION PERFORMANCE: Independent CODE: 06 TOILETING HYGIENE: TOILETING HYGIENE - STEP 1: Does the patient complete the activity by him/herself with no assistance (physical, verbal/nonverbal cueing, setup/clean-up)? No. TOILETING HYGIENE - STEP 2: Does the patient need only setup/clean-up assistance from one helper? No. TOILETING HYGIENE - STEP 3: Does the patient need only verbal/nonverbal cueing or touching/steadying/contact guard assistance fro m one helper? No. TOILETING HYGIENE - STEP 4: Does the patient need physical assistance - for example lifting or trunk support from one helper - wi th the helper providing less than half of the effort? Yes. 1. [id number] ADMISSION PERFORMANCE: Partial/moderate assistance CODE: 03 BATHING: Not assessed/no information CODE: - DRESSING - UPPER BODY: DRESSING - UPPER BODY - STEP 1: Does the patient complete the activity by him/herself with no assistance (physical, verbal/nonverbal cueing, setup/clean-up)? No. DRESSING - UPPER BODY - STEP 2: Does the patient need only setup/clean-up assistance from one helper? Yes. 1. [id number] ADMISSION PERFORMANCE: Setup or clean-up assistance CODE: 05 DRESSING - LOWER BODY: DRESSING - LOWER BODY - STEP 1: Does the patient complete the activity by him/herself with no assistance (physical, verbal/nonverbal cueing, setup/clean-up)? No. DRESSING - LOWER BODY - STEP 2: Does the patient need only setup/clean-up assistance from one helper? No. DRESSING - LOWER BODY - STEP 3: Does the patient need only verbal/nonverbal cueing or touching/steadying/contact guard assistance fro m one helper? No. DRESSING - LOWER BODY - STEP 4: Does the patient need physical assistance - for example lifting or trunk support from one helper - wi th the helper providing less than half of the effort? No. DRESSING - LOWER BODY - STEP 5: Does the patient need physical assistance - for example lifting or trunk support from one helper - wi th the helper providing more than half of the effort? Yes. DRESSING - LOWER BODY - STEP 6: Inability to hold garment and lift feet up into clothes-difficulty standing- holding walker and pulli ng clothes up 1. [id number] ADMISSION PERFORMANCE: Substantial/maximal assistance CODE: 02 PUTTING ON/TAKING OFF FOOTWEAR: Not assessed/no information CODE: - TRANSFERS: CAR: Not assessed/no information CODE: - WALK 10 FEET: Not assessed/no information CODE: - 1 STEP (CURB): Not assessed/no information CODE: - PICKING UP OBJECT: Not assessed/no information CODE: - DOES THE PATIENT USE A WHEELCHAIR/SCOOTER? Q1. DOES THE PATIENT USE A WHEELCHAIR/SCOOTER?: Yes CODE: 1 WHEEL 50 FEET WITH TWO TURNS: WHEEL 50 FEET WITH TWO TURNS - STEP 1: Does the patient complete the activity by him/herself with no assistance (physical, verbal/nonverbal cueing, setup/clean-up)? No. WHEEL 50 FEET WITH TWO TURNS - STEP 2: Does the patient need only setup/clean-up assistance from one helper? No. WHEEL 50 FEET WITH TWO TURNS - STEP 3: Does the patient need only verbal/nonverbal cueing or touching/steadying/contact guard assistance fro m one helper? No. WHEEL 50 FEET WITH TWO TURNS - STEP 4: Does the patient need physical assistance - for example lifting or trunk support from one helper - wi th the helper providing less than half of the effort? No. WHEEL 50 FEET WITH TWO TURNS - STEP 5: Does the patient need physical assistance - for example lifting or trunk support from one helper - wi th the helper providing more than half of the effort? No. WHEEL 50 FEET WITH TWO TURNS - STEP 6: Does the helper provide all of the effort? OR Is the assistance of two or more helpers required to co mplete the activity? Yes. 1. [id number] ADMISSION PERFORMANCE: Dependent CODE: 01 INDICATE THE TYPE OF WHEELCHAIR/SCOOTER USED: RR1. INDICATE THE TYPE OF WHEELCHAIR/SCOOTER USED.: Manual CODE: 1 WHEEL 150 FEET: WHEEL 150 FEET - STEP 1: Does the patient complete the activity by him/herself with no assistance (physical, verbal/nonverbal cueing, setup/clean-up)? No. WHEEL 150 FEET - STEP 2: Does the patient need only setup/clean-up assistance from one helper? No. WHEEL 150 FEET - STEP 3: Does the patient need only verbal/nonverbal cueing or touching/steadying/contact guard assistance fro m one helper? No. WHEEL 150 FEET - STEP 4: Does the patient need physical assistance - for example lifting or trunk support from one helper - wi th the helper providing less than half of the effort? No. WHEEL 150 FEET - STEP 5: Does the patient need physical assistance - for example lifting or trunk support from one helper - wi th the helper providing more than half of the effort? No. WHEEL 150 FEET - STEP 6: Does the helper provide all of the effort? OR Is the assistance of two or more helpers required to co mplete the activity? Yes. 1. [id number] ADMISSION PERFORMANCE: Dependent CODE: 01 INDICATE THE TYPE OF WHEELCHAIR/SCOOTER USED: SS1. INDICATE THE TYPE OF WHEELCHAIR/SCOOTER USED.: Manual CODE: 1 BLADDER AND BOWEL: H350. BLADDER CONTINENCE (3-DAY ASSESSMENT PERIOD): Always continent (no documented incontinence) CODE: 0 H400. BOWEL CONTINENCE (3-DAY ASSESSMENT PERIOD): Always continent CODE: 0 SIGNATURE PANEL: The following modified sections: 1. [id number] Admission Performance, 1. [id number] Admission Performance, 1. [id number] Admission Performance, 1. [id number] Admission Performance, 1. VZ3672e Admission Performance, 1. QV8907c Admission Performance, 1. [id number] Admission Performance, Q1. Does the patient use a wheel chair/scooter?, 1. [id number] Admission Performance, 1. TN7395I Admission Performance, RR1. Indicate the type of wheelchair/scooter used., 1. IR5744Y Admission Performance, Code, SS1. Indicate the type of wheelchair/scooter used., H350. Bladder Continence (3-day assessment period), H400. Bowel Continence (3-day assessment period) were [electronically] signed by Camille Guaman C.N.A. on FriJun 20 2019 15: 27:59 T-0500 (Central Daylight Time)
[2019-06-20] MEDS: ENOXAPARIN 40 MG/0.4 ML SQ SCH (16:42)
[2019-06-21] MEDS: INSULIN -REGULAR HUMAN 50 UNIT/0.5 ML ML SQ SCH ×4 (07:20→19:18)
[2019-06-21] MEDS: NICOTINE 14 MG/PAT TD SCH (08:00)
[2019-06-21] MEDS: JUVEN PACKET PO SCH ×3 (08:00→19:18)
[2019-06-21] MEDS: ENSURE HIGH PROTEIN 237 ML CAN PO SCH ×2 (08:00→19:18)
[2019-06-21] MEDS: PRAVACHOL 40 MG PO SCH (08:11)
[2019-06-21] MEDS: CO Q PO SCH (08:11)
[2019-06-21] MEDS: MULTIVIT W/ MINERAL TAB PO SCH (08:12)
[2019-06-21] MEDS: TRAMADOL HCL 50 MG TAB PO PRN (08:12)
[2019-06-21] MEDS: URSODIOL 300 MG CAP PO SCH (08:12)
[2019-06-21] MEDS: ASPIRIN EC 81 MG TAB PO SCH (08:13)
[2019-06-21] MEDS: FAMOTIDINE 20 MG TAB PO SCH (08:13)
[2019-06-21] MEDS: GABAPENTIN 300 MG CAP PO SCH ×2 (08:13→19:14)
[2019-06-21] MEDS: PIOGLITAZONE 15 MG TAB PO SCH (08:13)
[2019-06-21] MEDS: METFORMIN ER 500 MG TAB PO SCH ×2 (08:13→16:46)
--- NOTE | 2019-06-21 09:42 | FAST ---
SHIFT START DATE/TIME: 06/21/2019 07:00 (CDT) SHIFT END DATE/TIME: 06/21/2019 19:00 (CDT) NAME ROMULO PEDROZA DATE OF : 1940 DATE OF ADMISSION: 06/11/2019 09:19 (CDT) PHONE: AGE: 78 N# [id number] GENDER: Male ENCOUNTER PHYSICIAN: Dr. Maged Goss M.D. ADMISSION DIAGNOSIS: - Debility 16 - Debility (16) Radiculopathy. EATING: EATING - STEP 1: Does the patient complete the activity by him/herself with no assistance (physical, verbal/nonverbal cueing, setup/clean-up)? No. EATING - STEP 2: Does the patient need only setup/clean-up assistance from one helper? Yes. 1. [id number] ADMISSION PERFORMANCE: Setup or clean-up assistance CODE: 05 ORAL HYGIENE: ORAL HYGIENE - STEP 1: Does the patient complete the activity by him/herself with no assistance (physical, verbal/nonverbal cueing, setup/clean-up)? No. ORAL HYGIENE - STEP 2: Does the patient need only setup/clean-up assistance from one helper? Yes. 1. [id number] ADMISSION PERFORMANCE: Setup or clean-up assistance CODE: 05 TOILETING HYGIENE: TOILETING HYGIENE - STEP 1: Does the patient complete the activity by him/herself with no assistance (physical, verbal/nonverbal cueing, setup/clean-up)? No. TOILETING HYGIENE - STEP 2: Does the patient need only setup/clean-up assistance from one helper? No. TOILETING HYGIENE - STEP 3: Does the patient need only verbal/nonverbal cueing or touching/steadying/contact guard assistance fro m one helper? Yes. 1. [id number] ADMISSION PERFORMANCE: Supervision or touching assistance CODE: 04 BATHING: Not assessed/no information CODE: - DRESSING - UPPER BODY: Not assessed/no information CODE: - DRESSING - LOWER BODY: Not assessed/no information CODE: - PUTTING ON/TAKING OFF FOOTWEAR: Not assessed/no information CODE: - ROLL LEFT AND RIGHT: Not assessed/no information CODE: - SIT TO LYING: Not assessed/no information CODE: - LYING TO SITTING: LYING TO SITTING ON SIDE OF BED - STEP 1: Does the patient complete the activity by him/herself with no assistance (physical, verbal/nonverbal cueing, setup/clean-up)? No. LYING TO SITTING ON SIDE OF BED - STEP 2: Does the patient need only setup/clean-up assistance from one helper? No. LYING TO SITTING ON SIDE OF BED - STEP 3: Does the patient need only verbal/nonverbal cueing or touching/steadying/contact guard assistance fro m one helper? Yes. 1. [id number] ADMISSION PERFORMANCE: Supervision or touching assistance CODE: 04 SIT TO STAND: SIT TO STAND - STEP 1: Does the patient complete the activity by him/herself with no assistance (physical, verbal/nonverbal cueing, setup/clean-up)? No. SIT TO STAND - STEP 2: Does the patient need only setup/clean-up assistance from one helper? No. SIT TO STAND - STEP 3: Does the patient need only verbal/nonverbal cueing or touching/steadying/contact guard assistance fro m one helper? Yes. 1. [id number] ADMISSION PERFORMANCE: Supervision or touching assistance CODE: 04 TRANSFERS: BED, CHAIR: CHAIR/[id number] TRANSFER - STEP 1: Does the patient complete the activity by him/herself with no assistance (physical, verbal/nonverbal cueing, setup/clean-up)? No. CHAIR/[id number] TRANSFER - STEP 2: Does the patient need only setup/clean-up assistance from one helper? No. CHAIR/[id number] TRANSFER - STEP 3: Does the patient need only verbal/nonverbal cueing or touching/steadying/contact guard assistance fro m one helper? Yes. 1. [id number] ADMISSION PERFORMANCE: Supervision or touching assistance CODE: 04 TRANSFER TOILET: TOILET TRANSFER - STEP 1: Does the patient complete the activity by him/herself with no assistance (physical, verbal/nonverbal cueing, setup/clean-up)? No. TOILET TRANSFER - STEP 2: Does the patient need only setup/clean-up assistance from one helper? No. TOILET TRANSFER - STEP 3: Does the patient need only verbal/nonverbal cueing or touching/steadying/contact guard assistance fro m one helper? Yes. 1. [id number] ADMISSION PERFORMANCE: Supervision or touching assistance CODE: 04 TRANSFERS: CAR: Not assessed/no information CODE: - WALK 10 FEET: Not assessed/no information CODE: - 1 STEP (CURB): Not assessed/no information CODE: - PICKING UP OBJECT: Not assessed/no information CODE: - DOES THE PATIENT USE A WHEELCHAIR/SCOOTER? CODE: EXPR WHEEL 50 FEET WITH TWO TURNS: Not assessed/no information CODE: - INDICATE THE TYPE OF WHEELCHAIR/SCOOTER USED: CODE: EXPR WHEEL 150 FEET: Not assessed/no information CODE: - INDICATE THE TYPE OF WHEELCHAIR/SCOOTER USED: CODE: EXPR BLADDER AND BOWEL: H350. BLADDER CONTINENCE (3-DAY ASSESSMENT PERIOD): Always continent (no documented incontinence) CODE: 0 H400. BOWEL CONTINENCE (3-DAY ASSESSMENT PERIOD): Always continent CODE: 0 SIGNATURE PANEL: The following modified sections: 1. [id number] Admission Performance, 1. [id number] Admission Performance, 1. [id number] Admission Performance, 1. [id number] Admission Performance, 1. UH1638W Admission Performance, 1. [id number] Admission Performance, 1. OS9104R Admission Performance, 1. SL8394K Admission Performance , 1. [id number] Admission Performance, Code, H350. Bladder Continence (3-day assessment period), H400. B owel Continence (3-day assessment period) were [electronically] signed by Austen Montes on FriJun 21 09:41:37 GMT-0500 (Central Daylight Time)
--- NOTE | 2019-06-21 15:37 | FAST ---
ENCOUNTER DATE AND TIME: 06/21/2019 08:00 (CDT) NAME ROMULO PEDROZA DATE OF : 1940 DATE OF ADMISSION: 06/11/2019 09:19 (CDT) PHONE: AGE: 78 N# [id number] GENDER: Male ENCOUNTER PHYSICIAN: Dr. Maged Goss M.D. ADMISSION DIAGNOSIS: - Debility 16 - Debility (16) Radiculopathy. EATING: Not assessed/no information CODE: - ORAL HYGIENE: ORAL HYGIENE - STEP 1: Does the patient complete the activity by him/herself with no assistance (physical, verbal/nonverbal cueing, setup/clean-up)? Yes. 1. [id number] ADMISSION PERFORMANCE: Independent CODE: 06 TOILETING HYGIENE: Not assessed/no information CODE: - BATHING: SHOWER/BATHE SELF - STEP 1: Does the patient complete the activity by him/herself with no assistance (physical, verbal/nonverbal cueing, setup/clean-up)? No. SHOWER/BATHE SELF - STEP 2: Does the patient need only setup/clean-up assistance from one helper? No. SHOWER/BATHE SELF - STEP 3: Does the patient need only verbal/nonverbal cueing or touching/steadying/contact guard assistance fro m one helper? Yes. 1. [id number] ADMISSION PERFORMANCE: Supervision or touching assistance CODE: 04 DRESSING - UPPER BODY: DRESSING - UPPER BODY - STEP 1: Does the patient complete the activity by him/herself with no assistance (physical, verbal/nonverbal cueing, setup/clean-up)? Yes. 1. [id number] ADMISSION PERFORMANCE: Independent CODE: 06 DRESSING - LOWER BODY: DRESSING - LOWER BODY - STEP 1: Does the patient complete the activity by him/herself with no assistance (physical, verbal/nonverbal cueing, setup/clean-up)? No. DRESSING - LOWER BODY - STEP 2: Does the patient need only setup/clean-up assistance from one helper? No. DRESSING - LOWER BODY - STEP 3: Does the patient need only verbal/nonverbal cueing or touching/steadying/contact guard assistance fro m one helper? Yes. 1. [id number] ADMISSION PERFORMANCE: Supervision or touching assistance CODE: 04 PUTTING ON/TAKING OFF FOOTWEAR: FOOTWEAR - STEP 1: Does the patient complete the activity by him/herself with no assistance (physical, verbal/nonverbal cueing, setup/clean-up)? No. FOOTWEAR - STEP 2: Does the patient need only setup/clean-up assistance from one helper? No. FOOTWEAR - STEP 3: Does the patient need only verbal/nonverbal cueing or touching/steadying/contact guard assistance fro m one helper? Yes. 1. [id number] ADMISSION PERFORMANCE: Supervision or touching assistance CODE: 04 DOES THE PATIENT USE A WHEELCHAIR/SCOOTER? CODE: EXPR INDICATE THE TYPE OF WHEELCHAIR/SCOOTER USED: CODE: EXPR INDICATE THE TYPE OF WHEELCHAIR/SCOOTER USED: CODE: EXPR BLADDER AND BOWEL: CODE: EXPR CODE: EXPR SIGNATURE PANEL: The following modified sections: 1. SV2196A Admission Performance, 1. GG2997a Admission Performance, 1. XS6630u Admission Performance, 1. AY0796f Admission Performance, 1. TC1694g Admission Performance were [electronically] signed by VINCENT Souza on FriJun 21 2019 15:35:52 T-0500 (Central Daylight Time)
[2019-06-21] MEDS: ENOXAPARIN 40 MG/0.4 ML SQ SCH (16:46)
--- NOTE | 2019-06-21 22:02 | R.PN ---
ENCOUNTER DATE AND TIME: 06/21/2019 21:58 (CDT) NAME ROMULO PEDROZA DATE OF : 1940 DATE OF ADMISSION: 06/11/2019 09:19 (CDT) RadiculopathyCHIEF COMPLAINT: Radiculopathy SUBJECTIVE: Pt denied any depression. Pt denied any Shortness of Breath. His pain is well controlled with a rating of 2-3/10. His blood work is stable. He is doing well with physical and occupational therapy. He continues to smoke 2 or 3 times daily despite being asked to stop on multiple occasions. He refuse d a nicotine patch. VITAL SIGNS Temperature: 97.8 F SBP/DBP: 155/82 Pulse: 76 Resp: 16 MEDICATION ALLERGIES: No Known Drug Allergies (NKDA) ENVIRONMENTAL ALLERGIES: None Known - Substance Allergies None Known - Other Allergies None Known NURSING: - Shower allowing shower - Lab Results blood Sugar Check ACHS ACTIVITIES OOB only with supervision THERAPIES: - Dietary and Nutrition Adequate Nutrition. Nutritional Education. Nutritional Supplements. PHYSICAL EXAM - Gen Alert and awake Lying in bed No apparent distress Oriented to: person, time, and place - Skin No breakdown Normacephalic - Eyes No abnormalities - ENMT No abnormalities - Neck No abnormalities No cervical adenopathy - CVS RRR - Chest No abnormalities - Resp Clear to auscultation - Abd Soft - GI Non distended Deferred - No abnormalities - Ext No significant edema - MSK 4+/5 weakness in both lower extremities. - Neuro 4/5 strength bilaterally upper and lower extremities. - Psych No abnormalities ASSESSMENT: Pt. is a 78 yo Right-handed white male.On 06/07/2019 he was admitted to [facility] wit h diagnosis Radiculopathy.His impairment category is Debility 16 - Debility (16).Pre-morbidly, Pt. w as independent/mod-I in Self-Care, Sphincter Control, Transfers Control, Locomotion, Communication, a nd Social Cognition; and he had good Sphincter Control.Currently, he has deficits of Transfers Contro l, Locomotion, Endurance, Balance, Safety Awareness, and Self-Care.Pt. is now referred to [facility] for acute in-patient rehabilitation in order to maximize patient's functional independence in activities of daily living, strength, ROM, and mobility.- Rehab Goal Patient has realistic goal of being discharged at assistance level 6-Luis to reside at Home with Fam danica/Relatives. MDM/PLAN: - Physical Therapy Gait dysfunction - to improve, our physical therapists will perform initial evaluation of pt's statu s upon admission and devise an individualized program for Gait Training, and Wheel Chair mobility Inability to transfer - to improve, our physical therapists will perform initial evaluation of pt's status upon admission and devise an individualized program for Bed mobility Need for home safety evaluation - to improve, our physical therapists will perform initial evaluatio n of pt's status upon admission and devise an individualized program for Home Evaluation Need in caregiver upon discharge - to improve, our physical therapists will perform initial evaluati on of pt's status upon admission and devise an individualized program for Caregiver Training Edema - to improve, our physical therapists will perform initial evaluation of pt's status upon admi ssion and devise an individualized program for Elevation Training, and Lymphedema Therapy New precaution - to improve, our physical therapists will perform initial evaluation of pt's status upon admission and devise an individualized program for Patient precaution education Poor balance - to improve, our physical therapists will perform initial evaluation of pt's status up on admission and devise an individualized program for Balance Training Poor endurance - to improve, our physical therapists will perform initial evaluation of pt's status upon admission and devise an individualized program for Endurance Training Weakness - to improve, our physical therapists will perform initial evaluation of pt's status upon a dmission and devise an individualized program for Aquatic Therapy, Neuromuscular Reeducation, and Str engthening Achieving independence - to improve, our physical therapists will perform initial evaluation of pt's status upon admission and devise an individualized program for Community Reintegration Activities - Occupational Therapy ADL deficits - to improve, our occupation therapists will perform initial evaluation of pt's status upon admission and devise an individualized program for Bathing, Bed mobility, Community Reintegratio n, Cooking, Dressing, Eating, Fine Motor Skills, Grooming, Homemaking, Kitchen Mobility, Laundry, Pat ient Education, Safety Awareness, Splinting - Positioning, Transfers(Toilet, Tub, Shower), and Wheel Chair Management Need for pet caretaker - to improve, our occupation therapists will perform initial evaluation of pt's status upon admission and devise an individualized program for Caregiver Training Weakness - to improve, our occupation therapists will perform initial evaluation of pt's status upon admission and devise an individualized program for Aquatic Therapy, Balance, Endurance, UE ROM, and UE strengthening - Other See attached MAR (Medication Administration Record) - Diet Type Continue Regular - Diet - Liquid Texture Continue Regular - Tube Feed Continue N/A - Lab Results blood Sugar Check ACHS - Diet - Solid Texture Continue Regular - Shower allowing shower FUNCTIONAL STATUS: UPDATED AT WEEKLY TEAM CONFERENCE - Bladder Same accident frequency: 7-Ind - No accidents in the past 7 days - Bowel Same accident frequency: 7-Ind - No accidents in the past 7 days - Walking Same score based on distance walked: 1(<=50ft) - Wheelchair Same score based on distance traveled: 0(N/A) FUNCTIONAL STATUS: - Self-Care A. Eating Luis B. Grooming Luis C. Bathing Luis D. Dressing - Upper sup E. Dressing - Lower sup F. Toileting sup - Sphincter Control G: Bladder control Ind H: Bowel control Ind - Transfers Control I. Bed/Chair/Wheelchair sup J. Toilet sup K. Tub/Shower ADNO - Locomotion L. Walk/Wheelchair (C) maxA L. Walk/Wheelchair (W) maxA M. Stairs ADNO - Communication N. Comprehension (B) Ind O. Expression (B) Ind - Social Cognition P. Social Interaction Ind Q. Problem Solving Ind R. Memory Ind - Endurance Fair - Balance Fair - Safety Awareness Fair QI SCORES: - Self-Care A. Eating 05-Setup or clean-up assistance B. Oral hygiene 06-Independent C. Toileting hygiene 06-Independent E. Shower/bathe self 05-Setup or clean-up assistance F. Upper body dressing 05-Setup or clean-up assistance G. Lower body dressing 05-Setup or clean-up assistance H. Putting on/taking off footwear 05-Setup or clean-up assistance - Mobility A. Roll left and right 06-Independent B. Sit to lying 06-Independent C. Lying to sitting on side of bed 06-Independent D. Sit to stand 04-Supervision or touching assistance E. Chair/glg-pd-fzkgl transfer 04-Supervision or touching assistance F. Toilet transfer 04-Supervision or touching assistance G. Car transfer 88-Not attempted due to medical condition or safety concerns I. Walk 10 feet 02-Substantial/maximal assistance J. Walk 50 feet with two turns 03-Partial/moderate assistance K. Walk 150 feet 88-Not attempted due to medical condition or safety concerns L. Walking 10 feet on uneven surfaces 88-Not attempted due to medical condition or safety concerns M. 1 step (curb) 88-Not attempted due to medical condition or safety concerns N. 4 steps 88-Not attempted due to medical condition or safety concerns O. 12 steps 88-Not attempted due to medical condition or safety concerns P. Picking up object 88-Not attempted due to medical condition or safety concerns R. Wheel 50 feet with two turns 01-Dependent S. Wheel 150 feet 01-Dependent - Bladder and Bowel Bladder continence 0-Always continent Bowel continence 0-Always continent CURRENT FUNC. DEFICITS: Transfers Control, Locomotion, Endurance, Balance, Safety Awareness, and Self-Care SIGNATURE PANEL: (CDT)
--- NOTE | 2019-06-22 01:24 | PN ---
Date of Progress Note: 06/21/2019 Subjective: The patient was seen this morning for followup. No new complaints or problems reported by him. Lying in bed, not in any distress. Objective: Vital Signs: Reviewed. HEENT: Examination unremarkable. Lungs: Clear to auscultation. Heart: Sounds normal. Abdomen: Soft. Bowel sounds normal. No guarding, rigidity, tenderness, distention. Extremities: No leg edema. 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 He is able to flex his left knee against gr avity significantly better than before. Impression: 1.Lumbar radiculopathy, left leg. 2.Diabetes mellitus, type 2, uncontrolled. 3.Coronary artery disease. 4.Compression fracture of spine, thoracic spine and lumbar spine. Plan: Continue current medications. We will continue physical therapy under guidance of Dr. Curtis mcleod. Continue current diabetes management except increase the dose of pioglitazone up to 30 mg p.o. da danica. Continue current metformin. I will see him tomorrow for followup. LAUREEN/MODL Voice ID: [id number] Report ID: [id number]
[2019-06-22] MEDS: INSULIN -REGULAR HUMAN 50 UNIT/0.5 ML ML SQ SCH ×4 (07:26→19:31)
[2019-06-22] MEDS: MULTIVIT W/ MINERAL TAB PO SCH (07:28)
[2019-06-22] MEDS: GABAPENTIN 300 MG CAP PO SCH ×2 (07:28→18:43)
[2019-06-22] MEDS: URSODIOL 300 MG CAP PO SCH (07:28)
[2019-06-22] MEDS: METFORMIN ER 500 MG TAB PO SCH ×2 (07:28→16:26)
[2019-06-22] MEDS: FAMOTIDINE 20 MG TAB PO SCH (07:28)
[2019-06-22] MEDS: ASPIRIN EC 81 MG TAB PO SCH (07:28)
[2019-06-22] MEDS: CO Q PO SCH (07:29)
[2019-06-22] MEDS: PRAVACHOL 40 MG PO SCH (07:29)
[2019-06-22] MEDS: ENSURE HIGH PROTEIN 237 ML CAN PO SCH ×2 (07:30→18:48)
[2019-06-22] MEDS: JUVEN PACKET PO SCH ×2 (07:30→18:48)
[2019-06-22] MEDS: NICOTINE 14 MG/PAT TD SCH (07:31)
[2019-06-22] MEDS: PIOGLITAZONE 15 MG TAB PO SCH (07:34)
--- NOTE | 2019-06-22 10:11 | FAST ---
SHIFT START DATE/TIME: 06/22/2019 07:00 (CDT) SHIFT END DATE/TIME: 06/22/2019 19:00 (CDT) NAME ROMULO PEDROZA DATE OF : 1940 DATE OF ADMISSION: 06/11/2019 09:19 (CDT) PHONE: AGE: 78 N# [id number] GENDER: Male ENCOUNTER PHYSICIAN: Dr. Maged Goss M.D. ADMISSION DIAGNOSIS: - Debility 16 - Debility (16) Radiculopathy. EATING: EATING - STEP 1: Does the patient complete the activity by him/herself with no assistance (physical, verbal/nonverbal cueing, setup/clean-up)? No. EATING - STEP 2: Does the patient need only setup/clean-up assistance from one helper? Yes. 1. [id number] ADMISSION PERFORMANCE: Setup or clean-up assistance CODE: 05 ORAL HYGIENE: ORAL HYGIENE - STEP 1: Does the patient complete the activity by him/herself with no assistance (physical, verbal/nonverbal cueing, setup/clean-up)? Yes. 1. [id number] ADMISSION PERFORMANCE: Independent CODE: 06 TOILETING HYGIENE: TOILETING HYGIENE - STEP 1: Does the patient complete the activity by him/herself with no assistance (physical, verbal/nonverbal cueing, setup/clean-up)? No. TOILETING HYGIENE - STEP 2: Does the patient need only setup/clean-up assistance from one helper? No. TOILETING HYGIENE - STEP 3: Does the patient need only verbal/nonverbal cueing or touching/steadying/contact guard assistance fro m one helper? Yes. 1. [id number] ADMISSION PERFORMANCE: Supervision or touching assistance CODE: 04 BATHING: Not assessed/no information CODE: - DRESSING - UPPER BODY: Not assessed/no information CODE: - DRESSING - LOWER BODY: DRESSING - LOWER BODY - STEP 1: Does the patient complete the activity by him/herself with no assistance (physical, verbal/nonverbal cueing, setup/clean-up)? No. DRESSING - LOWER BODY - STEP 2: Does the patient need only setup/clean-up assistance from one helper? No. DRESSING - LOWER BODY - STEP 3: Does the patient need only verbal/nonverbal cueing or touching/steadying/contact guard assistance fro m one helper? Yes. 1. [id number] ADMISSION PERFORMANCE: Supervision or touching assistance CODE: 04 PUTTING ON/TAKING OFF FOOTWEAR: Not assessed/no information CODE: - ROLL LEFT AND RIGHT: Not assessed/no information CODE: - SIT TO LYING: SIT TO LYING - STEP 1: Does the patient complete the activity by him/herself with no assistance (physical, verbal/nonverbal cueing, setup/clean-up)? No. SIT TO LYING - STEP 2: Does the patient need only setup/clean-up assistance from one helper? Yes. 1. [id number] ADMISSION PERFORMANCE: Setup or clean-up assistance CODE: 05 LYING TO SITTING: LYING TO SITTING ON SIDE OF BED - STEP 1: Does the patient complete the activity by him/herself with no assistance (physical, verbal/nonverbal cueing, setup/clean-up)? No. LYING TO SITTING ON SIDE OF BED - STEP 2: Does the patient need only setup/clean-up assistance from one helper? Yes. 1. [id number] ADMISSION PERFORMANCE: Setup or clean-up assistance CODE: 05 SIT TO STAND: SIT TO STAND - STEP 1: Does the patient complete the activity by him/herself with no assistance (physical, verbal/nonverbal cueing, setup/clean-up)? No. SIT TO STAND - STEP 2: Does the patient need only setup/clean-up assistance from one helper? Yes. 1. [id number] ADMISSION PERFORMANCE: Setup or clean-up assistance CODE: 05 TRANSFERS: BED, CHAIR: CHAIR/[id number] TRANSFER - STEP 1: Does the patient complete the activity by him/herself with no assistance (physical, verbal/nonverbal cueing, setup/clean-up)? No. CHAIR/[id number]-IN-ASMQI TRANSFER - STEP 2: Does the patient need only setup/clean-up assistance from one helper? No. CHAIR/[id number]-[id number] TRANSFER - STEP 3: Does the patient need only verbal/nonverbal cueing or touching/steadying/contact guard assistance fro m one helper? Yes. 1. [id number] ADMISSION PERFORMANCE: Supervision or touching assistance CODE: 04 TRANSFER TOILET: TOILET TRANSFER - STEP 1: Does the patient complete the activity by him/herself with no assistance (physical, verbal/nonverbal cueing, setup/clean-up)? No. TOILET TRANSFER - STEP 2: Does the patient need only setup/clean-up assistance from one helper? No. TOILET TRANSFER - STEP 3: Does the patient need only verbal/nonverbal cueing or touching/steadying/contact guard assistance fro m one helper? Yes. 1. [id number] ADMISSION PERFORMANCE: Supervision or touching assistance CODE: 04 TRANSFERS: CAR: Not assessed/no information CODE: - WALK 10 FEET: Not assessed/no information CODE: - 1 STEP (CURB): Not assessed/no information CODE: - PICKING UP OBJECT: Not assessed/no information CODE: - DOES THE PATIENT USE A WHEELCHAIR/SCOOTER? CODE: EXPR WHEEL 50 FEET WITH TWO TURNS: Not assessed/no information CODE: - INDICATE THE TYPE OF WHEELCHAIR/SCOOTER USED: CODE: EXPR WHEEL 150 FEET: Not assessed/no information CODE: - INDICATE THE TYPE OF WHEELCHAIR/SCOOTER USED: CODE: EXPR BLADDER AND BOWEL: H350. BLADDER CONTINENCE (3-DAY ASSESSMENT PERIOD): Always continent (no documented incontinence) CODE: 0 H400. BOWEL CONTINENCE (3-DAY ASSESSMENT PERIOD): Always continent CODE: 0 SIGNATURE PANEL: The following modified sections: 1. [id number] Admission Performance, 1. [id number] Admission Performance, 1. AZ8655B Admission Performance, 1. [id number] Admission Performance, 1. [id number] Admission Performance, 1. [id number] Admission Performance, 1. BG9450I Admission Performance, 1. [id number] Admission Performance , 1. CC0204J Admission Performance, 1. AN8160A Admission Performance, 1. RD6598X Admission Performanc e, 1. [id number] Admission Performance, Code, H350. Bladder Continence (3-day assessment period), H400. Bowel Continence (3-day assessment period) were [electronically] signed by Austen Montes on FriJun 22 2 019 10:10:22 GMT-0500 (Central Daylight Time)
[2019-06-22] MEDS: ENOXAPARIN 40 MG/0.4 ML SQ SCH (16:25)
[2019-06-22] MEDS: TRAMADOL HCL 50 MG TAB PO PRN ×2 (16:34→23:05)
--- NOTE | 2019-06-23 00:37 | PN ---
Date of Progress Note: 06/22/2019 Subjective: Patient was seen this morning for followup. No new complaints or problems reported. Objective: Vital Signs: Reviewed. HEENT: Unremarkable. Lungs: Clear to auscultation. Heart: Sounds normal. Abdomen: Soft. Bowel sounds normal. No guarding, rigidity, tenderness, distention. Extremities: No leg edema. Impression: 1.Lumbar radiculopathy. 2.Type 2 diabetes mellitus. 3.Coronary artery disease. 4.Compression fracture of spine. Plan: Continue current medication. Continue current diabetes medications. Fingerstick blood sugar readings reviewed and I will see him tomorrow for followup. Continue physical therapy under guidance of Dr. Goss. LAUREEN/MODL Voice ID: [id number] Report ID: [id number]
[2019-06-23] MEDS: TRAMADOL HCL 50 MG TAB PO PRN ×3 (05:43→19:58)
[2019-06-23] MEDS: NICOTINE 14 MG/PAT TD SCH (08:00)
[2019-06-23] MEDS: GABAPENTIN 300 MG CAP PO SCH ×2 (08:02→19:59)
[2019-06-23] MEDS: PIOGLITAZONE 15 MG TAB PO SCH (08:03)
[2019-06-23] MEDS: METFORMIN ER 500 MG TAB PO SCH ×2 (08:03→16:24)
[2019-06-23] MEDS: URSODIOL 300 MG CAP PO SCH (08:04)
[2019-06-23] MEDS: INSULIN -REGULAR HUMAN 50 UNIT/0.5 ML ML SQ SCH ×4 (08:04→20:25)
[2019-06-23] MEDS: FAMOTIDINE 20 MG TAB PO SCH (08:04)
[2019-06-23] MEDS: MULTIVIT W/ MINERAL TAB PO SCH (08:04)
[2019-06-23] MEDS: ASPIRIN EC 81 MG TAB PO SCH (08:04)
[2019-06-23] MEDS: ENSURE HIGH PROTEIN 237 ML CAN PO SCH ×2 (08:05→19:59)
[2019-06-23] MEDS: CO Q PO SCH (08:05)
[2019-06-23] MEDS: PRAVACHOL 40 MG PO SCH (08:05)
[2019-06-23] MEDS: JUVEN PACKET PO SCH ×2 (08:05→19:59)
--- NOTE | 2019-06-23 16:13 | FAST ---
ENCOUNTER DATE AND TIME: 06/23/2019 08:00 (CDT) NAME ROMULO PEDROZA DATE OF : 1940 DATE OF ADMISSION: 06/11/2019 09:19 (CDT) PHONE: AGE: 78 N# [id number] GENDER: Male ENCOUNTER PHYSICIAN: Dr. Maged Goss M.D. ADMISSION DIAGNOSIS: - Debility 16 - Debility (16) Radiculopathy. EATING: Not assessed/no information CODE: - ORAL HYGIENE: ORAL HYGIENE - STEP 1: Does the patient complete the activity by him/herself with no assistance (physical, verbal/nonverbal cueing, setup/clean-up)? Yes. 1. [id number] ADMISSION PERFORMANCE: Independent CODE: 06 TOILETING HYGIENE: Not assessed/no information CODE: - BATHING: SHOWER/BATHE SELF - STEP 1: Does the patient complete the activity by him/herself with no assistance (physical, verbal/nonverbal cueing, setup/clean-up)? No. SHOWER/BATHE SELF - STEP 2: Does the patient need only setup/clean-up assistance from one helper? No. SHOWER/BATHE SELF - STEP 3: Does the patient need only verbal/nonverbal cueing or touching/steadying/contact guard assistance fro m one helper? Yes. 1. [id number] ADMISSION PERFORMANCE: Supervision or touching assistance CODE: 04 DRESSING - UPPER BODY: DRESSING - UPPER BODY - STEP 1: Does the patient complete the activity by him/herself with no assistance (physical, verbal/nonverbal cueing, setup/clean-up)? Yes. 1. [id number] ADMISSION PERFORMANCE: Independent CODE: 06 DRESSING - LOWER BODY: DRESSING - LOWER BODY - STEP 1: Does the patient complete the activity by him/herself with no assistance (physical, verbal/nonverbal cueing, setup/clean-up)? No. DRESSING - LOWER BODY - STEP 2: Does the patient need only setup/clean-up assistance from one helper? No. DRESSING - LOWER BODY - STEP 3: Does the patient need only verbal/nonverbal cueing or touching/steadying/contact guard assistance fro m one helper? Yes. 1. [id number] ADMISSION PERFORMANCE: Supervision or touching assistance CODE: 04 PUTTING ON/TAKING OFF FOOTWEAR: FOOTWEAR - STEP 1: Does the patient complete the activity by him/herself with no assistance (physical, verbal/nonverbal cueing, setup/clean-up)? Yes. 1. [id number] ADMISSION PERFORMANCE: Independent CODE: 06 DOES THE PATIENT USE A WHEELCHAIR/SCOOTER? CODE: EXPR INDICATE THE TYPE OF WHEELCHAIR/SCOOTER USED: CODE: EXPR INDICATE THE TYPE OF WHEELCHAIR/SCOOTER USED: CODE: EXPR BLADDER AND BOWEL: CODE: EXPR CODE: EXPR SIGNATURE PANEL: The following modified sections: 1. [id number] Admission Performance, 1. OE1866g Admission Performance, 1. WE3875g Admission Performance, 1. KH5854b Admission Performance, 1. DH7789r Admission Performance, 1. KB4553f Admission Performance, 1. TI2711v Admission Performance were [electronically] signed by VINCENT Harrison on FriJun 23 2019 16:12:28 T-0500 (Central Daylight Time)
[2019-06-23] MEDS: ENOXAPARIN 40 MG/0.4 ML SQ SCH (16:24)
--- NOTE | 2019-06-23 19:01 | R.PN ---
ENCOUNTER DATE AND TIME: 06/23/2019 18:58 (CDT) NAME ROMULO PEDROZA DATE OF : 1940 DATE OF ADMISSION: 06/11/2019 09:19 (CDT) RadiculopathyCHIEF COMPLAINT: Radiculopathy SUBJECTIVE: Pt denied any depression. Pt denied any Shortness of Breath. His pain is well controlled with a rating of 2-3/10. His blood work is stable. He is doing well with physical and occupational therapy. He continues to smoke 2 or 3 times daily despite being asked to stop on multiple occasions. He refuse d a nicotine patch. Labs reviewed and are stable. VITAL SIGNS Temperature: 97.6 F SBP/DBP: 148/78 Pulse: 78 Resp: 16 MEDICATION ALLERGIES: No Known Drug Allergies (NKDA) ENVIRONMENTAL ALLERGIES: None Known - Substance Allergies None Known - Other Allergies None Known NURSING: - Shower allowing shower - Lab Results blood Sugar Check ACHS ACTIVITIES OOB only with supervision THERAPIES: - Dietary and Nutrition Adequate Nutrition. Nutritional Education. Nutritional Supplements. PHYSICAL EXAM - Gen Alert and awake Lying in bed No apparent distress Oriented to: person, time, and place - Skin No breakdown Normacephalic - Eyes No abnormalities - ENMT No abnormalities - Neck No abnormalities No cervical adenopathy - CVS RRR - Chest No abnormalities - Resp Clear to auscultation - Abd Soft - GI Non distended Deferred - No abnormalities - Ext No significant edema - MSK 4+/5 weakness in both lower extremities. - Neuro 4/5 strength bilaterally upper and lower extremities. - Psych No abnormalities ASSESSMENT: Pt. is a 78 yo Right-handed white male.On 06/07/2019 he was admitted to [facility] h diagnosis Radiculopathy.His impairment category is Debility 16 - Debility (16).Pre-morbidly, Pt. w as independent/mod-I in Self-Care, Sphincter Control, Transfers Control, Locomotion, Communication, a nd Social Cognition; and he had good Sphincter Control.Currently, he has deficits of Transfers Contro l, Locomotion, Endurance, Balance, Safety Awareness, and Self-Care.Pt. is now referred to [facility] for acute in-patient rehabilitation in order to maximize patient's functional independence in activities of daily living, strength, ROM, and mobility.- Rehab Goal Patient has realistic goal of being discharged at assistance level 6-Luis to reside at Home with Fam danica/Relatives. MDM/PLAN: - Physical Therapy Gait dysfunction - to improve, our physical therapists will perform initial evaluation of pt's statu s upon admission and devise an individualized program for Gait Training, and Wheel Chair mobility Inability to transfer - to improve, our physical therapists will perform initial evaluation of pt's status upon admission and devise an individualized program for Bed mobility Need for home safety evaluation - to improve, our physical therapists will perform initial evaluatio n of pt's status upon admission and devise an individualized program for Home Evaluation Need in caregiver upon discharge - to improve, our physical therapists will perform initial evaluati on of pt's status upon admission and devise an individualized program for Caregiver Training Edema - to improve, our physical therapists will perform initial evaluation of pt's status upon admi ssion and devise an individualized program for Elevation Training, and Lymphedema Therapy New precaution - to improve, our physical therapists will perform initial evaluation of pt's status upon admission and devise an individualized program for Patient precaution education Poor balance - to improve, our physical therapists will perform initial evaluation of pt's status up on admission and devise an individualized program for Balance Training Poor endurance - to improve, our physical therapists will perform initial evaluation of pt's status upon admission and devise an individualized program for Endurance Training Weakness - to improve, our physical therapists will perform initial evaluation of pt's status upon a dmission and devise an individualized program for Aquatic Therapy, Neuromuscular Reeducation, and Str engthening Achieving independence - to improve, our physical therapists will perform initial evaluation of pt's status upon admission and devise an individualized program for Community Reintegration Activities - Occupational Therapy ADL deficits - to improve, our occupation therapists will perform initial evaluation of pt's status upon admission and devise an individualized program for Bathing, Bed mobility, Community Reintegratio n, Cooking, Dressing, Eating, Fine Motor Skills, Grooming, Homemaking, Kitchen Mobility, Laundry, Pat ient Education, Safety Awareness, Splinting - Positioning, Transfers(Toilet, Tub, Shower), and Wheel Chair Management Need for day care home mother - to improve, our occupation therapists will perform initial evaluation of pt's status upon admission and devise an individualized program for Caregiver Training Weakness - to improve, our occupation therapists will perform initial evaluation of pt's status upon admission and devise an individualized program for Aquatic Therapy, Balance, Endurance, UE ROM, and UE strengthening - Other See attached MAR (Medication Administration Record) - Diet Type Continue Regular - Diet - Liquid Texture Continue Regular - Tube Feed Continue N/A - Lab Results blood Sugar Check ACHS - Diet - Solid Texture Continue Regular - Shower allowing shower FUNCTIONAL STATUS: UPDATED AT WEEKLY TEAM CONFERENCE - Bladder Same accident frequency: 7-Ind - No accidents in the past 7 days - Bowel Same accident frequency: 7-Ind - No accidents in the past 7 days - Walking Same score based on distance walked: 1(<=50ft) - Wheelchair Same score based on distance traveled: 0(N/A) FUNCTIONAL STATUS: - Self-Care A. Eating Luis B. Grooming Luis C. Bathing Luis D. Dressing - Upper sup E. Dressing - Lower sup F. Toileting sup - Sphincter Control G: Bladder control Ind H: Bowel control Ind - Transfers Control I. Bed/Chair/Wheelchair sup J. Toilet sup K. Tub/Shower ADNO - Locomotion L. Walk/Wheelchair (C) maxA L. Walk/Wheelchair (W) maxA M. Stairs ADNO - Communication N. Comprehension (B) Ind O. Expression (B) Ind - Social Cognition P. Social Interaction Ind Q. Problem Solving Ind R. Memory Ind - Endurance Fair - Balance Fair - Safety Awareness Fair QI SCORES: - Self-Care A. Eating 05-Setup or clean-up assistance B. Oral hygiene 06-Independent C. Toileting hygiene 06-Independent E. Shower/bathe self 05-Setup or clean-up assistance F. Upper body dressing 05-Setup or clean-up assistance G. Lower body dressing 05-Setup or clean-up assistance H. Putting on/taking off footwear 05-Setup or clean-up assistance - Mobility A. Roll left and right 06-Independent B. Sit to lying 06-Independent C. Lying to sitting on side of bed 06-Independent D. Sit to stand 04-Supervision or touching assistance E. Chair/ggq-ed-ofyvb transfer 04-Supervision or touching assistance F. Toilet transfer 04-Supervision or touching assistance G. Car transfer 88-Not attempted due to medical condition or safety concerns I. Walk 10 feet 02-Substantial/maximal assistance J. Walk 50 feet with two turns 03-Partial/moderate assistance K. Walk 150 feet 88-Not attempted due to medical condition or safety concerns L. Walking 10 feet on uneven surfaces 88-Not attempted due to medical condition or safety concerns M. 1 step (curb) 88-Not attempted due to medical condition or safety concerns N. 4 steps 88-Not attempted due to medical condition or safety concerns O. 12 steps 88-Not attempted due to medical condition or safety concerns P. Picking up object 88-Not attempted due to medical condition or safety concerns R. Wheel 50 feet with two turns 01-Dependent S. Wheel 150 feet 01-Dependent - Bladder and Bowel Bladder continence 0-Always continent Bowel continence 0-Always continent CURRENT FUNC. DEFICITS: Transfers Control, Locomotion, Endurance, Balance, Safety Awareness, and Self-Care SIGNATURE PANEL: (CDT)
[2019-06-23] MEDS: MELATONIN 3 MG TABLET PO PRN (19:59)
--- NOTE | 2019-06-24 00:55 | PN ---
Date of Progress Note: 06/23/2019 Subjective: Patient was seen this morning for followup. He was sitting in chair. Denied any compla ints. Objective: Vital Signs: Reviewed. HEENT: Unremarkable. Lungs: Clear to auscultation. Heart: Heart sounds normal. Abdomen: Soft. Bowel sounds normal. No guarding, rigidity, tenderness, or distention. Extremities: No leg edema. Laboratory Data: Fingerstick blood sugar readings reviewed. Impression: 1.Type 2 diabetes mellitus, uncontrolled. 2.Coronary artery disease. 3.Compression fracture, spine. Plan: Patient is eating a lot of food that is not appropriate for his diabetes and I informed him to day that I would like for him to have double portion of his diabetic meals and avoid food that is hig h in carbohydrate as he has been eating, trying to gain weight. Nurse was instructed to order double portion diabetic meal for him. We will increase his pioglitazone dose to 45 mg p.o. daily. Continu e current metformin. I will see him tomorrow for followup. LAUREEN/MODL Voice ID: [id number] Report ID: [id number]
[2019-06-24] MEDS: INSULIN -REGULAR HUMAN 50 UNIT/0.5 ML ML SQ SCH ×4 (07:30→19:23)
[2019-06-24] MEDS: NICOTINE 14 MG/PAT TD SCH (08:00)
[2019-06-24] MEDS: PRAVACHOL 40 MG PO SCH (08:15)
[2019-06-24] MEDS: CO Q PO SCH (08:15)
[2019-06-24] MEDS: MULTIVIT W/ MINERAL TAB PO SCH (08:16)
[2019-06-24] MEDS: METFORMIN ER 500 MG TAB PO SCH ×2 (08:16→17:09)
[2019-06-24] MEDS: URSODIOL 300 MG CAP PO SCH (08:16)
[2019-06-24] MEDS: GABAPENTIN 300 MG CAP PO SCH ×2 (08:16→18:45)
[2019-06-24] MEDS: FAMOTIDINE 20 MG TAB PO SCH (08:17)
[2019-06-24] MEDS: ASPIRIN EC 81 MG TAB PO SCH (08:17)
[2019-06-24] MEDS: PIOGLITAZONE 15 MG TAB PO SCH (08:17)
[2019-06-24] MEDS: TRAMADOL HCL 50 MG TAB PO PRN (08:18)
[2019-06-24] MEDS: ENSURE HIGH PROTEIN 237 ML CAN PO SCH ×2 (08:19→18:45)
[2019-06-24] MEDS: JUVEN PACKET PO SCH ×2 (08:23→18:46)
[2019-06-24] MEDS: ACETAMINOPHEN 500 MG TAB PO PRN (12:31)
[2019-06-24] MEDS: ENOXAPARIN 40 MG/0.4 ML SQ SCH (17:08)
--- NOTE | 2019-06-25 00:08 | PN ---
Date of Progress Note: 06/24/2019 Subjective: Patient was seen this morning for followup. He was sitting on chair, denied any complai nts. Objective: Vital Signs: Reviewed. HEENT: Unremarkable. Lungs: Clear to auscultation, normal. Abdomen: Soft. Bowel sounds normal. No guarding, rigidity, tenderness, or distention. Extremities: No leg edema. Impression: 1.Type 2 diabetes mellitus, uncontrolled. 2.Coronary artery disease. 3.Hypertension. 4.Compression fracture of spine. Plan: Fingerstick blood sugar readings reviewed. It is better now compared to last few days. Rory nue current diabetic medications and diet. Continue physical therapy under guidance of Dr. Goss. I will see him tomorrow for followup. LAUREEN/MODL Voice ID: [id number] Report ID: [id number]
[2019-06-25] MEDS: TRAMADOL HCL 50 MG TAB PO PRN ×3 (03:56→20:01)
[2019-06-25 06:27] LABS: Absolute Lymphocytes (CBC) 1.5 K/uL (0.7-4.9); Basophils % 2.2 % (0-1.3); Hematocrit 27.3 % (39.6-49.0); Lymphocytes % 32.2 % (15.3-44.8); MPV 9.9 fL (7.6-11.3); RBC Red Blood Cell Count 2.94 M/uL (4.33-5.43)
[2019-06-25 06:36] LABS: Albumin 3.2 g/dL (3.4-5.0); Magnesium 1.7 mg/dL (1.8-2.4); Potassium 4.3 mmol/L (3.5-5.1); Prealbumin 16.2 mg/dL (20-40)
[2019-06-25] MEDS: INSULIN -REGULAR HUMAN 50 UNIT/0.5 ML ML SQ SCH ×4 (07:07→20:04)
[2019-06-25] MEDS: NICOTINE 14 MG/PAT TD SCH (08:00)
[2019-06-25] MEDS: PIOGLITAZONE 15 MG TAB PO SCH (08:21)
[2019-06-25] MEDS: ASPIRIN EC 81 MG TAB PO SCH (08:22)
[2019-06-25] MEDS: GABAPENTIN 300 MG CAP PO SCH ×2 (08:22→20:01)
[2019-06-25] MEDS: METFORMIN ER 500 MG TAB PO SCH ×2 (08:22→16:50)
[2019-06-25] MEDS: MULTIVIT W/ MINERAL TAB PO SCH (08:22)
[2019-06-25] MEDS: URSODIOL 300 MG CAP PO SCH (08:22)
[2019-06-25] MEDS: FAMOTIDINE 20 MG TAB PO SCH (08:22)
[2019-06-25] MEDS: ENSURE HIGH PROTEIN 237 ML CAN PO SCH ×2 (08:24→20:02)
[2019-06-25] MEDS: CO Q PO SCH (08:24)
[2019-06-25] MEDS: JUVEN PACKET PO SCH ×2 (08:24→20:00)
[2019-06-25] MEDS: PRAVACHOL 40 MG PO SCH (08:25)
--- NOTE | 2019-06-25 09:28 | P.RH.PN ---
Estimated Length of Stay: 19 Expected Discharge Date: 06/29/19 Discharge Disposition Plan: Home Family Support: Yes Fdc Goal: Mobility, Transfers, Self Care Vital Signs: Last Vital Signs Temp 98 F 06/24/19 19:49 Pulse 86 06/24/19 19:49 Resp 18 06/25/19 08:20 BP 108/65 06/24/19 19:49 Pulse Ox 98 06/25/19 08:20 Laboratory: Laboratory Last Values WBC 4.8 K/uL (4.3-10.9) D 06/25/19 05:52 RBC 2.94 M/uL (4.33-5.43) L 06/25/19 05:52 Hgb 9.6 g/dL (13.6-17.9) L 06/25/19 05:52 Hct 27.3 % (39.6-49.0) L 06/25/19 05:52 MCV 92.7 fL (80-100) 06/25/19 05:52 MCH 32.6 pg (27.0-35.0) 06/25/19 05:52 MCHC 35.1 g/dL (32.0-36.0) 06/25/19 05:52 RDW 14.1 % (12.1-15.2) 06/25/19 05:52 Plt Count 149 K/uL (152-406) L 06/25/19 05:52 MPV 9.9 fL (7.6-11.3) 06/25/19 05:52 Neutrophils % 47.5 % (41.7-73.7) 06/25/19 05:52 Lymphocytes % 32.2 % (15.3-44.8) 06/25/19 05:52 Monocytes % 10.6 % (3.3-12.3) 06/25/19 05:52 Eosinophils % 7.5 % (0-4.4) H 06/25/19 05:52 Basophils % 2.2 % (0-1.3) H 06/25/19 05:52 Absolute Neutrophils 2.3 K/uL (1.8-8.0) 06/25/19 05:52 Absolute Lymphocytes 1.5 K/uL (0.7-4.9) 06/25/19 05:52 Absolute Monocytes 0.5 K/uL (0.1-1.3) 06/25/19 05:52 Absolute Eosinophils 0.4 K/uL (0-0.5) 06/25/19 05:52 Absolute Basophils 0.1 K/uL (0-0.5) 06/25/19 05:52 Sodium 137 mmol/L (136-145) 06/25/19 05:52 Potassium 4.3 mmol/L (3.5-5.1) 06/25/19 05:52 Chloride 106 mmol/L (98-107) 06/25/19 05:52 Carbon Dioxide 27 mmol/L (21-32) 06/25/19 05:52 BUN 22 mg/dL (7-18) H 06/25/19 05:52 Creatinine 0.87 mg/dL (0.55-1.3) 06/25/19 05:52 Estimated GFR 85 mL/min (=/>90) L 06/25/19 05:52 Glucose 254 mg/dL (74-106) H 06/25/19 05:52 POC Glucose 240 mg/dl (65-120) H 06/25/19 06:41 Hemoglobin A1c 7.7 % (4.2-6.3) H 06/12/19 05:26 Calcium 9.8 mg/dL (8.5-10.1) 06/25/19 05:52 Magnesium 1.7 mg/dL (1.8-2.4) L 06/25/19 05:52 Total Bilirubin 0.5 mg/dL (0.2-1.0) 06/12/19 05:26 AST 17 U/L (15-37) 06/12/19 05:26 ALT 20 U/L (12-78) 06/12/19 05:26 Alkaline Phosphatase 86 U/L (45-117) 06/12/19 05:26 Serum Total Protein 6.8 g/dL (6.4-8.2) 06/12/19 05:26 Albumin 3.2 g/dL (3.4-5.0) L 06/25/19 05:52 Globulin 3.5 g/dL (2.3-3.5) 06/12/19 05:26 Albumin/Globulin Ratio 0.9 (1.1-1.8) L 06/12/19 05:26 Prealbumin 16.2 mg/dL (20-40) L 06/25/19 05:52 TSH 1.130 uIU/mL (0.360-3.740) 06/12/19 05:26 Urine Color Yellow 06/11/19 16:35 Urine Appearance Clear 06/11/19 16:35 Urine pH 7.0 (5.0-7.0) 06/11/19 16:35 Ur Specific Simpson 1.015 (1.005-1.030) 06/11/19 16:35 Urine Ketones Negative (NEG) 06/11/19 16:35 Urine Blood Negative (NEG) 06/11/19 16:35 Urine Nitrite Negative (NEG) 06/11/19 16:35 Urine Bilirubin Negative (NEG) 06/11/19 16:35 Urine Urobilinogen 0.2 mg/dL (0.2-1.0) 06/11/19 16:35 Ur Leukocyte Esterase Negative (NEG) 06/11/19 16:35 Urine RBC <5 /HPF (NONE SEEN) 06/11/19 16:35 Urine WBC <5 /HPF (<5) 06/11/19 16:35 Ur Squamous Epith Cells <5 /HPF (NONE SEEN) 06/11/19 16:35 Urine Bacteria 20-50 /HPF (NONE SEEN) H 06/11/19 16:35 Urine Culture Reflexed Reflexed 06/11/19 16:35 Urine Glucose Negative (NEG) 06/11/19 16:35 Urine Total Protein Negative (NEG) 06/11/19 16:35 Weight: 183 lb 4.8 oz Wound Present: No Closed Surgical Incision Present: No Negative Pressure Wound Therapy Present: No Physician Update: Blood work reviewed. Hgb is mildly low at 9.6. He is on hemocyte plus. He is at supervision for ADL due to poor static balance. He is independent with adaptive equipment. Walking 250' independent with a walker. He requires supervision with steps. Medical Issues: Patient is always continent with bladder and bowel. Patient has stage 2 pressure ulcer on Left buttocks, calazime cream applied daily. Pain Issues: Patient is taking Tylenol 500mg Q6H PO PRN, Gabapentin 300mg BID PO, Tramadol 50mg Q6H PO. Functional Improvement: Patient has met all goals at this time, w/ the exception of a car transfer and stairs tx. Patient continues to improve w/ technique for transfers and gait tx., along w/ safety awareness. Functional Improvement Occupational Therapy: Pt can benifit with further therapy to go over HEP when returning home and cont to strengthening the UE's and cont to increase pt's static standing balance for safety for clothing mgmt up/down. cont with the POC and the goals by the supervising OTR. Summary: Patient's care plan and nursing home goals have been reviewed and revised as necessary. Please see the Rehabilitation Signature page for all necessary signatures.
[2019-06-25] MEDS: ACETAMINOPHEN 500 MG TAB PO PRN (12:58)
--- NOTE | 2019-06-25 14:57 | FAST ---
ENCOUNTER DATE AND TIME: 06/25/2019 08:00 (CDT) NAME ROMULO PEDROZA DATE OF : 1940 DATE OF ADMISSION: 06/11/2019 09:19 (CDT) PHONE: AGE: 78 N# [id number] GENDER: Male ENCOUNTER PHYSICIAN: Dr. Maged Goss M.D. ADMISSION DIAGNOSIS: - Debility 16 - Debility (16) Radiculopathy. EATING: Not assessed/no information CODE: - ORAL HYGIENE: ORAL HYGIENE - STEP 1: Does the patient complete the activity by him/herself with no assistance (physical, verbal/nonverbal cueing, setup/clean-up)? Yes. 1. [id number] ADMISSION PERFORMANCE: Independent CODE: 06 TOILETING HYGIENE: Not assessed/no information CODE: - BATHING: SHOWER/BATHE SELF - STEP 1: Does the patient complete the activity by him/herself with no assistance (physical, verbal/nonverbal cueing, setup/clean-up)? Yes. 1. [id number] ADMISSION PERFORMANCE: Independent CODE: 06 DRESSING - UPPER BODY: DRESSING - UPPER BODY - STEP 1: Does the patient complete the activity by him/herself with no assistance (physical, verbal/nonverbal cueing, setup/clean-up)? Yes. 1. [id number] ADMISSION PERFORMANCE: Independent CODE: 06 DRESSING - LOWER BODY: DRESSING - LOWER BODY - STEP 1: Does the patient complete the activity by him/herself with no assistance (physical, verbal/nonverbal cueing, setup/clean-up)? Yes. 1. [id number] ADMISSION PERFORMANCE: Independent CODE: 06 PUTTING ON/TAKING OFF FOOTWEAR: FOOTWEAR - STEP 1: Does the patient complete the activity by him/herself with no assistance (physical, verbal/nonverbal cueing, setup/clean-up)? Yes. 1. AZ7395I ADMISSION PERFORMANCE: Independent CODE: 06 DOES THE PATIENT USE A WHEELCHAIR/SCOOTER? CODE: EXPR INDICATE THE TYPE OF WHEELCHAIR/SCOOTER USED: CODE: EXPR INDICATE THE TYPE OF WHEELCHAIR/SCOOTER USED: CODE: EXPR BLADDER AND BOWEL: CODE: EXPR CODE: EXPR SIGNATURE PANEL: The following modified sections: 1. [id number] Admission Performance, 1. EL3299n Admission Performance, 1. IZ5919u Admission Performance, 1. OL1321s Admission Performance, 1. FV8598b Admission Performance were [electronically] signed by VINCENT Souza on FriJun 25 2019 14:55:52 GMT-0500 (Central Daylight Time)
--- NOTE | 2019-06-25 15:05 | PN ---
Date of Progress Note: 06/25/2019 Subjective: Patient was seen this morning for followup. He was sitting in wheelchair. No new compl aints or problems reported. Objective: Vital Signs: Reviewed. HEENT: Unremarkable. Lungs: Clear to auscultation. Heart: Sounds normal. Abdomen: Soft. Bowel sounds normal. No guarding, rigidity, tenderness, or distention. Extremities: No leg edema. Impression: 1.Type 2 diabetes mellitus, uncontrolled. 2.Hypertension. 3.Coronary artery disease. 4.Compression fracture, thoracic and lumbar spine. Plan: Continue current medications. Continue current physical therapy. Continue current diabetes m anagement. Patient needs to gain weight and I will request for double portion on his meal. LAUREEN/MODL Voice ID: [id number] Report ID: [id number]
--- NOTE | 2019-06-25 15:24 | PN ---
Date of Progress Note: 06/25/2019 Patient's labs done today showing white count 4.8, hemoglobin 9.6, platelets are 149. Sodium 137, po tassium 4.3, chloride 106, bicarb 27, BUN 22, creatinine 0.87, glucose 254, magnesium 1.7. LAUREEN/MODL Voice ID: [id number] Report ID: [id number]
--- NOTE | 2019-06-25 16:13 | FAST ---
ENCOUNTER DATE AND TIME: 06/25/2019 08:00 (CDT) NAME ROMULO PEDROZA DATE OF : 1940 DATE OF ADMISSION: 06/11/2019 09:19 (CDT) PHONE: AGE: 78 N# [id number] GENDER: Male ENCOUNTER PHYSICIAN: Dr. Maged Goss M.D. ADMISSION DIAGNOSIS: - Debility 16 - Debility (16) Radiculopathy. ROLL LEFT AND RIGHT: ROLL LEFT AND RIGHT - STEP 1: Does the patient complete the activity by him/herself with no assistance (physical, verbal/nonverbal cueing, setup/clean-up)? Yes. 1. [id number] ADMISSION PERFORMANCE: Independent CODE: 06 SIT TO LYING: SIT TO LYING - STEP 1: Does the patient complete the activity by him/herself with no assistance (physical, verbal/nonverbal cueing, setup/clean-up)? Yes. 1. [id number] ADMISSION PERFORMANCE: Independent CODE: 06 LYING TO SITTING: LYING TO SITTING ON SIDE OF BED - STEP 1: Does the patient complete the activity by him/herself with no assistance (physical, verbal/nonverbal cueing, setup/clean-up)? Yes. 1. [id number] ADMISSION PERFORMANCE: Independent CODE: 06 SIT TO STAND: SIT TO STAND - STEP 1: Does the patient complete the activity by him/herself with no assistance (physical, verbal/nonverbal cueing, setup/clean-up)? Yes. 1. [id number] ADMISSION PERFORMANCE: Independent CODE: 06 TRANSFERS: BED, CHAIR: CHAIR/[id number]-[id number] TRANSFER - STEP 1: Does the patient complete the activity by him/herself with no assistance (physical, verbal/nonverbal cueing, setup/clean-up)? Yes. 1. BV9980M ADMISSION PERFORMANCE: Independent CODE: 06 TRANSFER TOILET: TOILET TRANSFER - STEP 1: Does the patient complete the activity by him/herself with no assistance (physical, verbal/nonverbal cueing, setup/clean-up)? Yes. 1. [id number] ADMISSION PERFORMANCE: Independent CODE: 06 TRANSFERS: CAR: CAR TRANSFER - STEP 1: Does the patient complete the activity by him/herself with no assistance (physical, verbal/nonverbal cueing, setup/clean-up)? Yes. 1. [id number] ADMISSION PERFORMANCE: Independent CODE: 06 WALK 10 FEET: WALK 10 FEET - STEP 1: Does the patient complete the activity by him/herself with no assistance (physical, verbal/nonverbal cueing, setup/clean-up)? Yes. 1. [id number] ADMISSION PERFORMANCE: Independent CODE: 06 WALK 50 FEET: WALK 50 FEET - STEP 1: Does the patient complete the activity by him/herself with no assistance (physical, verbal/nonverbal cueing, setup/clean-up)? Yes. 1. [id number] ADMISSION PERFORMANCE: Independent CODE: 06 WALK 150 FEET: WALK 150 FEET - STEP 1: Does the patient complete the activity by him/herself with no assistance (physical, verbal/nonverbal cueing, setup/clean-up)? Yes. 1. [id number] ADMISSION PERFORMANCE: Independent CODE: 06 WALK 10 FEET UNEVEN: WALKING 10 FEET ON UNEVEN SURFACES - STEP 1: Does the patient complete the activity by him/herself with no assistance (physical, verbal/nonverbal cueing, setup/clean-up)? No. WALKING 10 FEET ON UNEVEN SURFACES - STEP 2: Does the patient need only setup/clean-up assistance from one helper? No. WALKING 10 FEET ON UNEVEN SURFACES - STEP 3: Does the patient need only verbal/nonverbal cueing or touching/steadying/contact guard assistance fro m one helper? Yes. 1. [id number] ADMISSION PERFORMANCE: Supervision or touching assistance CODE: 04 1 STEP (CURB): 1 STEP CURB - STEP 1: Does the patient complete the activity by him/herself with no assistance (physical, verbal/nonverbal cueing, setup/clean-up)? No. 1 STEP CURB - STEP 2: Does the patient need only setup/clean-up assistance from one helper? No. 1 STEP CURB - STEP 3: Does the patient need only verbal/nonverbal cueing or touching/steadying/contact guard assistance fro m one helper? No. 1 STEP CURB - STEP 4: Does the patient need physical assistance - for example lifting or trunk support from one helper - wi th the helper providing less than half of the effort? Yes. 1. ST5742P ADMISSION PERFORMANCE: Partial/moderate assistance CODE: 03 4 STEPS: Not attempted due to medical condition or safety concerns CODE: 88 12 STEPS: PICKING UP OBJECT: Not attempted due to medical condition or safety concerns CODE: 88 DOES THE PATIENT USE A WHEELCHAIR/SCOOTER? Q1. DOES THE PATIENT USE A WHEELCHAIR/SCOOTER?: Yes CODE: 1 WHEEL 50 FEET WITH TWO TURNS: WHEEL 50 FEET WITH TWO TURNS - STEP 1: Does the patient complete the activity by him/herself with no assistance (physical, verbal/nonverbal cueing, setup/clean-up)? Yes. 1. [id number] ADMISSION PERFORMANCE: Independent CODE: 06 INDICATE THE TYPE OF WHEELCHAIR/SCOOTER USED: RR1. INDICATE THE TYPE OF WHEELCHAIR/SCOOTER USED.: Manual CODE: 1 WHEEL 150 FEET: WHEEL 150 FEET - STEP 1: Does the patient complete the activity by him/herself with no assistance (physical, verbal/nonverbal cueing, setup/clean-up)? Yes. 1. PF8583Z ADMISSION PERFORMANCE: Independent CODE: 06 INDICATE THE TYPE OF WHEELCHAIR/SCOOTER USED: SS1. INDICATE THE TYPE OF WHEELCHAIR/SCOOTER USED.: Manual CODE: 1 BLADDER AND BOWEL: CODE: EXPR CODE: EXPR SIGNATURE PANEL: The following modified sections: 1. HL1110R Admission Performance, 1. OO0673J Admission Performance, 1. QV4323L Admission Performance, 1. WC6429D Admission Performance, 1. DK1606O Admission Performance, 1. HA8017B Admission Performance, 1. EE3660G Admission Performance, 1. BM6783G Admission Performance , 1. WQ6246R Admission Performance, 1. FE1548M Admission Performance, 1. XQ5940N Admission Performanc e, 1. YR9014V Admission Performance, Q1. Does the patient use a wheelchair/scooter?, 1. RQ5361U Admis palomo Performance, RR1. Indicate the type of wheelchair/scooter used., 1. JU5924L Admission Performanc e, Code, SS1. Indicate the type of wheelchair/scooter used. were [electronically] signed by Karthik gonzalez PT on FriJun 25 2019 16:12:40 GMT-0500 (Central Daylight Time)
[2019-06-25] MEDS: ENOXAPARIN 40 MG/0.4 ML SQ SCH (16:50)
[2019-06-26] MEDS: TRAMADOL HCL 50 MG TAB PO PRN (05:46)
[2019-06-26 05:52] VITALS: BMI 22.4
[2019-06-26] MEDS: INSULIN -REGULAR HUMAN 50 UNIT/0.5 ML ML SQ SCH ×4 (07:08→19:59)
[2019-06-26] MEDS: NICOTINE 14 MG/PAT TD SCH (08:00)
[2019-06-26] MEDS: CO Q PO SCH (08:00)
[2019-06-26] MEDS: PIOGLITAZONE 15 MG TAB PO SCH (08:01)
[2019-06-26] MEDS: PRAVACHOL 40 MG PO SCH (08:01)
[2019-06-26] MEDS: ENSURE HIGH PROTEIN 237 ML CAN PO SCH ×2 (08:01→19:59)
[2019-06-26] MEDS: JUVEN PACKET PO SCH ×2 (08:01→19:59)
[2019-06-26] MEDS: URSODIOL 300 MG CAP PO SCH (08:02)
[2019-06-26] MEDS: METFORMIN ER 500 MG TAB PO SCH ×2 (08:02→17:01)
[2019-06-26] MEDS: GABAPENTIN 300 MG CAP PO SCH ×2 (08:02→19:58)
[2019-06-26] MEDS: MULTIVIT W/ MINERAL TAB PO SCH (08:02)
[2019-06-26] MEDS: FAMOTIDINE 20 MG TAB PO SCH (08:03)
[2019-06-26] MEDS: ASPIRIN EC 81 MG TAB PO SCH (08:03)
[2019-06-26] MEDS: ENOXAPARIN 40 MG/0.4 ML SQ SCH (16:38)
--- NOTE | 2019-06-26 17:33 | PN ---
Date of Progress Note: 06/26/2019 Subjective: Patient was seen this morning for followup. No new complaints or problems reported by jessy adhikari. He was sitting in the wheelchair. Denied any complaints. Objective: Vital Signs: Reviewed. HEENT: Unremarkable. Lungs: Clear to auscultation. Heart: Sounds normal. Abdomen: Soft. Bowel sounds normal. No guarding, rigidity, tenderness, distention. Extremities: No leg edema. Impression: 1.Compression fracture, thoracic, and lumbar spine. 2.Coronary artery disease. 3.[place]drop. 4.Lumbar radiculopathy. Plan: Continue current medications including current gabapentin. Current diabetes management and I will see him tomorrow for followup. LAUREEN/MODL Voice ID: [id number] Report ID: [id number]
[2019-06-26] MEDS ORDERED: GABAPENTIN 100 MG CAP ONE (18:45)
[2019-06-27] MEDS: TRAMADOL HCL 50 MG TAB PO PRN ×2 (02:34→10:15)
[2019-06-27] MEDS: ACETAMINOPHEN 500 MG TAB PO PRN (05:01)
[2019-06-27] MEDS: INSULIN -REGULAR HUMAN 50 UNIT/0.5 ML ML SQ SCH ×4 (07:19→18:58)
[2019-06-27] MEDS: CO Q PO SCH ×2 (08:00→08:15)
[2019-06-27] MEDS: PRAVACHOL 40 MG PO SCH ×2 (08:00→08:15)
[2019-06-27] MEDS: NICOTINE 14 MG/PAT TD SCH (08:00)
[2019-06-27] MEDS: JUVEN PACKET PO SCH ×2 (08:00→18:58)
[2019-06-27] MEDS: ENSURE HIGH PROTEIN 237 ML CAN PO SCH ×2 (08:15→18:58)
[2019-06-27] MEDS: MULTIVIT W/ MINERAL TAB PO SCH (08:16)
[2019-06-27] MEDS: METFORMIN ER 500 MG TAB PO SCH ×2 (08:17→16:41)
[2019-06-27] MEDS: ASPIRIN EC 81 MG TAB PO SCH (08:17)
[2019-06-27] MEDS: PIOGLITAZONE 15 MG TAB PO SCH (08:17)
[2019-06-27] MEDS: URSODIOL 300 MG CAP PO SCH (08:17)
[2019-06-27] MEDS: GABAPENTIN 300 MG CAP PO SCH ×2 (08:17→18:58)
[2019-06-27] MEDS: FAMOTIDINE 20 MG TAB PO SCH (08:18)
[2019-06-27] MEDS: ENOXAPARIN 40 MG/0.4 ML SQ SCH (16:41)
--- NOTE | 2019-06-27 19:34 | PN ---
Date of Progress Note: 06/27/2019 Subjective: Patient was seen this morning for followup. He was sitting in the wheelchair. No new c omplaints. Problems reported by him. Objective: Vital Signs: Reviewed. HEENT: Unremarkable. LUNGS: Clear to auscultation. HEART: Heart sounds normal. ABDOMEN: Soft. Bowel sounds normal. No guarding, rigidity, tenderness, distention. EXTREMITIES: No leg edema. Impression: 1.Type 2 diabetes mellitus, uncontrolled. 2.Coronary artery disease. 3.Hypertension. 4.Lumbar radiculopathy. Plan: We will continue current medication. Continue current diabetes management. Continue physical therapy under guidance of Dr. Goss. Patient is scheduled to go home day after tomorrow. LAUREEN/MODL Voice ID: [id number] Report ID: [id number]
[2019-06-28] MEDS: TRAMADOL HCL 50 MG TAB PO PRN ×4 (01:31→19:44)
[2019-06-28] MEDS: INSULIN -REGULAR HUMAN 50 UNIT/0.5 ML ML SQ SCH ×4 (07:30→20:11)
[2019-06-28] MEDS: NICOTINE 14 MG/PAT TD SCH (08:00)
[2019-06-28] MEDS: MULTIVIT W/ MINERAL TAB PO SCH (08:09)
[2019-06-28] MEDS: GABAPENTIN 300 MG CAP PO SCH ×2 (08:10→19:44)
[2019-06-28] MEDS: PIOGLITAZONE 15 MG TAB PO SCH (08:10)
[2019-06-28] MEDS: URSODIOL 300 MG CAP PO SCH (08:10)
[2019-06-28] MEDS: FAMOTIDINE 20 MG TAB PO SCH (08:10)
[2019-06-28] MEDS: METFORMIN ER 500 MG TAB PO SCH ×2 (08:10→17:04)
[2019-06-28] MEDS: CO Q PO SCH (08:11)
[2019-06-28] MEDS: PRAVACHOL 40 MG PO SCH (08:11)
[2019-06-28] MEDS: ASPIRIN EC 81 MG TAB PO SCH (08:11)
[2019-06-28] MEDS: ENSURE HIGH PROTEIN 237 ML CAN PO SCH ×2 (08:12→19:45)
[2019-06-28] MEDS: JUVEN PACKET PO SCH ×2 (08:13→19:45)
--- NOTE | 2019-06-28 11:49 | FAST ---
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 Maged Goss M.D. ADMISSION DIAGNOSIS: - Debility 16 - Debility (16) Radiculopathy. EATING: EATING - STEP 1: Does the patient complete the activity by him/herself with no assistance (physical, verbal/nonverbal cueing, setup/clean-up)? No. EATING - STEP 2: Does the patient need only setup/clean-up assistance from one helper? Yes. 1. [id number] ADMISSION PERFORMANCE: Setup or clean-up assistance CODE: 05 ORAL HYGIENE: ORAL HYGIENE - STEP 1: Does the patient complete the activity by him/herself with no assistance (physical, verbal/nonverbal cueing, setup/clean-up)? Yes. 1. AO8174H ADMISSION PERFORMANCE: Independent CODE: 06 TOILETING HYGIENE: TOILETING HYGIENE - STEP 1: Does the patient complete the activity by him/herself with no assistance (physical, verbal/nonverbal cueing, setup/clean-up)? No. TOILETING HYGIENE - STEP 2: Does the patient need only setup/clean-up assistance from one helper? Yes. 1. [id number] ADMISSION PERFORMANCE: Setup or clean-up assistance CODE: 05 BATHING: Not assessed/no information CODE: - DRESSING - UPPER BODY: DRESSING - UPPER BODY - STEP 1: Does the patient complete the activity by him/herself with no assistance (physical, verbal/nonverbal cueing, setup/clean-up)? No. DRESSING - UPPER BODY - STEP 2: Does the patient need only setup/clean-up assistance from one helper? Yes. 1. UH6328P ADMISSION PERFORMANCE: Setup or clean-up assistance CODE: 05 DRESSING - LOWER BODY: DRESSING - LOWER BODY - STEP 1: Does the patient complete the activity by him/herself with no assistance (physical, verbal/nonverbal cueing, setup/clean-up)? Yes. 1. HP3904P ADMISSION PERFORMANCE: Independent CODE: 06 PUTTING ON/TAKING OFF FOOTWEAR: FOOTWEAR - STEP 1: Does the patient complete the activity by him/herself with no assistance (physical, verbal/nonverbal cueing, setup/clean-up)? Yes. 1. [id number] ADMISSION PERFORMANCE: Independent CODE: 06 ROLL LEFT AND RIGHT: ROLL LEFT AND RIGHT - STEP 1: Does the patient complete the activity by him/herself with no assistance (physical, verbal/nonverbal cueing, setup/clean-up)? Yes. 1. IO7779W ADMISSION PERFORMANCE: Independent CODE: 06 SIT TO LYING: SIT TO LYING - STEP 1: Does the patient complete the activity by him/herself with no assistance (physical, verbal/nonverbal cueing, setup/clean-up)? Yes. 1. GB2187M ADMISSION PERFORMANCE: Independent CODE: 06 LYING TO SITTING: LYING TO SITTING ON SIDE OF BED - STEP 1: Does the patient complete the activity by him/herself with no assistance (physical, verbal/nonverbal cueing, setup/clean-up)? Yes. 1. [id number] ADMISSION PERFORMANCE: Independent CODE: 06 SIT TO STAND: SIT TO STAND - STEP 1: Does the patient complete the activity by him/herself with no assistance (physical, verbal/nonverbal cueing, setup/clean-up)? No. SIT TO STAND - STEP 2: Does the patient need only setup/clean-up assistance from one helper? Yes. 1. LR0078X ADMISSION PERFORMANCE: Setup or clean-up assistance CODE: 05 TRANSFERS: BED, CHAIR: CHAIR/RWK-[id number] TRANSFER - STEP 1: Does the patient complete the activity by him/herself with no assistance (physical, verbal/nonverbal cueing, setup/clean-up)? No. CHAIR/[id number] TRANSFER - STEP 2: Does the patient need only setup/clean-up assistance from one helper? Yes. 1. VP5443J ADMISSION PERFORMANCE: Setup or clean-up assistance CODE: 05 TRANSFER TOILET: TOILET TRANSFER - STEP 1: Does the patient complete the activity by him/herself with no assistance (physical, verbal/nonverbal cueing, setup/clean-up)? No. TOILET TRANSFER - STEP 2: Does the patient need only setup/clean-up assistance from one helper? Yes. 1. CH4558P ADMISSION PERFORMANCE: Setup or clean-up assistance CODE: 05 TRANSFERS: CAR: Not assessed/no information CODE: - WALK 10 FEET: Not assessed/no information CODE: - 1 STEP (CURB): Not assessed/no information CODE: - PICKING UP OBJECT: Not assessed/no information CODE: - DOES THE PATIENT USE A WHEELCHAIR/SCOOTER? Q1. DOES THE PATIENT USE A WHEELCHAIR/SCOOTER?: Yes CODE: 1 WHEEL 50 FEET WITH TWO TURNS: WHEEL 50 FEET WITH TWO TURNS - STEP 1: Does the patient complete the activity by him/herself with no assistance (physical, verbal/nonverbal cueing, setup/clean-up)? Yes. 1. JQ4837I ADMISSION PERFORMANCE: Independent CODE: 06 INDICATE THE TYPE OF WHEELCHAIR/SCOOTER USED: RR1. INDICATE THE TYPE OF WHEELCHAIR/SCOOTER USED.: Manual CODE: 1 WHEEL 150 FEET: WHEEL 150 FEET - STEP 1: Does the patient complete the activity by him/herself with no assistance (physical, verbal/nonverbal cueing, setup/clean-up)? Yes. 1. UX2667D ADMISSION PERFORMANCE: Independent CODE: 06 INDICATE THE TYPE OF WHEELCHAIR/SCOOTER USED: SS1. INDICATE THE TYPE OF WHEELCHAIR/SCOOTER USED.: Manual CODE: 1 BLADDER AND BOWEL: H350. BLADDER CONTINENCE (3-DAY ASSESSMENT PERIOD): Always continent (no documented incontinence) CODE: 0 H400. BOWEL CONTINENCE (3-DAY ASSESSMENT PERIOD): Always continent CODE: 0 SIGNATURE PANEL: The following modified sections: 1. IA0835Q Admission Performance, 1. FF8832Q Admission Performance, 1. ZU2965X Admission Performance, 1. XN7362M Admission Performance, 1. OE2627e Admission Performance, 1. GS0021n Admission Performance, 1. WU7763z Admission Performance, 1. XL5437k Admission Performance , 1. KS8158Z Admission Performance, 1. VP8293U Admission Performance, 1. ZR4225C Admission Performanc e, 1. AC6321U Admission Performance, 1. ZZ3424E Admission Performance, 1. OW8426H Admission Performan ce, 1. JV8218K Admission Performance, 1. EX8376H Admission Performance, Q1. Does the patient use a wh eelchair/scooter?, 1. ZZ7582H Admission Performance, RR1. Indicate the type of wheelchair/scooter use d., 1. XO6473Y Admission Performance, Code, SS1. Indicate the type of wheelchair/scooter used., H350. Bladder Continence (3-day assessment period), H400. Bowel Continence (3-day assessment period) were [electronically] signed by Camille Guaman C.N.A. on FriJun 28 2019 11:48:55 [facility]-0600 (Central Standar d Time)
--- NOTE | 2019-06-28 14:55 | FAST ---
ENCOUNTER DATE AND TIME: 06/24/2019 08:00 (CDT) NAME ROMULO PEDROZA DATE OF : 1940 DATE OF ADMISSION: 06/11/2019 09:19 (CDT) PHONE: AGE: 78 N# [id number] GENDER: Male ENCOUNTER PHYSICIAN: Dr. Maged Goss M.D. ADMISSION DIAGNOSIS: - Debility 16 - Debility (16) Radiculopathy. ROLL LEFT AND RIGHT: ROLL LEFT AND RIGHT - STEP 1: Does the patient complete the activity by him/herself with no assistance (physical, verbal/nonverbal cueing, setup/clean-up)? Yes. 1. GW6081X ADMISSION PERFORMANCE: Independent CODE: 06 SIT TO LYING: SIT TO LYING - STEP 1: Does the patient complete the activity by him/herself with no assistance (physical, verbal/nonverbal cueing, setup/clean-up)? Yes. 1. VL3004I ADMISSION PERFORMANCE: Independent CODE: 06 LYING TO SITTING: LYING TO SITTING ON SIDE OF BED - STEP 1: Does the patient complete the activity by him/herself with no assistance (physical, verbal/nonverbal cueing, setup/clean-up)? Yes. 1. VU1351H ADMISSION PERFORMANCE: Independent CODE: 06 SIT TO STAND: SIT TO STAND - STEP 1: Does the patient complete the activity by him/herself with no assistance (physical, verbal/nonverbal cueing, setup/clean-up)? Yes. 1. TD5559S ADMISSION PERFORMANCE: Independent CODE: 06 TRANSFERS: BED, CHAIR: CHAIR/RJF-DX-XXOLW TRANSFER - STEP 1: Does the patient complete the activity by him/herself with no assistance (physical, verbal/nonverbal cueing, setup/clean-up)? Yes. 1. AJ1887M ADMISSION PERFORMANCE: Independent CODE: 06 TRANSFER TOILET: Not assessed/no information CODE: - TRANSFERS: CAR: Not assessed/no information CODE: - WALK 10 FEET: WALK 10 FEET - STEP 1: Does the patient complete the activity by him/herself with no assistance (physical, verbal/nonverbal cueing, setup/clean-up)? Yes. 1. [id number] ADMISSION PERFORMANCE: Independent CODE: 06 WALK 50 FEET: WALK 50 FEET - STEP 1: Does the patient complete the activity by him/herself with no assistance (physical, verbal/nonverbal cueing, setup/clean-up)? Yes. 1. NK4464L ADMISSION PERFORMANCE: Independent CODE: 06 WALK 150 FEET: WALK 150 FEET - STEP 1: Does the patient complete the activity by him/herself with no assistance (physical, verbal/nonverbal cueing, setup/clean-up)? Yes. 1. LD5297X ADMISSION PERFORMANCE: Independent CODE: 06 WALK 10 FEET UNEVEN: Not assessed/no information CODE: - 1 STEP (CURB): 1 STEP CURB - STEP 1: Does the patient complete the activity by him/herself with no assistance (physical, verbal/nonverbal cueing, setup/clean-up)? No. 1 STEP CURB - STEP 2: Does the patient need only setup/clean-up assistance from one helper? No. 1 STEP CURB - STEP 3: Does the patient need only verbal/nonverbal cueing or touching/steadying/contact guard assistance fro m one helper? No. 1 STEP CURB - STEP 4: Does the patient need physical assistance - for example lifting or trunk support from one helper - wi th the helper providing less than half of the effort? Yes. 1. BD3651J ADMISSION PERFORMANCE: Partial/moderate assistance CODE: 03 4 STEPS: Not assessed/no information CODE: - 12 STEPS: PICKING UP OBJECT: Not assessed/no information CODE: - DOES THE PATIENT USE A WHEELCHAIR/SCOOTER? Q1. DOES THE PATIENT USE A WHEELCHAIR/SCOOTER?: Yes CODE: 1 WHEEL 50 FEET WITH TWO TURNS: WHEEL 50 FEET WITH TWO TURNS - STEP 1: Does the patient complete the activity by him/herself with no assistance (physical, verbal/nonverbal cueing, setup/clean-up)? Yes. 1. [id number] ADMISSION PERFORMANCE: Independent CODE: 06 INDICATE THE TYPE OF WHEELCHAIR/SCOOTER USED: RR1. INDICATE THE TYPE OF WHEELCHAIR/SCOOTER USED.: Manual CODE: 1 WHEEL 150 FEET: WHEEL 150 FEET - STEP 1: Does the patient complete the activity by him/herself with no assistance (physical, verbal/nonverbal cueing, setup/clean-up)? Yes. 1. BE7564J ADMISSION PERFORMANCE: Independent CODE: 06 INDICATE THE TYPE OF WHEELCHAIR/SCOOTER USED: SS1. INDICATE THE TYPE OF WHEELCHAIR/SCOOTER USED.: Manual CODE: 1 BLADDER AND BOWEL: CODE: EXPR CODE: EXPR SIGNATURE PANEL: The following modified sections: 1. WG0063O Admission Performance, 1. SX8272V Admission Performance, 1. IJ5605H Admission Performance, 1. BF2171K Admission Performance, 1. TG2470D Admission Performance, 1. JM7441O Admission Performance, 1. FE9456E Admission Performance, 1. HO5773M Admission Performance , 1. GI4945S Admission Performance, Q1. Does the patient use a wheelchair/scooter?, 1. JM0953O Admiss ion Performance, RR1. Indicate the type of wheelchair/scooter used., 1. NS5612R Admission Performance , Code, SS1. Indicate the type of wheelchair/scooter used. were [electronically] signed by Chilo Beltre PTA on FriJun 28 2019 14:54:46 GMT-0600 (Central Standard Time)
--- NOTE | 2019-06-28 15:21 | FAST ---
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 Maged Goss M.D. ADMISSION DIAGNOSIS: - Debility 16 - Debility (16) Radiculopathy. EATING: Not assessed/no information CODE: - ORAL HYGIENE: ORAL HYGIENE - STEP 1: Does the patient complete the activity by him/herself with no assistance (physical, verbal/nonverbal cueing, setup/clean-up)? Yes. 1. ADMISSION PERFORMANCE: Independent CODE: 06 TOILETING HYGIENE: Not assessed/no information CODE: - BATHING: SHOWER/BATHE SELF - STEP 1: Does the patient complete the activity by him/herself with no assistance (physical, verbal/nonverbal cueing, setup/clean-up)? Yes. 1. ADMISSION PERFORMANCE: Independent CODE: 06 DRESSING - UPPER BODY: DRESSING - UPPER BODY - STEP 1: Does the patient complete the activity by him/herself with no assistance (physical, verbal/nonverbal cueing, setup/clean-up)? Yes. 1. ADMISSION PERFORMANCE: Independent CODE: 06 DRESSING - LOWER BODY: DRESSING - LOWER BODY - STEP 1: Does the patient complete the activity by him/herself with no assistance (physical, verbal/nonverbal cueing, setup/clean-up)? Yes. 1. ADMISSION PERFORMANCE: Independent CODE: 06 PUTTING ON/TAKING OFF FOOTWEAR: FOOTWEAR - STEP 1: Does the patient complete the activity by him/herself with no assistance (physical, verbal/nonverbal cueing, setup/clean-up)? Yes. 1. BN6045L ADMISSION PERFORMANCE: Independent CODE: 06 DOES THE PATIENT USE A WHEELCHAIR/SCOOTER? CODE: EXPR INDICATE THE TYPE OF WHEELCHAIR/SCOOTER USED: CODE: EXPR INDICATE THE TYPE OF WHEELCHAIR/SCOOTER USED: CODE: EXPR BLADDER AND BOWEL: CODE: EXPR CODE: EXPR SIGNATURE PANEL: The following modified sections: 1. XL3455Z Admission Performance, 1. JE4590u Admission Performance, 1. CZ6019a Admission Performance, 1. JV7588s Admission Performance, 1. JT3417y Admission Performance were [electronically] signed by VINCENT Souza on FriJun 28 2019 15:21:20 GMT-0600 (Central Standard Time)
[2019-06-28] MEDS: ENOXAPARIN 40 MG/0.4 ML SQ SCH (16:55)
--- NOTE | 2019-06-28 19:36 | R.PN ---
ENCOUNTER DATE AND TIME: 06/28/2019 19:34 (CALL SPECIALIST) NAME ROMULO PEDROZA DATE OF : 1940 DATE OF ADMISSION: 06/11/2019 09:19 (CDT) RadiculopathyCHIEF COMPLAINT: Radiculopathy SUBJECTIVE: Pt denied any depression. Pt denied any Shortness of Breath. His pain is well controlled with a rating of 2-3/10. His blood work is stable. He is doing well with physical and occupational therapy. He continues to smoke 2 or 3 times daily despite being asked to stop on multiple occasions. He refuse d a nicotine patch. Labs reviewed and are stable. VITAL SIGNS Temperature: 97.8 F SBP/DBP: 145/72 Pulse: 84 Resp: 16 MEDICATION ALLERGIES: No Known Drug Allergies (NKDA) ENVIRONMENTAL ALLERGIES: None Known - Substance Allergies None Known - Other Allergies None Known NURSING: - Shower allowing shower - Lab Results blood Sugar Check ACHS ACTIVITIES OOB only with supervision THERAPIES: - Dietary and Nutrition Adequate Nutrition. Nutritional Education. Nutritional Supplements. PHYSICAL EXAM - Gen Alert and awake Lying in bed No apparent distress Oriented to: person, time, and place - Skin No breakdown Normacephalic - Eyes No abnormalities - ENMT No abnormalities - Neck No abnormalities No cervical adenopathy - CVS RRR - Chest No abnormalities - Resp Clear to auscultation - Abd Soft - GI Non distended Deferred - No abnormalities - Ext No significant edema - MSK 4+/5 weakness in both lower extremities. - Neuro 4/5 strength bilaterally upper and lower extremities. - Psych No abnormalities ASSESSMENT: Pt. is a 78 yo Right-handed white male.On 06/07/2019 he was admitted to [facility] wit h diagnosis Radiculopathy.His impairment category is Debility 16 - Debility (16).Pre-morbidly, Pt. w as independent/mod-I in Self-Care, Sphincter Control, Transfers Control, Locomotion, Communication, a nd Social Cognition; and he had good Sphincter Control.Currently, he has deficits of Transfers Contro l, Locomotion, Endurance, Balance, Safety Awareness, and Self-Care.Pt. is now referred to [facility] for acute in-patient rehabilitation in order to maximize patient's functional independence in activities of daily living, strength, ROM, and mobility.- Rehab Goal Patient has realistic goal of being discharged at assistance level 6-Luis to reside at Home with Fam danica/Relatives. MDM/PLAN: - Physical Therapy Gait dysfunction - to improve, our physical therapists will perform initial evaluation of pt's statu s upon admission and devise an individualized program for Gait Training, and Wheel Chair mobility Inability to transfer - to improve, our physical therapists will perform initial evaluation of pt's status upon admission and devise an individualized program for Bed mobility Need for home safety evaluation - to improve, our physical therapists will perform initial evaluatio n of pt's status upon admission and devise an individualized program for Home Evaluation Need in caregiver upon discharge - to improve, our physical therapists will perform initial evaluati on of pt's status upon admission and devise an individualized program for Caregiver Training Edema - to improve, our physical therapists will perform initial evaluation of pt's status upon admi ssion and devise an individualized program for Elevation Training, and Lymphedema Therapy New precaution - to improve, our physical therapists will perform initial evaluation of pt's status upon admission and devise an individualized program for Patient precaution education Poor balance - to improve, our physical therapists will perform initial evaluation of pt's status up on admission and devise an individualized program for Balance Training Poor endurance - to improve, our physical therapists will perform initial evaluation of pt's status upon admission and devise an individualized program for Endurance Training Weakness - to improve, our physical therapists will perform initial evaluation of pt's status upon a dmission and devise an individualized program for Aquatic Therapy, Neuromuscular Reeducation, and Str engthening Achieving independence - to improve, our physical therapists will perform initial evaluation of pt's status upon admission and devise an individualized program for Community Reintegration Activities - Occupational Therapy ADL deficits - to improve, our occupation therapists will perform initial evaluation of pt's status upon admission and devise an individualized program for Bathing, Bed mobility, Community Reintegratio n, Cooking, Dressing, Eating, Fine Motor Skills, Grooming, Homemaking, Kitchen Mobility, Laundry, Pat ient Education, Safety Awareness, Splinting - Positioning, Transfers(Toilet, Tub, Shower), and Wheel Chair Management Need for home health care respiratory therapist - to improve, our occupation therapists will perform initial evaluation of pt's status upon admission and devise an individualized program for Caregiver Training Weakness - to improve, our occupation therapists will perform initial evaluation of pt's status upon admission and devise an individualized program for Aquatic Therapy, Balance, Endurance, UE ROM, and UE strengthening - Other See attached MAR (Medication Administration Record) - Diet Type Continue Regular - Diet - Liquid Texture Continue Regular - Tube Feed Continue N/A - Lab Results blood Sugar Check ACHS - Diet - Solid Texture Continue Regular - Shower allowing shower FUNCTIONAL STATUS: UPDATED AT WEEKLY TEAM CONFERENCE - Bladder Same accident frequency: 7-Ind - No accidents in the past 7 days - Bowel Same accident frequency: 7-Ind - No accidents in the past 7 days - Walking Same score based on distance walked: 1(<=50ft) - Wheelchair Same score based on distance traveled: 0(N/A) FUNCTIONAL STATUS: - Self-Care A. Eating Luis B. Grooming Luis C. Bathing Luis D. Dressing - Upper sup E. Dressing - Lower sup F. Toileting sup - Sphincter Control G: Bladder control Ind H: Bowel control Ind - Transfers Control I. Bed/Chair/Wheelchair sup J. Toilet sup K. Tub/Shower ADNO - Locomotion L. Walk/Wheelchair (C) maxA L. Walk/Wheelchair (W) maxA M. Stairs ADNO - Communication N. Comprehension (B) Ind O. Expression (B) Ind - Social Cognition P. Social Interaction Ind Q. Problem Solving Ind R. Memory Ind - Endurance Fair - Balance Fair - Safety Awareness Fair QI SCORES: - Self-Care A. Eating 05-Setup or clean-up assistance B. Oral hygiene 06-Independent C. Toileting hygiene 06-Independent E. Shower/bathe self 05-Setup or clean-up assistance F. Upper body dressing 05-Setup or clean-up assistance G. Lower body dressing 05-Setup or clean-up assistance H. Putting on/taking off footwear 05-Setup or clean-up assistance - Mobility A. Roll left and right 06-Independent B. Sit to lying 06-Independent C. Lying to sitting on side of bed 06-Independent D. Sit to stand 04-Supervision or touching assistance E. Chair/lpz-qb-geteu transfer 04-Supervision or touching assistance F. Toilet transfer 04-Supervision or touching assistance G. Car transfer 88-Not attempted due to medical condition or safety concerns I. Walk 10 feet 02-Substantial/maximal assistance J. Walk 50 feet with two turns 03-Partial/moderate assistance K. Walk 150 feet 88-Not attempted due to medical condition or safety concerns L. Walking 10 feet on uneven surfaces 88-Not attempted due to medical condition or safety concerns M. 1 step (curb) 88-Not attempted due to medical condition or safety concerns N. 4 steps 88-Not attempted due to medical condition or safety concerns O. 12 steps 88-Not attempted due to medical condition or safety concerns P. Picking up object 88-Not attempted due to medical condition or safety concerns R. Wheel 50 feet with two turns 01-Dependent S. Wheel 150 feet 01-Dependent - Bladder and Bowel Bladder continence 0-Always continent Bowel continence 0-Always continent CURRENT FUNC. 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
[2019-06-28] MEDS: MELATONIN 3 MG TABLET PO PRN (19:56)
--- NOTE | 2019-06-29 01:43 | PN ---
Date of Progress Note: 06/28/2019 Subjective: Patient was seen this morning for followup. He was sitting in wheelchair. Denied any c omplaints. Objective: Vital Signs: Reviewed. HEENT: Unremarkable. Lungs: Clear to auscultation. Heart: Sounds normal. Abdomen: Soft. Bowel sounds normal. No guarding, rigidity, tenderness, distention. Extremities: No leg edema. Laboratory Data: Fingerstick blood sugar readings reviewed. Impression: 1.Type 2 diabetes mellitus, uncontrolled. 2.Hypertension. 3.Coronary artery disease. 4.Compression fracture of thoracic and lumbar spine. 5. . Plan: Patient is scheduled to continue and he will return back home with home health and home physic al therapy. Given him prescription today for tramadol 50 mg 2 times a day as needed for pain. Presc ription given for 50 tablets with 1 refill. LAUREEN/MODL Voice ID: [id number] Report ID: [id number]
[2019-06-29] MEDS: ACETAMINOPHEN 500 MG TAB PO PRN ×2 (03:02→08:02)
[2019-06-29] MEDS: TRAMADOL HCL 50 MG TAB PO PRN ×2 (03:03→12:20)
[2019-06-29 07:15] VITALS: BP 115/65; TEMP 97.5
[2019-06-29] MEDS: INSULIN -REGULAR HUMAN 50 UNIT/0.5 ML ML SQ SCH ×2 (07:30→11:30)
[2019-06-29] MEDS: CO Q PO SCH (07:59)
[2019-06-29] MEDS: PRAVACHOL 40 MG PO SCH (08:00)
[2019-06-29] MEDS: NICOTINE 14 MG/PAT TD SCH (08:00)
[2019-06-29] MEDS: PIOGLITAZONE 15 MG TAB PO SCH (08:01)
[2019-06-29] MEDS: METFORMIN ER 500 MG TAB PO SCH (08:01)
[2019-06-29] MEDS: MULTIVIT W/ MINERAL TAB PO SCH (08:02)
[2019-06-29] MEDS: URSODIOL 300 MG CAP PO SCH (08:02)
[2019-06-29] MEDS: GABAPENTIN 300 MG CAP PO SCH (08:02)
[2019-06-29] MEDS: ASPIRIN EC 81 MG TAB PO SCH (08:03)
[2019-06-29] MEDS: JUVEN PACKET PO SCH (08:03)
[2019-06-29] MEDS: ENSURE HIGH PROTEIN 237 ML CAN PO SCH (08:03)
[2019-06-29] MEDS: FAMOTIDINE 20 MG TAB PO SCH (08:04)
--- NOTE | 2019-06-29 13:52 | FAST ---
SHIFT START DATE/TIME: 06/29/2019 07:00 (EMT PARAMEDIC) SHIFT END DATE/TIME: 06/29/2019 19:00 (EMT PARAMEDIC) NAME ROMULO PEDROZA DATE OF : 1940 DATE OF ADMISSION: 06/11/2019 09:19 (CDT) PHONE: AGE: 78 N# [id number] GENDER: Male ENCOUNTER PHYSICIAN: Dr. Maged Goss M.D. ADMISSION DIAGNOSIS: - Debility 16 - Debility (16) Radiculopathy. EATING: EATING - STEP 1: Does the patient complete the activity by him/herself with no assistance (physical, verbal/nonverbal cueing, setup/clean-up)? Yes. 1. [id number] ADMISSION PERFORMANCE: Independent CODE: 06 ORAL HYGIENE: ORAL HYGIENE - STEP 1: Does the patient complete the activity by him/herself with no assistance (physical, verbal/nonverbal cueing, setup/clean-up)? Yes. 1. [id number] ADMISSION PERFORMANCE: Independent CODE: 06 TOILETING HYGIENE: TOILETING HYGIENE - STEP 1: Does the patient complete the activity by him/herself with no assistance (physical, verbal/nonverbal cueing, setup/clean-up)? Yes. 1. [id number] ADMISSION PERFORMANCE: Independent CODE: 06 BATHING: Not assessed/no information CODE: - DRESSING - UPPER BODY: DRESSING - UPPER BODY - STEP 1: Does the patient complete the activity by him/herself with no assistance (physical, verbal/nonverbal cueing, setup/clean-up)? Yes. 1. [id number] ADMISSION PERFORMANCE: Independent CODE: 06 DRESSING - LOWER BODY: DRESSING - LOWER BODY - STEP 1: Does the patient complete the activity by him/herself with no assistance (physical, verbal/nonverbal cueing, setup/clean-up)? Yes. 1. [id number] ADMISSION PERFORMANCE: Independent CODE: 06 PUTTING ON/TAKING OFF FOOTWEAR: FOOTWEAR - STEP 1: Does the patient complete the activity by him/herself with no assistance (physical, verbal/nonverbal cueing, setup/clean-up)? Yes. 1. [id number] ADMISSION PERFORMANCE: Independent CODE: 06 ROLL LEFT AND RIGHT: ROLL LEFT AND RIGHT - STEP 1: Does the patient complete the activity by him/herself with no assistance (physical, verbal/nonverbal cueing, setup/clean-up)? Yes. 1. [id number] ADMISSION PERFORMANCE: Independent CODE: 06 SIT TO LYING: SIT TO LYING - STEP 1: Does the patient complete the activity by him/herself with no assistance (physical, verbal/nonverbal cueing, setup/clean-up)? Yes. 1. [id number] ADMISSION PERFORMANCE: Independent CODE: 06 LYING TO SITTING: LYING TO SITTING ON SIDE OF BED - STEP 1: Does the patient complete the activity by him/herself with no assistance (physical, verbal/nonverbal cueing, setup/clean-up)? Yes. 1. [id number] ADMISSION PERFORMANCE: Independent CODE: 06 SIT TO STAND: SIT TO STAND - STEP 1: Does the patient complete the activity by him/herself with no assistance (physical, verbal/nonverbal cueing, setup/clean-up)? Yes. 1. [id number] ADMISSION PERFORMANCE: Independent CODE: 06 TRANSFERS: BED, CHAIR: CHAIR/[id number] TRANSFER - STEP 1: Does the patient complete the activity by him/herself with no assistance (physical, verbal/nonverbal cueing, setup/clean-up)? Yes. 1. [id number] ADMISSION PERFORMANCE: Independent CODE: 06 TRANSFER TOILET: TOILET TRANSFER - STEP 1: Does the patient complete the activity by him/herself with no assistance (physical, verbal/nonverbal cueing, setup/clean-up)? Yes. 1. [id number] ADMISSION PERFORMANCE: Independent CODE: 06 TRANSFERS: CAR: Not assessed/no information CODE: - WALK 10 FEET: Not assessed/no information CODE: - 1 STEP (CURB): Not assessed/no information CODE: - PICKING UP OBJECT: Not assessed/no information CODE: - DOES THE PATIENT USE A WHEELCHAIR/SCOOTER? Q1. DOES THE PATIENT USE A WHEELCHAIR/SCOOTER?: Yes CODE: 1 WHEEL 50 FEET WITH TWO TURNS: WHEEL 50 FEET WITH TWO TURNS - STEP 1: Does the patient complete the activity by him/herself with no assistance (physical, verbal/nonverbal cueing, setup/clean-up)? Yes. 1. [id number] ADMISSION PERFORMANCE: Independent CODE: 06 INDICATE THE TYPE OF WHEELCHAIR/SCOOTER USED: RR1. INDICATE THE TYPE OF WHEELCHAIR/SCOOTER USED.: Manual CODE: 1 WHEEL 150 FEET: WHEEL 150 FEET - STEP 1: Does the patient complete the activity by him/herself with no assistance (physical, verbal/nonverbal cueing, setup/clean-up)? Yes. 1. [id number] ADMISSION PERFORMANCE: Independent CODE: 06 INDICATE THE TYPE OF WHEELCHAIR/SCOOTER USED: SS1. INDICATE THE TYPE OF WHEELCHAIR/SCOOTER USED.: Manual CODE: 1 BLADDER AND BOWEL: H350. BLADDER CONTINENCE (3-DAY ASSESSMENT PERIOD): Always continent (no documented incontinence) CODE: 0 H400. BOWEL CONTINENCE (3-DAY ASSESSMENT PERIOD): Always continent CODE: 0 SIGNATURE PANEL: The following modified sections: 1. [id number] Admission Performance, 1. [id number] Admission Performance, 1. [id number] Admission Performance, 1. OU6025u Admission Performance, 1. CH5910w Admission Performance, 1. UA9107x Admission Performance, 1. [id number] Admission Performance, 1. [id number] Admission Performance , 1. PZ5887C Admission Performance, 1. [id number] Admission Performance, 1. [id number] Admission Performanc e, 1. [id number] Admission Performance, Q1. Does the patient use a wheelchair/scooter?, Q1. Does the pat ient use a wheelchair/scooter?, 1. MN0768V Admission Performance, RR1. Indicate the type of wheelchai r/scooter used., 1. HH3637O Admission Performance, Code, SS1. Indicate the type of wheelchair/scooter used., H350. Bladder Continence (3-day assessment period), H400. Bowel Continence (3-day assessment period) were [electronically] signed by Camille Guaman C.N.A. on FriJun 29 2019 13:50:51 GMT-0600 ([facility] Standard Time)
--- NOTE | 2019-06-30 04:41 | DS ---
Date of Discharge: 06/29/2019 Disposition: Discharged to go home. Discharge Medications And Instructions: 1.Continue prior home medications, except change in metformin 500 mg, patient to take 2 tablets by m outh 2 times a day. 2.Start gabapentin 600 mg twice a day. 3.Take pioglitazone 45 mg p.o. daily with breakfast. 4.Follow up at my office on 07/05/2019. Laboratory Data: Labs done during this hospitalization. Last white count on 06/25/2019 was 4.8, hem oglobin 9.6, platelets 140. Last chemistry on 06/25/2019, sodium 137, potassium 4.3, chloride 106, b icarb 27, BUN 22, creatinine 0.87, glucose 254. Hospital Course: A 78-year-old patient directly from home for inpatient rehab therapy. P yadira see dictated H and P for more information. Patient came into our office, was noted to have sig nificant weakness of left lower extremity and I was concerned about lumbar radiculopathy. Rehab Floo r was was admitted to hospital for inpatient rehab stay. Dr. Goss was consulted. Maryjane corcoran received physical therapy while on the rehab floor from under guidance of Dr. Goss. His lef t leg weakness has improved. He has some chronic back pain. An x-ray of thoracic lumbar spine was d one and then subsequently we did MRI of thoracic and lumbar spine. MRI of the thoracic spine shows r ight-sided paracentral herniated disk around the T6-7 region and also shows old compression fracture. MRI of the lumbar spine also shows old compression fracture. Fingerstick blood sugar reading was d one on a regular basis. Diabetes was managed with oral hypoglycemic medication and sliding scale ins ulin. We increased the dose of metformin and added pioglitazone and then dose was increased over a p eriod of this hospitalization on the basis of blood sugar readings. Overall, patient's condition has improved. When he first came in, he was not able to lift his left leg, again not able to flex left knee at all. Now he is able to flex left knee beyond 90 degrees angle. He is still not able to perf orm straight leg raising of left leg. Overall condition has improved and he was discharged to [facility] in stable condition with above-mentioned medication and instructions and tramadol 50 mg 4 times a d ay as needed for pain. Final Diagnoses: 1.Lumbar radiculopathy. 2.Compression fracture of thoracic spine and lumbar spine. 3.Osteoporosis. 4.Hypertension. 5.Hyperlipidemia. 6.Type 2 diabetes mellitus. 7.Coronary artery disease. 8.Benign prostatic hypertrophy. 9.Testicular hypofunction. LAUREEN/MODL Voice ID: [id number] Report ID: [id number]
--- NOTE | 2019-07-02 18:11 | R.DS ---
FACILITY [facility] MR# [id number] NAME ROMULO CASTILLO AD[address]ESS [address] [place] [address] PHONE DATE OF 1940 AGE 78 SSN# [id number] GENDER Male DEXTERITY Right-handed MARITAL STATUS RACE White ENCOUNTER PHYSICIAN Dr. Maged Goss M.D. REFERRING DOCTOR Ariel Yanes REFERRING FACILITY [facility] DISCHARGE DIAGNOSIS: - Debility 16 - Debility (16) Radiculopathy. DISCHARGE COMORBIDITIES: - Non-Tiered Mixed hyperlipidemia (E78.2) CAD Diabetes Mellitus BPH Kidney CAncer - N/A Hypertension Radiculopathy, lumbar region DATE OF ADMISSION 06/11/2019 09:19 (CDT) MEDICATION ALLERGIES: No Known Drug Allergies (NKDA) ENVIRONMENTAL ALLERGIES: None Known - Substance Allergies None Known - Other Allergies None Known DISCHARGE MEDICATIONS: Other- ContinueSee attached MAR (Medication Administration Record). NURSING: - Shower allowing shower - Lab Results blood Sugar Check ACHS ACTIVITIES OOB only with supervision THERAPIES: - Dietary and Nutrition Adequate Nutrition Nutritional Education Nutritional Supplements HISTORY OF PRESENT ILLNESS: Pt. is a 78 yo Right-handed white male.On 06/07/2019 he was admitted to [facility] wit h diagnosis Radiculopathy.His impairment category is Debility 16 - Debility (16).Pre-morbidly, Pt. w as independent/mod-I in Self-Care, Sphincter Control, Communication, and Social Cognition; and he had good Sphincter Control.Currently, he has deficits of Transfers Control, Locomotion, Endurance, Jason ce, Safety Awareness, and Self-Care.Pt. is now referred to [facility] for acut e in-patient rehabilitation in order to maximize patient's functional independence in activities of d aily living, strength, ROM, and mobility.- Rehab Goal Patient has realistic goal of being discharged at assistance level 6-Luis to reside at Home with Fam danica/Relatives. Romulo Castillo is a 78 year old male that lives in a single latasha house with his sister. On 06/07/2019, patient went to see his Primary care Physician and complained that he had several falls since his last visit 3 months ago. He said that lately he noted that he was not able to use his left leg like before. He cannot able to raise it against gravity and has some tingling and numbness of left leg. Primary Care physician sent the referral from his office to Inpatient Rehab and he needs of 24-hour nursing, doctor supervision and oversite participate in 3hours of therapy a day/15 hours per week and receive care with an intensive interdisciplinary approach.HOSPITAL COURSE: DIET - LIQUID TEXTURE: On 06/10/2019 Pt was upgraded to Regular Diet - Liquid Texture. DIET - SOLID TEXTURE: On 06/10/2019 Pt was upgraded to Regular Diet - Solid Texture. DIET TYPE: On 06/10/2019 Pt was upgraded to Regular Diet Type. TUBE FEED: On 06/10/2019 Pt was changed to N/A Tube Feed. DISCHARGE PHYSICAL EXAM - Gen Alert and awake Lying in bed No apparent distress Oriented to: person, time, and place - Skin No breakdown Normacephalic - Eyes No abnormalities - ENMT No abnormalities - Neck No abnormalities No cervical adenopathy - CVS RRR - Chest No abnormalities - Resp Clear to auscultation - Abd Soft - GI Non distended Deferred - No abnormalities - Ext No significant edema - MSK 4+/5 weakness in both lower extremities. - Neuro 4/5 strength bilaterally upper and lower extremities. - Psych No abnormalities FUNCTIONAL STATUS: - Self-Care A. Eating 6-Luis B. Grooming 6-Luis C. Bathing 6-Luis D. Dressing - Upper 5-sup E. Dressing - Lower 5-sup F. Toileting 5-sup - Sphincter Control G: Bladder control 7-Ind H: Bowel control 7-Ind - Transfers Control I. Bed/Chair/Wheelchair 6-Luis J. Toilet 6-Luis K. Tub/Shower 6-Luis - Locomotion L. Walk/Wheelchair (C) 6-Luis L. Walk/Wheelchair (W) 6-Luis M. Stairs 6-Luis - Communication N. Comprehension (B) 7-Ind O. Expression (B) 7-Ind - Social Cognition P. Social Interaction 7-Ind Q. Problem Solving 7-Ind R. Memory 7-Ind - Endurance Fair - Balance Fair - Safety Awareness Fair QI SCORES: - Self-Care A. Eating 05-Setup or clean-up assistance B. Oral hygiene 06-Independent C. Toileting hygiene 06-Independent E. Shower/bathe self 05-Setup or clean-up assistance F. Upper body dressing 05-Setup or clean-up assistance G. Lower body dressing 05-Setup or clean-up assistance H. Putting on/taking off footwear 05-Setup or clean-up assistance - Mobility A. Roll left and right 06-Independent B. Sit to lying 06-Independent C. Lying to sitting on side of bed 06-Independent D. Sit to stand 04-Supervision or touching assistance E. Chair/wtb-wt-oznis transfer 04-Supervision or touching assistance F. Toilet transfer 04-Supervision or touching assistance G. Car transfer 88-Not attempted due to medical condition or safety concerns I. Walk 10 feet 02-Substantial/maximal assistance J. Walk 50 feet with two turns 03-Partial/moderate assistance K. Walk 150 feet 88-Not attempted due to medical condition or safety concerns L. Walking 10 feet on uneven surfaces 88-Not attempted due to medical condition or safety concerns M. 1 step (curb) 88-Not attempted due to medical condition or safety concerns N. 4 steps 88-Not attempted due to medical condition or safety concerns O. 12 steps 88-Not attempted due to medical condition or safety concerns P. Picking up object 88-Not attempted due to medical condition or safety concerns R. Wheel 50 feet with two turns 01-Dependent S. Wheel 150 feet 01-Dependent - Bladder and Bowel Bladder continence 0-Always continent Bowel continence 0-Always continent DISCHARGE INSTRUCTIONS: - N/A Lovenox 40 mg sq daily. DISCHARGE PLAN, FOLLOW UP CARE PROVISIONS: - Estimated Length of Stay (days) 13. - Consensus on plan Discharge plan has been discussed with primary caregiver. Patient/Family is in agreement with the sandy n. Primary caregiver is in agreement with the plan. - Patient/Family Goals Return home with assistance. - Planned Living Setting Upon Discharge Home, to live with Family/Relatives. Transitional Living. 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
== END 2019-06-29 14:05 | disposition home health service (06) | DRG 552 ==
LOC: 5TH 06-11 09:19
PROVIDERS: ADMIT Internal Medicine; ATTEND Internal Medicine
DX: M54.16 Radiculopathy, lumbar region (principal); C64.1 Malignant neoplasm of right kidney, except renal pelvis; R53.81 Other malaise; E78.2 Mixed hyperlipidemia; I25.10 Atherosclerotic heart disease of native coronary artery without angina pectoris; E11.9 Type 2 diabetes mellitus without complications; N40.0 Benign prostatic hyperplasia without lower urinary tract symptoms; I10 Essential (primary) hypertension; E29.1 Testicular hypofunction; S51.811A Laceration without foreign body of right forearm, initial encounter; E83.42 Hypomagnesemia; E11.65 Type 2 diabetes mellitus with hyperglycemia; S32.009D Unspecified fracture of unspecified lumbar vertebra, subsequent encounter for fracture with routine healing; S22.009D Unspecified fracture of unspecified thoracic vertebra, subsequent encounter for fracture with routine healing; E11.40 Type 2 diabetes mellitus with diabetic neuropathy, unspecified; M21.379 Foot drop, unspecified foot; M81.0 Age-related osteoporosis without current pathological fracture; E78.5 Hyperlipidemia, unspecified
CPT/HCPCS: 36415; 71046; 72070; 72100; 72146; 72148; 80048; 80053; 81001; 82040; 82947; 82962; 83036; 83735; 84134; 84443; 85025; 87086; 87088; 97110; 97116; 97161; 97530; J1650

== ENCOUNTER 2021-01-31 13:42 | Emergency (ER) | payer OTHER ==
--- OUTSIDE RECORDS SUMMARY | 2021-01-31 13:45 | XMS REPORT | Continuity of Care Document ---
:1940 Author Organization [facility] t Address [address] [place] [address] Care Team Providers Name Role Phone Evelyne Yanes MD Primary Care Physician Problems Condition Condition Condition Status Onset Resolution Last Treating Co mments Source Name Details Category Date Date Treatment Clinician Date History of History of Disease Active 2015-[address] partial partial 2-07 [facility]om [facility]: Me dical y (Right) y (Right) 00 [facility] Carotid Carotid Disease Active 2015-[address] [facility] artery artery 2-06 [facility] stenosis stenosis 00:00: Medica l [address] [place] Left Left Disease Active 2015-[address] [facility] carotid carotid 1-30 [facility] stenosis stenosis 00:00: Medica l [address] [place] Essential Essential Disease Active 2015-[address] [facility] hypertensi hypertensi [address] - on on 00:00: Medical 00 Center Pure Pure Disease Active 2015-[address] [facility] hyperchole hyperchole 30 [place] [facility] - sterolemia sterolemia 00:00: Me dical 00 Center Current Current Disease Active 2015-[address] [facility] smoker smoker 09-23 [facility] - 00[facility] Coronary Coronary Disease Active 2015[facility] - disease disease 00:00: Medical involving involving 00 Cent er [place] coronary coronary artery of artery of [place] heart heart without without angina angina pectoris pectoris S/P S/P Disease Active 2015-[address] [facility] coronary coronary -30 [facility] artery artery 00:00: Medical stent stent 00 Center placement placement Allergies, Adverse Reactions, Alerts This patient has no known allergies or adverse reactions. Social History Social Habit Start Date Stop Date Quantity Comments Source History of tobacco Cigarette Smoker [facility] - use [facility] Sex Assigned At [facility] Cigarettes smoked 2016-07-30 2016-07-30 [facility] - current (pack per 00:00:00 00:00:00 Medical Center day) - Reported Alcohol intake 2016-07-30 2016-07-30 Current drinker [facility] [place] [facility] - 00:00:00 00:00:00 of alcohol [facility] Center (finding) Alcohol Comment 2016-07-23 2016-07-23 of rum every day [facility] - 00:00:00 00:00:00 [facility] Smoking Status Start Date Stop Date Source Current every day smoker 2016-07-30 00:00:00 [facility] Medications Ordered Filled Start Stop Current Ordering Indication Dosage Frequency Signature Comments Components Source Medication Medication Date Date Medication? Clinician (SIG) Name Name metoprolol 2015-08 Yes 50mg QD Take [address] (TOPROL-XL) 2-07 by mouth [facility] - 50 MG 24 hr 15:00: daily. Medi mal tablet [address] [place] pravastatin 2015-08 Yes 40mg QD Take [address] [facility] (PRAVACHOL) 2-07 by mouth [facility] - 40 MG 15:00: daily. Medical tablet [address] [place] aspirin 81 2015-08 Yes 81mg QD Take [address] MG EC 2-07 by mouth [facility] - tablet 15:00: daily. Medical [address] [place] [address] ursodiol 2015-08 Yes 300mg QD Take [address] [facility] (ACTIGALL) 2-07 mg by [facility] - 300 mg 15:00: mouth Medical capsule 25 daily. [place] famotidine 2015-08 Yes 20mg QD Take [address] (PEPCID) 20 2-07 by mouth [facility] - MG tablet 15:00: daily. Medica l [address] [place] nitroglycer 2015-[address] 0[address] in 2-07 mg under [facility] - (NITROSTAT) 15:00: the tongue Medical 0.4 MG SL 25 every 5 [place] tablet (five) minutes as needed for Chest pain Put 1 pill under tongue every 5min as needed for chest pain.No more than 3 doses in 15min.Call 911 if pain is unrelieved 5min after 1st dose . clopidogrel 2015-08 Yes 75mg QD Take [address] [facility] (PLAVIX) 75 10-01 by mouth [facility] - mg tablet 15:00: daily. Medica [address] Procedures This patient has no known procedures. Encounters Start End Encounter Admission Attending Care Care Encounter Source Date/Time Date/Time Type Type Clinicians Facility Department ID 2020-11-14 2020-11-14 [facility] [id number] [facility] 2020-11-07 2020-11-07 [facility] [id number] [facility] 2020-10-05 2020-10-05 [facility] [id number] [facility] 2020-09-25 2020-09-25 [facility] [id number] [facility] 2020-08-23 2020-08-23 [facility] [id number] [facility] 2020-08-10 2020-08-10 [facility] [id number] [facility] 2020-08-03 2020-08-03 [facility] [id number] [facility] 2020-07-31 2020-07-31 [facility] [id number] [facility] 2020-07-11 2020-07-11 [facility] [id number] [facility] 2020-06-16 2020-06-16 [facility] [id number] [facility] 2020-06-15 2020-06-15 Outpatient [facility] [id number] [facility] ent Clinics 2020-06-01 2020-06-01 Outpatient [facility] [id number] [facility]00 [facility] ent Clinics 2020-05-18 2020-05-18 Outpatient [facility] [id number] [facility]00 [facility] ent Clinics Results This patient has no known results.
[2021-01-31] MEDS ORDERED: SMZ./TMP. 800/160 MG TABLET ONE (14:51)
--- NOTE | 2021-01-31 14:59 | EDPHYS ---
Physician Documentation [facility] Name: Jayme Castillo Age: 80 yrs Sex: Male : 1940 Arrival Date: 01/31/2021 Time: 14:08 Bed 6 Private MD: ED Physician Chris Cobian HPI: 01/31 14:55 This 80 yrs old Male presents to ER via Ambulatory with complaints of JAMILAH rn BLISTERS TO LEGS. 14:55 The patient presents with cellulitis of the right leg and left leg. Onset: The rn symptoms/episode began/occurred at an unknown time. Possible cause(s): unknown. Associated signs and symptoms: Pertinent positives: drainage, erythema. Modifying factors: the symptoms are alleviated by nothing, the symptoms are aggravated by nothing. Severity of symptoms: At their worst the symptoms were mild, in the emergency department the symptoms are unchanged. The patient has experienced similar episodes in the past. The patient has not recently seen a physician. Reports noticed increased drainage and erythema to both legs recently, no purulent drainage, no fever. . Historical: - Allergies: 14:12 NKDA; jl7 - Home Meds: 14:12 aspirin 81 mg Oral TbEC 1 tab once daily [Active]; metformin 500 mg Oral tab 1 tab 2 jl7 times per day [Active]; pravastatin 40 mg Oral tab [Active]; ursodiol 300 mg Oral cap daily [Active]; famotidine 20 mg Oral tab 1 tab once daily [Active]; Centrum Silver Oral daily [Active]; - PMHx: 14:12 Angina; Diabetes - NIDDM; Hyperlipidemia; Hypertension; jl7 - Immunization history:: Adult Immunizations up to date. - Social history:: Smoking status: Patient reports the use of cigarette tobacco products, smokes two packs cigarettes per day. - Family history:: not pertinent. - Hospitalizations: : No recent hospitalization is reported. ROS: 14:55 Constitutional: Negative for fever, chills, and weight loss, Eyes: Negative for injury, rn pain, redness, and discharge, Cardiovascular: Negative for chest pain, palpitations Respiratory: Negative for shortness of breath, cough, wheezing, and pleuritic chest pain, Abdomen/GI: Negative for abdominal pain, nausea, vomiting, diarrhea, and constipation, Back: Negative for injury and pain, MS/Extremity: + mild redness and open wores to RLE and LLE. Skin: + redness and irritation of both legs Neuro: Negative for headache, weakness, numbness, tingling, and seizure. Exam: 14:55 Constitutional: This is a well developed, well nourished patient who is awake, alert, rn and in no acute distress. Head/Face: Normocephalic, atraumatic. Cardiovascular: Regular rate and rhythm. No pulse deficits. Respiratory: No increased work of breathing, no retractions or nasal flaring. Skin: + mild erythema to bilateral lower extremities, with shallow ulcerations, no purulence, + soft blister left foot on instep. MS/ Extremity: Pulses equal, no cyanosis. Neurovascular intact. Full, normal range of motion. Equal circumference. Vital Signs: 14:09 BP 106 / 44; Pulse 71; Resp 19; Temp 97.5; Pulse Ox 96% ; Weight 92.99 kg; Height 6 ft. jl7 6 in. (198.12 cm); 14:45 BP 110 / 55; Pulse 70; Resp 18; Pulse Ox 98% on R/A; Pain 0/10; ld1 14:09 Body Mass Index 23.69 (92.99 kg, 198.12 cm) jl7 MDM: 14:12 Patient medically screened. rn 14:55 Differential diagnosis: cellulitis. Data reviewed: vital signs, nurses notes, and as a rn result, I will discharge patient. Counseling: I had a detailed discussion with the patient and/or guardian regarding: the historical points, exam findings, and any diagnostic results supporting the discharge/admit diagnosis, the need for outpatient follow up, to return to the emergency department if symptoms worsen or persist or if there are any questions or concerns that arise at home. Special discussion: I discussed with the patient/guardian in detail that at this point there is no indication for admission to the hospital. It is understood, however, that if the symptoms persist or worsen the patient needs to return immediately for re-evaluation. 01/31 14:22 Order name: Wound Culture rn 01/31 14:22 Order name: Wound dressing; Complete Time: :44 rn Administered Medications: :44 Drug: Bactrim (trimethoprim-sulfamethoxazole) (160 mg-800 mg (DS) 1 tablet Route: PO; ld1 15:15 Follow up: Response: No adverse reaction ld1 Disposition: 01/31/21 14:59 Discharged to Home. Impression: Cellulitis of left lower limb, Cellulitis of right lower limb. - Condition is Stable. - Discharge Instructions: Cellulitis, Adult, Wound Care. - Prescriptions for Bactrim DS 800- 160 mg Oral Tablet - take 1 tablet by ORAL route every 12 hours for 10 days; 20 tablet. - Medication Reconciliation Form, Thank You Letter, Antibiotic Education, Prescription Opioid Use form. - Follow up: Private Physician; When: As needed; Reason: Recheck today's complaints, Re-evaluation by your physician. - Problem is an ongoing problem. - Symptoms have improved. Signatures: Dispatcher [employer] EDMS Chris Cobian MD MD rn Leal, Jahala, RN RN jl7 Bernie Mohr RN RN ld1 Corrections: (The following items were deleted from the chart) 15:27 14:59 01/31/2021 14:59 Discharged to Home. Impression: Cellulitis of left lower limb; ld1 Cellulitis of right lower limb. Condition is Stable. Forms are Medication Reconciliation Form, Thank You Letter, Antibiotic Education, Prescription Opioid Use. Follow up: Private Physician; When: As needed; Reason: Recheck today's complaints, Re-evaluation by your physician. Problem is an ongoing problem. Symptoms have improved. rn
--- NOTE | 2021-01-31 14:59 | ER ---
Nurse's Notes [facility] Name: Jayme Castillo Age: 80 yrs Sex: Male : 1940 Arrival Date: 01/31/2021 Time: 14:08 Bed 6 Private MD: Diagnosis: Cellulitis of left lower limb;Cellulitis of right lower limb Presentation: 01/31 14:09 Chief complaint: Patient states: Blisters to bilateral legs x 1.5 weeks, denies fever. jl7 Coronavirus screen: Client denies travel out of the [place] in the last 14 days. At this time, the client does not indicate any symptoms associated with coronavirus-19. Ebola Screen: No symptoms or risks identified at this time. Initial Sepsis Screen: Does the patient meet any 2 criteria? No. Patient's initial sepsis screen is negative. Does the patient have a suspected source of infection? No. Patient's initial sepsis screen is negative. Risk Assessment: Do you want to hurt yourself or someone else? Patient reports no desire to harm self or others. Onset of symptoms was January 22, 2021. 14:09 Method Of Arrival: Ambulatory 7 14:09 Acuity: JANE 3 jl7 Historical: - Allergies: 14:12 NKDA; jl7 - Home Meds: 14:12 aspirin 81 mg Oral TbEC 1 tab once daily [Active]; metformin 500 mg Oral tab 1 tab 2 jl7 times per day [Active]; pravastatin 40 mg Oral tab [Active]; ursodiol 300 mg Oral cap daily [Active]; famotidine 20 mg Oral tab 1 tab once daily [Active]; Centrum Silver Oral daily [Active]; - PMHx: 14:12 Angina; Diabetes - NIDDM; Hyperlipidemia; Hypertension; jl7 - Immunization history:: Adult Immunizations up to date. - Social history:: Smoking status: Patient reports the use of cigarette tobacco products, smokes two packs cigarettes per day. - Family history:: not pertinent. - Hospitalizations: : No recent hospitalization is reported. Screenin:45 Abuse screen: Denies threats or abuse. Denies injuries from another. Nutritional ld1 screening: No deficits noted. Tuberculosis screening: No symptoms or risk factors identified. Fall Risk None identified. Assessment: 14:45 General: Appears in no apparent distress. comfortable, Behavior is calm, cooperative, ld1 appropriate for age. Pain: Denies pain. Neuro: Level of Consciousness is awake, alert, obeys commands, Oriented to person, place, time, situation, Appropriate for age. Cardiovascular: Capillary refill < 3 seconds Patient's skin is warm and dry. Respiratory: Airway is patent Respiratory effort is even, unlabored, Respiratory pattern is regular, symmetrical. GI: Abdomen is flat, non-distended. : No signs and/or symptoms were reported regarding the genitourinary system. EENT: No signs and/or symptoms were reported regarding the EENT system. Derm: Skin has blisters on JAMILAH blisters to right and left lower leg, and left foot. Skin is moist, Skin is pink. Musculoskeletal: No signs and/or symptoms reported regarding the musculoskeletal system. 15:05 Reassessment: Patient appears in no apparent distress at this time. No changes from ld1 previously documented assessment. Patient and/or family updated on plan of care and expected duration. Pain level reassessed. Vital Signs: 14:09 BP 106 / 44; Pulse 71; Resp 19; Temp 97.5; Pulse Ox 96% ; Weight 92.99 kg; Height 6 ft. jl7 6 in. (198.12 cm); 14:45 BP 110 / 55; Pulse 70; Resp 18; Pulse Ox 98% on R/A; Pain 0/10; ld1 14:09 Body Mass Index 23.69 (92.99 kg, 198.12 cm) jl7 ED Course: 14:08 Patient arrived in ED. jl7 14:10 Triage completed. jl7 14:12 Chris Cobian MD is Attending Physician. rn 14:12 Arm band placed on right wrist. jl7 14:26 Bernie Mohr, GUERRERO is Primary Nurse. ld1 14:44 Dressings: Kerlix X 2; right leg and left leg non-adherent dressing x 4 lateral aspect ld1 of right calf, right ankle, right calf, right Achilles, medial aspect of left calf and medial aspect of left foot. 14:45 Patient has correct armband on for positive identification. Call light in reach. Side ld1 rails up X 1. Pulse ox on. NIBP on. 14:45 No provider procedures requiring assistance completed. Patient did not have IV access ld1 during this emergency room visit. Administered Medications: 14:44 Drug: Bactrim (trimethoprim-sulfamethoxazole) (160 mg-800 mg (DS) 1 tablet Route: PO; ld1 15:15 Follow up: Response: No adverse reaction ld1 Outcome: 14:59 Discharge ordered by . rn 15:27 Discharged to home via wheelchair. ld1 15:27 Condition: stable 15:27 Discharge instructions given to patient, Instructed on discharge instructions, follow up and referral plans. medication usage, Demonstrated understanding of instructions, follow-up care, medications. 15:27 Patient left the ED. ld1 Signatures: Chris Cobian MD MD rn Ting Alberto RN RN jl7 Bernie Mohr RN RN ld1
[2021-01-31 15:45] VITALS: TEMP 97.5
[2021-01-31 15:46] VITALS: BP 110/55; O2SAT 98
== END 2021-01-31 15:27 | disposition home or self-care (01) ==
LOC: ER 13:42
DX: L03.116 Cellulitis of left lower limb (principal); L03.115 Cellulitis of right lower limb; F17.210 Nicotine dependence, cigarettes, uncomplicated; I10 Essential (primary) hypertension; E78.5 Hyperlipidemia, unspecified; E11.9 Type 2 diabetes mellitus without complications; Z79.82 Long term (current) use of aspirin
CPT/HCPCS: 87070; 87077; 87186; 87205; 99283

== ENCOUNTER 2021-06-03 08:49 | Emergency (ER) | payer OTHER ==
[2021-06-03 09:49] LABS: Absolute Lymphocytes (CBC) 0.4 K/uL (0.7-4.9); Basophils % 0.3 % (0-1.3); Hematocrit 21.4 % (39.6-49.0); Lymphocytes % 7.6 % (15.3-44.8); MPV 10.7 fL (7.6-11.3); RBC Red Blood Cell Count 2.11 M/uL (4.33-5.43)
[2021-06-03] MEDS ORDERED: NA CHLORIDE 0.9% 100 ML ONE (10:12)
[2021-06-03] MEDS ORDERED: CEFEPIME 1 GM/VIAL ONE (10:12)
[2021-06-03 10:18] LABS: ALT/SGPT 31 U/L (12-78); AST/SGOT 26 U/L (15-37); Albumin 2.2 g/dL (3.4-5.0); Alkaline Phosphatase 120 U/L (45-117); Amylase 38 U/L (25-115); BUN Blood Urea Nitrogen 38 mg/dL (7-18); Bicarbonate 18 mmol/L (21-32); Bilirubin Direct 0.2 mg/dL (0-0.2); Bilirubin Total 0.4 mg/dL (0.2-1.0); CKMB Creatine Kinase MB 16.7 ng/mL (1.0-3.6); Creatine Phosphokinase 115 U/L (39-308); Glucose Level 74 mg/dL (74-106); Lipase 15 U/L (73-393); Potassium 4.8 mmol/L (3.5-5.1); Protein, Total 5.9 g/dL (6.4-8.2); Sodium Level 144 mmol/L (136-145); Troponin (Emerg Dept Use Only) < 0.02 ng/mL (0.0-0.045)
[2021-06-03 10:29] LABS: Protime INR 1.11
[2021-06-03] MEDS ORDERED: NA CHLORIDE 0.9% 2,000 ML ONE (11:03)
[2021-06-03] MEDS ORDERED: VANCOMYCIN 1 GM/VIAL ONE (11:07)
[2021-06-03] MEDS ORDERED: NA CHLORIDE 0.9% 250 ML ONE ×2 (11:09→13:54)
--- NOTE | 2021-06-03 11:28 | RAD REPORT ---
EXAM DESCRIPTION: CT - Abdomen Pelvis Wo Contrast - 06/03/2021 10:51 am CLINICAL HISTORY: Diarrhea COMPARISON: Abdomen Pelvis W Contrast dated 07/29/2018; ABDOMEN W CONTRAST dated 02/27/2001; Chest Si ngle View dated 06/03/2021; CT ABD PELVIS W CONTRAST dated 03/18/2009 TECHNIQUE: Axial [address] imaging of the abdomen and pelvis was performed without IV contrast. No IV contrast was given because of allergy, abnormal renal function, patient refusal or physician re quest. No oral contrast administered. All CT scans are performed using dose optimization technique as appropriate and may include automated exposure control or mA/KV adjustment according to patient size. FINDINGS: No acute right lung base finding. There is a small 2 centimeter cystic cavity not regarded as significant. Irregular airspace consolidation is present at the right base. This is only partiall y imaged on this study. There is a 14 millimeter noncalcified pulmonary nodule in the posterior lower right lung field adjacent to the lung parenchymal changes. In the acute clinical setting this partia lly imaged finding may simply be a moderately large left lower lobe pneumonia. Possibility of maligna ncy cannot be excluded. Correlation is needed with any pneumonia clinical or laboratory findings. Liver shows a nodular capsule contour with no focal lesion on noncontrast imaging. No acute splenic f inding. Numerous surgical clips are present at the pancreatic tail similar to remote imaging. Numerou s pancreatic parenchymal calcifications are again noted. Large calcification fills much of the gallbl adder lumen similar to 2018. No hydronephrosis or suspicious renal mass. Nonobstructing calyx calculi are present. Prominent arter ial tree calcifications are present. No significant adrenal finding. Isodense renal masses and pyelon ephritis cannot be excluded in the absence of IV contrast. The urinary bladder is without significant finding. No gastric dilatation gastric wall thickening seen. No dilated small bowel loops. Moderate stool volu me is present filling but not dilating the entire colon. A colon mass is not evident. No diverticulit is or colitis findings confirmed. No free air, free fluid or pneumatosis. Patient has moderate fluid retention in the subcutaneous fa tty tissues. No hernia, mass or bulky lymphadenopathy. Disc and bone degenerative changes are present. T12 -L2 partial compression fracture deformities are present, stable from 2018. A 3 centimeter abdominal aortic aneurysm is present. No displaced calcific ation. IMPRESSION: Irregular consolidated parenchyma seen in left lower lobe from hilum into the lung base with adjacent noncalcified pulmonary nodule. In the acute clinical setting this may simply be a left lower lobe pneumonia. However, possibility of left lower lobe malignancy cannot be excluded on this p artially imaged finding. Correlation is needed with any pneumonia findings on clinical or laboratory assessment. A follow-up contrast-enhanced CT chest study could be performed after medical management of possible pneumonia. Moderate stool volume throughout the colon with no colitis or other acute GI process identifiable. Nodular contour to the liver possibly from cirrhosis or diffuse hepatic parenchymal disease.
--- NOTE | 2021-06-03 11:30 | RAD REPORT ---
EXAM DESCRIPTION: RAD - Chest Single View - 06/03/2021 10:23 am CLINICAL HISTORY: Weakness COMPARISON: Two view chest May 2019 TECHNIQUE: AP portable chest image was obtained 06/03/2021 10:23 am . 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 No acute failure or volume overloa d findings. Right lung field is clear. There is retrocardiac left base density that could be a pneumo alexandre in the acute clinical setting. Correlation is needed with any pneumonia laboratory or clinical ex am findings. Heart and vasculature are normal. No measurable pleural effusion and no pneumothorax. No acute bony abnormality seen. No acute aortic findings suspected. IMPRESSION: Suspected pneumonia in the medial left lung base superimposed on interstitial fibrotic p attern. Follow-up imaging following medical management is needed to assure complete clearing.
[2021-06-03 11:49] LABS: Anisocytosis SLIGHT; Blood Morphology Comment NOTED (NOT SEEN); Platelet Estimate DECR; White Blood Cell Scan OK (OK)
[2021-06-03 11:50] LABS: Poikilocytosis SLIGHT
[2021-06-03] MEDS ORDERED: NA CHLORIDE 0.9% 1,000 ML ONE (12:56)
[2021-06-03] MEDS ORDERED: PANTOPRAZOLE 40 MG INJ ONE (13:54)
[2021-06-03 14:56] LABS: Urine Blood Negative (Negative); Urine Glucose Negative (Negative); Urine Protein Trace (Negative); Urine pH 5.5 (5.0-7.0)
--- NOTE | 2021-06-03 14:56 | ER ---
Nurse's Notes [facility] Name: Jayme Castillo Age: 80 yrs Sex: Male : 1940 Arrival Date: 06/03/2021 Time: 09:11 Bed 26 Private MD: Diagnosis: Pneumonia, unspecified organism;Diarrhea, unspecified;GI Bleed/ Gastrointestinal hemorrhage, unspecified;Hypotension, unspecified;Cellulitis of right lower limb;Cellulitis of left lower limb;Dehydration;Sepsis, unspecified organism-cellulitis Presentation: 06/03 10:49 Chief complaint: EMS states: called for leaking cellulitis and diarrhea for weeks. was es2 constipated before that. hx of dm neuropathy. Pt hypotensive with EMS, sitting on trash bag d/t diarrhea. Coronavirus screen: Client denies travel out of the [place] in the last 14 days. Ebola Screen: Patient negative for fever greater than or equal to 101.5 degrees Fahrenheit, and additional compatible Ebola Virus Disease symptoms Patient denies exposure to infectious person. Patient denies travel to an Ebola-affected area in the 21 days before illness onset. No symptoms or risks identified at this time. Initial Sepsis Screen: Does the patient meet any 2 criteria? Systolic BP < 90 mmHg. Does the patient have a suspected source of infection? No. Patient's initial sepsis screen is negative. Risk Assessment: Do you want to hurt yourself or someone else? Patient reports no desire to harm self or others. Onset of symptoms is unknown. 10:49 Method Of Arrival: EMS: [facility] es2 10:49 Acuity: JANE 2 es2 Triage Assessment: 18:33 General: Appears uncomfortable, ill, slender, unkempt, Behavior is calm, cooperative. es2 Pain: Denies pain. EENT: No signs and/or symptoms were reported regarding the EENT system. Neuro: Level of Consciousness is awake, alert, obeys commands, Oriented to person, place, time, situation, Appropriate for age Speech is normal. Cardiovascular: Capillary refill < 3 seconds. Respiratory: Airway is patent. GI: Reports diarrhea. : Reports inability to void. Derm: cellulitis alireza legs, wound on R leg. Historical: - Allergies: 10:52 NKDA; es2 - Home Meds: 10:52 azithromycin 250 mg Oral tab 1 tab once daily [Active]; ethambutol 400 mg oral tab es2 three times a day [Active]; rifampin 300 mg Oral cap once daily [Active]; pravastatin 40 mg oral tab 1 tab once daily [Active]; ursodiol 300 mg Oral cap 1 cap daily [Active]; famotidine 20 mg Oral tab 1 tab 2 times per day [Active]; metformin 500 mg Oral tab 2 tabs 2 times per day [Active]; pioglitazone 45 mg oral tab 1 tab once daily [Active]; ferrous gluconate 324 mg (36 mg iron) Oral tab twice a day [Active]; gabapentin 600 mg oral tab twice a day [Active]; meloxicam 7.5 mg oral tab 1 tab once daily [Active]; NitroQuick 0.4 mg SL subl 1 tab every 5 minutes [Active]; Vitamin C 1,000 mg Oral tab twice a day [Active]; aspirin 81 mg Oral tab [Active]; acetaminophen 500 mg Oral cap 1 cap every 4-6 hours [Active]; - Immunization history:: Adult Immunizations not up to date, . - Social history:: Smoking status: Patient reports the use of cigarette tobacco products, 1.5 cigarettes a day and pipe. Screenin:00 Abuse screen: Denies threats or abuse. Denies injuries from another. Tuberculosis es2 screening: No symptoms or risk factors identified. Fall Risk IV access (20 points). Mental Status- Oriented to own ability (0 pts). 13:14 Nutritional screening: Pt looks malnourished. . es2 Assessment: 11:03 Reassessment: Patient is alert, oriented x 3, equal unlabored respirations, skin es2 warm/dry/pink. General: Appears uncomfortable, ill, slender, Behavior is appropriate for age. Pain: Denies pain. Neuro: Level of Consciousness is awake, alert, obeys commands, Oriented to person, place, time, situation, Appropriate for age Speech is normal. Cardiovascular: Capillary refill < 3 seconds Patient's skin is warm and dry. Respiratory: Airway is patent Respiratory effort is even, Respiratory pattern is regular. GI: No signs and/or symptoms were reported involving the gastrointestinal system. : Reports inability to void. EENT: No signs and/or symptoms were reported regarding the EENT system. Derm: pt has cellulitis in legs, weeping. Vital Signs: 10:30 BP 86 / 45; Pulse 59; Resp 12; Pulse Ox 100% on R/A; Weight 90.72 kg; es2 11:19 BP 99 / 51; Pulse Ox 100% on R/A; es2 12:48 BP 79 / 42; Pulse 48; Pulse Ox 96% on R/A; es2 13:14 BP 85 / 51; Pulse 58; Pulse Ox 93% on R/A; es2 13:19 BP 92 / 50; Pulse 54; Pulse Ox 90% ; es2 14:20 BP 108 / 52; Pulse 62; Pulse Ox 92% on 2 lpm NC; es2 15:52 BP 122 / 54; Pulse 55; Resp 10; Pulse Ox 90% on 2 lpm NC; es2 16:04 Temp 90.2(R); es2 17:25 Temp 91.2(R); es2 18:31 BP 101 / 54; Pulse 74; Resp 10; Temp 93.5(R); Pulse Ox 86% on 2 lpm NC; es2 18:31 Pt 86%, sleeping with mouth open es2 ED Course: 09:11 Patient arrived in ED. es2 09:11 Sarah Ramirez, GUERRERO is Primary Nurse. es2 09:12 Noel Jose NP is PHCP. pm1 09:12 Chris Cobian MD is Attending Physician. pm1 09:42 Amylase Sent. es2 09:42 Creatine Phosphokinase Sent. es2 09:42 Basic Metabolic Panel Sent. es2 09:42 Blood Culture Sent. es2 09:42 CBC with Automated Diff Sent. es2 09:42 Amylase, Serum Sent. es2 09:43 Basic Metabolic Panel Sent. es2 09:43 Blood Culture Adult (2) Sent. es2 09:43 CBC with Diff Sent. es2 09:43 CPK Sent. es2 09:43 Protime (+inr) Sent. es2 09:43 Lipase Sent. es2 09:43 Lactate Sent. es2 09:43 LFT's Sent. es2 09:43 Ckmb Sent. es2 09:43 Ptt, Activated Sent. es2 09:43 Procalcitonin Sent. es2 09:43 Troponin (emerg Dept Use Only) Sent. es2 10:23 Chest Single View XRAY In Process Unspecified. EDMS 10:29 Flu Sent. es2 10:50 Abdomen In Process Unspecified. EDMS 10:52 Triage completed. es2 11:03 Flu Sent. es2 11:03 Blood Culture Sent. es2 12:25 EKG done, by ED staff. cs9 12:49 No provider procedures requiring assistance completed. es2 12:49 Arm band placed on. es2 12:49 Patient has correct armband on for positive identification. Placed in gown. Bed in low es2 position. Call light in reach. Side rails up X2. 14:56 Urine Microscopic Only Sent. es2 15:12 initiated a transfer with Keely from the [facility] Transfer Center. eb 15:24 connected the GI weatherization technician for [facility] with Noel MONTANEZ for patient transfer eb consultation. 15:[address] Hernandez the job site superintendent weatherization technician for [facility] with Noel Montanez for eb patient transfer consultation. 16:00 administrative approval given by Keely Fonseca/ patient has been accepted to [facility]/ Dr. Gabriela Hernandez has accepted the patient in transfer/ report o be called to [phone]. 16:34 Wound Culture Sent. es2 16:34 Wound Culture Sent. es2 Administered Medications: 10:01 Drug: Cefepime 1 grams Route: IVPB; Rate: 200 ml/hr; Infused Over: 30 mins; Site: right es2 forearm; 10:30 Follow up: Response: No adverse reaction; IV Status: Completed infusion es2 11:02 Drug: vancoMYCIN 1 grams Route: IVPB; Infused Over: 2 hrs; Site: right forearm; es2 11:05 Drug: NS 0.9% (30 ml/kg) 30 ml/kg Route: IV; Rate: bolus; Site: right forearm; es2 14:56 Follow up: Response: No adverse reaction; IV Status: Completed infusion es2 13:35 Drug: ProTONIX (pantoprazole) 40 mg Route: IVP; Site: right forearm; es2 13:35 Follow up: Response: No adverse reaction es2 13:35 Drug: ProTONIX (pantoprazole) 8 mg/hr Route: IV; Rate: 25 ml/hr; Site: right forearm; es2 14:57 Follow up: Response: No adverse reaction; IV Status: Completed infusion es2 15:11 Drug: Levophed (norepinephrine) (4 mg/250 mL D5W 4 mcg/min Route: IV; Rate: calculated es2 rate; Site: right femoral; Outcome: 14:55 ER care complete, transfer ordered by . pm1 19:34 Patient left the ED. em Signatures: Dispatcher [employer] EDRobin Romero RN RN em Alisia Flores RN RN ss Noel Jose NP POT LINING SUPERVISOR pm1 Sarah Mason Elizabeth, RN RN es2 Madina Lamas cs9 Corrections: (The following items were deleted from the chart) 11:00 10:52 PMHx: Hyperlipidemia; es2 es2 11:00 10:52 PMHx: Hypertension; es2 es2 11:00 10:52 PMHx: Angina; es2 es2 11:00 10:52 PMHx: Diabetes - NIDDM; es2 es2 11:51 10:29 CORONAVIRUS+ drawn and sent. es2 EDMS 15:21 15:20 initiated a transfer with Keely from the [facility] Transfer Center. eb eb 15:42 15:36 connected the job site superintendent weatherization technician for [facility] with Noel Montanez for patient transfer eb consultation. eb 16:38 16:32 Reassessment: Patient is up for discharge. Attempted to call her transportation service "[employer]" at [phone] who did not answer. Went straight to , but unable to leave as it has not been set up. Attempted to call Son and daughter and both phones were not in service. ss
--- NOTE | 2021-06-03 14:56 | EDPHYS ---
Physician Documentation [facility] Name: Jayme Castillo Age: 80 yrs Sex: Male : 1940 Arrival Date: 06/03/2021 Time: 09:11 Bed 26 Private MD: ED Physician Chris Cobian HPI: 06/03 10:03 This 80 yrs old Male presents to ER via EMS with complaints of cellulitis of pm1 legs and diarrhea. 10:03 The patient presents with cellulitis of the right leg and left leg. Description: pm1 draining, swollen. Onset: The symptoms/episode began/occurred 1 week(s) ago. Possible cause(s): unknown. Associated signs and symptoms: Pertinent positives: cough, productive, Pertinent negatives: fever, shortness of breath, chest pain. Modifying factors: the symptoms are alleviated by nothing, the symptoms are aggravated by nothing. Severity of symptoms: in the emergency department the symptoms are actually worse. The patient has been recently seen by a physician: the patient's primary care provider, Dr. Yanes 1 month(s) ago, with different complaint(s), routine check up. 80-year-old patient presenting to the ER with complaints of cellulitis to lower extremities and diarrhea. Patient reports onset of both symptoms for 1 week. Right leg cellulitis worse than left. Right leg cellulitis positive for drainage. Patient with brown watery diarrhea. Denies any blood. Negative for abdominal pain, nausea, vomiting, and constipation. Does report prior constipation before diarrhea. Patient reports productive cough onset for approximately one week. Patient without shortness of breath or chest pain. Historical: - Allergies: 10:52 NKDA; es2 - Home Meds: 10:52 azithromycin 250 mg Oral tab 1 tab once daily [Active]; ethambutol 400 mg oral tab es2 three times a day [Active]; rifampin 300 mg Oral cap once daily [Active]; pravastatin 40 mg oral tab 1 tab once daily [Active]; ursodiol 300 mg Oral cap 1 cap daily [Active]; famotidine 20 mg Oral tab 1 tab 2 times per day [Active]; metformin 500 mg Oral tab 2 tabs 2 times per day [Active]; pioglitazone 45 mg oral tab 1 tab once daily [Active]; ferrous gluconate 324 mg (36 mg iron) Oral tab twice a day [Active]; gabapentin 600 mg oral tab twice a day [Active]; meloxicam 7.5 mg oral tab 1 tab once daily [Active]; NitroQuick 0.4 mg SL subl 1 tab every 5 minutes [Active]; Vitamin C 1,000 mg Oral tab twice a day [Active]; aspirin 81 mg Oral tab [Active]; acetaminophen 500 mg Oral cap 1 cap every 4-6 hours [Active]; - Immunization history:: Adult Immunizations not up to date, . - Social history:: Smoking status: Patient reports the use of cigarette tobacco products, 1.5 cigarettes a day and pipe. ROS: 11:09 ENT: Negative for injury, pain, and discharge, Cardiovascular: Negative for chest pain, pm1 palpitations, and edema. 11:09 : Negative for injury, bleeding, discharge, and swelling, MS/Extremity: Negative for injury and deformity. 11:09 Neuro: Negative for headache, weakness, numbness, tingling, and seizure. 11:09 Constitutional: Positive for poor PO intake, Negative for fever. 11:09 Respiratory: Positive for cough, Negative for shortness of breath. 11:09 Abdomen/GI: Positive for diarrhea, Negative for abdominal pain, nausea and vomiting, constipation. 11:09 Skin: Positive for cellulitis, of the right leg and left leg. 11:09 All other systems are negative. Exam: 11:09 Constitutional: This is a well developed, well nourished patient who is awake, alert, pm1 and in no acute distress. Head/Face: Normocephalic, atraumatic. 11:09 MS/ Extremity: Pulses equal, no cyanosis. Neurovascular intact. Full, normal range of motion. 11:09 Eyes: Exam is negative for acute changes, Extraocular movements: intact throughout, Conjunctiva: no acute changes. 11:09 ENT: Exam is negative for acute changes, Mouth: no acute changes, Lips: normal, moist, Oral mucosa: normal, pink and intact, moist. 11:09 Neck: Exam negative for acute changes. 11:09 Chest/axilla: Inspection: normal, no acute changes, Palpation: is normal, no tenderness. 11:09 Cardiovascular: Rate: bradycardic, actual rate is 57 bpm, Rhythm: regular, Pulses: no pulse deficits are appreciated, Heart sounds: normal, normal S1and S2. 11:09 Respiratory: the patient does not display signs of respiratory distress, Respirations: no acute changes, Breath sounds: are clear throughout. 11:09 Skin: Appearance: normal except for affected area, cellulitis, that is moderate, on the lateral aspect of right calf, medial aspect of right calf and right henson, 2.5 cm x 1 cm draining ulceration on right henson, Cellulitis that is mild on the lateral, medial aspect of left calf and left henson. 11:09 Neuro: Exam negative for acute changes, Orientation: is normal, Mentation: is normal, Motor: is normal, moves all fours. 13:13 Abdomen/GI: Rectal exam: rectal tone normal, Stool: brown, guaiac positive, diarrhea, pm1 swelling, is not appreciated, tenderness, is not appreciated. Vital Signs: 10:30 BP 86 / 45; Pulse 59; Resp 12; Pulse Ox 100% on R/A; Weight 90.72 kg; es2 11:19 BP 99 / 51; Pulse Ox 100% on R/A; es2 12:48 BP 79 / 42; Pulse 48; Pulse Ox 96% on R/A; es2 13:14 BP 85 / 51; Pulse 58; Pulse Ox 93% on R/A; es2 13:19 BP 92 / 50; Pulse 54; Pulse Ox 90% ; es2 14:20 BP 108 / 52; Pulse 62; Pulse Ox 92% on 2 lpm NC; es2 15:52 BP 122 / 54; Pulse 55; Resp 10; Pulse Ox 90% on 2 lpm NC; es2 16:04 Temp 90.2(R); es2 17:25 Temp 91.2(R); es2 18:31 BP 101 / 54; Pulse 74; Resp 10; Temp 93.5(R); Pulse Ox 86% on 2 lpm NC; es2 18:31 Pt 86%, sleeping with mouth open es2 Procedures: 14:39 Central Line: the site was prepped with Betadine, in sterile fashion, a triple lumen rn catheter was inserted, in the right femoral vein, in 1 attempts. placement was verified, by blood return, the site was dressed with Tegaderm, using sterile technique, the patient tolerated the procedure, well, Placed by Dr. Cobian. MDM: 09:16 Patient medically screened. pm1 13:17 Data reviewed: vital signs. pm1 14:53 Counseling: I had a detailed discussion with the patient and/or guardian regarding: the pm1 historical points, exam findings, and any diagnostic results supporting the discharge/admit diagnosis, lab results, radiology results, the need to transfer to another facility, [facility] does not immediately have the required specialist, GI on-call. 15:42 Physician consultation: MD Hernandez was contacted at 15:43, regarding regarding transfer, pm1 patient's condition, and will see patient. 06/03 09:25 Order name: Amylase, Serum pm1 06/03 09:25 Order name: Basic Metabolic Panel pm1 06/03 09:25 Order name: Blood Culture Adult (2) pm1 06/03 09:25 Order name: CBC with Diff pm1 06/03 09:25 Order name: CPK pm1 06/03 09:25 Order name: Ckmb; Complete Time: 10:28 pm1 06/03 09:25 Order name: LFT's; Complete Time: 10:28 pm1 06/03 09:25 Order name: Lactate; Complete Time: 10:19 pm1 06/03 09:25 Order name: Lipase; Complete Time: 10:28 pm1 06/03 09:25 Order name: Procalcitonin; Complete Time: 11:01 pm1 06/03 09:25 Order name: Protime (+inr); Complete Time: 10:30 pm1 06/03 09:25 Order name: Ptt, Activated; Complete Time: 10:30 pm1 06/03 09:25 Order name: Troponin (emerg Dept Use Only); Complete Time: 10:28 pm1 06/03 09:25 Order name: Urine Microscopic Only; Complete Time: 15:14 pm1 06/03 09:26 Order name: Amylase; Complete Time: 10:28 EDMS 06/03 09:26 Order name: Basic Metabolic Panel; Complete Time: 10:28 EDMS 06/03 09:26 Order name: Blood Culture EDMS 06/03 09:26 Order name: CBC with Automated Diff; Complete Time: 11:51 EDMS 06/03 09:26 Order name: Creatine Phosphokinase; Complete Time: 10:28 EDMS 06/03 09:39 Order name: Flu; Complete Time: 11:15 pm1 06/03 10:28 Order name: Glucose, Ancillary Testing; Complete Time: 10:30 EDMS 06/03 11:49 Order name: CBC Smear Scan; Complete Time: 11:51 EDMS 06/03 11:51 Order name: SARS-COV-2 RT PCR; Complete Time: 13:05 EDMS 06/03 14:55 Order name: Urine Dipstick-Ancillary; Complete Time: 15:14 EDMS 06/03 09:25 Order name: Chest Single View XRAY; Complete Time: 11:30 pm1 06/03 09:25 Order name: Accucheck; Complete Time: 10:18 pm1 06/03 09:25 Order name: Cardiac monitoring; Complete Time: 09:43 pm1 06/03 09:25 Order name: EKG - Nurse/Tech; Complete Time: 10:41 pm1 06/03 09:25 Order name: IV Saline Lock - Large Bore; Complete Time: 09:43 pm1 06/03 09:25 Order name: Labs collected and sent; Complete Time: 09:43 pm1 06/03 09:25 Order name: O2 Per Protocol; Complete Time: 13:51 pm1 06/03 09:25 Order name: O2 Sat Monitoring; Complete Time: 09:43 pm1 06/03 09:25 Order name: Urine Dipstick-Ancillary (obtain specimen); Complete Time: 14:56 pm1 06/03 10:31 Order name: Abdomen ; Complete Time: 11:30 EDMS 06/03 16:06 Order name: Wound Culture pm1 06/03 16:07 Order name: Wound Culture EDMS Administered Medications: 10:01 Drug: Cefepime 1 grams Route: IVPB; Rate: 200 ml/hr; Infused Over: 30 mins; Site: right es2 forearm; 10:30 Follow up: Response: No adverse reaction; IV Status: Completed infusion es2 11:02 Drug: vancoMYCIN 1 grams Route: IVPB; Infused Over: 2 hrs; Site: right forearm; es2 11:05 Drug: NS 0.9% (30 ml/kg) 30 ml/kg Route: IV; Rate: bolus; Site: right forearm; es2 14:56 Follow up: Response: No adverse reaction; IV Status: Completed infusion es2 13:35 Drug: ProTONIX (pantoprazole) 40 mg Route: IVP; Site: right forearm; es2 13:35 Follow up: Response: No adverse reaction es2 13:35 Drug: ProTONIX (pantoprazole) 8 mg/hr Route: IV; Rate: 25 ml/hr; Site: right forearm; es2 14:57 Follow up: Response: No adverse reaction; IV Status: Completed infusion es2 15:11 Drug: Levophed (norepinephrine) (4 mg/250 mL D5W 4 mcg/min Route: IV; Rate: calculated es2 rate; Site: right femoral; Disposition Summary: 06/03/21 14:55 Transfer Ordered Transfer Location: Other Acute Care Facility pm1 Reason: Higher level of care pm1 Condition: Stable pm1 Problem: new pm1 Symptoms: have improved pm1 Accepting Physician: (06/03/21 19:34) em Diagnosis - Pneumonia, unspecified organism pm1 - Diarrhea, unspecified pm1 - GI Bleed/ Gastrointestinal hemorrhage, unspecified pm1 - Hypotension, unspecified pm1 - Cellulitis of right lower limb pm1 - Cellulitis of left lower limb pm1 - Dehydration pm1 - Sepsis, unspecified organism - cellulitis pm1 Forms: - Medication Reconciliation Form pm1 - SBAR form pm1 Addendum: 06/07/2021 00:04 Co-signature as Attending Physician, Chris Cobian MD I agree with the assessment and r n plan of care. Attestation: The patient's history, exam findings, diagnostics, and a summary of any interventions or procedures was reviewed in detail with Noel Jose NP. 00:05 PA/LIFE SCIENCE RESEARCH ASSISTANT's history reviewed, patient interviewed, and examined. HPI: 30-year-old male with r n generalized weakness and found sitting in his own stool My personal exam of patient reveals: Cachectic male without any focal weakness. Generalized weakness. Disheveled and constantly passing stool I agree with assessment and care plan and confirm the diagnosis (es) above. Signatures: Dispatcher [employer] Robin Rodriguez RN RN em Nieto, Roman, MD MD rn Marinas, Patrick, NP LIFE SCIENCE RESEARCH ASSISTANT pm1 Sarah Ramirez RN RN es2 Corrections: (The following items were deleted from the chart) 06/03 10:31 09:38 Abdomen Pelvis W Con+CT.RAD.BRZ ordered. EDMS EDMS 11:00 10:52 PMHx: Hyperlipidemia; es2 es2 11:00 10:52 PMHx: Hypertension; es2 es2 11:00 10:52 PMHx: Angina; es2 es2 11:00 10:52 PMHx: Diabetes - NIDDM; es2 es2 11:51 09:39 CORONAVIRUS+ ordered. EDMS EDMS 13:15 13:13 Abdomen/GI: Rectal exam: pm1 pm1 15:15 14:39 Central Line: the site was prepped with Betadine, in sterile fashion, a triple rn lumen catheter was inserted, in the right femoral vein, in 1 attempts. placement was verified, by blood return, the site was dressed with Tegaderm, using sterile technique, the patient tolerated the procedure, well, rn 15:18 14:55 MD pm1 pm1 19:34 15:18 MD pm1 em
[2021-06-03 15:07] LABS: Urine Amorphous Sediment TRACE /HPF (NONE SEEN); Urine Bacteria <20 /HPF (NONE SEEN); Urine RBC <5 /HPF (NONE SEEN)
[2021-06-03] MEDS ORDERED: NOREPINEPHRINE 4mg/D5W 250mL 4 MG/250 ML BAG IV ONE (15:24)
[2021-06-03 19:51] VITALS: BP 101/54; TEMP 93.5; O2SAT 86
--- NOTE | 2021-06-04 07:07 | EKG ---
Test Date: 2021-06-03 Test Time: 11:29:10 Water Attendant: NAM MEASUREMENT RESULTS: Intervals: Rate: 54 SD: 178 QRSD: 122 QT: 528 QTc: 500 [place]: P: 69 SD: 178 QRS: 73 T: 32 INTERPRETIVE STATEMENTS: Sinus bradycardia Nonspecific intraventricular conduction delay Nonspecific ST and T wave abnormality Abnormal ECG Compared to ECG 09/08/2018 08:27:23 Intraventricular conduction delay now present ST (T wave) deviation now present Sinus rhythm no longer present Sinus arrhythmia no longer present Prolonged QT interval no longer present Electronically Signed On 06-04-21 07:04:42 CDT by Constantin Lock
== END 2021-06-03 19:34 ==
LOC: ER 08:49
PROC: 06HY33Z Insertion of Infusion Device into Lower Vein, Percutaneous Approach (ICD-10-PCS; principal; 2021-06-03)
DX: A41.9 Sepsis, unspecified organism (principal); L03.115 Cellulitis of right lower limb; L03.116 Cellulitis of left lower limb; J18.9 Pneumonia, unspecified organism; E86.0 Dehydration; R19.7 Diarrhea, unspecified; K92.2 Gastrointestinal hemorrhage, unspecified; I95.9 Hypotension, unspecified; I10 Essential (primary) hypertension; F17.210 Nicotine dependence, cigarettes, uncomplicated; Z79.82 Long term (current) use of aspirin; Z79.899 Other long term (current) drug therapy; Z20.822 Contact with and (suspected) exposure to COVID-19
CPT/HCPCS: 36569; 96365; 96367; 96361; 93005; 87040 ×2; 87070; 85025; 80048; 36415; 82150; 82550; 87205; 85610; 82947; 80076; 83605; 85730; 87077; 87186; 84484; 82553; 83690; 84145; 87804 ×2; 74176; 71045; 96375; 99285; U0003; C9113; J3370; J7050 ×2; J7030 ×2; J0692; 81003; 81015